=== PATIENT | female | born 1940 | race Caucasian/White ===

== ENCOUNTER → 2016-05-17 | Outpatient (CLI) | payer BC ==
[~2016-05-17] MED LIST: ASPI81TA28 PO; B-CO1CAP17 PO; CALCTAB76 PO; CHOL100010 PO; LEVO50TA PO; METO25TA56 PO; MULTTAB PO; RSTOPS OP
[2016-05-17 12:55] LABS: ALT/SGPT 18 U/L (12-78); BLOOD UREA NITROGEN 11 mg/dl (7-18); BUN/CREATININE RATIO 11.4 (10-20); CALCIUM 9.2 mg/dl (8.5-10.1); CARBON DIOXIDE 30 mmol/L (21-32); CHLORIDE 96 mmol/L (98-107); CHOLESTEROL 180 mg/dl (0-200); CREATININE 0.99 mg/dl (0.60-1.20); GLUCOSE 110 mg/dl (70-99); POTASSIUM 4.1 mmol/L (3.5-5.1); SODIUM 132 mmol/L (136-145); TRIGLYCERIDES 127 mg/dl (0-150); VERY LOW DENSITY LIPOPROT CALC 25 mg/dl
[2016-05-17 13:05] LABS: ALB/GLOB RATIO 1.1 (0.9-2); ALKALINE PHOSPHATASE 80 U/L (45-117); AST/SGOT 17 U/L (15-37); CHOLESTEROL/HDL RATIO 2.8; HDL CHOLESTEROL 65 mg/dl; LDL CHOLESTEROL CALCULATED 90 mg/dl
== END | disposition home or self-care (01) ==
LOC: C.LABPVFM 09:48
PROVIDERS: ATTEND Family Medicine
DX: R00.2 Palpitations (principal); E03.9 Hypothyroidism, unspecified; G43.109 Migraine with aura, not intractable, without status migrainosus; Z13.220 Encounter for screening for lipoid disorders

== ENCOUNTER → 2016-09-11 | Outpatient (CLI) | payer BC ==
[2016-09-11 17:17] LABS: BASO % 0.5 %; BASO ABS # 0.03 K/uL (0-0.2); COMPLETE YES; HEMATOCRIT 37.6 % (37-47); IG% 0.2 %; LYMPH ABS # 0.71 K/uL (1.2-3.4); MEAN CELL VOLUME 91.3 fL (80-100); MEAN CORPUSCULAR HEMOGLOBIN 30.3 pg (25-34); MEAN CORPUSCULAR HGB CONC 33.2 g/dl (32-36); MEAN PLATELET VOLUME 10.6 fL (7.4-10.4); MONO % 7.4 %; NEUT % 77.9 %; PLATELET COUNT 356 K/uL (130-400); RED BLOOD COUNT 4.12 M/uL (4.2-5.4); WHITE BLOOD COUNT 5.91 K/uL (4.8-10.8)
[2016-09-11 17:27] LABS: TOTAL IRON BINDING CAPACITY 352 mcg/dl (250-450)
== END | disposition home or self-care (01) ==
LOC: C.LABPVFM 10:13
PROVIDERS: ATTEND Nurse Practitioner Family
DX: C18.6 Malignant neoplasm of descending colon (principal)

== ENCOUNTER → 2016-09-18 | Outpatient (CLI) | payer BC ==
--- NOTE | 2016-09-18 13:56 | MAMMOGRAPHY REPORT ---
BILATERAL DIGITAL DIAGNOSTIC MAMMOGRAM TOMOSYNTHESIS WITH CAD: 09/18/2016 CLINICAL HISTORY: 1 year follow-up for a lymph node with associated coarse calcification in the far s uperior posterior right breast, projecting over the pectoralis muscle on the MLO view. History of pr ior benign surgery in the right breast. Also time of annual bilateral screening exam. TECHNIQUE: Bilateral CC and MLO 2-D and tomosynthesis images were obtained. Current study was also e valuated with a Computer Aided Detection (CAD) system. COMPARISON: Comparison is made to exams dated: 01/24/2016 mammogram, 01/24/2016 ultrasound, 09/20/2015 ultrasound, 09/20/2015 mammogram, 09/13/2015 mammogram, and 09/15/2013 mammogram - [facility] enter. BREAST COMPOSITION: There are scattered areas of fibroglandular density in both breasts. FINDINGS: The pattern of the glandular tissue in the anterior aspect of each breast is stable compare d to prior mammograms. There are stable benign-appearing punctate microcalcifications in the right b reast. No new suspicious mass, architectural distortion or cluster of microcalcifications is seen. There is an oval circumscribed mass with associated calcification in the superior posterior right brenton ast, projecting over the pectoralis muscle on the MLO view, that is stable in size dating back to at least 09/13/2015. Current measurements are 4.4 x 8.1 mm, and previously measured 5.2 x 8.8 mm. Give n slight differences in positioning this is considered stable. Although this lymph node was not seen on mammograms prior to 2015, given one-year stability is most likely benign. It may be related to p rior surgery which occurred in the posterior right breast. Another diagnostic mammogram in 12 months is recommended to ensure at least 2 years of stability to confirm benignity. IMPRESSION: ACR-BI-RADS CATEGORY 3: PROBABLY BENIGN 1. The morphologically normal 8 mm lymph node with associated calcification in the right superior pos terior breast is stable in size for 1 year and most likely benign. This is possibly related to previ ous surgery. Another 12 month follow-up diagnostic mammogram and possible ultrasound is recommended in 12 months, to ensure at least 2 years of stability to confirm benignity. 2. Otherwise stable mammographic appearance of both breasts, without mammographic evidence of malign waqar. These results and recommendations were discussed with the patient at the time of the exam. She tenta tively scheduled the follow-up appointment prior to leaving our department. Approximately 10% of breast cancers are not detected with mammography. A negative mammographic report should not delay biopsy if a clinically suggestive mass is present. Nicky Theodore M.D. ay/:09/18/2016 11:32:28 Board Hammer Operator: Deirdre FRANCO(R)(M), [facility] letter sent: Follow Up Recommended 3 BI-RADS Code: ACR-BI-RADS Category 3: Probably Benign
== END | disposition home or self-care (01) ==
LOC: C.MAMM 10:49
PROVIDERS: ATTEND Family Medicine
DX: R92.1 Mammographic calcification found on diagnostic imaging of breast (principal)

== ENCOUNTER → 2016-11-15 | Outpatient (CLI) | payer BC ==
[2016-11-15 13:48] LABS: BLOOD UREA NITROGEN 18 mg/dl (7-18); CREATININE 0.97 mg/dl (0.60-1.20); GLUCOSE 91 mg/dl (70-99)
[2016-11-15 13:49] LABS: ALT/SGPT 17 U/L (12-78); BUN/CREATININE RATIO 18.8 (10-20); CALCIUM 9.8 mg/dl (8.5-10.1); CARBON DIOXIDE 30 mmol/L (21-32); CHLORIDE 97 mmol/L (98-107); POTASSIUM 4.1 mmol/L (3.5-5.1); SODIUM 132 mmol/L (136-145)
[2016-11-15 13:51] LABS: ALB/GLOB RATIO 1.1 (0.9-2); ALKALINE PHOSPHATASE 75 U/L (45-117); AST/SGOT 20 U/L (15-37)
== END | disposition home or self-care (01) ==
LOC: C.LABPVFM 07:55
PROVIDERS: ATTEND Family Medicine
DX: E87.1 Hypo-osmolality and hyponatremia (principal)

== ENCOUNTER → 2017-05-16 | Outpatient (CLI) | payer BC ==
[2017-05-16 14:28] LABS: ALBUMIN 3.8 gm/dl (3.4-5.0); ALT/SGPT 20 U/L (12-78); AST/SGOT 20 U/L (15-37); BLOOD UREA NITROGEN 17 mg/dl (7-18); CALCIUM 9.3 mg/dl (8.5-10.1); CARBON DIOXIDE 28 mmol/L (21-32); CREATININE 0.97 mg/dl (0.60-1.20); GLUCOSE 86 mg/dl (70-99); POTASSIUM 3.8 mmol/L (3.5-5.1); SODIUM 131 mmol/L (136-145)
[2017-05-16 14:38] LABS: ALKALINE PHOSPHATASE 85 U/L (45-117); CHOLESTEROL 190 mg/dl (0-200); LDL CHOLESTEROL CALCULATED 106 mg/dl; TOTAL PROTEIN 7.6 gm/dl (6.4-8.2)
== END | disposition home or self-care (01) ==
LOC: C.LABPVFM 08:07
PROVIDERS: ATTEND Family Medicine
DX: R00.2 Palpitations (principal); E03.9 Hypothyroidism, unspecified; S22.000A Wedge compression fracture of unspecified thoracic vertebra, initial encounter for closed fracture; X58.XXXA Exposure to other specified factors, initial encounter; Z86.73 Personal history of transient ischemic attack (TIA), and cerebral infarction without residual deficits; E87.1 Hypo-osmolality and hyponatremia

== ENCOUNTER → 2017-09-20 | Outpatient (CLI) | payer BC ==
[~2017-09-20] MED LIST changes: -B-CO1CAP17 PO; +B-COCAP2 PO
[2017-09-20 12:58] LABS: BASO ABS # 0.06 K/uL (0-0.2); EOS % 2.6 %; EOS ABS # 0.16 K/uL (0-0.5); HEMOGLOBIN 13.1 g/dL (12.0-16.0); IG# 0.01 K/uL (0.00-0.02); LYMPH % 17.6 %; LYMPH ABS # 1.07 K/uL (1.2-3.4); MEAN CELL VOLUME 91.1 fL (80-100); MEAN CORPUSCULAR HEMOGLOBIN 30.6 pg (25-34); MEAN CORPUSCULAR HGB CONC 33.6 g/dl (32-36); MEAN PLATELET VOLUME 10.4 fL (7.4-10.4); MONO % 8.9 %; MONO ABS # 0.54 K/uL (0.11-0.59); NEUT % 69.7 %; NEUT ABS # 4.24 K/uL (1.4-6.5); PLATELET COUNT 384 K/uL (130-400); RED CELL DISTRIBUTION WIDTH CV 14.1 % (11.5-14.5); RED CELL DISTRIBUTION WIDTH SD 46.2 fL (36.4-46.3); RETIC COUNT % 0.9 % (0.5-2.0); WHITE BLOOD COUNT 6.08 K/uL (4.8-10.8)
[2017-09-20 13:22] LABS: ALBUMIN 3.6 gm/dl (3.4-5.0); ALKALINE PHOSPHATASE 79 U/L (45-117); ALT/SGPT 18 U/L (12-78); AST/SGOT 20 U/L (15-37); BLOOD UREA NITROGEN 18 mg/dl (7-18); CALCIUM 9.3 mg/dl (8.5-10.1); CARBON DIOXIDE 30 mmol/L (21-32); CREATININE 0.99 mg/dl (0.60-1.20); GLUCOSE 81 mg/dl (70-99); POTASSIUM 4.2 mmol/L (3.5-5.1); SODIUM 133 mmol/L (136-145); TOTAL PROTEIN 7.6 gm/dl (6.4-8.2)
== END | disposition home or self-care (01) ==
LOC: C.LABPVFM 07:49
PROVIDERS: ATTEND Nurse Practitioner Family
DX: C18.6 Malignant neoplasm of descending colon (principal); D50.9 Iron deficiency anemia, unspecified; R00.2 Palpitations; S22.000A Wedge compression fracture of unspecified thoracic vertebra, initial encounter for closed fracture; X58.XXXA Exposure to other specified factors, initial encounter; F32.9 Major depressive disorder, single episode, unspecified; E78.5 Hyperlipidemia, unspecified; Z86.73 Personal history of transient ischemic attack (TIA), and cerebral infarction without residual deficits

== ENCOUNTER → 2017-09-24 | Outpatient (CLI) | payer BC ==
--- NOTE | 2017-09-24 14:56 | MAMMOGRAPHY REPORT ---
BILATERAL DIGITAL DIAGNOSTIC MAMMOGRAM TOMOSYNTHESIS WITH CAD: 09/24/2017 CLINICAL HISTORY: 76-year-old woman presents at time of annual bilateral screening exam. Also close f ollow-up of a partially calcified normal sized and morphologically normal lymph node in the right axi lla. TECHNIQUE: Bilateral CC and MLO 2D and tomosynthesis images were obtained. Current study was also ev aluated with a Computer Aided Detection (CAD) system. COMPARISON: Comparison is made to exams dated: 09/18/2016 mammogram, 01/24/2016 mammogram, 09/20/2015 ma mmogram, and 09/13/2015 mammogram - [facility]. BREAST COMPOSITION: There are scattered areas of fibroglandular density in both breasts. FINDINGS: Again noted is an oval circumscribed mass with associated coarse calcification projecting o rhianna the right axillary region and pectoralis muscle on the MLO view, currently measuring 4 x 8 mm, pr eviously measured 9 x 5 mm on 09/13/2015. This is compatible with a partially calcified lymph node and given 2 years of stability is now considered benign. No new suspicious mass, asymmetry, architectur al distortion or cluster of microcalcifications is seen in the breasts. IMPRESSION: ACR BI-RADS CATEGORY 2: BENIGN Stable mammographic appearance of the breasts, including a partially calcified morphologically normal and normal-sized right axillary lymph node. This is unchanged for 2 years and is considered benign. Recommend return to annual screening mammography schedule, due in September 2018. These results and recommendations were discussed with the patient at the time of the exam. Some breast cancers are not detected with mammography. A negative mammographic report should not evgeny y biopsy if a clinically suggestive mass is present. Nicky Theodore M.D. ay/:09/24/2017 10:51:28 Paper Stacker: RT Jessica(June)(Jael), [facility] letter sent: Normal 1/2 BI-RADS Code: ACR BI-RADS Category 2: Benign
== END | disposition home or self-care (01) ==
LOC: C.MAMM 10:27
PROVIDERS: ATTEND Family Medicine
DX: R59.0 Localized enlarged lymph nodes (principal)

== ENCOUNTER 2022-09-17 14:55 | Inpatient (IN) ==
[2022-09-17] MEDS ORDERED: fentaNYL citrate PF 100 MCG/2 ML VIAL IV STA ×2 (15:31→17:38)
--- NOTE | 2022-09-17 15:35 | Emergency Department Note ---
Impression & Plan Acute pain of left knee, Ambulatory dysfunction, Chest pain, Closed rib fracture ED Provider Note HISTORY OF PRESENT ILLNESS: Patient is an 81-year-old female presenting with chest pain and left knee pain after a fall. Patient reports she was letting her dog out to go to the bathroom when she lost her footing and landed on a bent left knee. She had immediate pain to the left knee. She reports she also struck her chest on a metal lantern next to her patio. Denies striking her head or loss of consciousness. She is on Eliquis. She was able to get up on her own and physically dragged herself into the house and waited for her daughter to get home. The fall happened aroun d 10 AM this morning. She reports pain in the midsternal region and it hurts to take a deep breath. Denies any lightheadedness or dizziness or chest pain prior to the fall. She has a history of A-fib and is on Eliquis ROS: as above PHYSICAL EXAM: Constitutional: Patient appears in no acute distress. HENT: Head: Normocephalic and atraumatic. Eyes: EOMI, PERRL Mouth/Throat: Mucous membranes moist. Neck: Trachea midline. Neck supple. No midline cervical spine tenderness to palpation Cardiovascular: RRR, No murmurs, rubs or gallops. Intact distal pulses. Pulmonary/Chest: No respiratory distress. Breath sounds clear and equal bi laterally. No wheezes or rales. Tenderness to palpation over the sternum and the left chest. No evidence of ecchymosis or flail chest Abdominal: Abdomen soft, no tenderness, rebound or guarding. Musculoskeletal: - LLE: Swelling and ecchymosis to the anterior knee. Patient is able to flex and extend but does complain of pain with this motion. Sensation intact to light touch throughout the nerve distributions of the leg. Intact DP pulses. Able to dorsiflex and plantarflex at the ankle Skin: Warm and dry. No rash, erythema, pallor or cyanosis Psychiatric: Appropriate mood and affect for situation. Neurological: Alert and keenly responsive. CN II-XII grossly intact, moving all extremities equally and fully. MDM: - Vitals signs stable. - History obtained via patient. Patient presents with chest pain and left knee pain after a fall. Patient reports she lost her balance while out side and landed on her left knee on a piece of concrete. She reports he then fell forward and struck her chest on a piece of metal equipment. Denies striking her head or loss of consciousness. Denies any abdominal pain. Currently complaining of some pleuritic chest pain and left knee pain. She is on Eliquis for history of A-fib - Chronic conditions affecting care: Afib; HTN; HLD - Differential diagnoses include, but are not limited to: Pneumothorax; rib fracture; sternal fracture; patellar fracture; ACS - Order placed for continuous cardiac monitoring. At this time, monitor showed rate of 80 bpm with normal sinus rhythm, per my interpretation. - External medical records reviewed. - EKG reviewed by myself showed normal sinus rhythm. Rate 80 bpm. QTc 414. No acute ischemic changes. - Laboratory workup ordered, but significant delay in nursing staff obtaining it. - CXR negative for pneumothorax, per my interpretation - CT chest showed concern for new left-sided nondisplaced rib fracture - Xray left knee showed patellar swelling. - Patient was given 50 mcg of IV fentanyl in the ER. On reassessment, she reports she is having continued pain. Ordered an additional 50 mcg of IV fentanyl. Patient is unable to ambulate secondary to significant amounts of pain in her knee and her chest. She does not feel she can go home like this and her daughter who is her primary chronic care nurse does not think she can take care of her. - Discussion was had with social security assessor about patient's case and need for admission - Hospitalist consulted for admission - Patient admitted to [facility] for further evaluation and management. ASSESSMENT AND PLAN: Diagnosis: Fall from standing; left knee pain; chest pain; left-sided rib fracture; ambulatory dysfunction Plan: Discharge Past Med/Surg History Medical History Atrial fibrillation follows with Dr. Edgar, reason for eliquis daily Calcium blood increased Crohns disease Encounter for pre-operative examination History of kidney stones Hyperlipidemia Hypertension Ocular migraine On anticoagulant therapy eliquis daily Osteoarthritis Osteoporosis Palpitations Positive colorectal cancer screening using Cologuard test Surgical History History of appendectomy History of bilateral cataract extraction History of cardiac cath 04/2010 Dr. Linn @ [facility], no stents History of cholecystectomy History of colectomy subtotal with ileocolic anastomosis History of colon surgery 06/2008 History of colonoscopy with polypectomy History of esophagogastroduodenoscopy (EGD) History of incision and drainage right arm--infected after fx History of kyphoplasty History of Percutaneous Vertebral Augmentation Kyphoplasty History of mitral valve repair 04[place]2012 [place] [facility] [place] History of tonsillectomy History of tooth extraction all teeth History of total left knee replacement (TKR) History of total right knee replacement (TKR) History of umbilical hernia repair Previous back surgery 11/07/2012 Family History Sister Hearing loss Breast cancer Cancer Grandmother (Paternal) No problems noted. Father No problems noted. Sister Osteoporosis Brother Osteoporosis Mother Osteoporosis Other No family history of adverse response to anesthesia Denies family history of Ovarian cancer Prostate cancer Myocardial infarction Colorectal cancer Social History Smoking Status: Never smoker Second Hand Exposure: No; Do You Dip or Chew Tobacco: No; Hx Alcohol Use: No Hx Substance Use: No Preferred Language: Greenlandic Communication Ability: Effective Hearing Ability: Normal Club Former Required: No Beliefs That Will Affect Care: None marital status: / Current Living Situation: Family Current Living Situation Comment: Lives with daughter current occupational status: retired How many Children do You have: 1 Feels Safe at Home: Yes Childhood Exposure to Second-Hand Smoke: No Diet: regular caffeine: No Dental Care, Regularly: Yes Physical Activity Frequency: Daily Seatbelt Use: always Sunscreen Use: No Assistive Devices: Cane, Denture - Lower and Glasses Allergies Allergies Allergy/AdvReac Type Severity Reaction Status Date / Time codeine Allergy Mild LIGHTHEADED Verified 09/06/22 11:25 NESS verapamil Allergy Mild PALPITATION Verified 09/06/22 11:25 S Home Meds Home Medications Medication Instructions Recorded Confirmed vitamin B complex 1 tab PO QAM 10/02/18 09/17/22 aspirin 81 mg tablet,delayed 81 mg PO HS 03/20/19 09/17/22 release ascorbic acid (vitamin C) 500 mg 500 mg PO DAILY 02/18/20 09/17/22 tablet calcium carbonate 500 mg-vitamin 1 tab PO DAILY 05/31/20 09/17/22 D3 5 mcg (200 unit) tablet cholecalciferol (vitamin D3) 50 2,000 unit PO DAILY 05/31/20 09/17/22 mcg (2,000 unit) capsule B comp 3-folic acid 1 mg-C 60 1 tab PO DAILY 06/01/21 09/17/22 mg-biotin 300 mcg-zinc ox 12.5 mg tablet cranberry fruit 450 mg tablet 450 mg PO BID 10/25/21 09/17/22 (cranberry) multivitamin 1 tab PO DAILY 10/25/21 09/17/22 triamcinolone acetonide 0.1 % 1 applic topical BID PRN flare ups 09/17/22 09/17/22 topical cream Previous Rx's Medication Instructions Recorded alendronate 70 mg tablet 70 mg PO WK #12 tabs 02/15/22 rosuvastatin 20 mg tablet (Crestor) 20 mg PO DAILY 30 days #90 tabs 02/15/22 apixaban 5 mg tablet 5 mg PO BID #180 tabs 02/20/22 metoprolol tartrate 25 mg tablet 25 mg PO BID #180 tabs 02/20/22 amoxicillin 500 mg tablet 2,000 mg PO ONCE #4 tabs 08/16/22 Results & Data (ED) Vital Signs Vital Signs - 24 hr 09/17/22 14:46 09/17/22 15:15 09/17/22 15:31 Temperature 36.3 C L Temperature Source Oral Pulse Rate 81 79 Pulse Rhythm Regular Pulse Strength Normal Respiratory Rate 18 Respiratory Effort / Characteristics Non-Labored Spontaneous Respiratory Depth Normal Respiratory Pattern Regular Blood Pressure 129/79 Blood Pressure Mean 95 Blood Pressure Position Lying Pulse Oximetry 97 97 Oxygen Delivery Method Room Air Room Air Sepsis Recent Fever Within 48 Hours No Sepsis New/Unexplained Change in Mental Status No Sepsis Action Taken by Nursing No Action Required Laboratory Data 09/17/22 17:30 09/17/22 17:30 Administered Medications Discontinued Medications Fentanyl Citrate (Fentanyl Citrate Pf 100 Mcg/2 Ml Vial) 50 mcg IV NOW STA Stop: 09/17/22 15:32 Last Admin: 09/17/22 15:58 Dose: 50 mcg Documented By: LE Imaging Data Radiologist's Impression: Chest CT 09/17/22 15:31 CT chest diagnostic wo con CT DOSE: 206.81 mGy.cm HISTORY: sternal chest pain after fall from standing TECHNIQUE: Multiaxial CT images of the chest were performed without contrast. A dose lowering technique was utilized adhering to the principles of ALARA. COMPARISON: None. FINDINGS: Severe compression deformity at T8 and a moderate compression deformi ty at T9 remain unchanged. These are likely chronic. Prior kyphoplasty at T9 again noted. Focal deformity within the mid sternum favors an old, healed fracture. There is an acute nondisplaced left anterior fourth rib fracture on image 150. Focal deformity within the left anterior second and third ribs consistent with age indeterminate fractures. Multiple additional old, healed bilateral rib fractures are noted. The central airways are patent. No pneumothorax. No pleural effusions is a punctate calcified granuloma within the left lung apex. Mild biapical pleural-parenchymal scarring is noted. A few bibasilar linear densities favor scarring or subsegmental atelectasis. Otherwise, no focal lung consolidations to suggest a pneumonia. No evidence for pulmonary edema. Limited views of the upper abdomen demonstrate a normal liver, spleen, and adrenal glands. Right-sided nephrolithiasis. Normal esophagus. No mediastinal or hilar lymphadenopathy. Severe coronary artery calcifications are noted. The heart is mildly enlarged. No pericardial effusion. No mediastinal hematoma identified. Calcified plaque within the thoracic aorta. There is mild aneurysmal dilatation of the ascending thoracic aorta measuring up to 4.1 cm in diameter. IMPRESSION: 1. An acute nondisplaced left anterior fourth rib fracture. Focal deformity within the left anterior second and third ribs are age indeterminate but may also represent acute fractures. 2. No pneumothorax. 3. Focal deformity within the mid sternum favors an old, healed fracture. 4. Multiple additional old fractures as described above. 5. Additional findings as described above. ACT 112: Negative or not required by law. Electronically signed by: Abhinav Guerrero M.D. 09/17/2022 4:49 PM Chest X-Ray 09/17/22 15:31 SINGLE VIEW CHEST CLINICAL HISTORY: Fall. FINDINGS: 2 AP, portable, upright chest radiographs are compared to study dated 10/25/2021. The examination is degraded by portable technique and patient rotation. There is evidence of previous cardiac valve surgery. Epicardial leads are in place. The heart is enlarged noting atherosclerotic calcification and uncoiling of the thoracic aorta. The pulmonary vasculature is noncongested. Chronic interstitial thickening is similar to previous. There is bibasilar scarring/atelectasis. No airspace consolidation or large pleural effusion is identified. No pneumothorax is seen. The bony skeletal structures are osteopenic. There is evidence of a prior thoracic compression deformity with vertebroplasty. There are chronic/healed right-sided rib fractures. IMPRESSION: No acute cardiopulmonary abnormality is identified. ACT 112: Negative or not required by law. Electronically signed by: Teto Haddad M.D. 09/17/2022 4:20 PM Knee X-Ray 09/17/22 15:31 LEFT KNEE 3 VIEWS CLINICAL HISTORY: Fall with left knee injury. FINDINGS: AP, crosstable lateral, and sunrise views of the left knee are compared to study dated 05/24/2006. The skeletal structures are osteopenic. A left knee arthroplasty is in near anatomic alignment. No periprosthetic lucency is identified. There has been undersurface remodeling of the patella. No acute fractures identified. There is a joint effusion with questionable lipohemarthrosis. Marked prepatellar soft tissue swelling is observed. A chronic Padmini-Stieda lesion is seen along the medial femoral condyle. There is advanced atherosclerotic calcification of the popliteal artery. IMPRESSION: 1. Marked prepatellar soft tissue swelling with no acute fracture identified. 2. There is a joint effusion with questionable lipohemarthrosis. If there is strong suspicion for occult fracture a CT scan should be obtained. 3. A left knee arthroplasty is in near anatomic alignment. Electronically signed by: Teto Haddad M.D. 09/17/2022 5:13 PM Discharge Plan Visit Data Chief Complaint: Fall Stated Complaint: FALL ED Provider: Mayelin Boyd Discharge Problem: Acute pain of left knee, Ambulatory dysfunction, Chest pain, Closed rib fracture Forms Stand Alone Forms: [facility] [place] Prescriptions Prescriptions: No Action rosuvastatin [Crestor] 20 mg tablet 20 mg PO DAILY 30 Days Qty: 90 3RF alendronate 70 mg tablet 70 mg PO WK Qty: 12 3RF Rx Instructions: Saturday apixaban 5 mg tablet 5 mg PO BID Qty: 180 3RF metoprolol tartrate 25 mg tablet 25 mg PO BID Qty: 180 3RF amoxicillin 500 mg tablet 2,000 mg PO ONCE Qty: 4 3RF Rx Instructions: 4 tabs 1 hour prior to procedure. Dental appointments. ascorbic acid (vitamin C) 500 mg tablet 500 mg PO DAILY calcium carbonate-vitamin D3 500 mg(1,250mg) -200 unit tablet 1 tab PO DAILY cholecalciferol (vitamin D3) 50 mcg (2,000 unit) capsule 2,000 unit PO DAILY vitamin B complex tablet 1 tab PO QAM B comp [id number]-biotin-zinc [id number] az-te-qgi-mg tablet 1 tab PO DAILY aspirin 81 mg Tablet,Delayed Release (Dr/Ec) 81 mg PO HS triamcinolone acetonide 0.1 % cream 1 applic topical BID PRN (Reason: flare ups) multivitamin Tablet 1 tab PO DAILY cranberry 450 mg Tablet 450 mg PO BID Rx Instructions: administer with meals Referrals Referrals: Magali Javier MD [Primary Care Provider] -
--- NOTE | 2022-09-17 16:21 | XRay Report ---
SINGLE VIEW CHEST CLINICAL HISTORY: Fall. FINDINGS: 2 AP, portable, upright chest radiographs are compared to study dated 10/25/2021. The examin ation is degraded by portable technique and patient rotation. There is evidence of previous cardiac valve surgery. Epicardial leads are in place. The heart is enlarged noting atherosclerotic calcificat ion and uncoiling of the thoracic aorta. The pulmonary vasculature is noncongested. Chronic interstit ial thickening is similar to previous. There is bibasilar scarring/atelectasis. No airspace consolida tion or large pleural effusion is identified. No pneumothorax is seen. The bony skeletal structures a re osteopenic. There is evidence of a prior thoracic compression deformity with vertebroplasty. There are chronic/healed right-sided rib fractures. IMPRESSION: No acute cardiopulmonary abnormality is identified. ACT 112: Negative or not required by law. Electronically signed by: Teto Haddda M.D. 09/17/2022 4:20 PM
--- NOTE | 2022-09-17 16:50 | CT Scan Report ---
CT chest diagnostic wo con CT DOSE: 206.81 mGy.cm HISTORY: sternal chest pain after fall from standing TECHNIQUE: Multiaxial CT images of the chest were performed without contrast. A dose lowering techni que was utilized adhering to the principles of ALARA. COMPARISON: None. FINDINGS: Severe compression deformity at T8 and a moderate compression deformity at T9 remain unchan ged. These are likely chronic. Prior kyphoplasty at T9 again noted. Focal deformity within the mid st ernum favors an old, healed fracture. There is an acute nondisplaced left anterior fourth rib fractur e on image 150. Focal deformity within the left anterior second and third ribs consistent with age in determinate fractures. Multiple additional old, healed bilateral rib fractures are noted. The central airways are patent. No pneumothorax. No pleural effusions is a punctate calcified granuloma within t he left lung apex. Mild biapical pleural-parenchymal scarring is noted. A few bibasilar linear densit ies favor scarring or subsegmental atelectasis. Otherwise, no focal lung consolidations to suggest a pneumonia. No evidence for pulmonary edema. Limited views of the upper abdomen demonstrate a normal l iver, spleen, and adrenal glands. Right-sided nephrolithiasis. Normal esophagus. No mediastinal or hi lar lymphadenopathy. Severe coronary artery calcifications are noted. The heart is mildly enlarged. N o pericardial effusion. No mediastinal hematoma identified. Calcified plaque within the thoracic aort a. There is mild aneurysmal dilatation of the ascending thoracic aorta measuring up to 4.1 cm in diam eter. IMPRESSION: 1. An acute nondisplaced left anterior fourth rib fracture. Focal deformity within the left anterior second and third ribs are age indeterminate but may also represent acute fractures. 2. No pneumothorax. 3. Focal deformity within the mid sternum favors an old, healed fracture. 4. Multiple additional old fractures as described above. 5. Additional findings as described above. ACT 112: Negative or not required by law. Electronically signed by: Abhinav Guerrero M.D. 09/17/2022 4:49 PM
--- NOTE | 2022-09-17 17:14 | XRay Report ---
LEFT KNEE 3 VIEWS CLINICAL HISTORY: Fall with left knee injury. FINDINGS: AP, crosstable lateral, and sunrise views of the left knee are compared to study dated 05/24. The skeletal structures are osteopenic. A left knee arthroplasty is in near anatomic alignment . No periprosthetic lucency is identified. There has been undersurface remodeling of the patella. No acute fractures identified. There is a joint effusion with questionable lipohemarthrosis. Marked prep atellar soft tissue swelling is observed. A chronic Padmini-Stieda lesion is seen along the medial femoral condyle. There is advanced atherosclerotic calcification of the popliteal artery. IMPRESSION: 1. Marked prepatellar soft tissue swelling with no acute fracture identified. 2. There is a joint effusion with questionable lipohemarthrosis. If there is strong suspicion for occ ult fracture a CT scan should be obtained. 3. A left knee arthroplasty is in near anatomic alignment. Electronically signed by: Teto Haddad M.D. 09/17/2022 5:13 PM
[2022-09-17 17:48] LABS: Basophils # (auto) 0.02 K/uL (0-0.2); Basophils % (auto) 0.2 %; Eosinophils # (auto) 0.02 K/uL (0-0.50); Eosinophils % (auto) 0.2 %; Hematocrit (blood only) 28.9 % (37.0-47.0); Hemoglobin 9.9 g/dl (12.0-16.0); Immature Granulocytes # (auto) 0.05 K/uL (0.01-0.20); Immature Granulocytes % (auto) 0.4 %; Lymphocytes # (auto) 0.64 K/uL (1.2-3.4); Lymphocytes % (auto) 4.8 %; Mean Corpuscular Hemoglobin 31.6 pg (25.0-34.0); Mean Corpuscular Hgb Conc 34.3 g/dL (32.0-36.0); Mean Corpuscular Volume 92.3 fL (80.0-100.0); Mean Platelet Volume 10.3 fL (9.4-12.4); Monocytes # (auto) 0.84 K/uL (0.11-0.59); Monocytes % (auto) 6.4 %; Neutrophils # (auto) 11.65 K/uL (1.40-6.50); Platelet Count 298 K/uL (130-400); RDW Coefficient of Variation 13.3 % (11.5-14.5); RDW Standard Deviation 44.7 fL (36.4-46.3); Red Blood Count 3.13 M/uL (4.20-5.40); White Blood Count 13.22 K/ul (4.8-10.8)
--- NOTE | 2022-09-17 18:56 | History & Physical Report ---
Date of Service September 17, 2022 Assessment & Plan (1) Fall: (2) Traumatic hemarthrosis of left knee: (3) Closed rib fracture: (4) Atrial fibrillation: (5) Ambulatory dysfunction: (6) Hyperlipidemia: (7) Hypertension: (8) H/O mitral valve replacement: Plan #Fall - Fall due to loss of footing when she was letting her dog out, was not using her cane as she normally does, no syncope or presyncope at the time, no head trauma - Admit for observation - patient is overall stable and pain is being managed but she has limited ambulatory function and would not be appropriate for immediate discharge home due to safety concerns - Recommend PT/OT evaluation - Pain control with scheduled Tyenol and prn Tramadol, morphine for breakthrough pain #Traumatic Hemarthrosis of Left Knee - As above - Hold Eliquis at this time due to large hemarthrosis - recommend ice and compression #Closed Rib Fracture - Incentive spirometry, otherwise as above #Ambulatory Dysfunction - Fall precautions, otherwise as above #Atrial Fibrillation - Hold Eliquis due to hemarthrosis of left knee # HLD - Continue Crestor #HTN - Continue Metoprolol Admission and Anticipated Discharge Date Admission Date: 09/17/2022 History of Present Illness Chief Complaint: Fall Primary Care Provider: Magali Javier MD Pt is an 81 year old female with h/o Afib on Eliquis presenting after a fall in which she hit her chest and left knee earlier this morning. Pt was unable to get up on her own, had to drag herself across the house to call for help. Denies head trauma or loss of consciousness. Patient notes that she experiences significant pain when she tries to take a deep breath or move her left knee. Patient rates current pain as 10/10, has been receiving fentanyl in the ED for pain control, which has been helpful. Patient lives with daughter in a single story home but is fairly independent and completes her own ADLs. Daughter expresses concern about increased level of care that mother is likely to require following discharge. ED Course: Chest x-ray without significant cardiopulmonary abnormality. Chest CT significant for acute, nondisplaced fracture of left anterior fourth rib, focal deformities of second and third ribs are age indeterminate, mid- sternal focal deformity favors old, healed fracture. Left knee x-ray shows prepatellar swelling, no acute fracture identified, left knee arthroplasty in alignment EKG without ischemic changes, rate 80, QTc 442 Labs pending Allergies Allergy/AdvReac Type Severity Reaction Status Date / Time codeine Allergy Mild LIGHTHEADED Verified 09/06/22 11:25 NESS verapamil Allergy Mild PALPITATION Verified 09/06/22 11:25 S Home Medications Medication Instructions Recorded Confirmed Type vitamin B complex 1 tab PO QAM 10/02/18 09/17/22 History aspirin 81 mg tablet,delayed 81 mg PO HS 03/20/19 09/17/22 History release ascorbic acid (vitamin C) 500 mg 500 mg PO DAILY 02/18/20 09/17/22 History tablet calcium carbonate 500 mg-vitamin 1 tab PO DAILY 05/31/20 09/17/22 History D3 5 mcg (200 unit) tablet cholecalciferol (vitamin D3) 50 2,000 unit PO DAILY 05/31/20 09/17/22 History mcg (2,000 unit) capsule B comp 3-folic acid 1 mg-C 60 1 tab PO DAILY 06/01/21 09/17/22 History mg-biotin 300 mcg-zinc ox 12.5 mg tablet cranberry fruit 450 mg tablet 450 mg PO BID 10/25/21 09/17/22 History (cranberry) multivitamin 1 tab PO DAILY 10/25/21 09/17/22 History alendronate 70 mg tablet 70 mg PO WK #12 tabs 02/15/22 09/17/22 Rx rosuvastatin 20 mg tablet (Crestor) 20 mg PO DAILY 30 days #90 tabs 02/15/22 09/17/22 Rx apixaban 5 mg tablet 5 mg PO BID #180 tabs 02/20/22 09/17/22 Rx metoprolol tartrate 25 mg tablet 25 mg PO BID #180 tabs 02/20/22 09/17/22 Rx amoxicillin 500 mg tablet 2,000 mg PO ONCE #4 tabs 08/16/22 09/17/22 Rx triamcinolone acetonide 0.1 % 1 applic topical BID PRN flare ups 09/17/22 09/17/22 History topical cream Past Med/Surg History Medical History Atrial fibrillation follows with Dr. Edgar, reason for eliquis daily Calcium blood increased Crohns disease Encounter for pre-operative examination History of kidney stones Hyperlipidemia Hypertension Ocular migraine On anticoagulant therapy eliquis daily Osteoarthritis Osteoporosis Palpitations Positive colorectal cancer screening using Cologuard test Surgical History History of appendectomy History of bilateral cataract extraction History of cardiac cath 04/2010 Dr. Linn @ [facility], no stents History of cholecystectomy History of colectomy subtotal with ileocolic anastomosis History of colon surgery 06/2008 History of colonoscopy with polypectomy History of esophagogastroduodenoscopy (EGD) History of incision and drainage right arm--infected after fx History of kyphoplasty History of Percutaneous Vertebral Augmentation Kyphoplasty History of [place] valve [place] [facility] [place]illectomy History of tooth extraction all teeth History of total left knee replacement (TKR) History of total right knee replacement (TKR) History of umbilical hernia repair Previous back surgery 11/07/2012 Family History Sister Hearing loss Breast cancer Cancer Grandmother (Paternal) No problems noted. Father No problems noted. 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 Required: No Beliefs That Will Affect Care: None marital status: / Current Living Situation: Family Current Living Situation Comment: Lives with daughter current occupational status: retired How many Children do You have: 1 Other Information That Helps Us Care for You: No Feels Safe at Home: Yes Safety Concerns: Feels Safe At This Time Childhood Exposure to Second-Hand Smoke: No Diet: regular caffeine: No Dental Care, Regularly: Yes Physical Activity Frequency: Daily Seatbelt Use: always Sunscreen Use: No Assistive Devices: Cane and Walker Review of Systems Review of Systems: All systems reviewed & are unremarkable except as noted in HPI & below Physical Exam Constitutional: + thin and + frail appearing; no acute distress Respiratory: lungs clear to auscultation bilaterally, restriction in excursion due to pain Cardiovascular: RRR, no murmur, no edema Gastrointestinal (Abdomen): Inspection/Auscultation: normal bowel sounds Musculoskeletal: Anterior chest wall tender to palpation on the left Left knee ecchymotic, patient unable to actively or passively flex or extend knee but is able to plantarflex and dorsiflex ankle. Distal pulses intact. Sensation intact Skin: no rashes, warm and dry Neurologic: AOx4. Sensation intact throughout Psychiatric: A+Ox3, euthymic affect Results & Data Results & Data Vital Signs (Past 12 Hours) Vital Signs Temp Pulse Resp BP Pulse Ox O2 Del Method 09/17/22 18:00 84 28 H 145/74 H 97 Room Air 09/17/22 17:30 85 33 H 154/77 H 97 Room Air 09/17/22 17:00 74 28 H 158/83 H 97 09/17/22 16:00 82 29 H 170/71 H 97 Room Air 09/17/22 15:30 76 25 H 161/70 H 96 Room Air 09/17/22 15:31 97 Room Air 09/17/22 15:15 79 09/17/22 14:46 36.3 C L 81 18 129/79 97 Room Air Supervising Physician Co-Signing Physician Notes I personally saw and examined the patient. I verified all lantigua points and agree with resident physician Dr Chris Hawkins, with the following exceptions and/or additions: 81 year old female presents to the ER after a mechanical fall when she didn't use her cane while letting the dog out. Fell on left side with left knee pain and chest pain after falling. O/E A&Ox3, HS RRR, no murmurs, Chest CTAB, Abdo SNT, left knee with ecchymosis and effusion, no groin pain on int/ext rotation of hip A/P Fall - no concerning symptoms prior, RI/OT Traumatic hemarthrosis of left knee - ice, compression, hold Eliquis and aspirin temporarily, can restart aspirin tomorrow. Will defer to oncoming providers regarding Rib fracture - incentive spirometer, acetaminophen LIZANDRO, tramadol 1st line, morphine second line Resident Activity Tracking Resident Involvement: Resident Care Provided Care Provided: Adult Hospital Medicine
--- NOTE | 2022-09-17 19:42 | Electrocardiogram Report ---
Test Reason : Blood Pressure : / mmHG Vent. Rate : 080 BPM Atrial Rate : 080 BPM P-R Int : 190 ms QRS Dur : 082 ms QT Int : 384 ms P-R-T Axes : 089 -29 035 degrees QTc Int : 442 ms Sinus rhythm with Premature atrial complexes Minimal voltage criteria for LVH, may be normal variant Borderline ECG When compared with ECG of 25-OCT-2021 11:45, Premature atrial complexes are now Present T wave amplitude has decreased in Lateral leads Confirmed by Anatoly Gomes ([id number]) on 09/17/2022 7:41:28 PM Referred By: Confirmed By:Sean Gomes
[2022-09-17 19:58] LABS: INR 1.1 (0.9-1.1); Prothrombin Time 12.2 Seconds (9.0-12.0)
[2022-09-17 21:04] LABS: Albumin Level 4.1 gm/dl (3.4-5.0); Calcium 9.8 mg/dl (8.6-10.3); Potassium 4.3 mmol/L (3.5-5.1)
[2022-09-17 21:10] LABS: Albumin Globulin Ratio 1.2 (0.9-2); BUN Creatinine Ratio 21.3 (10-20); Creatinine Clr Calc Pharmacy 41.7 ml/min; Est GFR (African American) 69.5 ml/min; Est GFR (Non-African American) 59.9 ml/min; Globulin 3.3 gm/dl (2.5-4.0); Total Protein 7.4 gm/dl (6.0-8.3)
[2022-09-17] MEDS ORDERED: NON-FORMULARY MEDICATION (Amoxicillin 500 mg tablet) PO SCH (21:38)
[2022-09-17] MEDS ORDERED: NON-FORMULARY MEDICATION (Cranberry Fruit [Cranberry] 450 mg Tablet) PO SCH (21:38)
[2022-09-17] MEDS ORDERED: ONDANSETRON INJ 2 MG/ML 2 ML VIAL IV PRN (21:38)
[2022-09-17] MEDS ORDERED: TRIAMCINOLONE ACET 0.1% CR 15 GM TUBE TOP PRN (21:38)
[2022-09-17] MEDS ORDERED: ASPIRIN 81 MG ECTAB PO SCH (21:45)
[2022-09-17] MEDS: traMADol HCL 50 MG TABLET PO PRN (22:10)
[2022-09-17] MEDS: METOPROLOL TARTRATE 25 MG TAB PO SCH (22:24)
[2022-09-17] MEDS: ACETAMINOPHEN 500 MG TAB PO SCH (22:24)
[2022-09-17] MEDS: MELATONIN 3 MG TAB PO PRN (22:40)
[2022-09-18] MEDS: MoRPHine SULFATE 4 MG/ML 1 ML CARP\\VIAL IV PRN ×2 (00:09→05:05)
[2022-09-18 05:37] LABS: Appearance Urine Cloudy (Clear); Bacteria Urine Automated Negative (Negative); Blood Urine 2+ (Negative); Color Urine Dark Yellow; Epithelial Cell Urine Auto >30 /lpf (0-5); Glucose Urine UA Negative (Negative); Ketones Urine 1+ (Negative); Leukocyte Esterase Urine Trace (Negative); Nitrite Urine Negative (Negative); Protein Urine 1+ (Negative); RBC Urine Automated >30 /hpf (0-4); Specific Gravity Urine 1.021 (1.000-1.030); Urobilinogen Urine Negative (Negative); pH Urine 5.5 (4.5-7.5)
[2022-09-18 05:59] LABS: Bilirubin Urine 1+ (Negative)
--- NOTE | 2022-09-18 09:01 | Hospitalist Progress Note ---
Date of Service September 18, 2022 Assessment & Plan (1) Fall: Plan: Admits to not using cane when taking out dog PT and OT ordered, suspect need for rehab on discharge (2) Ambulatory dysfunction: Plan: Chronic, fall was while not using assistive device, see above (3) Traumatic hemarthrosis of left knee: Plan: Fortunately without evidence of fractures on XR imaging, can consider CT imaging if clinical suspicion of fracture arises Continue ice, compression, scheduled Tylenol, prn tramadol (adjusted due to drowsiness and nausea today) Resume aspirin, likely resume Eliquis tomorrow as long as H/H stays stable Bowel regimen as needed while on opiates for severe pain (4) Anemia: Plan: CBC reviewed, Hgb 11.0 prior to admission, now down to 9.8 and stable x24 hours in the setting of fall and traumatic LEFT knee injury (5) Atrial fibrillation: Plan: History of, typically on metoprolol tartrate 25mg BID, continue, HR in normal range on vitals checks, no need for telemetry at this time Holding Eliquis until AM H/H Admission and Anticipated Discharge Date Admission Date: September 17, 2022 Subjective Pain in sternum and left knee from fall, with some nausea after receiving morphine around breakfast/lunch. No other symptoms. Physical Exam Constitutional: WD/WN, vitals as above Respiratory: normal respiratory effort, lungs clear to auscultation Cardiovascular: RRR, no murmur, no edema Chest (Breasts): Additional Comments: TTP over left sternum Gastrointestinal (Abdomen): normal bowel sounds, soft, nontender, no hepatosplenomegaly Musculoskeletal: left knee swelling and ecchymosis noted Skin: no rashes, warm and dry Psychiatric: A+Ox3, euthymic affect Results & Data Results & Data Vital Signs (Past 12 Hours) Vital Signs Temp Pulse Pulse Resp BP BP Pulse Ox 09/18/22 07:53 36.9 C 91 H 16 112/64 92 09/17/22 21:49 09/17/22 21:38 37.1 C 90 18 159/88 H 96 09/17/22 21:00 91 H 20 150/85 H 97 O2 Del Method 09/18/22 07:53 Room Air 09/17/22 21:49 Room Air 09/17/22 21:38 Room Air 09/17/22 21:00 Room Air PG Care Time/CCT Total # of Minutes Spent Total Time Spent with Patient: Total time spent is greater than 50% in coordination of care (as documented) at patient's floor/unit and/or counseling patient: Coding Level of Care Code 86757 SUB INP/OBS CARE 3/50MIN Diagnoses Fall W19.XXXA Ambulatory dysfunction R26.2 Traumatic hemarthrosis of left knee S83.92XA Anemia D64.9 Atrial fibrillation I48.91
[2022-09-18] MEDS: MULTIVITAMIN TAB PO SCH (09:07)
[2022-09-18] MEDS: ASCORBIC ACID 500 MG TAB PO SCH (09:07)
[2022-09-18] MEDS: ROSUVASTATIN CALCIUM 20 MG TAB PO SCH (09:07)
[2022-09-18] MEDS: VITAMIN B COMPLEX TAB PO SCH (09:07)
[2022-09-18] MEDS: CALCIUM 600MG + VIT D 400 IU TAB PO SCH (09:07)
[2022-09-18] MEDS: METOPROLOL TARTRATE 25 MG TAB PO SCH ×2 (09:07→20:12)
[2022-09-18] MEDS: CHOLECALCIFEROL 1,000 UNITS 25 MCG TAB PO SCH (09:07)
[2022-09-18] MEDS: ACETAMINOPHEN 500 MG TAB PO SCH ×3 (09:08→20:13)
[2022-09-18 09:55] LABS: Hematocrit (blood only) 29.2 % (37.0-47.0); Hemoglobin 9.8 g/dl (12.0-16.0); Mean Corpuscular Hemoglobin 32.1 pg (25.0-34.0); Mean Corpuscular Hgb Conc 33.6 g/dL (32.0-36.0); Mean Corpuscular Volume 95.7 fL (80.0-100.0); Mean Platelet Volume 9.7 fL (9.4-12.4); Platelet Count 318 K/uL (130-400); RDW Coefficient of Variation 13.3 % (11.5-14.5); RDW Standard Deviation 47.5 fL (36.4-46.3); Red Blood Count 3.05 M/uL (4.20-5.40); White Blood Count 9.26 K/ul (4.8-10.8)
--- NOTE | 2022-09-18 10:52 | Billing Data ---
Date of Service September 17, 2022 Coding Level of Care Code 02954 INT INP/OBS CARE
[2022-09-18] MEDS ORDERED: SODIUM CHLORIDE 0.9% 1000ML 500 ML IV ONE (16:32)
[2022-09-18] MEDS ORDERED: POLYETHYLENE (MIRALAX) 17 GM PACK PO PRN (19:21)
[2022-09-18] MEDS: ASPIRIN 81 MG ECTAB PO SCH (20:12)
[2022-09-18] MEDS: MELATONIN 3 MG TAB PO PRN (20:16)
[2022-09-19] MEDS: ACETAMINOPHEN 500 MG TAB PO SCH ×3 (08:32→21:58)
[2022-09-19] MEDS: CALCIUM 600MG + VIT D 400 IU TAB PO SCH (08:33)
[2022-09-19] MEDS: ASCORBIC ACID 500 MG TAB PO SCH (08:33)
[2022-09-19] MEDS: CHOLECALCIFEROL 1,000 UNITS 25 MCG TAB PO SCH (08:33)
[2022-09-19] MEDS: VITAMIN B COMPLEX TAB PO SCH (08:34)
[2022-09-19] MEDS: METOPROLOL TARTRATE 25 MG TAB PO SCH ×2 (08:34→21:58)
[2022-09-19] MEDS: ROSUVASTATIN CALCIUM 20 MG TAB PO SCH (08:34)
[2022-09-19] MEDS: MULTIVITAMIN TAB PO SCH (08:34)
[2022-09-19 08:43] LABS: Basophils # (auto) 0.04 K/uL (0-0.2); Basophils % (auto) 0.4 %; Eosinophils # (auto) 0.13 K/uL (0-0.50); Eosinophils % (auto) 1.2 %; Hematocrit (blood only) 28.5 % (37.0-47.0); Hemoglobin 9.4 g/dl (12.0-16.0); Immature Granulocytes # (auto) 0.03 K/uL (0.01-0.20); Immature Granulocytes % (auto) 0.3 %; Lymphocytes % (auto) 5.7 %; Mean Corpuscular Hemoglobin 31.5 pg (25.0-34.0); Mean Corpuscular Volume 95.6 fL (80.0-100.0); Monocytes # (auto) 0.67 K/uL (0.11-0.59); Monocytes % (auto) 6.3 %; Neutrophils # (auto) 9.11 K/uL (1.40-6.50); Neutrophils % (auto) 86.1 %; Platelet Count 298 K/uL (130-400); RDW Coefficient of Variation 13.4 % (11.5-14.5); Red Blood Count 2.98 M/uL (4.20-5.40); White Blood Count 10.58 K/ul (4.8-10.8)
--- NOTE | 2022-09-19 08:59 | Hospitalist Progress Note ---
Date of Service September 19, 2022 Assessment & Plan (1) Fall: Plan: Admits to not using cane when taking out dog PT and OT ordered, recommending rehab on discharge, referrals placed by Case Management (2) Traumatic hemarthrosis of left knee: Plan: Fortunately without evidence of fractures on XR imaging, can consider CT imaging if clinical suspicion of fracture arises Continue ice, compression, scheduled Tylenol, prn tramadol (adjusted due to drowsiness and nausea 8/8 which has since resolved) Resumed aspirin and Eliquis in setting of stable H/H Bowel regimen as needed while on opiates for severe pain (3) Ambulatory dysfunction: Plan: Chronic, fall was while not using assistive device, see above (4) Anemia: Plan: CBC reviewed, Hgb 11.0 prior to admission, now 9.4 today and stable x48 hours in the setting of fall and traumatic LEFT knee injury (5) Atrial fibrillation: Plan: History of, typically on metoprolol tartrate 25mg BID, continue, HR in normal range on vitals checks, no need for telemetry at this time Eliquis held this admission to date due to hemarthrosis, will resume today (6) Chest wall pain: Plan: Secondary to recent fall, tender along sternum, XR on admission without mention of any fractures Lidocaine patch ordered to see if this helps with discomfort Also can use PRNs as above Plan Patient is clinically stable for discharge to facility when accepted by rehab/insurance Admission and Anticipated Discharge Date Admission Date: September 17, 2022 Subjective Patient without any acute events overnight. She does note pain in her sternum from where she fell, no worse than yesterday, as well as some left knee pain. Denies other complaints. Physical Exam Constitutional: WD/WN, vitals as above Respiratory: normal respiratory effort, lungs clear to auscultation Cardiovascular: RRR, no murmur, no edema Chest (Breasts): Additional Comments: TTP over left sternum Musculoskeletal: left knee swelling and ecchymosis noted Skin: no rashes, warm and dry Psychiatric: A+Ox3, euthymic affect Results & Data Results & Data Vital Signs (Past 12 Hours) Vital Signs Temp Pulse Resp BP Pulse Ox O2 Del Method 09/19/22 07:15 36.5 C 71 15 121/69 93 Room Air PG Care Time/CCT Total # of Minutes Spent Total Time Spent with Patient: Total time spent is greater than 50% in coordination of care (as documented) at patient's floor/unit and/or counseling patient: Coding Level of Care Code 44660 SUB INP/OBS CARE 2MIN Diagnoses Fall W19.XXXA Traumatic hemarthrosis of left knee S83.92XA Ambulatory dysfunction R26.2 Anemia D64.9 Atrial fibrillation I48.91 Chest wall pain R07.89
[2022-09-19] MEDS: APIXABAN 5 MG TABLET PO SCH ×2 (10:27→21:58)
[2022-09-19] MEDS: traMADol HCL 50 MG TABLET PO PRN ×2 (10:30→22:10)
[2022-09-19] MEDS ORDERED: LIDOCAINE 5% 1 PATCH TD STA (12:23)
[2022-09-19] MEDS: ASPIRIN 81 MG ECTAB PO SCH (21:58)
[2022-09-19] MEDS: MELATONIN 3 MG TAB PO PRN (22:10)
[2022-09-20] MEDS: traMADol HCL 50 MG TABLET PO PRN (06:42)
[2022-09-20] MEDS: VITAMIN B COMPLEX TAB PO SCH (08:37)
[2022-09-20] MEDS: MULTIVITAMIN TAB PO SCH (08:37)
[2022-09-20] MEDS: CALCIUM 600MG + VIT D 400 IU TAB PO SCH (08:37)
[2022-09-20] MEDS: CHOLECALCIFEROL 1,000 UNITS 25 MCG TAB PO SCH (08:37)
[2022-09-20] MEDS: ROSUVASTATIN CALCIUM 20 MG TAB PO SCH (08:37)
[2022-09-20] MEDS: ASCORBIC ACID 500 MG TAB PO SCH (08:37)
[2022-09-20] MEDS: METOPROLOL TARTRATE 25 MG TAB PO SCH ×2 (08:37→20:11)
[2022-09-20] MEDS: APIXABAN 5 MG TABLET PO SCH ×2 (08:37→20:11)
[2022-09-20] MEDS: ACETAMINOPHEN 500 MG TAB PO SCH ×3 (08:37→20:11)
[2022-09-20] MEDS: LIDOCAINE 5% 1 PATCH TD SCH (08:38)
--- NOTE | 2022-09-20 09:53 | Hospitalist Progress Note ---
Date of Service September 20, 2022 Assessment & Plan (1) Fall: Plan: Admits to not using cane when taking out dog PT and OT ordered, recommending rehab on discharge, referrals placed by Case Management, [facility] feels they can offer a bed tomorrow pending insurance author ization (2) Traumatic hemarthrosis of left knee: Plan: Fortunately without evidence of fractures on XR imaging, can consider CT imaging if clinical suspicion of fracture arises Continue ice, compression, scheduled Tylenol, prn tramadol (adjusted due to drowsiness and nausea 09/18 which has since resolved) Resumed aspirin and Eliquis in setting of stable H/H Bowel regimen as needed while on opiates for severe pain (3) Chest wall pain: Plan: Secondary to recent fall, tender and somewhat swollen along sternum, XR on admission without mention of any fractures Lidocaine patch daily helpful, continue scheduled Tylenol and prn tramadol (4) Ambulatory dysfunction: Plan: Chronic, fall was while not using assistive device, see above (5) Anemia: Plan: CBC reviewed, Hgb 11.0 prior to admission, decreased to 9.4 but has been stable around that level (6) Atrial fibrillation: Plan: History of, typically on metoprolol tartrate 25mg BID, continue, HR in normal range on vitals checks, no need for telemetry at this time Eliquis held this admission to date due to hemarthrosis, resumed 09/19 Plan Patient is clinically stable for discharge to facility when accepted by insurance Admission and Anticipated Discharge Date Admission Date: September 19, 2022 Subjective No acute events overnight. Continues to have pain at the site of where she struck her sternum with her fall, with some swelling over that area. Vitals have been stable. She has had a relatively good appetite and has not had any more nausea. No trouble breathing, but some pain at the tail end of a deep breath due to that sternal pain. The lidocaine patches, Tylenol, and tramadol are very helpful. Physical Exam Constitutional: WD/WN, vitals as above Respiratory: normal respiratory effort, lungs clear to auscultation Cardiovascular: RRR, no murmur, no edema Chest (Breasts): Additional Comments: TTP over mid sternum, also [id number] swelling without erythema or ecchymosis over that same area from her fall Musculoskeletal: left knee swelling and ecchymosis noted, improved today Skin: no rashes, warm and dry Psychiatric: A+Ox3, euthymic affect Results & Data Results & Data Vital Signs (Past 12 Hours) Vital Signs Temp Pulse Resp BP Pulse Ox O2 Del Method 09/20/22 07:53 36.8 C 71 15 111/72 93 Room Air 09/19/22 21:58 Room Air PG Care Time/CCT Total # of Minutes Spent Total Time Spent with Patient: Total time spent is greater than 50% in coordination of care (as documented) at patient's floor/unit and/or counseling patient: Coding Level of Care Code 83751 SUB INP/OBS CARE 03/07MIN Diagnoses Fall W19.XXXA Traumatic hemarthrosis of left knee S83.92XA Chest wall pain R07.89 Ambulatory dysfunction R26.2 Anemia D64.9 Atrial fibrillation I48.91
[2022-09-20] MEDS: ASPIRIN 81 MG ECTAB PO SCH (20:11)
[2022-09-21] MEDS ORDERED: ALENDRONATE SODIUM 70 MG TAB PO SCH (06:30)
[2022-09-21] MEDS: ROSUVASTATIN CALCIUM 20 MG TAB PO SCH (08:16)
[2022-09-21] MEDS: LIDOCAINE 5% 1 PATCH TD SCH (08:17)
[2022-09-21] MEDS: CALCIUM 600MG + VIT D 400 IU TAB PO SCH (08:17)
[2022-09-21] MEDS: ACETAMINOPHEN 500 MG TAB PO SCH ×3 (08:17→20:18)
[2022-09-21] MEDS: MULTIVITAMIN TAB PO SCH (08:17)
[2022-09-21] MEDS: APIXABAN 5 MG TABLET PO SCH ×2 (08:17→20:18)
[2022-09-21] MEDS: VITAMIN B COMPLEX TAB PO SCH (08:17)
[2022-09-21] MEDS: ASCORBIC ACID 500 MG TAB PO SCH (08:17)
[2022-09-21] MEDS: CHOLECALCIFEROL 1,000 UNITS 25 MCG TAB PO SCH (08:17)
[2022-09-21] MEDS: METOPROLOL TARTRATE 25 MG TAB PO SCH ×2 (08:17→20:19)
--- NOTE | 2022-09-21 11:30 | Hospitalist Progress Note ---
Date of Service September 21, 2022 Assessment & Plan (1) Fall: Plan: Admits to not using cane when taking out dog PT and OT ordered, recommending rehab on discharge, referrals placed by Case Management, [facility] feels [facility] can offer a bed soon pending insurance authorizat ion (2) Traumatic hemarthrosis of left knee: Plan: Fortunately without evidence of fractures on XR imaging, can consider CT imaging if clinical suspicion of fracture arises Continue ice, compression, scheduled Tylenol, prn tramadol (adjusted due to drowsiness and nausea 09/18 which has since resolved) Resumed aspirin and Eliquis in setting of stable H/H Bowel regimen as needed while on opiates for severe pain (3) Chest wall pain: Plan: Secondary to recent fall, tender and somewhat swollen along sternum, XR on admission without mention of any fractures Lidocaine patch daily helpful, continue scheduled Tylenol and prn tramadol (4) Ambulatory dysfunction: Plan: Chronic, fall was while not using assistive device, see above (5) Anemia: Plan: CBC reviewed, Hgb 11.0 prior to admission, decreased to 9.4 but has been stable around that level (6) Atrial fibrillation: Plan: History of, typically on metoprolol tartrate 25mg BID, continue, HR in normal range on vitals checks, no need for telemetry at this time Eliquis held this admission to date due to hemarthrosis, resumed 09/19 Plan Patient has been clinically stable for discharge since 09/19/22, awaiting placement and insurance authorization Admission and Anticipated Discharge Date Admission Date: September 19, 2022 Subjective No acute events overnight. Still with similar sternal pain and left knee pain, no worse today, no symptoms of chest pain, SOB, abdominal pain. Review of Systems Review of Systems: All systems reviewed & are unremarkable except as noted in Subjective Physical Exam Constitutional: WD/WN, vitals as above Chest (Breasts): Additional Comments: TTP over mid sternum, also [id number] swelling without erythema or ecchymosis over that same area from her fall Musculoskeletal: left knee swelling and ecchymosis noted, improving Skin: no rashes, warm and dry Psychiatric: A+Ox3, euthymic affect Results & Data Results & Data Vital Signs (Past 12 Hours) Vital Signs Temp Pulse Resp BP Pulse Ox O2 Del Method 09/21/22 07:24 36.9 C 70 14 127/75 95 Room Air PG Care Time/CCT Total # of Minutes Spent Total Time Spent with Patient: Total time spent is greater than 50% in coordination of care (as documented) at patient's floor/unit and/or counseling patient: Coding Level of Care Code 27466 SUB INP/OBS CARE 03/07MIN Diagnoses Fall W19.XXXA Traumatic hemarthrosis of left knee S83.92XA Chest wall pain R07.89 Ambulatory dysfunction R26.2 Anemia D64.9 Atrial fibrillation I48.91
[2022-09-21] MEDS: traMADol HCL 50 MG TABLET PO PRN (17:59)
[2022-09-21] MEDS: ASPIRIN 81 MG ECTAB PO SCH (20:18)
[2022-09-21 22:46] LABS: Hematocrit (blood only) 24.4 % (37.0-47.0); Hemoglobin 8.4 g/dl (12.0-16.0)
[2022-09-22] MEDS: traMADol HCL 50 MG TABLET PO PRN ×2 (00:03→05:35)
[2022-09-22] MEDS: ACETAMINOPHEN 500 MG TAB PO SCH ×2 (08:23→13:49)
[2022-09-22] MEDS: CHOLECALCIFEROL 1,000 UNITS 25 MCG TAB PO SCH (08:23)
[2022-09-22] MEDS: LIDOCAINE 5% 1 PATCH TD SCH (08:23)
[2022-09-22] MEDS: VITAMIN B COMPLEX TAB PO SCH (08:23)
[2022-09-22] MEDS: CALCIUM 600MG + VIT D 400 IU TAB PO SCH (08:23)
[2022-09-22] MEDS: MULTIVITAMIN TAB PO SCH (08:23)
[2022-09-22] MEDS: ROSUVASTATIN CALCIUM 20 MG TAB PO SCH (08:23)
[2022-09-22] MEDS: METOPROLOL TARTRATE 25 MG TAB PO SCH (08:23)
[2022-09-22] MEDS: ASCORBIC ACID 500 MG TAB PO SCH (08:23)
[2022-09-22] MEDS: APIXABAN 5 MG TABLET PO SCH (08:24)
--- NOTE | 2022-09-22 11:42 | Discharge Summary ---
Discharge Summary Date of Service September 22, 2022 Admission HPI Per Admitting Provider Pt is an 81 year old female with h/o Afib on Eliquis presenting after a fall in which she hit her chest and left knee earlier this morning. Pt was unable to get up on her own, had to drag herself across the house to call for help. Denies head trauma or loss of consciousness. Patient notes that she experiences significant pain when she tries to take a deep breath or move her left knee. Patient rates current pain as 10/10, has been receiving fentanyl in the ED for pain control, which has been helpful. Patient lives with daughter in a single story home but is fairly independent and completes her own ADLs. Daughter expresses concern about increased level of care that mother is likely to require following discharge. ED Course: Chest x-ray without significant cardiopulmonary abnormality. Chest CT significant for acute, nondisplaced fracture of left anterior fourth rib, focal deformities of second and third ribs are age indeterminate, mid- sternal focal deformity favors old, healed fracture. Left knee x-ray shows prepatellar swelling, no acute fracture identified, left knee arthroplasty in alignment EKG without ischemic changes, rate 80, QTc 442 Labs pending Admission Exam Per Admitting Provider Constitutional: + thin and + frail appearing; no acute distress Respiratory: lungs clear to auscultation bilaterally, restriction in excursion due to pain Cardiovascular: RRR, no murmur, no edema Gastrointestinal (Abdomen): Inspection/Auscultation: normal bowel sounds Musculoskeletal: Anterior chest wall tender to palpation on the left Left knee ecchymotic, patient unable to actively or passively flex or extend knee but is able to plantarflex and dorsiflex ankle. Distal pulses intact. Sensation intact Skin: no rashes, warm and dry Neurologic: AOx4. Sensation intact throughout Psychiatric: A+Ox3, euthymic affect Principal Dx & Hospital Course #1 = Principal Diagnosis (1) Traumatic hemarthrosis of left knee: Fortunately without evidence of fractures on XR imaging, could consider CT imaging if clinical suspicion of fracture arises, however symptoms improving throughout admission Continue ice, compression, scheduled Tylenol, lidocaine patches, prn tramadol (adjusted due to drowsiness and nausea 8/8 which has since resolved) Resumed aspirin and Eliquis in setting of relatively stable H/H, no worsening of swelling of chest or knee in last 48-72 hours Bowel regimen as needed while receiving opiates for severe/breakthrough pain (2) Chest wall pain: Secondary to recent fall, tender and somewhat swollen along sternum, XR on admission without mention of any fractures, noted osteopenia and prior thoracic compression deformity with vertebroplasty CT Chest with acute left anterior 4th rib fracture, age indeterminate left 2nd and 3rd rib fractures, and findings suggesting old healed mid-sternum fracture Lidocaine patch daily has been helpful, would continue, and can also continue scheduled Tylenol Tramadol prn breakthrough pain at rehab facility (3) Fall: PT and OT ordered, patient discharged to [facility] for rehab (4) Ambulatory dysfunction: Chronic, fall was while not using assistive device when walking dog, see above (5) Anemia: CBC reviewed, Hgb 11.0 prior to admission, decreased to 8.4 without evidence of active bleeding nor worsening of ecchymosis over left knee or sternum, not unexpected drop given hemarthrosis and degree of swelling, recommended repeat CBC next week (6) Atrial fibrillation: History of, typically on metoprolol tartrate 25mg BID, continue, HR in normal range on vitals checks, no RVR this admission Eliquis held earlier in admission due to hemarthrosis, resumed 09/19 Discharge Exam Constitutional Constitutional: WD/WN, vitals as above Chest (Breasts): TTP over mid sternum, also [id number] swelling without erythema or ecchymosis over that same area from her fall Musculoskeletal: left knee swelling and ecchymosis noted, improving Skin: no rashes, warm and dry Psychiatric: A+Ox3, euthymic affect Updated Medication List Medication Instructions Recorded Confirmed Type vitamin B complex 1 tab PO QAM 10/02/18 09/17/22 History aspirin 81 mg tablet,delayed 81 mg PO HS 03/20/19 09/17/22 History release ascorbic acid (vitamin C) 500 mg 500 mg PO DAILY 02/18/20 09/17/22 History tablet calcium carbonate 500 mg-vitamin 1 tab PO DAILY 05/31/20 09/17/22 History D3 5 mcg (200 unit) tablet cholecalciferol (vitamin D3) 50 2,000 unit PO DAILY 05/31/20 09/17/22 History mcg (2,000 unit) capsule B comp 3-folic acid 1 mg-C 60 1 tab PO DAILY 06/01/21 09/17/22 History mg-biotin 300 mcg-zinc ox 12.5 mg tablet cranberry fruit 450 mg tablet 450 mg PO BID 10/25/21 09/17/22 History (cranberry) multivitamin 1 tab PO DAILY 10/25/21 09/17/22 History alendronate 70 mg tablet 70 mg PO WK #12 tabs 02/15/22 09/17/22 Rx rosuvastatin 20 mg tablet (Crestor) 20 mg PO DAILY 30 days #90 tabs 02/15/22 09/17/22 Rx apixaban 5 mg tablet 5 mg PO BID #180 tabs 02/20/22 09/17/22 Rx metoprolol tartrate 25 mg tablet 25 mg PO BID #180 tabs 02/20/22 09/17/22 Rx amoxicillin 500 mg tablet 2,000 mg PO ONCE #4 tabs 08/16/22 09/17/22 Rx triamcinolone acetonide 0.1 % 1 applic topical BID PRN flare ups 09/17/22 09/17/22 History topical cream acetaminophen 500 mg tablet 1,000 mg PO TID #0 tabs 09/22/22 Rx (Tylenol Extra Strength) lidocaine 5 % topical patch 1 patch transdermal QAM #30 ea 09/22/22 Rx polyethylene glycol 3350 17 gram 17 g PO DAILY PRN #0 ea 09/22/22 Rx oral powder packet (Miralax) Hospital Stay Data Consultations 09/17/22 17:47 ED Decision to Admit Stat Diagnostic Imagining Performed 09/17/22 15:31 CT chest without contrast [CT chest diagnostic wo con] Urgent Pending Results Patient Have Any Pending Studies at Discharge: No Discharge Instructions Given to Patient (Per Discharging Provider) Fall: Admits to not using cane when taking out dog PT and OT ordered, recommending rehab on discharge, referrals placed by Case Management, discharge to [facility] today Traumatic hemarthrosis of left knee: Fortunately without evidence of fractures on XR imaging, can consider CT imaging if clinical suspicion of fracture arises Continue ice, compression, scheduled Tylenol, prn tramadol (adjusted due to drowsiness and nausea 09/18 which has since resolved) Resumed aspirin and Eliquis in setting of stable H/H Bowel regimen as needed while on opiates for severe pain Chest wall pain: Secondary to recent fall, tender and somewhat swollen along sternum, XR on admission without mention of any fractures, noted osteopenia and prior thoracic compression deformity with vertebroplasty CT Chest with acute left anterior 4th rib fracture, age indeterminate left 2nd and 3rd rib fractures, and findings suggesting old healed mid-sternum fracture Lidocaine patch daily has been helpful, would continue, and can also continue scheduled Tylenol Tramadol prn breakthrough pain at rehab facility Ambulatory dysfunction: Chronic, fall was while not using assistive device, see above Anemia: CBC reviewed, Hgb 11.0 prior to admission, decreased to 8.4 but has been stable around that level, follow up CBC on Saturday, swelling of chest wall and right knee not worsening Atrial fibrillation: History of, typically on metoprolol tartrate 25mg BID, continue, HR in normal range on vitals checks, no need for telemetry at this time Eliquis held on admission to date due to hemarthrosis, resumed 09/19 Total Time Total Time Spent Total Time Spent (In Minutes): 30 min Coding Level of Care Code 33514 IN/OBS DISCH 30 MIN/LESS Diagnoses Traumatic hemarthrosis of left knee S83.92XA Chest wall pain R07.89 Fall W19.XXXA Ambulatory dysfunction R26.2 Anemia D64.9 Atrial fibrillation I48.91
== END 2022-09-22 13:59 | DRG 563 ==
LOC: 3N 14:55 → ED 14:55 → SUATTDRO 18:55 → 3N 21:09

== ENCOUNTER 2024-01-15 13:27 | Inpatient (IN) ==
[2024-01-15] MEDS: ACETAMINOPHEN 1,000 MG/100 ML VIAL IV STA (13:57)
--- NOTE | 2024-01-15 14:32 | Emergency Department Note ---
Impression & Plan Closed fracture of right hip ED Provider Note NAME: NICHELLE DRAKE AGE: 83 SEX: F : 1940 ARRIVES VIA: Ambulance INFORMANT: Patient, ED PROVIDER(S): Hipolito Valerio MD CHIEF COMPLAINT: Fall, hip pain HPI: This an 83-year-old female presenting for fall and hip pain. Patient states that she may have blacked out and then fell. She hit her right hip against the ground. She attempted to have pain here. EMS reported that it was shortened. She reports pain in this hip. She reports no current head trauma. She is on Eliquis. She reports no pain about her body. She has noted new pain over the past 3 to 4 days on the left rib. She has previous compression fracture a few months ago, well-healing. ROS: See above HPI for pertinent positives & negatives. A total of 10 systems reviewed and were otherwise negative. PAST MEDICAL HISTORY: See Below PAST SURGICAL HISTORY: See Below FAMILY HISTORY: See Below SOCIAL HISTORY: See Below HOME MEDICATIONS: See Below ALLERGIES: See Below VITALS: See Below PHYSICAL EXAMINATION: General: resting comfortably in no acute distress Head: Normocephalic and atraumatic Eyes: Normal inspection, extraocular muscles intact Ear, nose, throat: Normal external exam Neck: Normal range of motion Respiratory: lungs clear to auscultation bilaterally Cardiovascular: Regular rate/rhythm, no murmur GI: soft, nontender, no guarding or rebound Extremities: Right lower extremity is shortened and internally rotated Neuro: The patient awake and alert, appropriately conversive, no focal deficits, symmetric faces Skin: Warm, dry, and intact MEDICAL DECISION MAKING: This is an 83-year-old female seen for hip pain/fall. She consider hip fracture, hip dislocation. Will do x-ray, head CT, chest CT. -X-ray as Independently interpreted by me reveals right comminuted, angulated intertrochanteric hip fracture -CT of the head is currently negative -ECG independently interpreted by me with normal sinus rhythm, rate of 69, normal axis, normal NV, normal QRS, normal QTc, no ST segment elevations consistent with STEMI criteria -Patient will require admission at this time. Will discuss with hospitalist service. Differential diagnosis: Fracture, intracranial hemorrhage Independent History obtained from: Daughter Diagnostics interpreted by me: ECG: see above Cardiac Monitoring: An order was placed for continuous cardiac monitoring. The monitor shows a rate of 100 with sinus rhythm. Past Med/Surg History Problem List (Updated 01/15/24 @ 20:42 by Hipolito Valerio MD) Closed fracture of right hip (Acute) Dementia Fall from standing Intertrochanteric fracture of right femur Compression fracture of T7 vertebra (Acute ~12/18/23) compression fracture of T7 Ptosis of eyelid, bilateral Atrial fibrillation follows with Dr. Edgar, reason for eliquis daily Prepatellar bursitis History of total left knee replacement Angelique-prosthetic fracture of proximal tibia History of compression fracture of vertebral column (~11/07/18) Thoracic H/O mitral valve replacement VBI (vertebrobasilar insufficiency) (Acute) Osteoporosis (Acute) on Fosamax since 05/2020 Hyperlipidemia (Acute) Hypertension (Acute 11/04/12) Dry eye syndrome (Acute) Depression (Acute) Chronic cerebral ischemia (Acute) Arthritis (Acute) Anemia (Acute 08/19/12) Abnormal mammogram (Acute) Thoracic back pain Thoracic kyphosis Age-related physical debility History of stroke 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 Chronic hyponatremia Ambulatory dysfunction (Acute) Closed rib fracture (Acute 09/17/22) from a fall Medical History Malignant neoplasm of colon, unspecified Encounter for pre-operative examination Osteoarthritis Osteoporosis History of kidney stones Crohns disease On anticoagulant therapy eliquis daily Ocular migraine Hypertension Hyperlipidemia Palpitations Surgical History History of colon surgery 06/2008 Previous back surgery 11/07/2012 History of incision and drainage right arm--infected after fx History of total left knee replacement (TKR) History of total right knee replacement (TKR) History of esophagogastroduodenoscopy (EGD) History of colonoscopy with polypectomy History of colectomy subtotal with ileocolic anastomosis History of cardiac cath 04/2010 Dr. Linn @ [facility], no stents History of tooth extraction all teeth History of tonsillectomy History of bilateral cataract extraction History of mitral valve repair 04/2012 @ [facility] [place] History of appendectomy History of kyphoplasty History of Percutaneous Vertebral Augmentation Kyphoplasty History of umbilical hernia repair History of cholecystectomy Family History Sister Hearing loss Breast cancer Cancer Grandmother (Paternal) No problems noted. Father No problems noted. Sister Osteoporosis Brother Osteoporosis Mother Osteoporosis Other No family history of adverse response to anesthesia Denies family history of Ovarian cancer Prostate cancer Myocardial infarction Colorectal cancer Social History Smoking Status: Never smoker Second Hand Exposure: No; Do You Dip or Chew Tobacco: No; Hx Alcohol Use: No Hx Substance Use: No Preferred Language: Syriac Communication Ability: Effective Hearing Ability: Normal Research Chief Engineer Required: No Beliefs That Will Affect Care: None marital status: / Current Living Situation: Family Current Living Situation Comment: Lives with daughter current occupational status: retired How many Children do You have: 1 Feels Safe at Home: Yes Childhood Exposure to Second-Hand Smoke: No Diet: regular caffeine: No Dental Care, Regularly: Yes Physical Activity Frequency: Does not Exercise Seatbelt Use: always Sunscreen Use: No Assistive Devices: Cane and Glasses Allergies Allergies Allergy/AdvReac Type Severity Reaction Status Date / Time codeine Allergy Mild LIGHTHEADED Verified 12/02/23 11:05 NESS verapamil Allergy Mild PALPITATION Verified 12/02/23 11:05 S Home Meds Home Medications Medication Instructions Recorded Confirmed calcium 500 mg (as 1 tab PO DAILY 05/31/20 01/15/24 carbonate)-vitamin D3 5 mcg (200 unit) tablet cholecalciferol (vitamin D3) 50 2,000 unit PO DAILY 05/31/20 01/15/24 mcg (2,000 unit) capsule multivitamin 1 tab PO DAILY 10/25/21 01/15/24 acetaminophen 500 mg tablet 1,500 mg PO BID 12/02/23 01/15/24 (Tylenol Extra Strength) amoxicillin 500 mg tablet 2,000 mg PO ONCE PRN dental 12/18/23 01/15/24 appointments Previous Rx's Medication Instructions Recorded apixaban 5 mg tablet 5 mg PO BID #180 tabs 03/14/23 metoprolol tartrate 25 mg tablet 25 mg PO BID #180 tabs 03/14/23 rosuvastatin 20 mg tablet (Crestor) 20 mg PO DAILY 90 days #90 tabs 03/14/23 alendronate 70 mg tablet 70 mg PO WK #12 tabs 04/26/23 donepezil 5 mg tablet 5 mg PO DAILY #30 tabs 12/02/23 lidocaine 5 % topical patch 1 patch topical DAILY #15 ea 12/18/23 (Lidoderm) tramadol 25 mg tablet 25 mg PO Q6H PRN pain #10 tabs 12/18/23 diclofenac epolamine 1.3 % 1 patch transdermal DAILY #10 ea 12/25/23 transdermal 24 hour patch tizanidine 4 mg tablet 4 mg PO BID PRN muscle spasticity 12/25/23 #30 tabs hydrocodone 5 mg-acetaminophen 325 1 tab PO TID PRN pain #42 tabs 01/06/24 mg tablet Results & Data (ED) Vital Signs Vital Signs - 24 hr 01/15/24 13:47 01/15/24 14:00 01/15/24 16:00 Temperature 36.4 C Temperature Source Oral Pulse Rate 70 Pulse Rate [Apical] 74 84 Pulse Rhythm [Apical] Regular Pulse Strength [Apical] Normal Respiratory Rate 16 24 16 Respiratory Effort / Characteristics Non-Labored Non-Labored Respiratory Depth Normal Normal Respiratory Pattern Regular Blood Pressure 183/84 H Blood Pressure [Left Arm] 183/84 H 126/66 Blood Pressure Mean 117 Blood Pressure Mean [Left Arm] 117 86 Pulse Oximetry 99 99 95 Oxygen Delivery Method Room Air Room Air Room Air Sepsis Recent Fever Within 48 Hours No Sepsis New/Unexplained Change in Mental Status N/A Sepsis Action Taken by Nursing No Action Required Laboratory Data 01/15/24 13:44 01/15/24 13:44 Lab Results 01/15/24 Range/Units 13:44 WBC 7.89 (4.8-10.8) K/ul RBC 3.29 L (4.20-5.40) M/uL Hgb 10.3 L (12.0-16.0) g/dl Hct 30.9 L (37.0-47.0) % MCV 93.9 (80.0-100.0) fL MCH 31.3 (25.0-34.0) pg MCHC 33.3 (32.0-36.0) g/dL RDW Std Deviation 48.7 H (36.4-46.3) fL RDW Coeff of Fiona 14.2 (11.5-14.5) % Plt Count 359 (130-400) K/uL MPV 9.7 (9.4-12.4) fL Immature Gran % (Auto) 0.5 % Neut % (Auto) 77.3 % Lymph % (Auto) 11.2 % Brooks % (Auto) 9.6 % Eos % (Auto) 0.8 % Baso % (Auto) 0.6 % Neut # (Auto) 6.10 (1.40-6.50) K/uL Lymph # (Auto) 0.88 L (1.20-3.40) K/uL Brooks # (Auto) 0.76 H (0.11-0.59) K/uL Eos # (Auto) 0.06 (0.00-0.50) K/uL Baso # (Auto) 0.05 (0.00-0.20) K/uL Immature Gran # (Auto) 0.04 (0.01-0.20) K/uL PT 12.4 H (9.0-12.0) Seconds INR 1.2 H (0.9-1.1) APTT 31 (21-31) Seconds PTT Ratio 1.2 Sodium 129 L (136-145) mmol/L Potassium 4.5 (3.5-5.1) mmol/L Chloride 96 L (98-107) mmol/L Carbon Dioxide 27 (21-32) mmol/L Anion Gap 6 (3-11) BUN 23 (6-23) mg/dl Creatinine 0.84 (0.6-1.2) mg/dl Est Cr Clr Drug Dosing 35.2 ml/min eGFR 68.06 BUN/Creatinine Ratio 27.4 H (10-20) Glucose 112 H (70-99(Fasting)) mg/dl Calcium 9.2 (8.6-10.3) mg/dl Total Bilirubin 0.6 (0.2-1.0) mg/dl AST 31 (13-39) U/L ALT 17 (7-52) U/L Alkaline Phosphatase 70 (34-104) U/L Total Protein 6.5 (6.0-8.3) gm/dl Albumin 3.7 (3.4-5.0) gm/dl Globulin 2.8 (2.5-4.0) gm/dl Albumin/Globulin Ratio 1.3 (0.9-2) Administered Medications Acetaminophen (Acetaminophen 325 Mg Tab) 650 mg PO Q4H PRN PRN Reason: pain/fever Stop: 02/14/24 19:54 Last Admin: 01/15/24 20:35 Dose: 650 mg Documented By: DEONTE Metoprolol Tartrate (Metoprolol Tartrate 25 Mg Tab) 25 mg PO BID [facility] Stop: 02/14/24 20:59 Last Admin: 01/15/24 20:36 Dose: 25 mg Documented By: DEONTE Morphine Sulfate (Morphine Sulfate 2 Mg/Ml Carp) 2 mg IV Q4H PRN PRN Reason: Pain Stop: 01/29/24 17:31 Last Admin: 01/15/24 19:07 Dose: 2 mg Documented By: SEGUNDO Discontinued Medications Hydromorphone HCl (Hydromorphone Inj 0.5 Mg/0.5 Ml Syr) 0.5 mg IV NOW STA Stop: 01/15/24 15:26 Last Admin: 01/15/24 15:52 Dose: 0.5 mg Documented By: SEGUNDO Acetaminophen (Ofirmev) 1,000 mg in 100 mls @ 400 mls/hr IV NOW STA Stop: 01/15/24 14:02 Last Infusion: 01/15/24 14:20 Dose: Infused Documented By: Admin: 01/15/24 13:57 Dose: 400 mls/hr Documented By: ML Sodium Chloride (Nss) 1,000 mls @ 999 mls/hr IV .Q1H1M ONE Stop: 01/15/24 19:05 Last Infusion: 01/15/24 19:29 Dose: Infused Documented By: Admin: 01/15/24 18:16 Dose: 999 mls/hr Documented By: SEGUNDO Ondansetron HCl (Ondansetron Inj 2 Mg/Ml 2 Ml Vial) 4 mg IV NOW STA Stop: 01/15/24 17:13 Last Admin: 01/15/24 17:16 Dose: 4 mg Documented By: SEGUNDO Ondansetron HCl (Ondansetron Inj 2 Mg/Ml 2 Ml Vial) Confirm Administered Dose 4 mg .ROUTE .STK-MED ONE Stop: 01/15/24 17:13 Last Admin: 01/15/24 17:16 Dose: Not Given Documented By: SEGUNDO Imaging Data Radiologist's Impression: Head CT 01/15/24 13:48 CT head/brain wo con CLINICAL HISTORY: 83 years-old Female with Fall, on eliquis. Acute head trauma status post fall TECHNIQUE: Multiple axial CT images of the head were obtained without contrast. A dose lowering technique was utilized adhering to the principles of ALARA. CT DOSE: 547.75 mGy.cm COMPARISON: 10/25/2021 FINDINGS: No acute intracranial hemorrhage, midline shift, intracranial mass, hydrocephalus, territorial ischemia or abnormal extra-axial collection. Involutional changes with extensive white matter hypodensities redemonstrated likely representing chronic microvascular ischemic disease. The calvarium is intact. The paranasal sinuses, mastoid air cells, and middle ear cavities are clear. IMPRESSION: No acute intracranial abnormality or calvarial fracture. ACT 112: Negative or not required by law. The above report was generated using voice recognition software. It may contain grammatical, syntax or spelling errors. Electronically signed by: David Chandra M.D. 01/15/2024 3:00 PM Hip/Pelvis X-Ray 01/15/24 13:48 XR hip RT 2V w pelvis HISTORY: 83 years-old Female hip fx, pain, shortened The right hip status post fall COMPARISON: 09/25/2005 TECHNIQUE: AP view of the pelvis with 2 views of the right hip FINDINGS: Demineralized appearance of the bones. Moderate osteoarthritis of the hips. There is an acute comminuted, angulated and displaced intertrochanteric fracture of the right femur with moderate adjacent soft tissue swelling. No dislocation. Arterial calcifications. IMPRESSION: Acute comminuted, angulated and displaced intertrochanteric right femoral fracture. ACT 112: Negative or not required by law. The above report was generated using voice recognition software. It may contain grammatical, syntax or spelling errors. Electronically signed by: David Chandra M.D. 01/15/2024 3:13 PM Discharge Plan Visit Data Chief Complaint: Fall Stated Complaint: FALL, HIP DISLOCATION ED Provider: Hipolito Valerio Discharge Problem: Closed fracture of right hip Patient Disposition: Admitted As Inpatient Discharge Instructions Interventions: ED Discharge Assessment Last Done: 01/15/24 19:30
--- NOTE | 2024-01-15 15:01 | CT Scan Report ---
CT head/brain wo con CLINICAL HISTORY: 83 years-old Female with Fall, on eliquis. Acute head trauma status post fall TECHNIQUE: Multiple axial CT images of the head were obtained without contrast. A dose lowering tech nique was utilized adhering to the principles of ALARA. CT DOSE: 547.75 mGy.cm COMPARISON: 10/25/2021 FINDINGS: No acute intracranial hemorrhage, midline shift, intracranial mass, hydrocephalus, territorial ischem ia or abnormal extra-axial collection. Involutional changes with extensive white matter hypodensities redemonstrated likely representing chronic microvascular ischemic disease. The calvarium is intact. The paranasal sinuses, mastoid air cells, and middle ear cavities are clear . IMPRESSION: No acute intracranial abnormality or calvarial fracture. ACT 112: Negative or not required by law. The above report was generated using voice recognition software. It may contain grammatical, syntax o r spelling errors. Electronically signed by: David Chandra M.D. 01/15/2024 3:00 PM
--- NOTE | 2024-01-15 15:14 | XRay Report ---
XR hip RT 2V w pelvis HISTORY: 83 years-old Female hip fx, pain, shortened The right hip status post fall COMPARISON: 09/25/2005 TECHNIQUE: AP view of the pelvis with 2 views of the right hip FINDINGS: Demineralized appearance of the bones. Moderate osteoarthritis of the hips. There is an acute comminu evelyne, angulated and displaced intertrochanteric fracture of the right femur with moderate adjacent sof t tissue swelling. No dislocation. Arterial calcifications. IMPRESSION: Acute comminuted, angulated and displaced intertrochanteric right femoral fracture. ACT 112: Negative or not required by law. The above report was generated using voice recognition software. It may contain grammatical, syntax o r spelling errors. Electronically signed by: David Chandra M.D. 01/15/2024 3:13 PM
[2024-01-15] MEDS: HYDROmorphone INJ 0.5 MG/0.5 ML SYR IV STA (15:52)
--- NOTE | 2024-01-15 16:50 | History & Physical Report ---
Date of Service January 15, 2024 Assessment & Plan (1) Intertrochanteric fracture of right femur: (2) Compression fracture of T7 vertebra: (3) Atrial fibrillation: (4) H/O mitral valve replacement: (5) Hyperlipidemia: (6) Hypertension: (7) Fall from standing: (8) Dementia: Plan 83 yo female PMHx a fib on Eliquis, osteoporosis, vertebral compression fractures, HTN, HLD, depression admitted s/p mechanical fall with demonstrated R intertrochanteric fracture. #Fall/R intertrochanteric femur fracture/rib pain fall from standing in bathroom, happened quickly but patient was awake the whole time EKG ordered CT head negative Hip/pelvis XR demonstrates R intertrochanteric fracture CXR ordered for rib pain - new on right, has chronic left sided rib pain consult orthopedics Pain control: Tylenol 1g q8h scheduled, morphine 2g q4h IV PRN NPO @ midnight CBC, CMP largely unremarkable coags ordered hold Eliquis PT/OT eval ordered #A fib EKG ordered does not appear in afib on monitor continue metoprolol hold Eliquis #HTN stable continue metoprolol #HLD continue rosuvastatin #Dementia continue donepezil FENGI: heart healthy, NPO at midnight Code status: DNR/DNI DVT prophylaxis: deferred, resume eliquis s/p surgery Isolation: none Disposition: med/surg History of Present Illness Primary Care Provider: Magali Javier MD 83 yo female PMHx a fib on Eliquis, osteoporosis, vertebral compression fractures, HTN, HLD, depression admitted s/p mechanical fall with demonstrated R intertrochanteric fracture. Today she was ambulating to the bathroom with a walker and fell from standing striking her left hip on the ground. She is also complaining of R sided rib pain. Has history of multiple vertebral compression fractures. Currently reports pain is well controlled. She is uncomfortable on her back due to kyphosis and compression fractures but not in any acute pain at this time. Patient denies CP, SOB, abdominal pain, nausea, vomiting, lightheadedness, dizziness, and diarrhea. ED course: Non contrast CT head without acute process XR hip/pelvis demonstrates R intertrochanteric femur fracture Received 1g Tylenol IV, 0.5mg Dilaudid IV Allergies Allergy/AdvReac Type Severity Reaction Status Date / Time codeine Allergy Mild LIGHTHEADED Verified 12/02/23 11:05 NESS verapamil Allergy Mild PALPITATION Verified 12/02/23 11:05 S Home Medications Medication Instructions Recorded Confirmed Type calcium 500 mg (as 1 tab PO DAILY 05/31/20 12/18/23 History carbonate)-vitamin D3 5 mcg (200 unit) tablet cholecalciferol (vitamin D3) 50 2,000 unit PO DAILY 05/31/20 12/18/23 History mcg (2,000 unit) capsule multivitamin 1 tab PO DAILY 10/25/21 12/18/23 History apixaban 5 mg tablet 5 mg PO BID #180 tabs 03/14/23 12/18/23 Rx metoprolol tartrate 25 mg tablet 25 mg PO BID #180 tabs 03/14/23 12/18/23 Rx rosuvastatin 20 mg tablet (Crestor) 20 mg PO DAILY 90 days #90 tabs 03/14/23 12/18/23 Rx alendronate 70 mg tablet 70 mg PO WK #12 tabs 04/26/23 12/18/23 Rx acetaminophen 500 mg tablet 1,500 mg PO BID 12/02/23 12/18/23 History (Tylenol Extra Strength) donepezil 5 mg tablet 5 mg PO DAILY #30 tabs 12/02/23 12/18/23 Rx amoxicillin 500 mg tablet 2,000 mg PO ONCE PRN dental 12/18/23 12/18/23 History appointments lidocaine 5 % topical patch 1 patch topical DAILY #15 ea 12/18/23 Rx (Lidoderm) tramadol 25 mg tablet 25 mg PO Q6H PRN pain #10 tabs 12/18/23 Rx diclofenac epolamine 1.3 % 1 patch transdermal DAILY #10 ea 12/25/23 12/25/23 Rx transdermal 24 hour patch tizanidine 4 mg tablet 4 mg PO BID PRN muscle spasticity 12/25/23 12/25/23 Rx #30 tabs hydrocodone 5 mg-acetaminophen 325 1 tab PO TID PRN pain #42 tabs 01/06/24 Rx mg tablet Past Med/Surg History Problem List (Updated 01/15/24 @ 17:37 by Josr Johnson DO) Dementia Fall from standing Intertrochanteric fracture of right femur Compression fracture of T7 vertebra (Acute ~12/18/23) compression fracture of T7 Ptosis of eyelid, bilateral Atrial fibrillation follows with Dr. Edgar, reason for eliquis daily Prepatellar bursitis History of total left knee replacement Angelique-prosthetic fracture of proximal tibia History of compression fracture of vertebral column (~11/07/18) Thoracic H/O mitral valve replacement VBI (vertebrobasilar insufficiency) (Acute) Osteoporosis (Acute) on Fosamax since 05/2020 Hyperlipidemia (Acute) Hypertension (Acute 11/04/12) Dry eye syndrome (Acute) Depression (Acute) Chronic cerebral ischemia (Acute) Arthritis (Acute) Anemia (Acute 08/19/12) Abnormal mammogram (Acute) Thoracic back pain Thoracic kyphosis Age-related physical debility History of stroke 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 Chronic hyponatremia Ambulatory dysfunction (Acute) Closed rib fracture (Acute 09/17/22) from a fall Medical History Malignant neoplasm of colon, unspecified Encounter for pre-operative examination Osteoarthritis Osteoporosis History of kidney stones Crohns disease On anticoagulant therapy eliquis daily Ocular migraine Hypertension Hyperlipidemia Palpitations Surgical History History of colon surgery 06/2008 Previous back surgery 11/07/2012 History of incision and drainage right arm--infected after fx History of total left knee replacement (TKR) History of total right knee replacement (TKR) History of esophagogastroduodenoscopy (EGD) History of colonoscopy with polypectomy History of colectomy subtotal with ileocolic anastomosis History of cardiac cath 04/2010 Dr. Linn @ [facility], no stents History of tooth extraction all teeth History of tonsillectomy History of bilateral cataract extraction History of mitral valve repair 04/[address] [facility] [place] History of appendectomy History of kyphoplasty History of Percutaneous Vertebral Augmentation Kyphoplasty History of umbilical hernia repair History of cholecystectomy Family History Sister Hearing loss Breast cancer Cancer Grandmother (Paternal) No problems noted. Father No problems noted. Sister Osteoporosis Brother Osteoporosis Mother Osteoporosis Other No family history of adverse response to anesthesia Denies family history of Ovarian cancer Prostate cancer Myocardial infarction Colorectal cancer Social History Smoking Status: Never smoker Second Hand Exposure: No; Do You Dip or Chew Tobacco: No; Hx Alcohol Use: No Hx Substance Use: No Preferred Language: Ecuadorean Communication Ability: Effective Hearing Ability: Normal [place] Required: No Beliefs That Will Affect Care: None marital status: / Current Living Situation: Family Current Living Situation Comment: Lives with daughter current occupational status: retired How many Children do You have: 1 Feels Safe at Home: Yes Childhood Exposure to Second-Hand Smoke: No Diet: regular caffeine: No Dental Care, Regularly: Yes Physical Activity Frequency: Does not Exercise Seatbelt Use: always Sunscreen Use: No Assistive Devices: Cane and Glasses Review of Systems Review of Systems: reviewed, per HPI Physical Exam Physical Exam: Constitutional: age appropriate appearance, no acute distress HEENT: NCAT, no conjunctival injection CV: regular rhythm, no murmur appreciated, extremities well-perfused, no LE edema Resp: CTABL, no wheezes/rales/rhonchi appreciated, no increased work of breathing MSK: R leg internally rotated and shortened compared to left. TTP on anterior aspect of R hip. No appreciable ecchymosis or swelling Skin: warm, dry, no rash appreciated Neuro: alert, oriented, no focal neurologic deficit appreciated Results & Data Results & Data Vital Signs (Past 12 Hours) Vital Signs Temp Pulse Pulse Resp BP BP Pulse Ox 01/15/24 16:00 84 16 126/66 95 01/15/24 14:00 74 24 183/84 H 99 01/15/24 13:47 36.4 C 70 16 183/84 H 99 O2 Del Method 01/15/24 16:00 Room Air 01/15/24 14:00 Room Air 01/15/24 13:47 Room Air Code Status & VTE Plan VTE Prophylaxis Plan VTE Prophylaxis will be ordered: No Supervising Physician Co-Signing Physician Notes Patient seen and examined, chart reviewed, case discussed with Josr Johnson, and I agree with the assessment and plan as above except as otherwise noted Labs and images reviewed 83yo F who slipped and fell, reportedly mechanical but pt does not remember the fall but was at the sink in the bathroom. History of Afib on Eliquis last dose this AM, multiple compression fxrs of the spine post kyphoplasty, hyperlipidemia and history of mitral valve replacement without known CAD presents after a fall and who sustained a right femoral intertrochanteric fracture. CThead is without acute finding History of CAD, no CHF on admission, no history of insulin use, Baseline creatinine 1.0 CBC, CMP, coags, EKG ordered. Patient does have right sided rib tenderness to palpation and pain. Chest x-ray ordered. Does have some chronic left-sided rib pain unchanged from prior. Seen with daughter at bedside. Right lower extremity is internally rotated and shortened. Does have some tenderness to pain at the right anterior hip. PT pulse intact bilaterally, cap refill is intact, sensation soft touch is intact in feet bilaterally. Ankle dorsiflexion/plantarflexion is 5/5 bilaterally. Patient reports she fell very quickly but was awake the entire time. Suspect mechanical fall without high suspicion for cardiogenic or neurogenic syncope. Eliquis is held. On agree with above Resident Activity Tracking Resident Involvement: Resident Care Provided Care Provided: Adult Hospital Medicine (1) Intertrochanteric fracture of right femur Encounter type: initial encounter Fracture type: closed Fracture alignment: displaced Qualified Code(s): S72.141A - Displaced intertrochanteric fracture of right femur, initial encounter for closed fracture (2) Compression fracture of T7 vertebra Encounter type: subsequent encounter Fracture healing: with routine healing Qualified Code(s): S22.060D - Wedge compression fracture of T7-T8 vertebra, subsequent encounter for fracture with routine healing (3) Atrial fibrillation Atrial fibrillation type: paroxysmal Qualified Code(s): I48.0 - Paroxysmal atrial fibrillation (5) Hyperlipidemia Hyperlipidemia type: unspecified Qualified Code(s): E78.5 - Hyperlipidemia, unspecified (6) Hypertension Hypertension type: primary hypertension Qualified Code(s): I10 - Essential (primary) hypertension (7) Fall from standing Encounter type: initial encounter Qualified Code(s): W19.XXXA - Unspecified fall, initial encounter
[2024-01-15 17:07] LABS: Basophils # (auto) 0.05 K/uL (0.00-0.20); Basophils % (auto) 0.6 %; Eosinophils # (auto) 0.06 K/uL (0.00-0.50); Eosinophils % (auto) 0.8 %; Hematocrit (blood only) 30.9 % (37.0-47.0); Hemoglobin 10.3 g/dl (12.0-16.0); Immature Granulocytes # (auto) 0.04 K/uL (0.01-0.20); Immature Granulocytes % (auto) 0.5 %; Lymphocytes # (auto) 0.88 K/uL (1.20-3.40); Lymphocytes % (auto) 11.2 %; Mean Corpuscular Hemoglobin 31.3 pg (25.0-34.0); Mean Corpuscular Hgb Conc 33.3 g/dL (32.0-36.0); Mean Corpuscular Volume 93.9 fL (80.0-100.0); Mean Platelet Volume 9.7 fL (9.4-12.4); Monocytes # (auto) 0.76 K/uL (0.11-0.59); Monocytes % (auto) 9.6 %; Neutrophils % (auto) 77.3 %; Platelet Count 359 K/uL (130-400); RDW Coefficient of Variation 14.2 % (11.5-14.5); RDW Standard Deviation 48.7 fL (36.4-46.3); Red Blood Count 3.29 M/uL (4.20-5.40); White Blood Count 7.89 K/ul (4.8-10.8)
[2024-01-15 17:11] LABS: Albumin Globulin Ratio 1.3 (0.9-2); Albumin Level 3.7 gm/dl (3.4-5.0); BUN Creatinine Ratio 27.4 (10-20); Bilirubin,Total 0.6 mg/dl (0.2-1.0); Calcium 9.2 mg/dl (8.6-10.3); Creatinine Clr Calc Pharmacy 35.2 ml/min; Globulin 2.8 gm/dl (2.5-4.0); Potassium 4.5 mmol/L (3.5-5.1); Total Protein 6.5 gm/dl (6.0-8.3)
[2024-01-15] MEDS: ONDANSETRON INJ 2 MG/ML 2 ML VIAL ONE (17:16)
[2024-01-15] MEDS: ONDANSETRON INJ 2 MG/ML 2 ML VIAL IV STA (17:16)
[2024-01-15 17:33] LABS: INR 1.2 (0.9-1.1); Partial Thromboplastin Ratio 1.2; Partial Thromboplastin Time 31 Seconds (21-31); Prothrombin Time 12.4 Seconds (9.0-12.0)
[2024-01-15] MEDS ORDERED: ACETAMINOPHEN 500 MG TAB PO SCH (17:45)
[2024-01-15] MEDS ORDERED: SODIUM CHLORIDE 0.9% 100 ML IV PRN (18:05)
[2024-01-15] MEDS ORDERED: SODIUM CHLORIDE 0.9% 50 ML IV PRN (18:05)
[2024-01-15] MEDS: SODIUM CHLORIDE 0.9% 1,000 ML IV ONE (18:16)
--- NOTE | 2024-01-15 18:33 | XRay Report ---
EXAM: Radiograph of the Chest 1 View INDICATION: Right rib pain following fall. TECHNIQUE: Frontal view of the chest. COMPARISON: No relevant prior studies available. FINDINGS: Lungs and pleural spaces: Stable right basilar lower lung parenchymal scarring. No consolidation or pulmonary edema. No pleural effusion or pneumothorax. Heart: Shape and configuration within normal limits allowing for technique. Mediastinum: Normal contour. Bones/joints: Degenerative changes noted in the spine with midthoracic kyphoplasty unchanged. No displaced fracture noted. Soft tissues: No abnormality noted. No radiopaque foreign body noted. Upper abdomen: No abnormality noted. IMPRESSION: 1. Degenerative changes noted in the spine with midthoracic kyphoplasty unchanged. No displaced fracture noted. 2. No acute cardiopulmonary disease. ACT 112: Negative or not required by law. Electronically signed by Jessica Phipps 01-15-2024 6:33 PM
[2024-01-15] MEDS: MoRPHine SULFATE 2 MG/ML CARP IV PRN (19:07)
[2024-01-15] MEDS ORDERED: MAGNESIUM HYDROXIDE SUSP 30 ML UDC PO PRN (19:55)
[2024-01-15] MEDS ORDERED: ALUMINUM/MAGNESIUM SUSP 30 ML UDC PO PRN (19:55)
[2024-01-15] MEDS ORDERED: POLYETHYLENE (MIRALAX) 17 GM PACK PO PRN (19:55)
[2024-01-15] MEDS: ACETAMINOPHEN 325 MG TAB PO PRN (20:35)
[2024-01-15] MEDS: METOPROLOL TARTRATE 25 MG TAB PO SCH (20:36)
[2024-01-15] MEDS: MoRPHine SULFATE 2 MG/ML CARP IV STA (21:24)
[2024-01-16] MEDS: ACETAMINOPHEN 500 MG TAB PO SCH (00:22)
--- NOTE | 2024-01-16 08:13 | Orthopedic Consultation ---
Date of Consultation January 16, 2024 Assessment & Plan (1) Closed fracture of right hip: Malou has a closed right intertrochanteric hip fracture. I personally reviewed her x-rays which show a mildly comminuted displaced intertrochanteric fracture of the right hip. Otherwise there is no evidence of other orthopedic injury. She ambulates regularly and uses a walker. I think she would benefit from surgical intervention. We talked about the pros and cons of operative and nonoperative management. Nonoperative management could increase the risk of the bone not healing and lead to other complications like bedsores blood clots and the inability to ambulate. I have recommended operative intervention and she agrees to proceed. We will discuss with her daughter and get further history and obtain informed consent from the daughter. NPO. Plan for surgery later today. She is on Eliquis. Her last dose was yesterday morning. Will give TXA. Speak with Dr. Lama houston and give Kcentra preoperatively. There would be a potentially slight increased risk in bleeding. She would have missed 2-3 doses of her blood thinner. History of Present Illness Attending Physician: Mahamed Aponte MD History of Present Illness Malou is 83 years old. She reports that she fell yesterday in the bathroom injuring her right hip. She has a history of falls. She recently had a T7 f racture which is being followed up with [facility] orthopedics. She complains of pain in the right hip and denies other injury.She does not report any chest pains palpitations lightheaded dizziness or loss of consciousness. She walked into the bathroom and the next thing she knew that she was on the floor. Allergies Allergy/AdvReac Type Severity Reaction Status Date / Time codeine Allergy Mild LIGHTHEADED Verified 12/02/23 11:05 NESS verapamil Allergy Mild PALPITATION Verified 12/02/23 11:05 S Home Medications Medication Instructions Recorded Confirmed Type calcium 500 mg (as 1 tab PO DAILY 05/31/20 01/15/24 History carbonate)-vitamin D3 5 mcg (200 unit) tablet cholecalciferol (vitamin D3) 50 2,000 unit PO DAILY 05/31/20 01/15/24 History mcg (2,000 unit) capsule multivitamin 1 tab PO DAILY 10/25/21 01/15/24 History apixaban 5 mg tablet 5 mg PO BID #180 tabs 03/14/23 01/15/24 Rx metoprolol tartrate 25 mg tablet 25 mg PO BID #180 tabs 03/14/23 01/15/24 Rx rosuvastatin 20 mg tablet (Crestor) 20 mg PO DAILY 90 days #90 tabs 03/14/23 01/15/24 Rx alendronate 70 mg tablet 70 mg PO WK #12 tabs 04/26/23 01/15/24 Rx acetaminophen 500 mg tablet 1,500 mg PO BID 12/02/23 01/15/24 History (Tylenol Extra Strength) donepezil 5 mg tablet 5 mg PO DAILY #30 tabs 12/02/23 01/15/24 Rx amoxicillin 500 mg tablet 2,000 mg PO ONCE PRN dental 12/18/23 01/15/24 History appointments lidocaine 5 % topical patch 1 patch topical DAILY #15 ea 12/18/23 01/15/24 Rx (Lidoderm) tramadol 25 mg tablet 25 mg PO Q6H PRN pain #10 tabs 12/18/23 01/15/24 Rx diclofenac epolamine 1.3 % 1 patch transdermal DAILY #10 ea 12/25/23 01/15/24 Rx transdermal 24 hour patch tizanidine 4 mg tablet 4 mg PO BID PRN muscle spasticity 12/25/23 01/15/24 Rx #30 tabs hydrocodone 5 mg-acetaminophen 325 1 tab PO TID PRN pain #42 tabs 01/06/24 01/15/24 Rx mg tablet Patient History Medical History Malignant neoplasm of colon, unspecified Encounter for pre-operative examination Osteoarthritis Osteoporosis History of kidney stones Crohns disease On anticoagulant therapy eliquis daily Ocular migraine Hypertension Hyperlipidemia Palpitations Surgical History History of colon surgery 06/2008 Previous back surgery 11/07/2012 History of incision and drainage right arm--infected after fx History of total left knee replacement (TKR) History of total right knee replacement (TKR) History of esophagogastroduodenoscopy (EGD) History of colonoscopy with polypectomy History of colectomy subtotal with ileocolic anastomosis History of cardiac cath 04/2010 Dr. Linn @ [facility], no stents History of tooth extraction all teeth History of tonsillectomy History of bilateral cataract extraction [place] [facility] [place] of appendectomy History of kyphoplasty History of Percutaneous Vertebral Augmentation Kyphoplasty History of umbilical hernia repair History of cholecystectomy Family History Sister Hearing loss Breast cancer Cancer Grandmother (Paternal) No problems noted. Father No problems noted. Sister Osteoporosis Brother Osteoporosis Mother Osteoporosis Other No family history of adverse response to anesthesia Denies family history of Ovarian cancer Prostate cancer Myocardial infarction Colorectal cancer Social History Smoking Status: Never smoker Second Hand Exposure: No; Do You Dip or Chew Tobacco: No; Hx Alcohol Use: No Hx Substance Use: No Preferred Language: Cambodian Communication Ability: Effective Hearing Ability: Normal Principal Archaeologist Required: No Beliefs That Will Affect Care: None marital status: / Current Living Situation: Family Current Living Situation Comment: daughter current occupational status: retired How many Children do You have: 1 Feels Safe at Home: Yes Childhood Exposure to Second-Hand Smoke: No Diet: regular caffeine: No Dental Care, Regularly: Yes Physical Activity Frequency: Does not Exercise Seatbelt Use: always Sunscreen Use: No Assistive Devices: Cane, Denture - Lower, Glasses and Walker Physical Exam Physical Exam: She is awake and alert to person and date but is not able to say exactly where she is presently. On the right lower extremity there is tenderness to palpation of the right hip without significant bruising. There is swelling and an external rotation deformity of the right leg. She cannot move her right leg. The pelvis is nontender. The right thigh knee leg foot and ankle are nontender. There is no significant swelling and no break in the skin. Pedal pulses are not palpable. Capillary refill is 2 to 3 seconds bilaterally both feet are warm. Posterior tibial pulse is not dopplerable on the right but she has a strongly dopplerable dorsalis pedis. She has 5 out of 5 ankle and toe plantarflexion dorsiflexion inversion and eversion strength. She can move her neck without difficulty in both upper extremities. She is able to do a leg lift on the left as well as bend her knee. I can place her left leg through a range of motion including rotation of her hip without discomfort or pain except in the right hip area. t Results & Data Laboratory Results Laboratory Results WBC 7.89 K/ul (4.8-10.8) 01/15/24 13:44 RBC 3.29 M/uL (4.20-5.40) L 01/15/24 13:44 Hgb 10.3 g/dl (12.0-16.0) L 01/15/24 13:44 Hct 30.9 % (37.0-47.0) L 01/15/24 13:44 MCV 93.9 fL (80.0-100.0) 01/15/24 13:44 MCH 31.3 pg (25.0-34.0) 01/15/24 13:44 MCHC 33.3 g/dL (32.0-36.0) 01/15/24 13:44 RDW Std Deviation 48.7 fL (36.4-46.3) H 01/15/24 13:44 RDW Coeff of Fiona 14.2 % (11.5-14.5) 01/15/24 13:44 Plt Count 359 K/uL (130-400) 01/15/24 13:44 MPV 9.7 fL (9.4-12.4) 01/15/24 13:44 Immature Gran % (Auto) 0.5 % 01/15/24 13:44 Neut % (Auto) 77.3 % 01/15/24 13:44 Lymph % (Auto) 11.2 % 01/15/24 13:44 [place] % (Auto) 9.6 % 01/15/24 13:44 Eos % (Auto) 0.8 % 01/15/24 13:44 Baso % (Auto) 0.6 % 01/15/24 13:44 Neut # (Auto) 6.10 K/uL (1.40-6.50) 01/15/24 13:44 Lymph # (Auto) 0.88 K/uL (1.20-3.40) L 01/15/24 13:44 [place] # (Auto) 0.76 K/uL (0.11-0.59) H 01/15/24 13:44 Eos # (Auto) 0.06 K/uL (0.00-0.50) 01/15/24 13:44 Baso # (Auto) 0.05 K/uL (0.00-0.20) 01/15/24 13:44 Immature Gran # (Auto) 0.04 K/uL (0.01-0.20) 01/15/24 13:44 PT 12.4 Seconds (9.0-12.0) H 01/15/24 13:44 INR 1.2 (0.9-1.1) H 01/15/24 13:44 APTT 31 Seconds (21-31) 01/15/24 13:44 PTT Ratio 1.2 01/15/24 13:44 Sodium 129 mmol/L (136-145) L 01/15/24 13:44 Potassium 4.5 mmol/L (3.5-5.1) 01/15/24 13:44 Chloride 96 mmol/L (98-107) L 01/15/24 13:44 Carbon Dioxide 27 mmol/L (21-32) 01/15/24 13:44 Anion Gap 6 (3-11) 01/15/24 13:44 BUN 23 mg/dl (6-23) 01/15/24 13:44 Creatinine 0.84 mg/dl (0.6-1.2) 01/15/24 13:44 Est Cr Clr Drug Dosing 35.2 ml/min 01/15/24 13:44 eGFR 68.06 01/15/24 13:44 BUN/Creatinine Ratio 27.4 (10-20) H 01/15/24 13:44 Glucose 112 mg/dl (70-99(Fasting)) H 01/15/24 13:44 Calcium 9.2 mg/dl (8.6-10.3) 01/15/24 13:44 Total Bilirubin 0.6 mg/dl (0.2-1.0) 01/15/24 13:44 AST 31 U/L (13-39) 01/15/24 13:44 ALT 17 U/L (7-52) 01/15/24 13:44 Alkaline Phosphatase 70 U/L (34-104) 01/15/24 13:44 Total Protein 6.5 gm/dl (6.0-8.3) 01/15/24 13:44 Albumin 3.7 gm/dl (3.4-5.0) 01/15/24 13:44 Globulin 2.8 gm/dl (2.5-4.0) 01/15/24 13:44 Albumin/Globulin Ratio 1.3 (0.9-2) 01/15/24 13:44 Blood Type O Positive 01/15/24 18:19 Blood Type Recheck O Positive 01/15/24 21:35 Antibody Screen NEGATIVE 01/15/24 18:19 Crossmatch See Detail 01/15/24 18:[address] 01/15/24 13:48 CT head/brain wo con CLINICAL HISTORY: 83 years-old Female with Fall, on eliquis. Acute head trauma status post fall TECHNIQUE: Multiple axial CT images of the head were obtained without contrast. A dose lowering technique was utilized adhering to the principles of ALARA. CT DOSE: 547.75 mGy.cm COMPARISON: 10/25/2021 FINDINGS: No acute intracranial hemorrhage, midline shift, intracranial mass, hydrocephalus, territorial ischemia or abnormal extra-axial collection. Involutional changes with extensive white matter hypodensities redemonstrated likely representing chronic microvascular ischemic disease. The calvarium is intact. The paranasal sinuses, mastoid air cells, and middle ear cavities are clear. IMPRESSION: No acute intracranial abnormality or calvarial fracture. ACT 112: Negative or not required by law. The above report was generated using voice recognition software. It may contain grammatical, syntax or spelling errors. Electronically signed by: David Chandra M.D. 01/15/2024 3:00 PM Hip/Pelvis X-Ray 01/15/24 13:48 XR hip RT 2V w pelvis HISTORY: 83 years-old Female hip fx, pain, shortened The right hip status post fall COMPARISON: 09/25/2005 TECHNIQUE: AP view of the pelvis with 2 views of the right hip FINDINGS: Demineralized appearance of the bones. Moderate osteoarthritis of the hips. There is an acute comminuted, angulated and displaced intertrochanteric fracture of the right femur with moderate adjacent soft tissue swelling. No dislocation. Arterial calcifications. IMPRESSION: Acute comminuted, angulated and displaced intertrochanteric right femoral fracture. ACT 112: Negative or not required by law. The above report was generated using voice recognition software. It may contain grammatical, syntax or spelling errors. Electronically signed by: David Chandra M.D. 01/15/2024 3:13 PM Chest X-Ray 01/15/24 16:48 EXAM: Radiograph of the Chest 1 View INDICATION: Right rib pain following fall. TECHNIQUE: Frontal view of the chest. COMPARISON: No relevant prior studies available. FINDINGS: Lungs and pleural spaces: Stable right basilar lower lung parenchymal scarring. No consolidation or pulmonary edema. No pleural effusion or pneumothorax. Heart: Shape and configuration within normal limits allowing for technique. Mediastinum: Normal contour. Bones/joints: Degenerative changes noted in the spine with midthoracic kyphoplasty unchanged. No displaced fracture noted. Soft tissues: No abnormality noted. No radiopaque foreign body noted. Upper abdomen: No abnormality noted. IMPRESSION: 1. Degenerative changes noted in the spine with midthoracic kyphoplasty unchanged. No displaced fracture noted. 2. No acute cardiopulmonary disease. ACT 112: Negative or not required by law. Electronically signed by Jessica Phipps 01-15-2024 6:33 PM
[2024-01-16] MEDS: ROSUVASTATIN CALCIUM 20 MG TAB PO SCH (08:48)
[2024-01-16] MEDS: DONEPEZIL HCL 5 MG TAB PO SCH (08:48)
[2024-01-16 09:46] LABS: Hematocrit (blood only) 27.4 % (37.0-47.0); Hemoglobin 8.9 g/dl (12.0-16.0); Mean Corpuscular Hemoglobin 30.8 pg (25.0-34.0); Mean Corpuscular Hgb Conc 32.5 g/dL (32.0-36.0); Mean Corpuscular Volume 94.8 fL (80.0-100.0); Mean Platelet Volume 9.5 fL (9.4-12.4); Platelet Count 304 K/uL (130-400); RDW Coefficient of Variation 14.5 % (11.5-14.5); RDW Standard Deviation 49.6 fL (36.4-46.3); Red Blood Count 2.89 M/uL (4.20-5.40); White Blood Count 8.06 K/ul (4.8-10.8)
[2024-01-16 10:08] LABS: BUN Creatinine Ratio 24.1 (10-20); Calcium 8.5 mg/dl (8.6-10.3); Creatinine Clr Calc Pharmacy 23.3 ml/min
--- NOTE | 2024-01-16 13:42 | Hospitalist Progress Note ---
Date of Service January 16, 2024 Assessment & Plan (1) Intertrochanteric fracture of right femur: Plan: Presented after mechanical fall in bathroom resulted in right hip pain - Hip/pelvis XR demonstrates R intertrochanteric fracture - Head CT negative, CXR without acute findings - HOLD Eliquis - Acute blood loss anemia with hgb at 8.9. No signs of active bleeding, no indication for blood transfusion at this time. Continue to monitor - Ortho consulted -- Plans for R long troch nail surgery on 01/[address] Milner - Pain control: Tylenol 1g q8h scheduled, morphine 2g q4h IV PRN - NPO @ midnight - Vit D level added to AM labs - PT/OT eval ordered (2) Atrial fibrillation: Plan: Currently in normal sinus - continue metoprolol - hold Eliquis (3) ROSALIND (acute kidney injury): Plan: Cr acutely elevated at 1.37, baseline Cr around 0.9 - Encourage PO fluids Plan Chronic stable issues: Hyperlipidemia: Continue rosuvastatin Hypertension: Continue metoprolol Dementia: Continue donepezil VTE PPx: deferred pending surgery CODE STATUS: DNR/DNI Admission and Anticipated Discharge Date Admission Date: January 15, 2024 Subjective Patient seen and evaluated at bedside. She reports that her pain is well- controlled with medication. She is very pleasant and cooperative with staff. She denies any irritation with her Mag[place] catheter. She denies headache, nausea, abdominal pain, chest pain, or shortness of breath. We discussed the plan of postponing surgery today due to her taking Eliquis yesterday, and surgery is now planned for tomorrow afternoon. No additional complaints or concerns at this time. Physical Exam Physical Exam: General: No acute distress, nondiaphoretic, well-developed, well-nourished. Skin: Warm, dry, no edema or rash noted. Cardiac: Regular rate and rhythm without murmurs gallops or rubs. Pulm: Clear to auscultation bilaterally without wheezes, rales or rhonchi. No respiratory distress. 92% on room air. Abdominal: Soft, nontender, mildly distended. Bowel sounds present. Neuro: A&O x3. No focal neurological deficits. Extremities: Right leg externally rotated. Tender to palpation of right hip. Unable to move right leg. Sensation intact to lower extremities bilaterally. Strength 5/5 with dorsiflexion and plantarflexion bilaterally. Cap refill <3 seconds bilaterally. Results & Data Results & Data Vital Signs (Past 12 Hours) Vital Signs Temp Pulse Resp BP Pulse Ox O2 Del Method 01/16/24 13:26 104/68 01/16/24 08:16 97.9 F 86 17 98/63 L 92 Room Air Laboratory Results Reviewed CBC Reviewed BMP PG Care Time/CCT Total # of Minutes Spent Total Time Spent with Patient: Total time spent is greater than 50% in coordination of care (as documented) at patient's floor/unit and/or counseling patient: Coding Level of Care Code 03783 SUB INP/OBS CARE 2/35MIN Diagnoses Closed displaced intertrochanteric fracture of right femur, initial encounter S72.141A Encounter type: initial encounter Fracture alignment: displaced Fracture type: closed Paroxysmal atrial fibrillation I48.0 Atrial fibrillation type: paroxysmal ROSALIND (acute kidney injury) N17.9 (1) Intertrochanteric fracture of right femur Encounter type: initial encounter Fracture alignment: displaced Fracture type: closed Qualified Code(s): S72.141A - Displaced intertrochanteric fracture of right femur, initial encounter for closed fracture (2) Atrial fibrillation Atrial fibrillation type: paroxysmal Qualified Code(s): I48.0 - Paroxysmal atrial fibrillation
--- NOTE | 2024-01-16 15:00 | Electrocardiogram Report ---
Test Reason : Blood Pressure : */* mmHG Vent. Rate : 69 BPM Atrial Rate : 69 BPM P-R Int : 192 ms QRS Dur : 80 ms QT Int : 398 ms P-R-T Axes : 53 -22 39 degrees QTcB Int : 426 ms Normal sinus rhythm Minimal voltage criteria for LVH, may be normal variant Borderline ECG When compared with ECG of 17-Sep-2022 15:04, Premature atrial complexes are no longer Present T wave amplitude has increased in Lateral leads Confirmed by Yury Arce ([id number]) on 01/16/2024 2:59:36 PM Referred By: REFERRED SELF Confirmed By: Yury Arce
[2024-01-17 07:05] LABS: Hematocrit (blood only) 23.9 % (37.0-47.0); Hemoglobin 7.7 g/dl (12.0-16.0); Mean Corpuscular Hemoglobin 30.1 pg (25.0-34.0); Mean Corpuscular Hgb Conc 32.2 g/dL (32.0-36.0); Mean Corpuscular Volume 93.4 fL (80.0-100.0); Platelet Count 268 K/uL (130-400); RDW Coefficient of Variation 14.6 % (11.5-14.5); RDW Standard Deviation 49.1 fL (36.4-46.3); Red Blood Count 2.56 M/uL (4.20-5.40); White Blood Count 9.01 K/ul (4.8-10.8)
[2024-01-17 07:06] LABS: Mean Platelet Volume 9.9 fL (9.4-12.4)
[2024-01-17] MEDS ORDERED: SODIUM CHLORIDE 0.9% 50 ML IV PRN ×2 (08:36→08:37)
[2024-01-17] MEDS ORDERED: SODIUM CHLORIDE 0.9% 100 ML IV PRN ×2 (08:36→08:37)
--- NOTE | 2024-01-17 09:02 | Hospitalist Progress Note ---
Date of Service January 17, 2024 Assessment & Plan (1) Intertrochanteric fracture of right femur: Plan: Presented after mechanical fall in bathroom resulted in right hip pain. 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 Milner > Review of operative report notes EBL 100 cc, no complications > K centra given preoperatively > Ancef x 2 given perioperatively - Acute Blood loss anemia with further drop in hgb to 7.7 pre-op > 1 unit pRBC to transfuse before surgery; 2 additional units on hold - Pain control: Tylenol 1g q8h scheduled, morphine 2g q4h IV PRN - HOLD Eliquis -- dose reduce to 2.5 mg when resumed given age and weight - Vit D level WNL at 39.2 - PT/OT eval ordered (2) Atrial fibrillation: Plan: Currently in normal sinus - continue metoprolol - hold Eliquis (3) ROSALIND (acute kidney injury): Plan: Acute kidney injury -- Cr acutely elevated at 1.88, baseline Cr around 0.9 - Suspect due to being volume contracted in setting of acute blood loss anemia - Encourage PO fluids Plan Transfused 1 unit pRBC Discussed anticoagulation with Dr. Ch Chronic stable issues: Hyperlipidemia: Continue rosuvastatin Hypertension: Continue metoprolol Dementia: Continue donepezil Hyponatremia: chronic, noted VTE PPx: deferred in perioperative period CODE STATUS: DNR/DNI Admission and Anticipated Discharge Date Admission Date: January 15, 2024 Subjective Patient seen and evaluated at bedside this morning. She is anxious regarding her upcoming surgery today. She does report that her pain is well-controlled with medication currently. She denies chest pain, shortness of breath, headache, nausea, abdominal pain, lightheadedness. She has not had a bowel movement yet. We discussed transfusing 1 unit of blood prior to her going to surgery, and that she will most likely require additional blood transfusions postoperatively. All questions were answered. No additional complaints or concerns at this time. Physical Exam Physical Exam: General: No acute distress, nondiaphoretic, well-developed, well-nourished. Skin: Warm, dry, no edema or rash noted. Cardiac: Regular rate and rhythm without murmurs gallops or rubs. Pulm: Clear to auscultation bilaterally without wheezes, rales or rhonchi. No respiratory distress. 94% on room air. Abdominal: Soft, nontender, mildly distended. Bowel sounds present. Neuro: A&O x3. No focal neurological deficits. Extremities: Right leg externally rotated. Tender to palpation of right hip. Unable to move right leg. Sensation intact to lower extremities bilaterally. Strength 5/5 with dorsiflexion and plantarflexion bilaterally. Cap refill <3 seconds bilaterally. Results & Data Results & Data Vital Signs (Past 12 Hours) Vital Signs Temp Pulse Resp BP Pulse Ox O2 Del Method 01/17/24 07:37 97.3 F L 85 16 95/56 L 94 Room Air 01/16/24 21:31 97.7 F 106 H 17 106/64 97 Room Air Laboratory Results Reviewed CBC Reviewed BMP PG Care Time/CCT Total # of Minutes Spent Total Time Spent with Patient: Total time spent is greater than 50% in coordination of care (as documented) at patient's floor/unit and/or counseling patient: Coding Level of Care Code 30945 SUB INP/OBS CARE 3/50MIN Diagnoses Closed displaced intertrochanteric fracture of right femur, initial encounter S72.141A Encounter type: initial encounter Fracture alignment: displaced Fracture type: closed Paroxysmal atrial fibrillation I48.0 Atrial fibrillation type: paroxysmal ROSALIND (acute kidney injury) N17.9 (1) Intertrochanteric fracture of right femur Encounter type: initial encounter Fracture alignment: displaced Fracture type: closed Qualified Code(s): S72.141A - Displaced intertrochanteric fracture of right femur, initial encounter for closed fracture (2) Atrial fibrillation Atrial fibrillation type: paroxysmal Qualified Code(s): I48.0 - Paroxysmal atrial fibrillation
--- NOTE | 2024-01-17 09:22 | Orthopedic Progress Note ---
Date of Service January 17, 2024 Assessment & Plan (1) Intertrochanteric fracture of right femur: Plan: Informed consent is in the chart and signed. Patient understands the procedure that she is scheduled to undergo later this afternoon. Currently she is pain-free at rest. With any type of movement she does experience significant pain. I advised for the following surgery she will be weightbearing as tolerated with walker assistance and that PT and OT will work with her. More than likely she will need to go to either [facility] facility or inpatient rehab following the surgery. Eliquis was held and Kcentra will be given before proceeding to the OR. Admission and Anticipated Discharge Date Admission Date: January 15, 2024 Subjective This 83-year-old female seen this morning for a right intertrochanteric hip fracture. She is scheduled to undergo open reduction internal fixation with trochanteric nailing later this afternoon. Patient states she has significant pain with any type of movement of the right lower extremity. She denies chest pain, shortness of breath, fever, chills, sweats, nausea, vomiting, diarrhea, loss of consciousness or numbness or tingling in her right lower extremity. Review of Systems Review of Systems: All systems reviewed & are unremarkable except as noted in Subjective Physical Exam Physical Exam: Right lower extremity: Patient experiences significant tenderness to palpation over the greater trochanter and in her groin. She has significant pain with logroll testing. Was only able to flex her hip to about 15 degrees before she experienced pain in her hip. She was able to actively dorsi and plantarflex her foot and had no pain with light resistance applied. Her peripheral pulses are 2+. She is neurovascularly intact right lower extremity. Results & Data Vital Signs (Past 12 Hours) Vital Signs Temp Pulse Pulse Resp BP BP Pulse Ox 01/17/24 09:17 36.9 C 89 16 114/65 94 01/17/24 07:37 36.3 C L 85 16 95/56 L 94 01/16/24 21:31 36.5 C 106 H 17 106/64 97 O2 Del Method 01/17/24 09:17 01/17/24 07:37 Room Air 01/16/24 21:31 Room Air Diagnostic Findings Laboratory Results WBC 9.01 K/ul (4.8-10.8) 01/17/24 06:25 RBC 2.56 M/uL (4.20-5.40) L 12/06/24 06:25 Hgb 7.7 g/dl (12.0-16.0) L 01/17/24 06:25 Hct 23.9 % (37.0-47.0) L 01/17/24 06:25 MCV 93.4 fL (80.0-100.0) 01/17/24 06:25 MCH 30.1 pg (25.0-34.0) 01/17/24 06:25 MCHC 32.2 g/dL (32.0-36.0) 01/17/24 06:25 RDW Std Deviation 49.1 fL (36.4-46.3) H 01/17/24 06:25 RDW Coeff of Fiona 14.6 % (11.5-14.5) H 01/17/24 06:25 Plt Count 268 K/uL (130-400) 01/17/24 06:25 MPV 9.9 fL (9.4-12.4) 01/17/24 06:25 Immature Gran % (Auto) 0.5 % 01/15/24 13:44 Neut % (Auto) 77.3 % 01/15/24 13:44 Lymph % (Auto) 11.2 % 01/15/24 13:44 [place] % (Auto) 9.6 % 01/15/24 13:44 Eos % (Auto) 0.8 % 01/15/24 13:44 Baso % (Auto) 0.6 % 01/15/24 13:44 Neut # (Auto) 6.10 K/uL (1.40-6.50) 01/15/24 13:44 Lymph # (Auto) 0.88 K/uL (1.20-3.40) L 01/15/24 13:44 [place] # (Auto) 0.76 K/uL (0.11-0.59) H 01/15/24 13:44 Eos # (Auto) 0.06 K/uL (0.00-0.50) 01/15/24 13:44 Baso # (Auto) 0.05 K/uL (0.00-0.20) 01/15/24 13:44 Immature Gran # (Auto) 0.04 K/uL (0.01-0.20) 01/15/24 13:44 PT 12.4 Seconds (9.0-12.0) H 01/15/24 13:44 INR 1.2 (0.9-1.1) H 01/15/24 13:44 APTT 31 Seconds (21-31) 01/15/24 13:44 PTT Ratio 1.2 01/15/24 13:44 Sodium 130 mmol/L (136-145) L 01/16/24 09:12 Potassium 5.0 mmol/L (3.5-5.1) 01/16/24 09:12 Chloride 98 mmol/L (98-107) 01/16/24 09:12 Carbon Dioxide 23 mmol/L (21-32) 01/16/24 09:12 Anion Gap 9 (3-11) 01/16/24 09:12 BUN 33 mg/dl (6-23) H 01/16/24 09:12 Creatinine 1.37 mg/dl (0.6-1.2) H D 01/16/24 09:12 Est Cr Clr Drug Dosing 23.3 ml/min 01/16/24 09:12 eGFR 37.84 01/16/24 09:12 BUN/Creatinine Ratio 24.1 (10-20) H 01/16/24 09:12 Glucose 115 mg/dl (70-99(Fasting)) H 01/16/24 09:12 Calcium 8.5 mg/dl (8.6-10.3) L 01/16/24 09:12 Total Bilirubin 0.6 mg/dl (0.2-1.0) 01/15/24 13:44 AST 31 U/L (13-39) 01/15/24 13:44 ALT 17 U/L (7-52) 01/15/24 13:44 Alkaline Phosphatase 70 U/L (34-104) 01/15/24 13:44 Total Protein 6.5 gm/dl (6.0-8.3) 01/15/24 13:44 Albumin 3.7 gm/dl (3.4-5.0) 01/15/24 13:44 Globulin 2.8 gm/dl (2.5-4.0) 01/15/24 13:44 Albumin/Globulin Ratio 1.3 (0.9-2) 01/15/24 13:44 25-OH Vitamin D Total 39.2 ng/ml (30-100) 01/17/24 06:25 Blood Type O Positive 01/15/24 18:19 Blood Type Recheck O Positive 01/15/24 21:35 Antibody Screen NEGATIVE 01/15/24 18:19 Crossmatch See Detail 01/15/24 18:[address] 01/15/24 13:48 CT head/brain wo con CLINICAL HISTORY: 83 years-old Female with Fall, on eliquis. Acute head trauma status post fall TECHNIQUE: Multiple axial CT images of the head were obtained without contrast. A dose lowering technique was utilized adhering to the principles of ALARA. CT DOSE: 547.75 mGy.cm COMPARISON: 10/25/2021 FINDINGS: No acute intracranial hemorrhage, midline shift, intracranial mass, hydrocephalus, territorial ischemia or abnormal extra-axial collection. Involutional changes with extensive white matter hypodensities redemonstrated likely representing chronic microvascular ischemic disease. The calvarium is intact. The paranasal sinuses, mastoid air cells, and middle ear cavities are clear. IMPRESSION: No acute intracranial abnormality or calvarial fracture. ACT 112: Negative or not required by law. The above report was generated using voice recognition software. It may contain grammatical, syntax or spelling errors. Electronically signed by: David Chandra M.D. 01/15/2024 3:00 PM Hip/Pelvis X-Ray 01/15/24 13:48 XR hip RT 2V w pelvis HISTORY: 83 years-old Female hip fx, pain, shortened The right hip status post fall COMPARISON: 09/25/2005 TECHNIQUE: AP view of the pelvis with 2 views of the right hip FINDINGS: Demineralized appearance of the bones. Moderate osteoarthritis of the hips. There is an acute comminuted, angulated and displaced intertrochanteric fracture of the right femur with moderate adjacent soft tissue swelling. No dislocation. Arterial calcifications. IMPRESSION: Acute comminuted, angulated and displaced intertrochanteric right femoral fracture. ACT 112: Negative or not required by law. The above report was generated using voice recognition software. It may contain grammatical, syntax or spelling errors. Electronically signed by: David Chadnra M.D. 01/15/2024 3:13 PM Chest X-Ray 01/15/24 16:48 EXAM: Radiograph of the Chest 1 View INDICATION: Right rib pain following fall. TECHNIQUE: Frontal view of the chest. COMPARISON: No relevant prior studies available. FINDINGS: Lungs and pleural spaces: Stable right basilar lower lung parenchymal scarring. No consolidation or pulmonary edema. No pleural effusion or pneumothorax. Heart: Shape and configuration within normal limits allowing for technique. Mediastinum: Normal contour. Bones/joints: Degenerative changes noted in the spine with midthoracic kyphoplasty unchanged. No displaced fracture noted. Soft tissues: No abnormality noted. No radiopaque foreign body noted. Upper abdomen: No abnormality noted. IMPRESSION: 1. Degenerative changes noted in the spine with midthoracic kyphoplasty unchanged. No displaced fracture noted. 2. No acute cardiopulmonary disease. ACT 112: Negative or not required by law. Electronically signed by Jessica Phipps 01-15-2024 6:33 PM (1) Intertrochanteric fracture of right femur Encounter type: initial encounter Fracture type: closed Fracture alignment: displaced Qualified Code(s): S72.141A - Displaced intertrochanteric fracture of right femur, initial encounter for closed fracture
[2024-01-17 09:38] LABS: BUN Creatinine Ratio 23.4 (10-20); Calcium 8.3 mg/dl (8.6-10.3); Potassium 5.1 mmol/L (3.5-5.1)
[2024-01-17] MEDS: KCENTRA (500unit vial) 2000 units IVP IV ONE (12:38)
[2024-01-17] MEDS ORDERED: ROCURONIUM BROMIDE 10 MG/ML 5 ML VIAL IV ONE (12:54)
[2024-01-17] MEDS ORDERED: LIDOCAINE 2% 2 ML VIAL/AMP(20MG/ML) INFIL ONE (12:54)
[2024-01-17] MEDS ORDERED: fentaNYL citrate PF 100 MCG/2 ML VIAL ONE ×2 (12:54→14:46)
[2024-01-17] MEDS ORDERED: PROPOFOL IV EMULSION 10 MG/ML 20 ML VIAL IV ONE (12:54)
[2024-01-17] MEDS ORDERED: PROMETHAZINE HCL 6.25 MG in SODIUM CHLORIDE 0.9% 50 ML IV PRN (13:00)
[2024-01-17] MEDS ORDERED: ePHEDrine sulfate 50 MG/ML AMP IV PRN (13:00)
[2024-01-17] MEDS ORDERED: ATROPINE SULFATE 0.1 MG/ML 10ML SYR IV PRN (13:00)
[2024-01-17] MEDS ORDERED: HYDROmorphone INJ 1 MG/ML SYRINGE IV PRN (13:00)
--- NOTE | 2024-01-17 13:00 | Anesthesiology Consultation ---
Date of Service January 17, 2024 Assessment & Plan ASA ASA3 Proposed Anesthesia Anesthesia Type: General Risk / Benefits Reviewed With: PT / POA / Parent / Guardian, Accepts Plan and Informed Consent Obtained History Surgery Operation Date: 01/17/24 12:30 Proposed Procedures p Right Long Troch Nail - Nile Milner MD Height/Weight Height: 5 ft Weight: 54.749 kg Allergies Allergy/AdvReac Type Severity Reaction Status Date / Time codeine Allergy Mild LIGHTHEADED Verified 12/02/23 11:05 NESS verapamil Allergy Mild PALPITATION Verified 12/02/23 11:05 S Medications Home Medications Medication Instructions Recorded Confirmed Last Taken calcium 500 mg (as 1 tab PO DAILY 05/31/20 01/15/24 09/06/22 carbonate)-vitamin D3 5 mcg (200 unit) tablet cholecalciferol (vitamin D3) 50 2,000 unit PO DAILY 05/31/20 01/15/24 09/06/22 mcg (2,000 unit) capsule multivitamin 1 tab PO DAILY 10/25/21 01/15/24 09/06/22 apixaban 5 mg tablet 5 mg PO BID #180 tabs 03/14/23 01/15/24 Unknown metoprolol tartrate 25 mg tablet 25 mg PO BID #180 tabs 03/14/23 01/15/24 Unknown rosuvastatin 20 mg tablet (Crestor) 20 mg PO DAILY 90 days #90 tabs 03/14/23 01/15/24 Unknown alendronate 70 mg tablet 70 mg PO WK #12 tabs 04/26/23 01/15/24 Unknown acetaminophen 500 mg tablet 1,500 mg PO BID 12/02/23 01/15/24 Unknown (Tylenol Extra Strength) donepezil 5 mg tablet 5 mg PO DAILY #30 tabs 12/02/23 01/15/24 Unknown amoxicillin 500 mg tablet 2,000 mg PO ONCE PRN dental 12/18/23 01/15/24 Unknown appointments lidocaine 5 % topical patch 1 patch topical DAILY #15 ea 12/18/23 01/15/24 Unknown (Lidoderm) tramadol 25 mg tablet 25 mg PO Q6H PRN pain #10 tabs 12/18/23 01/15/24 Unknown diclofenac epolamine 1.3 % 1 patch transdermal DAILY #10 ea 12/25/23 01/15/24 Unknown transdermal 24 hour patch tizanidine 4 mg tablet 4 mg PO BID PRN muscle spasticity 12/25/23 01/15/24 Unknown #30 tabs hydrocodone 5 mg-acetaminophen 325 1 tab PO TID PRN pain #42 tabs 01/06/24 01/15/24 Unknown mg tablet Active Medications Generic Name Dose Route Start Last Admin Trade Name Freq PRN Reason Stop Dose Admin Acetaminophen 1,000 mg 01/15/24 23:00 01/17/24 06:08 Acetaminophen 500 Mg Tab PO 02/14/24 22:59 1,000 mg Q8H LIZANDRO Administration Acetaminophen 650 mg 01/15/24 19:55 01/15/24 20:35 Acetaminophen 325 Mg Tab PO 02/14/24 19:54 650 mg Q4H PRN Administration pain/fever Donepezil HCl 5 mg 01/16/24 09:00 01/17/24 08:34 Donepezil Hcl 5 Mg Tab PO 02/15/24 08:59 Not Given DAILY LIZANDRO Metoprolol Tartrate 25 mg 01/15/24 21:00 01/17/24 08:33 Metoprolol Tartrate 25 Mg Tab PO 02/14/24 20:59 Not Given BID LIZANDRO Morphine Sulfate 2 mg 01/15/24 17:32 01/16/24 17:25 Morphine Sulfate 2 Mg/Ml Carp IV 01/29/24 17:31 2 mg Q4H PRN Administration Pain Rosuvastatin Calcium 20 mg 01/16/24 09:00 01/17/24 08:34 Rosuvastatin Calcium 20 Mg Tab PO 02/15/24 08:59 Not Given DAILY LIZANDRO NPO Date Last Intake of Fluids: 01/16/24 Time Last Intake of Fluids: 23:00 Date Last Intake of Solids: 01/16/24 Time Last Intake of Solids: 19:00 Past Medical History Medical History Malignant neoplasm of colon, unspecified Encounter for pre-operative examination Osteoarthritis Osteoporosis History of kidney stones Crohns disease On anticoagulant therapy eliquis daily Ocular migraine Hypertension Hyperlipidemia Palpitations Exercise / Class Metabolic Activity II 4-5 Yardwork/Stairs/Walk up hill Past Family History Family History Sister Hearing loss Breast cancer Cancer Grandmother (Paternal) No problems noted. Father No problems noted. Sister Osteoporosis Brother Osteoporosis Mother Osteoporosis Other No family history of adverse response to anesthesia Denies family history of Ovarian cancer Prostate cancer Myocardial infarction Colorectal cancer Past Surgical History Surgical History History of colon surgery 06/2008 Previous back surgery 11/07/2012 History of incision and drainage right arm--infected after fx History of total left knee replacement (TKR) History of total right knee replacement (TKR) History of esophagogastroduodenoscopy (EGD) History of colonoscopy with polypectomy History of colectomy subtotal with ileocolic anastomosis History of cardiac cath 04/2010 Dr. Linn @ [facility], no stents History of tooth extraction all teeth History of tonsillectomy History of bilateral cataract extraction History of mitral valve repair 04/2012 @ [facility] – [place] History of appendectomy History of kyphoplasty History of Percutaneous Vertebral Augmentation Kyphoplasty History of umbilical hernia repair History of cholecystectomy Past Anesthesia History No Hx of Anesthesia Complications and No Family Hx of Anesthesia Complications History of PONV No Hx of PONV and No Hx of Motion Sickness Social History Smoking Status: Never smoker Do You Dip or Chew Tobacco: No Hx Alcohol Use: No Hx Substance Use: No substance use type: does not use Physical Exam Vital Signs Last Vital Signs Temp 36.8 C 01/17/24 12:21 Pulse 91 H 01/17/24 12:21 Resp 20 01/17/24 12:21 BP 127/80 01/17/24 12:21 Pulse Ox 96 01/17/24 12:21 O2 Del Method Room Air 01/17/24 12:21 Constitutional no acute distress ENMT Mouth: + dentition abnormality and + dentures (partial dentures) Thyromental Distance: > or= 3.5 Finger Breadths Mallampati Class: II Neck normal visual inspection Respiratory normal respiratory effort; no respiratory distress Auscultation: lungs clear to auscultation bilaterally Cardiovascular Rate/Rhythm: regular rate and regular rhythm Heart Sounds: no murmur Musculoskeletal Spine: normal cervical ROM Psychiatric Orientation: alert and oriented x 3 Testing Laboratory Results 01/17/24 06:25 01/17/24 06:25 PT 12.4 Seconds (9.0-12.0) H 01/15/24 13:44 INR 1.2 (0.9-1.1) H 01/15/24 13:44 APTT 31 Seconds (21-31) 01/15/24 13:44 Blood Type O Positive 01/15/24 18:19 Antibody Screen NEGATIVE 01/15/24 18:19 Echocardiogram EF: 08/2021 EF 55% mitral ring repair Day of Procedure Evaluation. Date of Surgery January 17, 2024 Height/Weight Height: 5 ft Weight: 54.749 kg Vital Signs Last Vital Signs Temp 36.8 C 01/17/24 12:21 Pulse 91 H 01/17/24 12:21 Resp 20 01/17/24 12:21 BP 127/80 01/17/24 12:21 Pulse Ox 96 01/17/24 12:21 O2 Del Method Room Air 01/17/24 12:21 Allergies Allergy/AdvReac Type Severity Reaction Status Date / Time codeine Allergy Mild LIGHTHEADED Verified 12/02/23 11:05 NESS verapamil Allergy Mild PALPITATION Verified 12/02/23 11:05 S Medications Home Medications Medication Instructions Recorded Confirmed Last Taken calcium 500 mg (as 1 tab PO DAILY 05/31/20 01/15/24 09/06/22 carbonate)-vitamin D3 5 mcg (200 unit) tablet cholecalciferol (vitamin D3) 50 2,000 unit PO DAILY 05/31/20 01/15/24 09/06/22 mcg (2,000 unit) capsule multivitamin 1 tab PO DAILY 10/25/21 01/15/24 09/06/22 apixaban 5 mg tablet 5 mg PO BID #180 tabs 03/14/23 01/15/24 Unknown metoprolol tartrate 25 mg tablet 25 mg PO BID #180 tabs 03/14/23 01/15/24 Unknown rosuvastatin 20 mg tablet (Crestor) 20 mg PO DAILY 90 days #90 tabs 03/14/23 01/15/24 Unknown alendronate 70 mg tablet 70 mg PO WK #12 tabs 04/26/23 01/15/24 Unknown acetaminophen 500 mg tablet 1,500 mg PO BID 12/02/23 01/15/24 Unknown (Tylenol Extra Strength) donepezil 5 mg tablet 5 mg PO DAILY #30 tabs 12/02/23 01/15/24 Unknown amoxicillin 500 mg tablet 2,000 mg PO ONCE PRN dental 12/18/23 01/15/24 Unknown appointments lidocaine 5 % topical patch 1 patch topical DAILY #15 ea 12/18/23 01/15/24 Unknown (Lidoderm) tramadol 25 mg tablet 25 mg PO Q6H PRN pain #10 tabs 12/18/23 01/15/24 Unknown diclofenac epolamine 1.3 % 1 patch transdermal DAILY #10 ea 12/25/23 01/15/24 Unknown transdermal 24 hour patch tizanidine 4 mg tablet 4 mg PO BID PRN muscle spasticity 12/25/23 01/15/24 Unknown #30 tabs hydrocodone 5 mg-acetaminophen 325 1 tab PO TID PRN pain #42 tabs 01/06/24 01/15/24 Unknown mg tablet Active Medications Generic Name Dose Route Start Last Admin Trade Name Freq PRN Reason Stop Dose Admin Acetaminophen 1,000 mg 01/15/24 23:00 01/17/24 06:08 Acetaminophen 500 Mg Tab PO 02/14/24 22:59 1,000 mg Q8H LIZANDRO Administration Acetaminophen 650 mg 01/15/24 19:55 01/15/24 20:35 Acetaminophen 325 Mg Tab PO 02/14/24 19:54 650 mg Q4H PRN Administration pain/fever Donepezil HCl 5 mg 01/16/24 09:00 01/17/24 08:34 Donepezil Hcl 5 Mg Tab PO 02/15/24 08:59 Not Given DAILY LIZANDRO Metoprolol Tartrate 25 mg 01/15/24 21:00 01/17/24 08:33 Metoprolol Tartrate 25 Mg Tab PO 02/14/24 20:59 Not Given BID LIZANDRO Morphine Sulfate 2 mg 01/15/24 17:32 01/16/24 17:25 Morphine Sulfate 2 Mg/Ml Carp IV 01/29/24 17:31 2 mg Q4H PRN Administration Pain Rosuvastatin Calcium 20 mg 01/16/24 09:00 01/17/24 08:34 Rosuvastatin Calcium 20 Mg Tab PO 02/15/24 08:59 Not Given DAILY LIZANDRO Past Anesthesia History No Hx of Anesthesia Complications and No Family Hx of Anesthesia Complications History of PONV No Hx of PONV and No Hx of Motion Sickness NPO Date Last Intake of Fluids: 01/16/24 Time Last Intake of Fluids: 23:00 Date Last Intake of Solids: 01/16/24 Time Last Intake of Solids: 19:00 Home Medications Home Medications Medication Instructions Recorded Confirmed Last Taken calcium 500 mg (as 1 tab PO DAILY 05/31/20 01/15/24 09/06/22 carbonate)-vitamin D3 5 mcg (200 unit) tablet cholecalciferol (vitamin D3) 50 2,000 unit PO DAILY 05/31/20 01/15/24 09/06/22 mcg (2,000 unit) capsule multivitamin 1 tab PO DAILY 10/25/21 01/15/24 09/06/22 apixaban 5 mg tablet 5 mg PO BID #180 tabs 03/14/23 01/15/24 Unknown metoprolol tartrate 25 mg tablet 25 mg PO BID #180 tabs 03/14/23 01/15/24 Unknown rosuvastatin 20 mg tablet (Crestor) 20 mg PO DAILY 90 days #90 tabs 03/14/23 01/15/24 Unknown alendronate 70 mg tablet 70 mg PO WK #12 tabs 04/26/23 01/15/24 Unknown acetaminophen 500 mg tablet 1,500 mg PO BID 12/02/23 01/15/24 Unknown (Tylenol Extra Strength) donepezil 5 mg tablet 5 mg PO DAILY #30 tabs 12/02/23 01/15/24 Unknown amoxicillin 500 mg tablet 2,000 mg PO ONCE PRN dental 12/18/23 01/15/24 Unknown appointments lidocaine 5 % topical patch 1 patch topical DAILY #15 ea 12/18/23 01/15/24 Unknown (Lidoderm) tramadol 25 mg tablet 25 mg PO Q6H PRN pain #10 tabs 12/18/23 01/15/24 Unknown diclofenac epolamine 1.3 % 1 patch transdermal DAILY #10 ea 12/25/23 01/15/24 Unknown transdermal 24 hour patch tizanidine 4 mg tablet 4 mg PO BID PRN muscle spasticity 12/25/23 01/15/24 Unknown #30 tabs hydrocodone 5 mg-acetaminophen 325 1 tab PO TID PRN pain #42 tabs 01/06/24 01/15/24 Unknown mg tablet Active Medications Generic Name Dose Route Start Last Admin Trade Name Freq PRN Reason Stop Dose Admin Acetaminophen 1,000 mg 01/15/24 23:00 01/17/24 06:08 Acetaminophen 500 Mg Tab PO 02/14/24 22:59 1,000 mg Q8H LIZANDRO Administration Acetaminophen 650 mg 01/15/24 19:55 01/15/24 20:35 Acetaminophen 325 Mg Tab PO 02/14/24 19:54 650 mg Q4H PRN Administration pain/fever Donepezil HCl 5 mg 01/16/24 09:00 01/17/24 08:34 Donepezil Hcl 5 Mg Tab PO 02/15/24 08:59 Not Given DAILY LIZANDRO Metoprolol Tartrate 25 mg 01/15/24 21:00 01/17/24 08:33 Metoprolol Tartrate 25 Mg Tab PO 02/14/24 20:59 Not Given BID LIZANDRO Morphine Sulfate 2 mg 01/15/24 17:32 01/16/24 17:25 Morphine Sulfate 2 Mg/Ml Carp IV 01/29/24 17:31 2 mg Q4H PRN Administration Pain Rosuvastatin Calcium 20 mg 01/16/24 09:00 01/17/24 08:34 Rosuvastatin Calcium 20 Mg Tab PO 02/15/24 08:59 Not Given DAILY [facility] Exercise / Class Metabolic Activity Metabolic Activity: II 4-5 Yardwork/Stairs/Walk up hill Physical Exam Constitutional: no acute distress Mouth: + dentition abnormality and + dentures (partial dentures) Thyromental Distance: > or= 3.5 Finger Breadths Mallampati Class: II Neck: + visual inspection normal Respiratory: + respiratory effort normal and + clear to auscultation bilaterally; no respiratory distress Cardiovascular: + regular rate and + regular rhythm; no murmur Musculoskeletal: no limited cervical ROM Psychiatric: + alert and + oriented x 3 ASA ASA3 Proposed Anesthesia Proposed Anesthesia: General Risk / Benefits Reviewed With: PT / POA / Parent / Guardian, Accepts Plan and Informed Consent Obtained Data & Results Home Medications Medication Instructions Recorded Confirmed Type calcium 500 mg (as 1 tab PO DAILY 05/31/20 01/15/24 History carbonate)-vitamin D3 5 mcg (200 unit) tablet cholecalciferol (vitamin D3) 50 2,000 unit PO DAILY 05/31/20 01/15/24 History mcg (2,000 unit) capsule multivitamin 1 tab PO DAILY 10/25/21 01/15/24 History apixaban 5 mg tablet 5 mg PO BID #180 tabs 03/14/23 01/15/24 Rx metoprolol tartrate 25 mg tablet 25 mg PO BID #180 tabs 03/14/23 01/15/24 Rx rosuvastatin 20 mg tablet (Crestor) 20 mg PO DAILY 90 days #90 tabs 03/14/23 01/15/24 Rx alendronate 70 mg tablet 70 mg PO WK #12 tabs 04/26/23 01/15/24 Rx acetaminophen 500 mg tablet 1,500 mg PO BID 12/02/23 01/15/24 History (Tylenol Extra Strength) donepezil 5 mg tablet 5 mg PO DAILY #30 tabs 12/02/23 01/15/24 Rx amoxicillin 500 mg tablet 2,000 mg PO ONCE PRN dental 12/18/23 01/15/24 History appointments lidocaine 5 % topical patch 1 patch topical DAILY #15 ea 12/18/23 01/15/24 Rx (Lidoderm) tramadol 25 mg tablet 25 mg PO Q6H PRN pain #10 tabs 12/18/23 01/15/24 Rx diclofenac epolamine 1.3 % 1 patch transdermal DAILY #10 ea 12/25/23 01/15/24 Rx transdermal 24 hour patch tizanidine 4 mg tablet 4 mg PO BID PRN muscle spasticity 12/25/23 01/15/24 Rx #30 tabs hydrocodone 5 mg-acetaminophen 325 1 tab PO TID PRN pain #42 tabs 01/06/24 01/15/24 Rx mg tablet ECOG/Weight/Vitals Weight: 54.749 kg Vitals Signs: Vital Signs Temp Pulse Pulse Resp BP BP Pulse Ox 01/17/24 12:21 36.8 C 91 H 20 127/80 96 01/17/24 11:46 37 C 87 16 123/66 95 01/17/24 10:56 36.9 C 84 16 110/67 94 01/17/24 10:25 37.1 C 88 16 124/71 96 01/17/24 09:56 37.1 C 84 16 112/68 95 01/17/24 09:41 36.8 C 88 16 114/71 96 01/17/24 09:17 36.9 C 89 16 114/65 94 01/17/24 07:37 36.3 C L 85 16 95/56 L 94 O2 Del Method 01/17/24 12:21 Room Air 01/17/24 11:46 01/17/24 10:56 01/17/24 10:25 01/17/24 09:56 01/17/24 09:41 01/17/24 09:17 01/17/24 07:37 Room Air Laboratory Values 01/17/24 01/16/24 01/15/24 Range/Units 06:25 09:12 21:35 WBC 9.01 8.06 (4.8-10.8) K/ul RBC 2.56 L 2.89 L (4.20-5.40) M/uL Hgb 7.7 L 8.9 L (12.0-16.0) g/dl Hct 23.9 L 27.4 L (37.0-47.0) % MCV 93.4 94.8 (80.0-100.0) fL MCH 30.1 30.8 (25.0-34.0) pg MCHC 32.2 32.5 (32.0-36.0) g/dL RDW Std Deviation 49.1 H 49.6 H (36.4-46.3) fL RDW Coeff of Fiona 14.6 H 14.5 (11.5-14.5) % Plt Count 268 304 (130-400) K/uL MPV 9.9 9.5 (9.4-12.4) fL Immature Gran % (Auto) % Neut % (Auto) % Lymph % (Auto) % [place] % (Auto) % Eos % (Auto) % Baso % (Auto) % Neut # (Auto) (1.40-6.50) K/uL Lymph # (Auto) (1.20-3.40) K/uL [place] # (Auto) (0.11-0.59) K/uL Eos # (Auto) (0.00-0.50) K/uL Baso # (Auto) (0.00-0.20) K/uL Immature Gran # (Auto) (0.01-0.20) K/uL PT (9.0-12.0) Seconds INR (0.9-1.1) APTT (21-31) Seconds PTT Ratio Sodium 130 L 130 L (136-145) mmol/L Potassium 5.1 5.0 (3.5-5.1) mmol/L Chloride 99 98 (98-107) mmol/L Carbon Dioxide 25 23 (21-32) mmol/L Anion Gap 6 9 (3-11) BUN 44 H 33 H (6-23) mg/dl Creatinine 1.88 H D 1.37 H D (0.6-1.2) mg/dl Est Cr Clr Drug Dosing 17.0 23.3 ml/min eGFR 25.88 37.84 BUN/Creatinine Ratio 23.4 H 24.1 H (10-20) Glucose 111 H 115 H (70-99(Fasting)) mg/dl Calcium 8.3 L 8.5 L (8.6-10.3) mg/dl Total Bilirubin (0.2-1.0) mg/dl AST (13-39) U/L ALT (7-52) U/L Alkaline Phosphatase (34-104) U/L Total Protein (6.0-8.3) gm/dl Albumin (3.4-5.0) gm/dl Globulin (2.5-4.0) gm/dl Albumin/Globulin Ratio (0.9-2) 25-OH Vitamin D Total 39.2 (30-100) ng/ml Blood Type Blood Type Recheck O Positive Antibody Screen Crossmatch 01/15/24 01/15/24 Range/Units 18:19 13:44 WBC 7.89 (4.8-10.8) K/ul RBC 3.29 L (4.20-5.40) M/uL Hgb 10.3 L (12.0-16.0) g/dl Hct 30.9 L (37.0-47.0) % MCV 93.9 (80.0-100.0) fL MCH 31.3 (25.0-34.0) pg MCHC 33.3 (32.0-36.0) g/dL RDW Std Deviation 48.7 H (36.4-46.3) fL RDW Coeff of Fiona 14.2 (11.5-14.5) % Plt Count 359 (130-400) K/uL MPV 9.7 (9.4-12.4) fL Immature Gran % (Auto) 0.5 % Neut % (Auto) 77.3 % Lymph % (Auto) 11.2 % [place] % (Auto) 9.6 % Eos % (Auto) 0.8 % Baso % (Auto) 0.6 % Neut # (Auto) 6.10 (1.40-6.50) K/uL Lymph # (Auto) 0.88 L (1.20-3.40) K/uL [place] # (Auto) 0.76 H (0.11-0.59) K/uL Eos # (Auto) 0.06 (0.00-0.50) K/uL Baso # (Auto) 0.05 (0.00-0.20) K/uL Immature Gran # (Auto) 0.04 (0.01-0.20) K/uL PT 12.4 H (9.0-12.0) Seconds INR 1.2 H (0.9-1.1) APTT 31 (21-31) Seconds PTT Ratio 1.2 Sodium 129 L (136-145) mmol/L Potassium 4.5 (3.5-5.1) mmol/L Chloride 96 L (98-107) mmol/L Carbon Dioxide 27 (21-32) mmol/L Anion Gap 6 (3-11) BUN 23 (6-23) mg/dl Creatinine 0.84 (0.6-1.2) mg/dl Est Cr Clr Drug Dosing 35.2 ml/min eGFR 68.06 BUN/Creatinine Ratio 27.4 H (10-20) Glucose 112 H (70-99(Fasting)) mg/dl Calcium 9.2 (8.6-10.3) mg/dl Total Bilirubin 0.6 (0.2-1.0) mg/dl AST 31 (13-39) U/L ALT 17 (7-52) U/L Alkaline Phosphatase 70 (34-104) U/L Total Protein 6.5 (6.0-8.3) gm/dl Albumin 3.7 (3.4-5.0) gm/dl Globulin 2.8 (2.5-4.0) gm/dl Albumin/Globulin Ratio 1.3 (0.9-2) 25-OH Vitamin D Total (30-100) ng/ml Blood Type O Positive Blood Type Recheck Antibody Screen NEGATIVE Crossmatch See Detail
[2024-01-17] MEDS: SODIUM CHLORIDE 0.9% 1,000 ML IV ONE (13:02)
[2024-01-17] MEDS: TRANEXAMIC ACID / 0.7% NACL 1000MG/100ML BAG IV ONE (13:14)
[2024-01-17] MEDS: TRANEXAMIC ACID / 0.7% NACL 1,000 MG/100 ML BAG IV ONE ×2 (13:14→20:17)
[2024-01-17] MEDS: ceFAZolin 2000MG 2,000 MG/15 ML SYR IV ONE (13:21)
[2024-01-17] MEDS ORDERED: DEXAMETHASONE SOD INJ 4 MG/ML VIAL ONE (13:52)
[2024-01-17] MEDS ORDERED: PHENYLEPHRINE 100MCG/ML 5ML SYR ONE (14:05)
[2024-01-17] MEDS ORDERED: ePHEDrine sulfate 50 MG/5 ML SYR ONE (14:06)
[2024-01-17] MEDS: ceFAZolin 2,000 MG/15 ML IV PUSH IV ONE (14:24)
[2024-01-17] MEDS ORDERED: PHENYLEPHRINE HCL 10 MG/ML VIAL ONE (15:03)
[2024-01-17] MEDS ORDERED: SUGAMMADEX SODIUM 200 MG/2 ML VIAL IV ONE (15:41)
[2024-01-17] MEDS ORDERED: ONDANSETRON INJ 2 MG/ML 2 ML VIAL ONE (15:43)
[2024-01-17] MEDS: BUPIVACAINE 0.5 % 5 MG/1 ML MPF 30ML VIAL ONE (15:52)
[2024-01-17] MEDS: LIDOCAINE 1%/EPINEPHRINE 1:100,000 50 ML VIAL ONE (15:52)
--- NOTE | 2024-01-17 16:05 | Fluoroscopy Report ---
FL femur RT 2V CLINICAL HISTORY: RIGHT LONG TROCHNAIL COMPARISON STUDY: Right hip radiographs January 15, 2024. FLUOROSCOPY TIME: 209 seconds. Ka,r: 31.30 mGy FLUOROSCOPIC IMAGES: 4 FINDINGS: Fluoroscopy was provided during open reduction and internal fixation of the intertrochanter ic fracture of the right femur with trochanteric nail. Fracture alignment has significantly proven ap pears near anatomic. IMPRESSION: Fluoroscopy provided during open reduction and internal fixation of the intertrochanteri c fracture of the right femur. ACT 112: Negative or not required by law. Electronically signed by: Jovan Colon M.D. 01/17/2024 4:01 PM
--- NOTE | 2024-01-17 16:08 | Operative Report ---
Post Operative Report Pre & Post Diagnosis Operation Date: 01/17/24 12:30 Pre-Op Diagnosis: Closed fracture of right hip Post-Op Diagnosis: Closed fracture of right hip I identified the patient and participated in the time-out.: Yes Procedure Operation Date: 01/17/24 12:30 Actual Procedures p Right Long Troch Nail(Right) - Nile Milner MD Surgeon Nile Milner MD [employer] Estimated Blood Loss 100 Findings Consistent with Post-Op Diagnosis Specimens None Description of Procedure I was present for the entire case. I assisted with prepping, draping, wound retraction, suctioning, wound closure, and dressing application. Please refer to Dr. Milner's procedure note for full details. I attest to the content of the Intraoperative Record and any orders documented therein. Any exceptions are noted below.
--- NOTE | 2024-01-17 16:21 | Operative Report ---
Post Operative Report Pre & Post Diagnosis Operation Date: 01/17/24 12:30 Pre-Op Diagnosis: Intertrochanteric fracture of the right hip Post-Op Diagnosis: Same I identified the patient and participated in the time-out.: Yes Procedure Operation Date: 01/17/24 12:30 Actual Procedures p Right Long Troch Nail(Right) - Nile Milner MD Surgeon Nile Milner MD Gore Inserter Lester Flowers PA-C Estimated Blood Loss 100 Findings Consistent with Post-Op Diagnosis Specimens None Anesthesia Type General Regional Complications none Disposition Accompanied Patient To Recovery: No Disposition: Recovery Room Indications Malou is 83 years old. She fell 2 days ago sustaining a right hip intertrochanteric fracture. She has multiple medical problems. She is on Eliquis because of A-fib. Surgery was delayed until she has missed 4 doses of her Eliquis. She received a unit of packed red blood cells this morning for acute blood loss anemia associated with her injury. Description of Procedure Informed consent. Patient identified. She identified the procedure site as the right hip. I marked with my initials. A preop surgical timeout was performed. A preop dose of IV antibiotics was given. She was taken to the operating room positioned supine on the fracture table after administration of the anesthetic. TXA and Kcentra were also given. She was then positioned supine on the fracture table.The torso was secured to the table. The left arm was placed on an armboard. The right arm was folded across her chest with abundant padding. A padded perineal post was utilized. The legs were placed into balanced scissors traction with the right leg up and the left leg down. The right leg was placed into traction with internal rotation.Fluoroscopic guidance was utilized about the surgical procedure. DVT prophylaxis intraoperatively with an SCD on the nonoperative leg. Postop early mobility mechanical devices and resumption of her Eliquis. Routine prep and drape was performed Prior to prepping and draping the fracture was reduced. This was done with longitudinal traction and experimentation with varying degrees of internal and external rotation. This was a oblique fracture then actually went proximal anterior to posterior distal. I placed her in to some degree of internal rotation which appeared to give the best alignment of the fracture fragment. Traction was helpful. A little bit of posterior medial force on the distal fragment was also helpful. This maneuver was performed when reaming and inserting the alma and seem to improve overall alignment as the distal shaft fragment appeared to sit anterior and lateral to the proximal fragment. Fluoroscopic guidance was utilized to identify the site for the incision. The incision was then made proximal to the trochanter. Electrocautery was utilized down precipitating his tissues and subcutaneous fat to the level of the gluteal fascia which was divided in line with the incision. The tip of the trochanter was identified and a guidepin was introduced at the tip of the trochanter in line with the shaft and adjusted x 2 to be in the proper position. This was verified to be intramedullary in multiplanar fluoroscopy. This was then overreamed with the proximal reamer. The long guide alma was inserted and alma length was determined to be 380 mm. A 12.5 mm reamer was passed without significant chatter. An 11 mm diameter x 380 mm alma length was then inserted under hand power. Depth of alma insertion was verified at the knee and hip. Rotation was set based upon the lateral image. An accessory lateral incision was made through the insertion jig. The triple trocar was inserted down to the level of the bone and a guidepin was introduced into the center of the femoral head in both the AP and lateral planes after adjusting x 1. Screw length was determined to be 100 mm. The lateral reamer followed by the triple reamer was then performed. The spiral blade was then inserted until fully seated being within 10 mm of the subchondral bone in both the AP and lateral planes and centered on the femoral head as well. The proximal setscrew was advanced until tight and then backed off one half turn to allow compression and then the proximal construct was removed. Radiology Assistant fluoroscopic images were obtained. A distal interlocking screw was inserted percutaneously in the dynamic slot using the perfect bois forte technique. AP and lateral images were obtained. Incisions irrigated. The distal incision was closed with 2-0 Vicryl and yovani. The middle incision was closed with 0 Vicryl for the deep subcu 2-0 Vicryl for the dermal layer and yovani. The proximal incision was closed with #1 Vicryl for the gluteal fascia 0 Vicryl for the subcutaneous fat 2-0 Vicryl for the dermal layer and yovani on the skin. The leg was cleaned with wet and dry sponges local anesthetic Marcaine and lidocaine was injected into the skin and subcutaneous tissues. Xeroform 4 x 4's ABD foam tape applied. Patient awakened from anesthesia taken off the fracture table placed onto the hospital bed and taken to recovery in stable condition. There were no specimens or complications. Counts were correct blood loss is estimated to be 100 cc. At the conclusion the operation I spoke with patient's daughter informed her my findings and gave postop instructions. We will hold her Eliquis for now until we see what her H&H is in the morning. Will check an H&H in PACU and a CBC in the morning. I spoke with Dr. Fuller and we will decrease her Eliquis dose from 5 mg to 2.5 mg. She may weight-bear as tolerated with PT and OT. Routine course of postop IV Ancef x 2 doses. Components inserted were an 11 mm diameter by 130 degree 380 mm length right long Synthes trochanteric femoral nail. A 100 mm helical blade. A 44 mm long x 5 mm diameter distal interlocking screw I attest to the content of the Intraoperative Record and any orders documented therein. Any exceptions are noted below.
--- NOTE | 2024-01-17 16:40 | Anesthesiology Progress Note ---
Date of Service January 17, 2024 Anesthesia Post Procedure Vital Signs Vital Signs: Temp Pulse Pulse Pulse Resp BP BP 01/17/24 16:35 94 H 17 01/17/24 16:25 95 H 23 01/17/24 16:15 96 H 19 01/17/24 16:08 36.5 C 96 H 15 01/17/24 12:21 36.8 C 91 H 20 127/80 01/17/24 11:46 37 C 87 16 123/66 01/17/24 10:56 36.9 C 84 16 110/67 01/17/24 10:25 37.1 C 88 16 124/71 01/17/24 09:56 37.1 C 84 16 112/68 01/17/24 09:41 36.8 C 88 16 114/71 01/17/24 09:17 36.9 C 89 16 114/65 01/17/24 07:37 36.3 C L 85 16 95/56 L 01/16/24 21:31 36.5 C 106 H 17 106/64 BP Pulse Ox O2 Del Method O2 Flow Rate 01/17/24 16:35 108/60 94 Room Air 01/17/24 16:25 124/66 100 Oxymask 2 01/17/24 16:15 120/64 97 Oxymask 2 01/17/24 16:08 116/58 L 99 Oxymask 5 01/17/24 12:21 96 Room Air 01/17/24 11:46 95 01/17/24 10:56 94 01/17/24 10:25 96 01/17/24 09:56 95 01/17/24 09:41 96 01/17/24 09:17 94 01/17/24 07:37 94 Room Air 01/16/24 21:31 97 Room Air Pain Intensity Hip: Pain Intensity: 2 Transfer of Care Handoff Completed per policy Notes Mental Status: alert / awake / arousable and participated in evaluation Patient Amnestic to Procedure: Yes Nausea / Vomiting: adequately controlled Pain: adequately controlled Airway Patency, RR, SpO2: stable & adequate BP & HR: stable & adequate Hydration State: stable & adequate Anesthetic Complications: no major complications apparent and Pt Satisfied with anesthetic care
[2024-01-17 17:03] LABS: Hematocrit (blood only) 26.4 % (37.0-47.0); Hemoglobin 8.8 g/dl (12.0-16.0)
[2024-01-17] MEDS: ALENDRONATE SODIUM 70 MG TAB PO ONE (19:21)
[2024-01-17] MEDS: ceFAZolin 2000MG 2,000 MG/15 ML SYR IV SCH (20:17)
[2024-01-18 07:13] LABS: Hematocrit (blood only) 22.7 % (37.0-47.0); Hemoglobin 7.8 g/dl (12.0-16.0); Mean Corpuscular Hemoglobin 31.6 pg (25.0-34.0); Mean Corpuscular Hgb Conc 34.4 g/dL (32.0-36.0); Mean Corpuscular Volume 91.9 fL (80.0-100.0); Mean Platelet Volume 9.8 fL (9.4-12.4); Platelet Count 255 K/uL (130-400); RDW Coefficient of Variation 14.6 % (11.5-14.5); RDW Standard Deviation 49.4 fL (36.4-46.3); Red Blood Count 2.47 M/uL (4.20-5.40)
[2024-01-18 07:29] LABS: BUN Creatinine Ratio 33.8 (10-20); Calcium 8.1 mg/dl (8.6-10.3); Creatinine Clr Calc Pharmacy 21.2 ml/min
[2024-01-18 07:35] LABS: Basophils # (auto) 0.01 K/uL (0.00-0.20); Basophils % (auto) 0.1 %; Immature Granulocytes # (auto) 0.05 K/uL (0.01-0.20); Immature Granulocytes % (auto) 0.5 %; Lymphocytes # (auto) 0.31 K/uL (1.20-3.40); Monocytes % (auto) 3.8 %; Neutrophils # (auto) 9.73 K/uL (1.40-6.50); Neutrophils % (auto) 92.6 %; Ovalocytes 1+
[2024-01-18] MEDS ORDERED: ALENDRONATE SODIUM 70 MG TAB PO ONE (08:00)
--- NOTE | 2024-01-18 09:10 | Hospitalist Progress Note ---
Date of Service January 18, 2024 Assessment & Plan (1) Intertrochanteric fracture of right femur: Plan: Presented after mechanical fall in bathroom resulted in right hip pain. 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 Milner > Review of operative report notes EBL 100 cc, no complications > K centra given preoperatively > Ancef x 2 given perioperatively - Acute Blood loss anemia s/p 1 unit pRBC preoperatively with post-transfusion hgb=8.8 > Postop hgb=7.7 -- stable, not requiring transfusion at this time. Transfuse if hgb<7 or signs of end organ ischemia > 2 additional units pRBC on hold - Pain control: Tylenol 1g q8h scheduled, morphine 2g q4h IV PRN - HOLD Eliquis -- dose reduce to 2.5 mg when resumed given age and weight - Vit D level low normal at 39.2 -- Vit D supplementation started/continue on discharge - PT/OT eval ordered (2) Atrial fibrillation: Plan: Currently in normal sinus - continue metoprolol - hold Eliquis (3) ROSALIND (acute kidney injury): Plan: Acute kidney injury -- Cr peaked at 1.88, baseline Cr around 0.9 - Suspect due to being volume contracted in setting of acute blood loss anemia - Encourage PO fluids - Improving, Cr=1.51 Plan Updated daughter at bedside Chronic stable issues: Hyperlipidemia: Continue rosuvastatin Hypertension: Continue metoprolol Dementia: Continue donepezil Hyponatremia: chronic, noted VTE PPx: deferred in perioperative period CODE STATUS: DNR/DNI Admission and Anticipated Discharge Date Admission Date: January 15, 2024 Subjective Patient seen and evaluated at bedside with her daughter present. She reports that her pain is well-controlled when resting, but states she was unable to tolerate getting up with PT. She denies any headache, nausea, abdominal pain, chest pain, or shortness of breath. She had a bowel movement this morning. No additional complaints or concerns at this time. Physical Exam Physical Exam: General: No acute distress, nondiaphoretic, well-developed, well-nourished. Skin: Warm, dry, no edema or rash noted. Cardiac: Regular rate and rhythm without murmurs gallops or rubs. Pulm: Clear to auscultation bilaterally without wheezes, rales or rhonchi. No respiratory distress. 94% on room air. Abdominal: Soft, nontender, mildly distended. Bowel sounds present. Neuro: A&O x3. No focal neurological deficits. Extremities: Right lateral hip dressing clean, dry, intact. Sensation intact to lower extremities bilaterally. Strength 5/[address] and [address] antarflexion bilaterally. Cap refill <3 seconds bilaterally. Results & Data Results & Data Vital Signs (Past 12 Hours) Vital Signs Temp Pulse Resp BP Pulse Ox O2 Del Method 01/18/24 08:37 94 Room Air 01/18/24 08:01 97.7 F 86 18 102/67 92 Room Air 01/18/24 08:00 Room Air 01/18/24 04:28 97.7 F 83 17 97/61 L 96 Room Air 01/18/24 00:09 97.5 F L 94 H 16 96/56 L 98 Room Air Laboratory Results Reviewed CBC Reviewed BMP PG Care Time/CCT Total # of Minutes Spent Total Time Spent with Patient: Total time spent is greater than 50% in coordination of care (as documented) at patient's floor/unit and/or counseling patient: Coding Level of Care Code 52117 SUB INP/OBS CARE 2/35MIN Diagnoses Closed displaced intertrochanteric fracture of right femur, initial encounter S72.141A Encounter type: initial encounter Fracture alignment: displaced Fracture type: closed Paroxysmal atrial fibrillation I48.0 Atrial fibrillation type: paroxysmal ROSALIND (acute kidney injury) N17.9 (1) Intertrochanteric fracture of right femur Encounter type: initial encounter Fracture alignment: displaced Fracture type: closed Qualified Code(s): S72.141A - Displaced intertrochanteric fracture of right femur, initial encounter for closed fracture (2) Atrial fibrillation Atrial fibrillation type: paroxysmal Qualified Code(s): I48.0 - Paroxysmal atrial fibrillation
[2024-01-18] MEDS: traMADol HCL 50 MG TABLET PO PRN (13:26)
--- NOTE | 2024-01-18 15:30 | Orthopedic Progress Note ---
Date of Service January 18, 2024 Assessment & Plan (1) Intertrochanteric fracture of right femur: Plan: Doing well. Hemoglobin and hematocrit noted. Eliquis is held. From my perspective the Eliquis could be restarted at any time. Exercises are instructed. Continue PT and OT. SCDs for DVT prophylaxis at this point. Check vitamin D level and administer supplemental vitamin D. Fracture morphology not true intertrochanteric fracture. Mainly anterosuperior to posteroinferior in the coronal plane. Upon entering the deep gluteal fascia there was significant hematoma encountered. Admission and Anticipated Discharge Date Admission Date: January 15, 2024 Subjective Doing well. Had a bowel movement. Tried to get up with PT but had difficulty secondary to pain. She is not having any chest pains or shortness of breath. She complains of pain in her right hip area. Physical Exam Physical Exam: Sensation intact. Foot warm with capillary refill less than 2 seconds. PT pulse nonpalpable but DP is trace. She has 5 out of 5 ankle and toe plantarflexion dorsiflexion inversion and eversion strength. She cannot do a good quad set or lift her leg on the right. She cannot bend her right knee. She can bend her left knee. Rotation appears to be symmetric. Her right thigh is swollen. Dressings are clean and dry intact. There is no tenseness to the thigh. Results & Data Vital Signs (Past 12 Hours) Vital Signs Temp Pulse Pulse Resp BP Pulse Ox O2 Del Method 01/18/24 15:12 36.4 C L 82 16 104/62 92 Room Air 01/18/24 13:30 36.5 C 86 16 109/67 95 Room Air 01/18/24 08:37 94 Room Air 01/18/24 08:01 36.5 C 86 18 102/67 92 Room Air 01/18/24 08:00 Room Air 01/18/24 04:28 36.5 C 83 17 97/61 L 96 Room Air Laboratory Results Laboratory Results WBC 10.50 K/ul (4.8-10.8) 01/18/24 06:50 RBC 2.47 M/uL (4.20-5.40) L 01/18/24 06:50 Hgb 7.8 g/dl (12.0-16.0) L 01/18/24 06:50 Hct 22.7 % (37.0-47.0) L 01/18/24 06:50 MCV 91.9 fL (80.0-100.0) 01/18/24 06:50 MCH 31.6 pg (25.0-34.0) 01/18/24 06:50 MCHC 34.4 g/dL (32.0-36.0) 01/18/24 06:50 RDW Std Deviation 49.4 fL (36.4-46.3) H 01/18/24 06:50 RDW Coeff of Fiona 14.6 % (11.5-14.5) H 01/18/24 06:50 Plt Count 255 K/uL (130-400) 01/18/24 06:50 MPV 9.8 fL (9.4-12.4) 01/18/24 06:50 Immature Gran % (Auto) 0.5 % 01/18/24 06:50 Neut % (Auto) 92.6 % 01/18/24 06:50 Lymph % (Auto) 3.0 % 01/18/24 06:50 [place] % (Auto) 3.8 % 01/18/24 06:50 Eos % (Auto) 0.0 % 01/18/24 06:50 Baso % (Auto) 0.1 % 01/18/24 06:50 Neut # (Auto) 9.73 K/uL (1.40-6.50) H 01/18/24 06:50 Lymph # (Auto) 0.31 K/uL (1.20-3.40) L 01/18/24 06:50 [place] # (Auto) 0.40 K/uL (0.11-0.59) 01/18/24 06:50 Eos # (Auto) 0.00 K/uL (0.00-0.50) 01/18/24 06:50 Baso # (Auto) 0.01 K/uL (0.00-0.20) 01/18/24 06:50 Immature Gran # (Auto) 0.05 K/uL (0.01-0.20) 01/18/24 06:50 Ovalocytes 1+ 01/18/24 06:50 PT 12.4 Seconds (9.0-12.0) H 01/15/24 13:44 INR 1.2 (0.9-1.1) H 01/15/24 13:44 APTT 31 Seconds (21-31) 01/15/24 13:44 PTT Ratio 1.2 01/15/24 13:44 Sodium 128 mmol/L (136-145) L 01/18/24 06:50 Potassium 5.0 mmol/L (3.5-5.1) 01/18/24 06:50 Chloride 98 mmol/L (98-107) 01/18/24 06:50 Carbon Dioxide 22 mmol/L (21-32) 01/18/24 06:50 Anion Gap 8 (3-11) 01/18/24 06:50 BUN 51 mg/dl (6-23) H 01/18/24 06:50 Creatinine 1.51 mg/dl (0.6-1.2) H D 01/18/24 06:50 Est Cr Clr Drug Dosing 21.2 ml/min 01/18/24 06:50 eGFR 33.67 01/18/24 06:50 BUN/Creatinine Ratio 33.8 (10-20) H 01/18/24 06:50 Glucose 139 mg/dl (70-99(Fasting)) H 01/18/24 06:50 Calcium 8.1 mg/dl (8.6-10.3) L 01/18/24 06:50 Total Bilirubin 0.6 mg/dl (0.2-1.0) 01/15/24 13:44 AST 31 U/L (13-39) 01/15/24 13:44 ALT 17 U/L (7-52) 01/15/24 13:44 Alkaline Phosphatase 70 U/L (34-104) 01/15/24 13:44 Total Protein 6.5 gm/dl (6.0-8.3) 01/15/24 13:44 Albumin 3.7 gm/dl (3.4-5.0) 01/15/24 13:44 Globulin 2.8 gm/dl (2.5-4.0) 01/15/24 13:44 Albumin/Globulin Ratio 1.3 (0.9-2) 01/15/24 13:44 25-OH Vitamin D Total 39.2 ng/ml (30-100) 01/17/24 06:25 Blood Type O Positive 01/15/24 18:19 Blood Type Recheck O Positive 01/15/24 21:35 Antibody Screen NEGATIVE 01/15/24 18:19 Crossmatch See Detail 01/15/24 18:19 Impressions Femur X-Ray 01/17/24 12:30 FL femur RT 2V CLINICAL HISTORY: RIGHT LONG TROCHNAIL COMPARISON STUDY: Right hip radiographs January 15, 2024. FLUOROSCOPY TIME: 209 seconds. Ka,r: 31.30 mGy FLUOROSCOPIC IMAGES: 4 FINDINGS: Fluoroscopy was provided during open reduction and internal fixation of the intertrochanteric fracture of the right femur with trochanteric nail. Fracture alignment has significantly proven appears near anatomic. IMPRESSION: Fluoroscopy provided during open reduction and internal fixation of the intertrochanteric fracture of the right femur. ACT 112: Negative or not required by law. Electronically signed by: Jovan Colon M.D. 01/17/2024 4:01 PM (1) Intertrochanteric fracture of right femur Encounter type: initial encounter Fracture type: closed Fracture alignment: displaced Qualified Code(s): S72.141A - Displaced intertrochanteric fracture of right femur, initial encounter for closed fracture
[2024-01-19 06:36] LABS: Hematocrit (blood only) 21.2 % (37.0-47.0); Hemoglobin 7.2 g/dl (12.0-16.0); Mean Corpuscular Volume 91.4 fL (80.0-100.0); Mean Platelet Volume 9.7 fL (9.4-12.4); Platelet Count 269 K/uL (130-400); RDW Coefficient of Variation 14.5 % (11.5-14.5); RDW Standard Deviation 47.4 fL (36.4-46.3); Red Blood Count 2.32 M/uL (4.20-5.40); White Blood Count 11.99 K/ul (4.8-10.8)
[2024-01-19 06:56] LABS: BUN Creatinine Ratio 38.4 (10-20); Calcium 8.6 mg/dl (8.6-10.3); Creatinine Clr Calc Pharmacy 19.5 ml/min; Potassium 5.1 mmol/L (3.5-5.1)
[2024-01-19] MEDS: CHOLECALCIFEROL 125 MCG (5,000 UNITS) TAB PO SCH (08:12)
[2024-01-19] MEDS ORDERED: SODIUM CHLORIDE 0.9% 100 ML IV PRN ×2 (09:36→09:45)
[2024-01-19] MEDS ORDERED: SODIUM CHLORIDE 0.9% 50 ML IV PRN ×2 (09:36→09:45)
--- NOTE | 2024-01-19 09:40 | Hospitalist Progress Note ---
Date of Service January 19, 2024 Assessment & Plan (1) Intertrochanteric fracture of right femur: Plan: Presented after mechanical fall in bathroom resulted in right hip pain. 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 Milner > Review of operative report notes EBL 100 cc, no complications > K centra given preoperatively > Ancef x 2 given perioperatively - Acute Blood loss anemia s/p 1 unit pRBC preoperatively with post-transfusion hgb=8.8 > Postop hgb=7.2 -- will transfuse 1 unit pRBC. H&H 1 hour post-transfusion with hgb=9.3 > 1 additional unit pRBC on hold - Pain control: Tylenol 1g q8h scheduled, morphine 2g q4h IV PRN - HOLD Eliquis -- dose reduce to 2.5 mg when resumed given age and weight - Vit D level low normal at 39.2 -- Vit D supplementation started/continue on discharge - PT/OT recommending SNF (2) ROSALIND (acute kidney injury): Plan: Acute kidney injury -- Cr peaked at 1.88, baseline Cr around 0.9 - Suspect due to being volume contracted in setting of acute blood loss anemia - Encourage PO fluids - Cr unchanged at 1.64 (3) Chronic hyponatremia: Plan: Chronic Hyponatremia with baseline Na ~131. Asymptomatic - Serum osmolality 286 and random urine sodium 10 --> hypertonic hyponatremia - BSG WNL, no recent mannitol or sorbitol use, no recent radiocontrast media - Continue to monitor (4) Atrial fibrillation: Plan: Currently in normal sinus - continue metoprolol - hold Eliquis Plan Transfused 1 unit pRBC Ordered hyponatremia workup Chronic stable issues: Hyperlipidemia: Continue rosuvastatin Hypertension: Continue metoprolol Dementia: Continue donepezil VTE PPx: deferred in perioperative period CODE STATUS: DNR/DNI Admission and Anticipated Discharge Date Admission Date: January 15, 2024 Subjective Patient seen and evaluated at bedside. She reports feeling better now after receiving pain medication as she was having right hip pain. She has not done many exercises today per RN secondary to pain. Encouraged patient to continue exercises as directed. Denies nausea, abdominal pain, chest pain, shortness of breath. No additional complaints or concerns at this time. Physical Exam Physical Exam: General: No acute distress, nondiaphoretic, well-developed, well-nourished. Skin: Warm, dry, no edema or rash noted. Cardiac: Regular rate and rhythm without murmurs gallops or rubs. Pulm: Clear to auscultation bilaterally without wheezes, rales or rhonchi. No respiratory distress. 96% on room air. Abdominal: Soft, nontender, mildly distended. Bowel sounds present. Neuro: A&O x3. No focal neurological deficits. Extremities: Right lateral hip dressing clean, dry, intact. Sensation intact to lower extremities bilaterally. Strength 5/5 with dorsiflexion and plantarflexion bilaterally. Cap refill <3 seconds bilaterally. Results & Data Results & Data Vital Signs (Past 12 Hours) Vital Signs Temp Pulse Resp BP Pulse Ox O2 Del Method 01/19/24 07:37 97.7 F 77 18 120/72 96 Room Air 01/18/24 23:13 98.2 F 86 18 91/53 L 95 Room Air Laboratory Results Reviewed CBC Reviewed BMP PG Care Time/CCT Total # of Minutes Spent Total Time Spent with Patient: Total time spent is greater than 50% in coordination of care (as documented) at patient's floor/unit and/or counseling patient: Coding Level of Care Code 83920 SUB INP/OBS CARE 3/50MIN Diagnoses Closed displaced intertrochanteric fracture of right femur, initial encounter S72.141A Encounter type: initial encounter Fracture alignment: displaced Fracture type: closed ROSALIND (acute kidney injury) N17.9 Chronic hyponatremia E87.1 Paroxysmal atrial fibrillation I48.0 Atrial fibrillation type: paroxysmal (1) Intertrochanteric fracture of right femur Encounter type: initial encounter Fracture alignment: displaced Fracture type: closed Qualified Code(s): S72.141A - Displaced intertrochanteric fracture of right femur, initial encounter for closed fracture (4) Atrial fibrillation Atrial fibrillation type: paroxysmal Qualified Code(s): I48.0 - Paroxysmal atrial fibrillation
[2024-01-19 16:32] LABS: Hematocrit (blood only) 27.1 % (37.0-47.0); Hemoglobin 9.3 g/dl (12.0-16.0)
[2024-01-20 06:16] LABS: Hematocrit (blood only) 24.9 % (37.0-47.0); Hemoglobin 8.5 g/dl (12.0-16.0); Mean Corpuscular Hemoglobin 30.1 pg (25.0-34.0); Mean Corpuscular Hgb Conc 34.1 g/dL (32.0-36.0); Mean Corpuscular Volume 88.3 fL (80.0-100.0); Mean Platelet Volume 9.2 fL (9.4-12.4); Platelet Count 235 K/uL (130-400); RDW Coefficient of Variation 13.9 % (11.5-14.5); RDW Standard Deviation 45.1 fL (36.4-46.3); Red Blood Count 2.82 M/uL (4.20-5.40); White Blood Count 9.32 K/ul (4.8-10.8)
[2024-01-20 06:32] LABS: Calcium 8.3 mg/dl (8.6-10.3); Potassium 4.6 mmol/L (3.5-5.1)
--- NOTE | 2024-01-20 08:42 | Hospitalist Progress Note ---
Date of Service January 20, 2024 Assessment & Plan (1) Intertrochanteric fracture of right femur: Plan: Presented after mechanical fall in bathroom resulted in right hip pain. 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 Milner > Review of operative report notes EBL 100 cc, no complications > K centra given preoperatively > Ancef x 2 given perioperatively - Acute Blood loss anemia s/p 1 unit pRBC preoperatively > Transfused 1 unit postop. Hgb augmented appropriately. Continue to monitor > 1 additional unit pRBC on hold - Pain control: Tylenol 1g q8h scheduled, morphine 2g q4h IV PRN - HOLD Eliquis (resume 01/20 if hgb remains stable) -- dose reduce to 2.5 mg when resumed given age and weight - Vit D level low normal at 39.2 -- Vit D supplementation started/continue on discharge - PT/OT recommending SNF; referral pending to [facility] (2) ROSALIND (acute kidney injury): Plan: Acute kidney injury -- Cr peaked at 1.88, baseline Cr around 0.9 - Suspect due to being volume contracted in setting of acute blood loss anemia - Encourage PO fluids - Cr improving (3) Chronic hyponatremia: Plan: Chronic Hyponatremia with baseline Na ~131. Asymptomatic - Serum osmolality 286 and random urine sodium 10 --> hypertonic hyponatremia - BSG WNL, no recent mannitol or sorbitol use, no recent radiocontrast media - Will give 3% NSS x 100 mL - Repeat BMP ordered for 1300 - Continue to monitor (4) Atrial fibrillation: Plan: Currently in normal sinus - continue metoprolol - hold Eliquis Plan Ordered 3% NSS Chronic stable issues: Hyperlipidemia: Continue rosuvastatin Hypertension: Continue metoprolol Dementia: Continue donepezil Dispo: PT/OT recommending SNF VTE PPx: chemical proph deferred in perioperative period; continue SCDs/TEDs CODE STATUS: DNR/DNI Admission and Anticipated Discharge Date Admission Date: January 15, 2024 Subjective Patient seen and evaluated in bedside chair. She reports right hip discomfort, but states her pain medication makes it tolerable. She again shows hesitancy with activity. Encouraged to engage in activity as directed by PT/OT/RN. She reports good appetite and sleeping well at night. No additional complaints or concerns at this time. Physical Exam Physical Exam: General: No acute distress, nondiaphoretic, well-developed, well-nourished. Skin: Warm, dry, no edema or rash noted. Cardiac: Regular rate and rhythm without murmurs gallops or rubs. Pulm: Clear to auscultation bilaterally without wheezes, rales or rhonchi. No respiratory distress. 95% on room air. Abdominal: Soft, nontender, mildly distended. Bowel sounds present. Neuro: A&O x3. No focal neurological deficits. Extremities: Right lateral hip dressing clean, dry, intact. Sensation intact to lower extremities bilaterally. Strength 5/5 with dorsiflexion and plantarflexi on bilaterally. Cap refill <3 seconds bilaterally. Results & Data Results & Data Vital Signs (Past 12 Hours) Vital Signs Temp Pulse Resp BP Pulse Ox O2 Del Method 01/20/24 08:00 98.1 F 72 18 138/64 95 Room Air Laboratory Results Reviewed CBC Reviewed BMP PG Care Time/CCT Total # of Minutes Spent Total Time Spent with Patient: Total time spent is greater than 50% in coordination of care (as documented) at patient's floor/unit and/or counseling patient: Coding Level of Care Code 47077 SUB INP/OBS CARE 3/50MIN Diagnoses Closed displaced intertrochanteric fracture of right femur, initial encounter S72.141A Encounter type: initial encounter Fracture alignment: displaced Fracture type: closed ROSALIND (acute kidney injury) N17.9 Chronic hyponatremia E87.1 Paroxysmal atrial fibrillation I48.0 Atrial fibrillation type: paroxysmal (1) Intertrochanteric fracture of right femur Encounter type: initial encounter Fracture alignment: displaced Fracture type: closed Qualified Code(s): S72.141A - Displaced intertrochanteric fracture of right femur, initial encounter for closed fracture (4) Atrial fibrillation Atrial fibrillation type: paroxysmal Qualified Code(s): I48.0 - Paroxysmal atrial fibrillation
[2024-01-20] MEDS ORDERED: STAT IV/IM STA (09:26)
--- NOTE | 2024-01-20 09:39 | Orthopedic Progress Note ---
Date of Service January 20, 2024 Assessment & Plan (1) Intertrochanteric fracture of right femur: Plan: S/p Right hip ORIF with Dr Milner 01/16 -WBAT with walker and assistance -PT/OT, OOB to chair, ROMAT -Dressing changed this morning to xeroform, gauze and tegaderms, nursing may reinforce/change as needed -Pain control per primary -Ice PRN -DVT phx per primary, okay from ortho standpoint to resume Eliquis when medically able, SCDs while in house -Cont to monitor labs, Hgb this morning 8.5 -Vit D supplementation -Pt will likely need rehab, CM for discharge needs -Fup with Dr Milner at [facility] in 2 weeks for post op eval and suture removal Admission and Anticipated Discharge Date Admission Date: January 15, 2024 Subjective Pt seen and examined bedside. She says she is doing okay. She is having some pain in her hip but improving with medications. It's better when she is not moving so she is trying to not move. Physical Exam Physical Exam: General: Pt laying in hospital bed AA, in NAD, calm and cooperative during exam Lower Extremity: Dressing in tact and not saturated. Dressing taken down. Incisions clean, dry and with minimal drainage and no surrounding erythema, warmth or purulent drainage. Pt has full ROM of ankle and all 5 digits. Calf supple and non tender. NVI with sensation to light touch distally. She is able to slightly bend her knee. She can tolerate gentle passive ROM of her hip in ab duction, adduction to midline and some hip flexion. Thigh is soft and compressible. Some minor ecchymosis present, expected post op. Results & Data Vital Signs (Past 12 Hours) Vital Signs Temp Pulse Resp BP Pulse Ox O2 Del Method 01/20/24 08:00 36.7 C 72 18 138/64 95 Room Air Laboratory Results 01/20/24 01/19/24 01/19/24 Range/Units 05:40 16:20 10:20 WBC 9.32 (4.8-10.8) K/ul RBC 2.82 L (4.20-5.40) M/uL Hgb 8.5 L 9.3 L (12.0-16.0) g/dl Hct 24.9 L 27.1 L (37.0-47.0) % MCV 88.3 (80.0-100.0) fL MCH 30.1 (25.0-34.0) pg MCHC 34.1 (32.0-36.0) g/dL RDW Std Deviation 45.1 (36.4-46.3) fL RDW Coeff of Fiona 13.9 (11.5-14.5) % Plt Count 235 (130-400) K/uL MPV 9.2 L (9.4-12.4) fL Sodium 128 L (136-145) mmol/L Potassium 4.6 (3.5-5.1) mmol/L Chloride 99 (98-107) mmol/L Carbon Dioxide 23 (21-32) mmol/L Anion Gap 6 (3-11) BUN 59 H (6-23) mg/dl Creatinine 1.23 H D (0.6-1.2) mg/dl Est Cr Clr Drug Dosing 26.0 ml/min eGFR 43.06 BUN/Creatinine Ratio 48.0 H (10-20) Glucose 93 (70-99(Fasting)) mg/dl Osmolality (280-300) mOsm/kg Calcium 8.3 L (8.6-10.3) mg/dl Ur Random Sodium 10 mmol/L Blood Type Antibody Screen Crossmatch 01/19/24 01/19/24 Range/Units 09:56 06:15 WBC (4.8-10.8) K/ul RBC (4.20-5.40) M/uL Hgb (12.0-16.0) g/dl Hct (37.0-47.0) % MCV (80.0-100.0) fL MCH (25.0-34.0) pg MCHC (32.0-36.0) g/dL RDW Std Deviation (36.4-46.3) fL RDW Coeff of Fiona (11.5-14.5) % Plt Count (130-400) K/uL MPV (9.4-12.4) fL Sodium (136-145) mmol/L Potassium (3.5-5.1) mmol/L Chloride (98-107) mmol/L Carbon Dioxide (21-32) mmol/L Anion Gap (3-11) BUN (6-23) mg/dl Creatinine (0.6-1.2) mg/dl Est Cr Clr Drug Dosing ml/min eGFR BUN/Creatinine Ratio (10-20) Glucose (70-99(Fasting)) mg/dl Osmolality 286 (280-300) mOsm/kg Calcium (8.6-10.3) mg/dl Ur Random Sodium mmol/L Blood Type O Positive Antibody Screen NEGATIVE Crossmatch See Detail (1) Intertrochanteric fracture of right femur Encounter type: initial encounter Fracture type: closed Fracture alignment: displaced Qualified Code(s): S72.141A - Displaced intertrochanteric fracture of right femur, initial encounter for closed fracture
[2024-01-20] MEDS: SODIUM CHLORIDE 3 % 100 ML IV ONE (10:47)
[2024-01-20] MEDS: oxyCODONE HCL IR 5 MG TAB (IMMEDIATE RELEASE) PO PRN (12:10)
[2024-01-20 13:25] LABS: BUN Creatinine Ratio 47.5 (10-20); Calcium 8.5 mg/dl (8.6-10.3); Creatinine Clr Calc Pharmacy 26.2 ml/min; Potassium 4.5 mmol/L (3.5-5.1)
--- NOTE | 2024-01-21 09:04 | Hospitalist Progress Note ---
Date of Service January 21, 2024 Assessment & Plan (1) Intertrochanteric fracture of right femur: Plan: Presented after mechanical fall in bathroom resulted in right hip pain. Age- related osteoporosis with current pathologic fracture, right femur Hip/pelvis XR demonstrates R intertrochanteric fracture Head CT negative, CXR without acute findings Ortho consulted, Dr Milner --s/p R long troch nail surgery on 01/[address] Milner. -- EBL 100cc, no complications. Ancef given perioperatively x 2 Vit D low normal 39.2, PO supp started/would continue at dc Acute Blood loss anemia s/p 1 unit PRBC preoperatively, hgb augmented appropriately (1u on hold) Pain control: tylenol, oxycodone/tramadol available as needed Bowel regimen: colace BID added, dulcolax DC x 1 (NO BM x 2 days, monitor) DVT proph: Hgb stable/improved 9.6 -- ELIQUIS RESUMED, REDUCED to 2.5mg given age/weight (needs adjusted on dc med rec) PT/OT rec for SNF. Initially planned for [facility] but NO BED AVAILABILITY -->Additional ref made to [facility] given no beds at [facility] as well as [facility] for backup. Dispo: Ongoing inpatient stay, working on bowel movement. DC planned when bed available (2) ROSALIND (acute kidney injury): Plan: Acute kidney injury -- Cr peaked at 1.88, baseline Cr around 0.9 Suspected 2nf to volume contraction as well as dehydration PRBC transfused as above BUN/Cr stable 44/0.89 and PO fluid encouraged Monitor BMP (3) Chronic hyponatremia: Plan: Chronic Hyponatremia with baseline Na ~131. Asymptomatic - Serum osmolality 286 and random urine sodium 10 --> hypertonic hyponatremia - BSG WNL, no recent mannitol or sorbitol use, no recent radiocontrast media - Given 3% NSS, repeat Na 130 Checking TSH (issues with constipation), PO hydration encouraged. Monitor for additional PO NACL (will provide 1gm PO BID for today) BMP in AM (4) Atrial fibrillation: Plan: Currently in normal sinus Continues on metoprolol, eliquis resumed as above Keep mag/K replete, check mag w/ AM labs Plan CODE STATUS: DNR/DNI Chronic stable issues: Hyperlipidemia: Continue rosuvastatin Hypertension: Continue metoprolol Dementia: Continue donepezil DVT proph: SCDs/DIANELYS torres, Eliquis resumed Dispo: PT/OT recommending SNF, CM to follow and additional ref sent at above Admission and Anticipated Discharge Date Admission Date: January 15, 2024 Supervising Physician Co-Signing Physician Notes The patient was not seen by me. The chart was reviewed. Case discussed with NICKI Henderson. Agree with assessment and plan Subjective Evaluated this morning, working with therapy. Doing a little better, reports pain improving. Not moved her bowels in a couple days, decreased appetite due to feeling full. Is passing gas, agreeable to suppository after working with therapy. Will order, discussed with nursing to provide following therapy. BUN/Cr improving, will avoid additional IVF. Not on diuretics. Planning for rehab. No fever/chills, chest pain/shortness of breath. Hgb improved and will plan to resume her eliquis. Questions/concerns addressed at this time. Physical Exam 2 Physical Exam: General: frail elderly 83yo female sitting up at the side of the bed, NAD but fatigued appearing, about to work with therapy HEENT: head atraumatic, normocephalic, mm slightly DRY (PO hydration encouraged), trachea midline Resp; even/unlabored, no obvious wheezing/rales, 96% on RA CV: RRR, faint systolic murmur, no pitting edema/calf tenderness RLE dressing c/d/i, sensation intact, no obvious/significant hematoma, sensation intact, calves nontender GI: +BS, slightly slow, + distension but no over tenderness/guarding no machado MSK/Neuro: dressing to RLE, c/d/i, sensation intact significant kyphosis noted Psych: AOx3, cooperative with exam Results & Data Results & Data Vital Signs (Past 12 Hours) Vital Signs Temp Pulse Resp BP Pulse Ox O2 Del Method 01/21/24 07:18 36.7 C 68 18 120/70 96 Room Air Laboratory Results 01/21/24 09:01 01/21/24 09:01 PG Care Time/CCT Total # of Minutes Spent Total Time Spent with Patient: Total time spent is greater than 50% in coordination of care (as documented) at patient's floor/unit and/or counseling patient: Coding Level of Care Code 47676 SUB INP/OBS CARE 3/50MIN Diagnoses Closed displaced intertrochanteric fracture of right femur, initial encounter S72.141A Encounter type: initial encounter Fracture alignment: displaced Fracture type: closed ROSALIND (acute kidney injury) N17.9 Chronic hyponatremia E87.1 Paroxysmal atrial fibrillation I48.0 Atrial fibrillation type: paroxysmal (1) Intertrochanteric fracture of right femur Encounter type: initial encounter Fracture alignment: displaced Fracture type: closed Qualified Code(s): S72.141A - Displaced intertrochanteric fracture of right femur, initial encounter for closed fracture (4) Atrial fibrillation Atrial fibrillation type: paroxysmal Qualified Code(s): I48.0 - Paroxysmal atrial fibrillation
[2024-01-21 09:31] LABS: Hematocrit (blood only) 28.4 % (37.0-47.0); Hemoglobin 9.6 g/dl (12.0-16.0); Mean Corpuscular Hemoglobin 30.6 pg (25.0-34.0); Mean Corpuscular Hgb Conc 33.8 g/dL (32.0-36.0); Mean Corpuscular Volume 90.4 fL (80.0-100.0); Mean Platelet Volume 9.3 fL (9.4-12.4); Platelet Count 242 K/uL (130-400); RDW Coefficient of Variation 14.5 % (11.5-14.5); RDW Standard Deviation 47.4 fL (36.4-46.3); Red Blood Count 3.14 M/uL (4.20-5.40); White Blood Count 7.54 K/ul (4.8-10.8)
[2024-01-21 09:38] LABS: Appearance Urine Clear (Clear); Bilirubin Urine Negative (Negative); Blood Urine 1+ (Negative); Color Urine Yellow; Glucose Urine UA Negative (Negative); Ketones Urine Negative (Negative); Leukocyte Esterase Urine Negative (Negative); Nitrite Urine Negative (Negative); Protein Urine 1+ (Negative); Urobilinogen Urine Negative (Negative); pH Urine 5.5 (4.5-7.5)
[2024-01-21 09:50] LABS: BUN Creatinine Ratio 49.4 (10-20); Calcium 8.7 mg/dl (8.6-10.3); Creatinine Clr Calc Pharmacy 35.9 ml/min; Potassium 4.2 mmol/L (3.5-5.1)
[2024-01-21 09:52] LABS: Epithelial Cell Urine 0-2 /hpf (0-2); RBC Urine 0-2 /hpf (0-2); WBC Urine 0-5 /hpf (0-5)
[2024-01-21 09:53] LABS: Bacteria Urine 1+ (None Seen); Granular Casts Urine Present /lpf (None Prsent)
[2024-01-21 10:07] LABS: Thyroid Stimulating Hormone 8.155 uIu/ml (0.300-4.500)
--- NOTE | 2024-01-21 10:40 | Orthopedic Progress Note ---
Date of Service January 21, 2024 Assessment & Plan (1) Intertrochanteric fracture of right femur: Plan: S/p Right hip ORIF with Dr Milner 01/16 -WBAT with walker and assistance -PT/OT, OOB to chair, ROMAT -Dressing Was clean dry and intact left in place. Nursing may reinforce/change as needed -Pain control per primary -Ice PRN -DVT phx per primary, okay from ortho standpoint to resume Eliquis when medically able, SCDs while in house -Cont to monitor labs, Hgb this morning 8.5 -Vit D supplementation -Pt will likely need rehab, CM for discharge needs -Fup with Dr Milner at [facility] in 2 weeks for post op eval and suture removal Admission and Anticipated Discharge Date Admission Date: January 15, 2024 Subjective This 83-year-old female is status post right hip stroke nailing with Dr. Milner. Patient states her pain was well-controlled with p.o. pain medication. Patient states she has been working with physical therapy and Occupational Therapy. She states that her insurance has improved rehab however she is awaiting a bed per her understanding. Currently she denies chest pain, shortness of breath, fever, chills, sweats, nausea, vomiting, diarrhea or numbness or tingling in her right lower extremity. She states that she has been passing gas but has not had a bowel movement in the past few days. Review of Systems Review of Systems: All systems reviewed & are unremarkable except as noted in Subjective Physical Exam Physical Exam: Right lower extremity: Patient experiences some slight tenderness to palpation over the greater trochanter. Her dressing is clean dry and intact and left in place. She has no discomfort with logroll testing. She has no pain with passive hip flexion to 75 degrees or with light passive internal rotation. She feels a slight tugging sensation with light passive external rotation. Patient is able to actively dorsi and plantarflex her foot without issue. She is unable to perform active straight leg raise test however passively when I elevate her legs she had no discomfort. Peripheral pulses are 2+. Patient is neurovascularly intact. Results & Data Vital Signs (Past 12 Hours) Vital Signs Temp Pulse Resp BP Pulse Ox O2 Del Method 01/21/24 07:18 36.7 C 68 18 120/70 96 Room Air Diagnostic Findings Laboratory Results WBC 7.54 K/ul (4.8-10.8) 01/21/24 09:01 RBC 3.14 M/uL (4.20-5.40) L 01/21/24 09:01 Hgb 9.6 g/dl (12.0-16.0) L 01/21/24 09:01 Hct 28.4 % (37.0-47.0) L 01/21/24 09:01 MCV 90.4 fL (80.0-100.0) 01/21/24 09:01 MCH 30.6 pg (25.0-34.0) 01/21/24 09:01 MCHC 33.8 g/dL (32.0-36.0) 01/21/24 09:01 RDW Std Deviation 47.4 fL (36.4-46.3) H 01/21/24 09:01 RDW Coeff of Fiona 14.5 % (11.5-14.5) 01/21/24 09:01 Plt Count 242 K/uL (130-400) 01/21/24 09:01 MPV 9.3 fL (9.4-12.4) L 01/21/24 09:01 Immature Gran % (Auto) 0.5 % 01/18/24 06:50 Neut % (Auto) 92.6 % 01/18/24 06:50 Lymph % (Auto) 3.0 % 01/18/24 06:50 Barry % (Auto) 3.8 % 01/18/24 06:50 Eos % (Auto) 0.0 % 01/18/24 06:50 Baso % (Auto) 0.1 % 01/18/24 06:50 Neut # (Auto) 9.73 K/uL (1.40-6.50) H 01/18/24 06:50 Lymph # (Auto) 0.31 K/uL (1.20-3.40) L 01/18/24 06:50 Barry # (Auto) 0.40 K/uL (0.11-0.59) 01/18/24 06:50 Eos # (Auto) 0.00 K/uL (0.00-0.50) 01/18/24 06:50 Baso # (Auto) 0.01 K/uL (0.00-0.20) 01/18/24 06:50 Immature Gran # (Auto) 0.05 K/uL (0.01-0.20) 01/18/24 06:50 Ovalocytes 1+ 01/18/24 06:50 PT 12.4 Seconds (9.0-12.0) H 01/15/24 13:44 INR 1.2 (0.9-1.1) H 01/15/24 13:44 APTT 31 Seconds (21-31) 01/15/24 13:44 PTT Ratio 1.2 01/15/24 13:44 Sodium 130 mmol/L (136-145) L 01/21/24 09:01 Potassium 4.2 mmol/L (3.5-5.1) 01/21/24 09:01 Chloride 98 mmol/L (98-107) 01/21/24 09:01 Carbon Dioxide 27 mmol/L (21-32) 01/21/24 09:01 Anion Gap 5 (3-11) 01/21/24 09:01 BUN 44 mg/dl (6-23) H 01/21/24 09:01 Creatinine 0.89 mg/dl (0.6-1.2) D 01/21/24 09:01 Est Cr Clr Drug Dosing 35.9 ml/min 01/21/24 09:01 eGFR 63.49 01/21/24 09:01 BUN/Creatinine Ratio 49.4 (10-20) H 01/21/24 09:01 Glucose 127 mg/dl (70-99(Fasting)) H 01/21/24 09:01 Osmolality 286 mOsm/kg (280-300) 01/19/24 06:15 Calcium 8.7 mg/dl (8.6-10.3) 01/21/24 09:01 Total Bilirubin 0.6 mg/dl (0.2-1.0) 01/15/24 13:44 AST 31 U/L (13-39) 01/15/24 13:44 ALT 17 U/L (7-52) 01/15/24 13:44 Alkaline Phosphatase 70 U/L (34-104) 01/15/24 13:44 Total Protein 6.5 gm/dl (6.0-8.3) 01/15/24 13:44 Albumin 3.7 gm/dl (3.4-5.0) 01/15/24 13:44 Globulin 2.8 gm/dl (2.5-4.0) 01/15/24 13:44 Albumin/Globulin Ratio 1.3 (0.9-2) 01/15/24 13:44 25-OH Vitamin D Total 47.6 ng/ml (30-100) 01/19/24 06:15 TSH 8.155 uIu/ml (0.300-4.500) H 01/21/24 09:01 Urine Color Yellow 01/21/24 09:21 Urine Appearance Clear (Clear) 01/21/24 09:21 Urine pH 5.5 (4.5-7.5) 01/21/24 09:21 Ur Specific [place] 1.020 (1.000-1.030) 01/21/24 09:21 Urine Protein 1+ (Negative) H 01/21/24 09:21 Urine Glucose (UA) Negative (Negative) 01/21/24 09:21 Urine Ketones Negative (Negative) 01/21/24 09:21 Urine Blood 1+ (Negative) H 01/21/24 09:21 Urine Nitrite Negative (Negative) 01/21/24 09:21 Urine Bilirubin Negative (Negative) 01/21/24 09:21 Urine Urobilinogen Negative (Negative) 01/21/24 09:21 Ur Leukocyte Esterase Negative (Negative) 01/21/24 09:21 Urine RBC 0-2 /hpf (0-2) 01/21/24 09:21 Urine WBC 0-5 /hpf (0-5) 01/21/24 09:21 Ur Epithelial Cells 0-2 /hpf (0-2) 01/21/24 09:21 Urine Bacteria 1+ (None Seen) H 01/21/24 09:21 Granular Casts Present /lpf (None Prsent) A 01/21/24 09:21 Ur Random Sodium 10 mmol/L 01/19/24 10:20 Blood Type O Positive 01/19/24 09:56 Blood Type Recheck O Positive 01/15/24 21:35 Antibody Screen NEGATIVE 01/19/24 09:56 Crossmatch See Detail 01/19/24 09:[address] 01/15/24 13:48 CT head/brain wo con CLINICAL HISTORY: 83 years-old Female with Fall, on eliquis. Acute head trauma status post fall TECHNIQUE: Multiple axial CT images of the head were obtained without contrast. A dose lowering technique was utilized adhering to the principles of ALARA. CT DOSE: 547.75 mGy.cm COMPARISON: 10/25/2021 FINDINGS: No acute intracranial hemorrhage, midline shift, intracranial mass, hydrocephalus, territorial ischemia or abnormal extra-axial collection. Involutional changes with extensive white matter hypodensities redemonstrated likely representing chronic microvascular ischemic disease. The calvarium is intact. The paranasal sinuses, mastoid air cells, and middle ear cavities are clear. IMPRESSION: No acute intracranial abnormality or calvarial fracture. ACT 112: Negative or not required by law. The above report was generated using voice recognition software. It may contain grammatical, syntax or spelling errors. Electronically signed by: David Chandra M.D. 01/15/2024 3:00 PM Hip/Pelvis X-Ray 01/15/24 13:48 XR hip RT 2V w pelvis HISTORY: 83 years-old Female hip fx, pain, shortened The right hip status post fall COMPARISON: 09/25/2005 TECHNIQUE: AP view of the pelvis with 2 views of the right hip FINDINGS: Demineralized appearance of the bones. Moderate osteoarthritis of the hips. There is an acute comminuted, angulated and displaced intertrochanteric fracture of the right femur with moderate adjacent soft tissue swelling. No dislocation. Arterial calcifications. IMPRESSION: Acute comminuted, angulated and displaced intertrochanteric right femoral fracture. ACT 112: Negative or not required by law. The above report was generated using voice recognition software. It may contain grammatical, syntax or spelling errors. Electronically signed by: David Chandra M.D. 01/15/2024 3:13 PM Chest X-Ray 01/15/24 16:48 EXAM: Radiograph of the Chest 1 View INDICATION: Right rib pain following fall. TECHNIQUE: Frontal view of the chest. COMPARISON: No relevant prior studies available. FINDINGS: Lungs and pleural spaces: Stable right basilar lower lung parenchymal scarring. No consolidation or pulmonary edema. No pleural effusion or pneumothorax. Heart: Shape and configuration within normal limits allowing for technique. Mediastinum: Normal contour. Bones/joints: Degenerative changes noted in the spine with midthoracic kyphoplasty unchanged. No displaced fracture noted. Soft tissues: No abnormality noted. No radiopaque foreign body noted. Upper abdomen: No abnormality noted. IMPRESSION: 1. Degenerative changes noted in the spine with midthoracic kyphoplasty unchanged. No displaced fracture noted. 2. No acute cardiopulmonary disease. ACT 112: Negative or not required by law. Electronically signed by Jessica Phipps 01-15-2024 6:33 PM Femur X-Ray 01/17/24 12:30 FL femur RT 2V CLINICAL HISTORY: RIGHT LONG TROCHNAIL COMPARISON STUDY: Right hip radiographs January 15, 2024. FLUOROSCOPY TIME: 209 seconds. Ka,r: 31.30 mGy FLUOROSCOPIC IMAGES: 4 FINDINGS: Fluoroscopy was provided during open reduction and internal fixation of the intertrochanteric fracture of the right femur with trochanteric nail. Fracture alignment has significantly proven appears near anatomic. IMPRESSION: Fluoroscopy provided during open reduction and internal fixation of the intertrochanteric fracture of the right femur. ACT 112: Negative or not required by law. Electronically signed by: Jovan Colon M.D. 01/17/2024 4:01 PM (1) Intertrochanteric fracture of right femur Encounter type: initial encounter Fracture alignment: displaced Fracture type: closed Qualified Code(s): S72.141A - Displaced intertrochanteric fracture of right femur, initial encounter for closed fracture
[2024-01-21 10:44] LABS: T4 Free Thyroxine 1.08 ng/dl (0.61-1.60)
[2024-01-21] MEDS: APIXABAN 2.5 MG TAB PO SCH (11:24)
[2024-01-21] MEDS: SODIUM CHLORIDE 1 GM TABLET PO SCH (11:24)
[2024-01-21] MEDS: DOCUSATE SODIUM 100 MG CAP PO SCH (11:24)
[2024-01-21] MEDS: bisacodyL 10 MG SUPP PR STA (12:36)
[2024-01-22 06:48] LABS: Hematocrit (blood only) 28.1 % (37.0-47.0); Hemoglobin 9.4 g/dl (12.0-16.0); Mean Corpuscular Hemoglobin 30.3 pg (25.0-34.0); Mean Corpuscular Hgb Conc 33.5 g/dL (32.0-36.0); Mean Corpuscular Volume 90.6 fL (80.0-100.0); Mean Platelet Volume 9.3 fL (9.4-12.4); Platelet Count 242 K/uL (130-400); RDW Coefficient of Variation 14.3 % (11.5-14.5); RDW Standard Deviation 47.4 fL (36.4-46.3); White Blood Count 6.97 K/ul (4.8-10.8)
[2024-01-22 07:07] LABS: BUN Creatinine Ratio 59.5 (10-20); Calcium 8.8 mg/dl (8.6-10.3); Creatinine Clr Calc Pharmacy 43.2 ml/min; Potassium 4.4 mmol/L (3.5-5.1)
--- NOTE | 2024-01-22 08:21 | Hospitalist Progress Note ---
Date of Service January 22, 2024 Assessment & Plan (1) Intertrochanteric fracture of right femur: Plan: Presented after mechanical fall in bathroom resulted in right hip pain. Age- related osteoporosis with current pathologic fracture, right femur Hip/pelvis XR demonstrates R intertrochanteric fracture Head CT negative, CXR without acute findings Ortho consulted, Dr Milner s/p R long troch nail surgery on 01/[address] Milner. EBL 100cc Vit D low normal 39.2 - PO supp started/would continue at dc Acute Blood loss anemia s/p 1 unit PRBC preoperatively, hgb augmented appropriately and improved to 9.6 and eliquis resumed 01/20 for DVT proph Hgb stable 9.4 on repeat and will monitor Pain control/bowel regimen -- Will make oxycodone 2.5mg BID w/ additional prn as needed to avoid polypharmacy/confusion. DC Tramadol as hyponatremia could be worse w/ such -- Suppository x 1 on 01/21 and BM x 2 LOOMIS TO BE DC Na improved 133. Was given 1gm PO NaCL yesterday x 2. DC salt restriction in diet/monitor. PT/OT rec for SNF. Auth pending [facility]. Possible [facility] w/ bed Saturday if denied for [facility]. CM following (2) ROSALIND (acute kidney injury): Plan: Acute kidney injury -- Cr peaked at 1.88, baseline Cr around 0.9 Suspected 2nf to volume contraction as well as dehydration and abla from fracture/surgery s/p PRBC as above Loomis to be dc, monitor urine cx (denied sx) Cr back to baseline 0.74 but BUN elevated PO intake encouraged. Diet adjusted as above Monitor (3) Chronic hyponatremia: Plan: Chronic Hyponatremia with baseline Na ~131. Asymptomatic - Serum osmolality 286 and random urine sodium 10 --> hypertonic hyponatremia - BSG WNL, no recent mannitol or sorbitol use, no recent radiocontrast media - Given 3% NSS, repeat Na 130 on 01/20 TSH elevated but normal T4/T3 and NOT on supplementation 1gm PO BID x 2 doses on 01/20 provided Na improved 133 and stable DC AHA diet/made regular to improve oral intake given likes salt Monitor (4) Atrial fibrillation: Plan: Currently in normal sinus Continues on metoprolol, eliquis resumed as above Keep mag/K replete Plan CODE STATUS: DNR/DNI Chronic stable issues: Hyperlipidemia: Continue rosuvastatin Hypertension: Continue metoprolol Dementia: Continue donepezil DVT proph: SCDs/DIANELYS Syeda torres resumed 01/20 Dispo: pain adjustment as outlined, loomis to be removed. bowel regimen continued. F/u urine cx (however aberile/no suprapubic pain/no leukocytosis and will defer abx at this time) PT/OT recommending SNF. Auth for [facility], [facility] backup possible Saturday. Admission and Anticipated Discharge Date Admission Date: January 15, 2024 Supervising Physician Co-Signing Physician Notes The patient was not seen by me. The chart was reviewed. Case discussed with NICKI Henderson. Agree with assessment and plan Subjective Eval this morning, sitting up in recliner. Reports feeling poorly today, "sad she isn't able to help us more and not doing much". Sick of being in the hospital and not her usual routine at home. Did move bowels x 2, no abdominal pain. Loomis in place and discussed removal now that bowels moving to prevent infection. Denies suprapubic discomfort. She is hesitant to remove as "depends on this".Discussed UTI risk and use of purewick as needed. Discussed pain medications and avoidance of altering agents to prevnt confusion. Tramadol not that effective and has been tolerating 5mg oxycodone but will decrease to 2.5mg and make BID given taking 1-2 x /day of the 5mg and make additional 2.5mg as needed. Also discussed tramadol can make Na level worse. Given 1gm BID Nacl tablets x 2 yesterday. Na improved. Discussed appetite, she reports ok/fair but not great. When asked about food selection /choices or alternatives/wants,she reports she "likes her salt at home" Will change to [facility] healthy diet and increase oral intake. Fluid restriction lifted to 1800cc/day as does appear slightly dehydrated. Dressing c/d/i, no significant hematoma/ecchymosis. Waiting for rehab. No fever/chills, CP/SOB. Physical Exam 2 Physical Exam: General: frail elderly 83yo female sitting in the chair, NAD, depressed appearing/tired of being in the hospital HEENT: head atraumatic, normocephalic, mm slightly DRY (PO hydration encouraged), trachea midline Resp; even/unlabored, no obvious wheezing/rales, 96% on RA CV: RRR, faint systolic murmur, no pitting edema/calf tenderness RLE dressing c/d/i, sensation intact, no obvious/significant hematoma, sensation intact, calves nontender GI: +BS, less distension, no suprapubic fullness/tenderness, no guarding/rigidity : LOOMIS w/ slightly concentrated/cloudy yellow urine MSK/Neuro: dressing to RLE, c/d/i, sensation intact significant kyphosis noted Psych: AOx3, cooperative with exam Results & Data Results & Data Vital Signs (Past 12 Hours) Vital Signs Temp Pulse Pulse Resp BP Pulse Ox O2 Del Method 01/22/24 07:57 36.6 C 78 18 130/70 97 Room Air 01/21/24 21:44 Room Air 01/21/24 20:30 36.3 C L 71 16 137/72 98 Room Air Laboratory Results 01/22/24 06:08 01/22/24 06:08 Mag 1.8 PG Care Time/CCT Total # of Minutes Spent Total Time Spent with Patient: Total time spent is greater than 50% in coordination of care (as documented) at patient's floor/unit and/or counseling patient: Coding Level of Care Code 00608 SUB INP/OBS CARE 3/50MIN Diagnoses Closed displaced intertrochanteric fracture of right femur, initial encounter S72.141A Encounter type: initial encounter Fracture alignment: displaced Fracture type: closed ROSALIND (acute kidney injury) N17.9 Chronic hyponatremia E87.1 Paroxysmal atrial fibrillation I48.0 Atrial fibrillation type: paroxysmal (1) Intertrochanteric fracture of right femur Encounter type: initial encounter Fracture alignment: displaced Fracture type: closed Qualified Code(s): S72.141A - Displaced intertrochanteric fracture of right femur, initial encounter for closed fracture (4) Atrial fibrillation Atrial fibrillation type: paroxysmal Qualified Code(s): I48.0 - Paroxysmal atrial fibrillation
[2024-01-22 09:02] LABS: Magnesium 1.8 mg/dl (1.7-2.4)
[2024-01-22] MEDS ORDERED: oxyCODONE HCL IR 5 MG TAB (IMMEDIATE RELEASE) PO PRN (11:29)
[2024-01-22] MEDS: MAGNESIUM SULFATE / D5W 1 GM/100 ML BAG IV ONE (11:30)
[2024-01-22] MEDS: oxyCODONE HCL IR 5 MG TAB (IMMEDIATE RELEASE) PO SCH (21:08)
[2024-01-23 05:14] LABS: Basophils # (auto) 0.01 K/uL (0.00-0.20); Basophils % (auto) 0.1 %; Eosinophils # (auto) 0.13 K/uL (0.00-0.50); Eosinophils % (auto) 1.8 %; Hematocrit (blood only) 26.6 % (37.0-47.0); Hemoglobin 8.9 g/dl (12.0-16.0); Immature Granulocytes # (auto) 0.05 K/uL (0.01-0.20); Immature Granulocytes % (auto) 0.7 %; Lymphocytes # (auto) 0.62 K/uL (1.20-3.40); Lymphocytes % (auto) 8.5 %; Mean Corpuscular Hemoglobin 30.2 pg (25.0-34.0); Mean Corpuscular Hgb Conc 33.5 g/dL (32.0-36.0); Mean Corpuscular Volume 90.2 fL (80.0-100.0); Mean Platelet Volume 9.4 fL (9.4-12.4); Monocytes # (auto) 0.67 K/uL (0.11-0.59); Monocytes % (auto) 9.1 %; Neutrophils # (auto) 5.85 K/uL (1.40-6.50); Neutrophils % (auto) 79.8 %; Platelet Count 245 K/uL (130-400); RDW Coefficient of Variation 14.1 % (11.5-14.5); RDW Standard Deviation 46.9 fL (36.4-46.3); Red Blood Count 2.95 M/uL (4.20-5.40); White Blood Count 7.33 K/ul (4.8-10.8)
[2024-01-23 05:30] LABS: BUN Creatinine Ratio 56.6 (10-20); Calcium 8.6 mg/dl (8.6-10.3); Creatinine Clr Calc Pharmacy 38.5 ml/min; Magnesium 1.8 mg/dl (1.7-2.4); Potassium 4.5 mmol/L (3.5-5.1)
--- NOTE | 2024-01-23 08:14 | Hospitalist Progress Note ---
Date of Service January 23, 2024 Assessment & Plan (1) Intertrochanteric fracture of right femur: Plan: Presented after mechanical fall in bathroom resulted in right hip pain. Age- related osteoporosis with current pathologic fracture, right femur Hip/pelvis XR demonstrates R intertrochanteric fracture Head CT negative, CXR without acute findings Ortho consulted, Dr Milner s/p R long troch nail surgery on 01/[address] Milner. EBL 100cc Vit D low normal 39.2- PO supp started/would continue at [place] Acute Blood loss anemia s/p 1 unit PRBC preoperatively, hgb augmented appropriately and improved to 9.6 and eliquis resumed 01/20 for DVT proph Hgb 8.9, iron studies checked and no active bleed on exam --> Venofer IV scheduled, can repeat in AM Pain control/bowel regimen -- IMPROVEMENT w/ SCHEDULED LOW DOSE OXY 2.5mg BID and has NOT required ANY ADDITIONAL PRN dosing. Continue tylenol scheduled Bowel regimen continued, +BMs following Loomis removed 01/21, purewick available. Urine cx neg on preliminary UA 01/20 did note granular casts c/w dehydration and had been on 1500cc fluid restriction this past week for hyponatremia however urine Na only 10 and suspect needing more solute Diet adjusted to regular/fluid restriction removed. Na stable 132. BUN slightly elevated and PO hydration encouraged PT/OT rec SNF, will plan for P2P this afternoon (2) ROSALIND (acute kidney injury): Plan: Acute kidney injury Cr peaked 1.88, baseline ~0.9. Suspect 2nd to dehydration/acute blood loss from surgery s/p PRBC as above. Urine cx neg/loomis removed Suspect ongoing elevation 2nd to fluid restriction which has been removed. Cr stable and PO hydration encouraged Venofer IV ordered for FRANSISCO Monitor BMP (3) Chronic hyponatremia: Plan: Chronic Hyponatremia with baseline Na ~131. Asymptomatic Serum osm 286 and was given NSS 3 % on 01/20 for Na 130 without change TSH elevated but normal t4/t3 not on supplementation. was given 1gm PO BID nacl and improved to 133 however review prior labs w/ urine Na ONLY 10 --> REMOVED fluid restrictoin/changed diet to regular Na stable at 132, PO intake encourgaed/salt intake Monitor BMP (4) Atrial fibrillation: Plan: Currently in normal sinus Continues on metoprolol, eliquis resumed as above Keep mag/K replete Plan CODE STATUS: DNR/DNI Chronic stable issues: Hyperlipidemia: Continue rosuvastatin Hypertension: Continue metoprolol Dementia: Continue donepezil DVT proph: SCDs/Syeda Ellis resumed 01/20 Dispo: continue low dose oxy BID, bowel regimen as needed. PO hydratoin encouraged and will plan for P2P this afternoon for [facility] possibly. If denied, plan for [facility] when bed available Admission and Anticipated Discharge Date Admission Date: January 15, 2024 Supervising Physician Co-Signing Physician Notes The patient was not seen by me. The chart was reviewed. Case discussed with NICKI Henderson. Agree with assessment and plan Subjective Eval this morning, got cleaned up from moving her bowels. Pain control improved and discussed continue low dose bridget oxycodone w/ prn if needed. No fever/chills/cp/sob/dizziness. No bleeding reported. Loomis removed yesterday, reports likes the purewick/working well. No dysuria/burning reported. Discussed diet: did have cream of wheat this morning, stable sodium level and does appear dehydrated and discussed able to push oral fluids and will avoid IVF for now. Iron studies checked/low and Venofer IV ordered. Per CM, P2P required by noon for [facility], will attempt pending therapy evals. Otherwise patient ok w/ [facility] as gone to before. Questions/concerns addressed at this time. Physical Exam 2 Physical Exam: General: frail elderly 83yo female sitting up in bed, much more comfortable, just had bowel movement HEENT: head atraumatic, normocephalic, mm slightly DRY (slightly improved), trachea midline Resp; even/unlabored, no obvious wheezing/rales, 96% on RA CV: RRR, faint systolic murmur, no pitting edema/calf tenderness RLE dressing c/d/i, sensation intact, no obvious/significant hematoma, sensation intact, calves nontender GI: +BS, LESS distension, no suprapubic fullness/tenderness, no guarding/rigidity : LOOMIS removed day prior, concentrated urine in cannister MSK/Neuro: dressing to RLE, c/d/i, sensation intact significant kyphosis noted Psych: AOx3, cooperative with exam Results & Data Results & Data Vital Signs (Past 12 Hours) Vital Signs Temp Pulse Resp BP Pulse Ox O2 Del Method 01/22/24 23:15 Room Air 01/22/24 20:56 36.4 C L 75 18 114/69 96 Room Air Laboratory Results 01/23/24 04:29 01/23/24 04:29 B12 810 Iron 11, TIBC 287, Transferrin 205, Trans % sat 4%, ferritin 126.5 PG Care Time/CCT Total # of Minutes Spent Total Time Spent with Patient: Total time spent is greater than 50% in coordination of care (as documented) at patient's floor/unit and/or counseling patient: Coding Level of Care Code 48847 SUB INP/OBS CARE 3/50MIN Diagnoses Closed displaced intertrochanteric fracture of right femur, initial encounter S72.141A Encounter type: initial encounter Fracture alignment: displaced Fracture type: closed ROSALIND (acute kidney injury) N17.9 Chronic hyponatremia E87.1 Paroxysmal atrial fibrillation I48.0 Atrial fibrillation type: paroxysmal (1) Intertrochanteric fracture of right femur Encounter type: initial encounter Fracture alignment: displaced Fracture type: closed Qualified Code(s): S72.141A - Displaced intertrochanteric fracture of right femur, initial encounter for closed fracture (4) Atrial fibrillation Atrial fibrillation type: paroxysmal Qualified Code(s): I48.0 - Paroxysmal atrial fibrillation
[2024-01-23 09:07] LABS: Ferritin 126.5 ng/ml (8-388)
[2024-01-23] MEDS: IRON SUCROSE 300 MG in SODIUM CHLORIDE 0.9% 250 ML IV ONE (10:07)
[2024-01-23 19:54] VITALS: O2SAT 94
[2024-01-24] MEDS: oxyCODONE HCL IR 5 MG TAB (IMMEDIATE RELEASE) PO PRN (03:14)
[2024-01-24 07:30] VITALS: BP 117/67; PULSE 80; RESP 18; TEMP 97.9
[2024-01-24 07:48] LABS: Mean Corpuscular Hemoglobin 30.3 pg (25.0-34.0); Mean Corpuscular Hgb Conc 33.3 g/dL (32.0-36.0); Mean Corpuscular Volume 90.9 fL (80.0-100.0); Platelet Count 296 K/uL (130-400); RDW Coefficient of Variation 14.1 % (11.5-14.5); RDW Standard Deviation 46.5 fL (36.4-46.3); Red Blood Count 2.97 M/uL (4.20-5.40); White Blood Count 7.63 K/ul (4.8-10.8)
[2024-01-24 08:26] LABS: BUN Creatinine Ratio 58.1 (10-20); Calcium 8.4 mg/dl (8.6-10.3); Creatinine Clr Calc Pharmacy 43.2 ml/min; Magnesium 1.6 mg/dl (1.7-2.4); Potassium 4.2 mmol/L (3.5-5.1)
--- NOTE | 2024-01-24 08:29 | Discharge Summary ---
Discharge Summary Date of Service January 24, 2024 Principal Dx & Hospital Course #1 = Principal Diagnosis (1) Intertrochanteric fracture of right femur: Presented after mechanical fall in bathroom resulted in right hip pain. Age-related osteoporosis with current pathologic fracture, right femur Hip/pelvis XR demonstrates R intertrochanteric fracture Head CT negative, CXR without acute findings Ortho consulted, Dr Milner s/p R long troch nail surgery on 01/[address] Milner. EBL 100cc Vit D 39.2, continue PO supp at dc s/p 1u PRBC for acute blood loss anemia with hgb to 7.2 in patient with chronic anemia and hgb augmented appropriately to 9.3 Eliquis resumed for DVT prophylaxis, HOWEVER AT REDUCED 2.5mg BID for age 83/weight <80kg as just turned 83 last month Bowel regimen added with successful BM Pain control w/ tylenol/tramadol/oxycodone initially but with some intermittent confusion days prior but was alternating between two meds when prior was able to be given --> changed to oxycodone 2.5mg bid w/ additional prn dosing as needed and to continue Tylenol 1gm q8h at discharge and can titrate to prn in next couple of days as pain w/ continued improvement. Notable did check iron studies which were low and given Venofer IV x1 and can repeat in follow up/consider oral supplementation Also had hyponatremia, acute on chronic and was placed on fluid restriction. Was provided 3% hypertonic saline x 1 and did not improve. I gave her 1gm PO BID x 2 doses w/ improvement and further review and discussion w patient w/ poorer intake reported and reported not able to eat salt with meals. Reviewed fluid restriction and prior did have Urine Na in system which was NOT elevated and actually LOW at 10 and suspect she had hypotonic hypernatremia and removed fluid restriction and made regular diet and Na stable at 133 and recommend to continue regular diet without restriction. Also discontinued tramadol which can make hyponatremia worse given adequate pain control on low dose oxycodone. Urine remained concentrated but urine cx negative on check/loomis removed 01/21 and BUN improving and again had been on restriction and suspect continued improvement OFF restriction with increased dietary salt intake. Mag also checked/replacement ordered to keep closer to 2 but was 1.6 on repeat and additional 1gm prior to dc and PO mag sent at discharge to help keep stores replete. Do wonder if fall brought on by recent hydrocodone/Apap + tizanidine as rx 12/24 by orthopedics for compression fracture. Would plan to HOLD this at tx and have f/u discussion w/ PCP prior to use but would AVOID use in elderly with falls on anticoagulation Eliquis reduced to 2.5mg for age/weight at tx, monitor for bleeding as does have some slight increased ecchymosis on exam today but no significant hematoma. --> Should monitor at [facility]. Discussed can start PO iron if needed/repeat CBC if needed. No CP/SOB reported. Moving bowels. No palpitations. (2) ROSALIND (acute kidney injury): Acute kidney injury Cr peaked 1.88, baseline ~0.9. Suspect 2nd to dehydration/acute blood loss from surgery s/p PRBC as above. Urine cx neg/loomis removed Cr back to baseline, however BUN was elevated and see above had been on 1200cc fluid restriction with AHA diet and improving slowly since removal of fluid restriction and regular diet with stable/improved sodium (3) Chronic hyponatremia: Chronic Hyponatremia with baseline Na ~131. Asymptomatic Serum osm 286 and was given NSS 3 % on 01/20 for Na 130 without change TSH elevated but normal t4/t3 not on supplementation. Was given 1gm PO BID nacl and improved to 133 however review prior labs w/ urine Na ONLY 10 and noted then that patient had been on a fluid restriction/salt restricted diet and that was REMOVED and Na 133 and stable with improving BUN and no restrictions rec'd at discharge (4) Atrial fibrillation: Remained in NSR, continued on metoprolol, eliquis resumed but at REDUCED DOSE FOR AGE/WEIGHT ABOVE 2.5mg BID. New rx at tx Mag IV for 1.6 and continue PO BID at discharge Outpt f/u Plan Chronic stable issues: Hyperlipidemia: Continued rosuvastatin Dementia: Continue donepezil DVT proph: SCDs/DIANELYS torres, Eliquis resumed 01/20. Hgb stable but slight ecc hymosis on exam and will need to continue to monitor Dispo: discharge to [facility] for ongoing rehab, low dose oxycodone BID w/ tylenol bridget and additional prn oxycodone as needed. monitor bowels/regimen as needed and encouraged to increase PO intake/solute intake. Reduced eliquis for age/weight, also DVT proph Outpt f/u with orthopedics in 2 weeks for suture removal Notes For Next Care Provider Ensure f/u orthopedics for follow up and suture removal Consider oral iron if moving bowels more regularly/continue bowel regimen on such Did reduce eliquis for age/weight and needs to be continued at lower dose Would avoid tizanidine/tramadol in patient as suspect contributed to fall in elderly patient with hx dementia from ortho outpatient this past month. Dc on med list but should encourage NOT to take any further Medication Changes From Visit Oxycodone 2.5mg BID bridget, APAP 1gm Q8h Oxycodone 2.5mg q4h prn Eliquis reduced to 2.5mg PO BID Mag oxide PO BID DC Tizanidine DC Tramadol Admission HPI Per Admitting Provider 83 yo female PMHx a fib on Eliquis, osteoporosis, vertebral compression fractures, HTN, HLD, depression admitted s/p mechanical fall with demonstrated R intertrochanteric fracture. Today she was ambulating to the bathroom with a walker and fell from standing striking her left hip on the ground. She is also complaining of R sided rib pain. Has history of multiple vertebral compression fractures. Currently reports pain is well controlled. She is uncomfortable on her back due to kyphosis and compression fractures but not in any acute pain at this time. Patient denies CP, SOB, abdominal pain, nausea, vomiting, lightheadedness, dizziness, and diarrhea. ED course: Non contrast CT head without acute process XR hip/pelvis demonstrates R intertrochanteric femur fracture Received 1g Tylenol IV, 0.5mg Dilaudid IV Admission Exam Per Admitting Provider Constitutional: age appropriate appearance, no acute distress HEENT: NCAT, no conjunctival injection CV: regular rhythm, no murmur appreciated, extremities well-perfused, no LE edema Resp: CTABL, no wheezes/rales/rhonchi appreciated, no increased work of br eathing MSK: R leg internally rotated and shortened compared to left. TTP on anterior aspect of R hip. No appreciable ecchymosis or swelling Skin: warm, dry, no rash appreciated Neuro: alert, oriented, no focal neurologic deficit appreciated Discharge Exam General: frail elderly 83yo female sitting up in bed, much more comfortable, just had bowel movement HEENT: head atraumatic, normocephalic, mm slightly DRY (slightly improved), trachea midline Resp; even/unlabored, no obvious wheezing/rales, 96% on RA CV: RRR, faint systolic murmur, no pitting edema/calf tenderness -- RLE dressing c/d/i, sensation intact, no obvious/significant hematoma, sensation intact, calves nontender GI: +BS, LESS distension, no suprapubic fullness/tenderness, no guarding/rigidity : LOOMIS removed day prior, concentrated urine in canister (less concentrated) MSK/Neuro: dressing to RLE, c/d/i, sensation intact, significant kyphosis noted slight increased ecchymosis on exam but no significant hematoma compared to day prior Psych: AOx3, cooperative with exam Discharge Plan Discharge Items Patient Disposition: Transfer Assisted Fac Reason For Visit: R INTERTROCHANTERIC FRACTURE Discharge Diagnosis: Fall, Right hip fracture Goals: You have been hospitalized for an urgent problem which required surgery. During your stay at [facility], we have made an effort to correct the problem that brought you to the hospital while keeping you as comfortable as possible. Surgery and medications were used to bring your condition under control and your discharge instructions will include directions for any medications you should take after leaving the hospital. Please make sure to follow the advice of your surgeon regarding follow up with the surgeon and with your primary care provider. Activity: Per Instructions section Weightbearing: Right weightbearing Weightbearing Comment: Right lower extremity - with walker and assistance as needed Non-emergency contact: Surgeon Call non-emergency contact if: you have any medication questions, your symptoms worsen, your pain is not controlled, your temperature is above 101, your wound has increased redness and your wound has increased drainage Follow-up/Referrals: Nile Milner MD [Surgeon] - 01/31/24 9:30 am Magali Javier MD [Primary Care Provider] - Diet: Heart Healthy Addtl Attending Provider Instructions: You have been hospitalized for a fall and found to have hip fracture. Orthopedics was consulted and you underwent surgery to address this issue. For pain control, we are continuing oxycodone 2.5mg by mouth twice a day (which can be reduced with time and improvement in pain) with additional dose as needed but otherwise should continue 1gm tylenol every 8 hours for baseline control. You are able to eat some increased salt in your diet and encouraged to stay hydrated to prevent dehydration which can lead to falls. Your Eliquis was resumed and we did have some drop in blood counts likely from surgery/bleeding and did give unit of blood to help with improvement but also checked iron studies which were low and ordered IV iron while in the hospital. Your Eliquis has also been REDUCED TO 2.5mg TWICE DAILY from 5mg dose given age (adjustment is recommended at age 83 if under 80kg and you are 54kg). This is to prevent increased risk of bleeding. If moving bowels with bowel regimen on pain control at rehab they can consider starting oral iron but note this can worsen constipation and would continue to recommend bowel regimen to help keep soft while you are working on increasing your activity following the fracture. Monitor for any chest pain/shortness of breath or need for repeat blood count testing. Therapy evaluations were undertaken and rehab at [facility] at discharge has been arranged. You should continued walker with ambulation and have orthopedics follow up in 2 weeks for suture removal. Follow up primary care in 7-10 days. Return to ER with fever/chills, chest pain, shortness of breath, abdominal pain, nausea, inability to keep up with oral intake or for any other symptoms concerning for you. It has been a pleasure being a part of the medical team providing for you while you have been in the hospital. Take care! Addtl Trial [employer] Provider Instructions: ORTHOPEDIC DISCHARGE INSTRUCTIONS -Weight bearing as tolerated with walker and assistance as needed -PT/OT, patient can do range of motion of hip as tolerated -Frequently ice, at least 20 minutes 5 times a day. -Dressing change daily or as needed with xeroform, gauze and tegaderm. Keep incision covered until follow up appointment. -DVT prophylaxis: Resume Eliquis as instructed by the hospitalist -Pain control: Per hospitalist, Recommend Tylenol 500-1000mg every 8 hours, oxycodone as above -Okay to shower; may get incision wet, do not submerge. Pat incision dry and redress after bathing. If waterproof dressing in place may leave in place for bathing. -Follow up in 2 weeks with [facility] for post op evaluation and suture removal. Please call our office sooner @ [phone] if you have any questions or concerns Pending Studies at Discharge: No Stand-Alone Forms: My [facility] Skilled Items Patient informed of condition?: Yes DNR: Yes Discharge Level of Care: Skilled Communicable Disease: No Discharge Prognosis: Stable Lines: None Urinary Catheter: No Medications and DC Order Prescriptions: New magnesium oxide 400 mg magnesium capsule 400 mg PO BID Qty: 60 0RF acetaminophen [Tylenol Extra Strength] 500 mg Tablet 1,000 mg PO Q8H Qty: 0 0RF Eliquis 2.5 mg Tablet 2.5 mg PO BID Qty: 60 0RF oxycodone 5 mg Tablet 2.5 mg PO BID Qty: 20 0RF Rx Instructions: 2.5mg BID scheduled with additional 2.5mg as needed docusate sodium 100 mg Capsule 100 mg PO BID Qty: 14 0RF Continued rosuvastatin [Crestor] 20 mg tablet 20 mg PO DAILY 90 Days Qty: 90 3RF metoprolol tartrate 25 mg tablet 25 mg PO BID Qty: 180 3RF alendronate 70 mg tablet 70 mg PO WK Qty: 12 3RF Rx Instructions: Saturday calcium carbonate-vitamin D3 500 mg(1,250mg) -200 unit tablet 1 tab PO DAILY Rx Instructions: OTC unable to verify cholecalciferol (vitamin D3) 50 mcg (2,000 unit) capsule 2,000 unit PO DAILY Rx Instructions: OTC unable to verify acetaminophen [Tylenol Extra Strength] 500 mg tablet 1,500 mg PO BID Rx Instructions: OTC unable to verify donepezil 5 mg tablet 5 mg PO DAILY Qty: 30 2RF diclofenac epolamine 1.3 % patch 24 hour 1 patch transdermal DAILY Qty: 10 1RF Rx Instructions: Utilize for 12 hours then remove, one per day multivitamin Tablet 1 tab PO DAILY Rx Instructions: OTC unable to verify amoxicillin 500 mg tablet 2,000 mg PO ONCE PRN (Reason: dental appointments) Rx Instructions: 4 tabs 1 hour prior to procedure. Dental appointments. lidocaine [Lidoderm] 5 % adhesive patch,medicated 1 patch topical DAILY Qty: 15 0RF Rx Instructions: leave on most painful area for up to 12 hrs Held hydrocodone-acetaminophen 5-325 mg tablet 1 tab PO TID PRN (Reason: pain) Qty: 42 0RF Hold Instructions: Resume on 02/15/24. Rx Instructions: filled 01/09 14 day supply tramadol 25 mg tablet 25 mg PO Q6H PRN (Reason: pain) Qty: 10 0RF Hold Instructions: Resume on 02/15/24. Rx Instructions: filled 12/18 2 day supply Discontinued apixaban 5 mg tablet 5 mg PO BID Qty: 180 3RF tizanidine 4 mg tablet 4 mg PO BID PRN (Reason: muscle spasticity) Qty: 30 1RF Rx Instructions: filled 12/24 15 day supply Discharge Orders: Discharge Order (Routine); Ordered 01/24/24 Ordered By: Pamela Carpenter Admission Data Admit Date/Time: 01/15/24 16:47 Attending Provider: Otis Ayers Admit Provider: Josr Johnson Primary Care Provider: Magali Javier Other Providers: Nile Gallegos; Nile Milner; Larisa Gupta [facility]; [facility]; [facility] Other Interventions: Discharge Summary Assessment (RN) Last Done: 01/24/24 12:54 Hospital Stay Data Consultations 01/15/24 17:13 ED Decision to Admit Stat 01/15/24 20:42 Consult Orthopedic Surgery Routine Procedures Performed Operation Date: 01/17/24 12:30 Actual Procedures p Right Long Troch Nail(Right) - Nile Milner MD Diagnostic Imagining Performed Head CT 01/15/24 13:48 CT head/brain wo con CLINICAL HISTORY: 83 years-old Female with Fall, on eliquis. Acute head trauma status post fall TECHNIQUE: Multiple axial CT images of the head were obtained without contrast. A dose lowering technique was utilized adhering to the principles of ALARA. CT DOSE: 547.75 mGy.cm COMPARISON: 10/25/2021 FINDINGS: No acute intracranial hemorrhage, midline shift, intracranial mass, hydrocephalus, territorial ischemia or abnormal extra-axial collection. Involutional changes with extensive white matter hypodensities redemonstrated likely representing chronic microvascular ischemic disease. The calvarium is intact. The paranasal sinuses, mastoid air cells, and middle ear cavities are clear. IMPRESSION: No acute intracranial abnormality or calvarial fracture. ACT 112: Negative or not required by law. The above report was generated using voice recognition software. It may contain grammatical, syntax or spelling errors. Electronically signed by: David Chandra M.D. 01/15/2024 3:00 PM Hip/Pelvis X-Ray 01/15/24 13:48 XR hip RT 2V w pelvis HISTORY: 83 years-old Female hip fx, pain, shortened The right hip status post fall COMPARISON: 09/25/2005 TECHNIQUE: AP view of the pelvis with 2 views of the right hip FINDINGS: Demineralized appearance of the bones. Moderate osteoarthritis of the hips. There is an acute comminuted, angulated and displaced intertrochanteric fracture of the right femur with moderate adjacent soft tissue swelling. No dislocation. Arterial calcifications. IMPRESSION: Acute comminuted, angulated and displaced intertrochanteric right femoral fracture. ACT 112: Negative or not required by law. The above report was generated using voice recognition software. It may contain grammatical, syntax or spelling errors. Electronically signed by: David Chandra M.D. 01/15/2024 3:13 PM Chest X-Ray 01/15/24 16:48 EXAM: Radiograph of the Chest 1 View INDICATION: Right rib pain following fall. TECHNIQUE: Frontal view of the chest. COMPARISON: No relevant prior studies available. FINDINGS: Lungs and pleural spaces: Stable right basilar lower lung parenchymal scarring. No consolidation or pulmonary edema. No pleural effusion or pneumothorax. Heart: Shape and configuration within normal limits allowing for technique. Mediastinum: Normal contour. Bones/joints: Degenerative changes noted in the spine with midthoracic kyphoplasty unchanged. No displaced fracture noted. Soft tissues: No abnormality noted. No radiopaque foreign body noted. Upper abdomen: No abnormality noted. IMPRESSION: 1. Degenerative changes noted in the spine with midthoracic kyphoplasty unchanged. No displaced fracture noted. 2. No acute cardiopulmonary disease. ACT 112: Negative or not required by law. Electronically signed by Jessica Phipps 01-15-2024 6:33 PM Femur X-Ray 01/17/24 12:30 FL femur RT 2V CLINICAL HISTORY: RIGHT LONG TROCHNAIL COMPARISON STUDY: Right hip radiographs January 15, 2024. FLUOROSCOPY TIME: 209 seconds. Ka,r: 31.30 mGy FLUOROSCOPIC IMAGES: 4 FINDINGS: Fluoroscopy was provided during open reduction and internal fixation of the intertrochanteric fracture of the right femur with trochanteric nail. Fracture alignment has significantly proven appears near anatomic. IMPRESSION: Fluoroscopy provided during open reduction and internal fixation of the intertrochanteric fracture of the right femur. ACT 112: Negative or not required by law. Electronically signed by: Jovan Colon M.D. 01/17/2024 4:01 PM Discharge Instructions Given to Patient (Per Discharging Provider) You have been hospitalized for a fall and found to have hip fracture. Orthopedics was consulted and you underwent surgery to address this issue. For pain control, we are continuing oxycodone 2.5mg by mouth twice a day (which can be reduced with time and improvement in pain) with additional dose as needed but otherwise should continue 1gm tylenol every 8 hours for baseline control. You are able to eat some increased salt in your diet and encouraged to stay hydrated to prevent dehydration which can lead to falls. Your Eliquis was resumed and we did have some drop in blood counts likely from surgery/bleeding and did give unit of blood to help with improvement but also checked iron studies which were low and ordered IV iron while in the hospital. Your Eliquis has also been REDUCED TO 2.5mg TWICE DAILY from 5mg dose given age (adjustment is recommended at age 83 if under 80kg and you are 54kg). This is to prevent increased risk of bleeding. If moving bowels with bowel regimen on pain control at rehab they can consider starting oral iron but note this can worsen constipation and would continue to recommend bowel regimen to help keep soft while you are working on increasing your activity following the fracture. Monitor for any chest pain/shortness of breath or need for repeat blood count testing. Therapy evaluations were undertaken and rehab at [facility] at discharge has been arranged. You should continued walker with ambulation and have orthopedics follow up in 2 weeks for suture removal. Follow up primary care in 7-10 days. Return to ER with fever/chills, chest pain, shortness of breath, abdominal pain, nausea, inability to keep up with oral intake or for any other symptoms concerning for you. It has been a pleasure being a part of the medical team providing for you while you have been in the hospital. Take care! Supervising Physician Co-Signing Physician Notes The patient was not seen by me. The chart was reviewed. Case discussed with NICKI Henderson. Agree with assessment and plan Total Time Total Time Spent Total Time Spent (In Minutes): 45 Coding Level of Care Code 71151 INP/OBS DISCH >30 MIN Diagnoses Closed displaced intertrochanteric fracture of right femur, initial encounter S72.141A Encounter type: initial encounter Fracture alignment: displaced Fracture type: closed ROSALIND (acute kidney injury) N17.9 Chronic hyponatremia E87.1 Paroxysmal atrial fibrillation I48.0 Atrial fibrillation type: paroxysmal
[2024-01-24] MEDS: IRON SUCROSE 300 MG in SODIUM CHLORIDE 0.9% 250 ML IV ONE (10:18)
[2024-01-24] MEDS: MAGNESIUM SULFATE / D5W 1 GM/100 ML BAG IV ONE (10:21)
[2024-01-24] MEDS: ONDANSETRON INJ 2 MG/ML 2 ML VIAL IV PRN (11:58)
[2024-01-24] MEDS: MAGNESIUM OXIDE 400 MG TAB PO SCH (13:00)
== END 2024-01-24 15:16 | DRG 481 ==
LOC: ED 13:27 → EDINP 16:47 → SUATTDRO 16:47 → 3N 19:30

== ENCOUNTER 2024-09-10 11:41 | Inpatient (IN) ==
--- NOTE | 2024-09-10 12:49 | XRay Report ---
XR chest 1V not portable CLINICAL HISTORY: Chest pain, nonspecific COMPARISON STUDY: 01/15/2024 FINDINGS: There is stable cardiomegaly with mild pulmonary vascular congestion. There are increased s mall bilateral pleural effusions and lung base consolidation. There is an old right mid rib fracture. No pneumothorax. IMPRESSION: CHF with small pleural effusions and lung base consolidation. ACT 112: Negative or not required by law. Electronically signed by: Yuriy Strickland M.D. 09/10/2024 12:48 PM
[2024-09-10 12:59] LABS: Hematocrit (blood only) 33.3 % (37.0-47.0); Hemoglobin 11.0 g/dl (12.0-16.0); Immature Granulocytes # (auto) 0.02 K/uL (0.01-0.20); Immature Granulocytes % (auto) 0.4 %; Mean Corpuscular Hemoglobin 29.1 pg (25.0-34.0); Mean Corpuscular Volume 88.1 fL (80.0-100.0); Platelet Count 238 K/uL (130-400); RDW Standard Deviation 47.6 fL (36.4-46.3); Red Blood Count 3.78 M/uL (4.20-5.40); White Blood Count 5.34 K/ul (4.8-10.8)
[2024-09-10 13:17] LABS: Alanine Aminotransferase 11.0 U/L (7-52); Albumin Globulin Ratio 1.1 (0.9-2); Alkaline Phosphatase 74.0 U/L (34-104); Anion Gap 7.0 (3-11); Bilirubin,Total 0.8 mg/dl (0.2-1.0); Blood Urea Nitrogen 19.0 mg/dl (6-23); Calcium 8.9 mg/dl (8.6-10.3); Carbon Dioxide 27.0 mmol/L (21-32); Chloride 91.0 mmol/L (98-107); Creatinine Clr Calc Pharmacy 32.0 ml/min; Globulin 2.9 gm/dl (2.5-4.0); Glucose 86.0 mg/dl (70-99(Fasting)); Potassium 4.5 mmol/L (3.5-5.1); Sodium 125.0 mmol/L (136-145); Total Protein 6.2 gm/dl (6.0-8.3)
--- NOTE | 2024-09-10 13:34 | CT Scan Report ---
CT SCAN OF THE BRAIN WITHOUT IV CONTRAST CLINICAL HISTORY: Change in mental status. COMPARISON STUDY: CT of the brain dated 01/15/2024 TECHNIQUE: Unenhanced axial CT scan of the brain is performed from the vertex to the skull base. Imag es are reviewed in the axial, sagittal, coronal planes. A dose lowering technique was utilized adheri ng to the principles of ALARA. The skull base was scanned twice due to motion artifact. CT DOSE: 859.95 mGy.cm FINDINGS: Brain parenchyma: There is age-related involutional change noting advanced confluent subcortical and periventricular microangiopathic disease. There is no hemorrhage, mass effect, or evidence of acute t erritorial ischemia by CT criteria. Mcmanus-white matter differentiation is preserved. No extra-axial fl uid collection is seen. Ventricles, sulci, cisterns: Prominent secondary to involutional change. Intracranial vasculature: There is atherosclerotic calcification of the cavernous carotid arteries. Calvarium: Unremarkable. Sinuses and mastoids: The visualized paranasal sinuses are clear. The mastoid air cells are well pneu matized. Orbits: The bony orbits are grossly intact. There are bilateral ocular lens implants. IMPRESSION: There is no hemorrhage, mass effect, or evidence of acute territorial ischemia by CT [place]. ACT 112: Negative or not required by law. Electronically signed by: Teto Haddad M.D. 09/10/2024 1:33 PM
--- NOTE | 2024-09-10 13:50 | History & Physical Report ---
Date of Service September 10, 2024 Assessment & Plan (1) Acute heart failure with preserved ejection fraction (HFpEF): (2) Chronic hyponatremia: (3) Atrial fibrillation: Plan This patient is an 83-year-old female who presented on 09/10 for intermittent SOB and increased bilateral leg swelling x 2 weeks [employer]. #Acute HFpEF | h/o mitral valve repair Last echocardiogram on 08/11/2021 revealed LVEF at 55 to 60% with grade 2 diastolic dysfunction Repeat echocardiogram ordered, pending Not currently on Lasix daily BNP elevated at 355 on arrival (no prior for comparison) Daily weights Strict I&O monitoring Initiate Lasix 40 mg IV QAM Potassium chloride 10 mEq p.o. QAM Potential culprits for acute CHF exacerbation include current food regimen (patient does not watch salt intake at home) vs. uncontrolled atrial fibrillation #Chronic hyponatremia Chronic hyponatremia with baseline around Na ~131 However, lower than baseline at serum sodium is 125 on arrival Urine Osm, urine Na, and serum Osm, pending to assess for SIADH TSH ordered, pending Suspect hypervolemia is contributing to patient's hyponatremia (in the setting of acute CHF) Diuresis (as above) Fluid restriction at 1500 mL Trend BMP #Atrial fibrillation In atrial fibrillation with heart rate up to 120 bpm on arrival; however, rate controlled at 85 bpm time of admission Replete K and mag as needed Continuous telemetry monitoring #HTN Previously on metoprolol, but not currently in patient's med list Per cardiology note on 07/02/2024, it is unclear when she was taken off metoprolol (or why) Clinically, patient reports she has been having intermittent chest palpitations In the setting of new heart failure + chest palpitations, will plan to restart on metoprolol Metoprolol titrate 25 mg p.o. BID #Hypothyroidism Last TSH mildly elevated at 5.119 on 07/16/2024 Repeat TSH ordered (however this may be affected by acute illness) Continue levothyroxine #Anemia of chronic disease Hgb 11.0 and MCV 88 on arrival No active bleeding Trend CBC #Crohn's disease Chronic; noted Not currently on medications #Dementia A&Ox4 on arrival Continue donepezil #HLD Continue rosuvastatin Disposition: Admit to [facility] telemetry VTE PPx: Continue dose reduced Syeda Called patient's daughter (Bryanna) on 09/10 and provided update regarding admission status. History of Present Illness Chief Complaint: Swelling/edema to extremity Primary Care Provider: Magali Javier MD Mrs. Farrar is an 83-year-old female with PMH of dementia, stroke, atrial fibrillation (on apixaban), mitral valve replacement, HLD, osteoporosis, depression, migraine with aura, and chronic hyponatremia. She presented via EMS on 09/10 from [facility] for progressive bilateral lower extremity swelling and intermittent MONTGOMERY x 2 weeks [employer]. Staff at also reported that she was disoriented the morning of admission; however, EMS reported she was A&O x 4 upon arrival. Patient is able to provide history upon arrival. She denies any redness or pain in her lower extremities, but does report that the swelling has worsened so much that her legs began to "ache" at night. No prior history of leg swelling like this. She denies prior history of CHF to her knowledge. Patient took her regular morning medicine today. She reports that she takes Fosamax on Saturday mornings. She is not currently on any diuretics. She does not believe there have been any recent changes in her medications, although manages her medicine at home. She is unsure if there have been any recent changes in weight. Patient does watch what she eats due to her history of Crohn's disease, but does not watch salt intake. For instance, this morning she had 2 pieces of rosenthal and toast with butter/cinnamon; she had a lunch meat sandwich for dinner last night. Patient does not use supplemental oxygen at baseline. No CPAP at night. While she does not feel sick, she does report that something is been going around at [facility], and she may have been around sick contacts. Patient ambulates with her wheelchair at baseline (uses her wheelchair as a walker to get to the bathroom at night). She denies smoking, tobacco use, recent alcohol use. Patient is mildly hypertensive at 147/108 at time of admission; vitals otherwise stable. ED course: Furosemide 40 mg IV x 1 ROS: Patient endorses LE edema x 2 weeks [employer]LE[employer], chest discomfort, intermittent chest palpitations, MONTGOMERY, dry cough, abdominal cramping (after eating; which patient attributes to Crohn's disease), loose bowels at baseline, and black stool (which she attributes to iron supplements). Patient denies fever, chills, night-sweats, chest pain, SOB at rest, pleuritic CP, abdominal pain, N/V, bright red blood in the urine/stool, or redness/pain in the legs. Allergies Allergy/AdvReac Type Severity Reaction Status Date / Time codeine Allergy Mild LIGHTHEADED Verified 07/02/24 09:40 NESS verapamil Allergy Mild PALPITATION Verified 07/02/24 09:40 S Home Medications Medication Instructions Recorded Confirmed Type cholecalciferol (vitamin D3) 50 2,000 unit PO DAILY 05/31/20 09/10/24 History mcg (2,000 unit) capsule multivitamin 1 tab PO DAILY 10/25/21 09/10/24 History rosuvastatin 20 mg tablet (Crestor) 20 mg PO DAILY 90 days #90 tabs 03/14/23 09/10/24 Rx alendronate 70 mg tablet 70 mg PO WK #12 tabs 04/26/23 09/10/24 Rx donepezil 5 mg tablet 5 mg PO DAILY #30 tabs 12/02/23 09/10/24 Rx amoxicillin 500 mg tablet 2,000 mg PO ONCE PRN dental 12/18/23 09/10/24 History appointments apixaban 2.5 mg tablet (Eliquis) 2.5 mg PO BID #60 tabs 01/24/24 09/10/24 Rx docusate sodium 100 mg capsule 100 mg PO BID #14 caps 01/24/24 09/10/24 Rx magnesium oxide 400 mg PO BID #60 caps 01/24/24 09/10/24 Rx eric.stocking,thigh,reg,med #2 ea 02/13/24 02/13/24 Rx diaper,brief,adult,disposable #80 ea 02/13/24 02/13/24 Rx (Prevail Brief Medium) ferrous sulfate 325 mg (65 mg 325 mg PO .MON,TUES,TH,SAT 07/02/24 09/10/24 History iron) tablet (FeroSul) levothyroxine 75 mcg tablet 88 mcg PO DAILY 07/02/24 09/10/24 History ondansetron HCl 4 mg tablet 4 mg PO Q8H PRN nausea and vomiting 07/02/24 09/10/24 History Anti Acid Chew 1,000 mg PO DAILY 09/10/24 09/10/24 History acetaminophen 500 mg tablet 1,000 mg PO BID 09/10/24 09/10/24 History (Tylenol Extra Strength) Past Med/Surg History Problem List (Updated 09/10/24 @ 19:14 by Chris Wharton MD) CHF (congestive heart failure) (Acute) Acute hyponatremia (Acute) Crohns disease Acute heart failure with preserved ejection fraction (HFpEF) Closed fracture of right hip (Acute 01/15/24) Acute comminuted, angulated and displaced intertrochanteric right femoral fracture from a fall Dementia Fall from standing Intertrochanteric fracture of right femur (01/15/24) Acute comminuted, angulated and displaced intertrochanteric right femoral fracture from a fall Compression fracture of T7 vertebra (Acute ~12/18/23) compression fracture of T7 Ptosis of eyelid, bilateral Atrial fibrillation follows with Dr. Edgar, reason for eliquis daily Prepatellar bursitis History of total left knee replacement Angelique-prosthetic fracture of proximal tibia History of compression fracture of vertebral column (~11/07/18) Thoracic H/O mitral valve replacement VBI (vertebrobasilar insufficiency) (Acute) Osteoporosis (Acute) on Fosamax since 05/2020 Hyperlipidemia (Acute) Hypertension (Acute 11/04/12) Dry eye syndrome (Acute) Depression (Acute) Chronic cerebral ischemia (Acute) Arthritis (Acute) Anemia (Acute 08/19/12) Abnormal mammogram (Acute) Thoracic back pain Thoracic kyphosis Age-related physical debility History of stroke 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 Chronic hyponatremia Ambulatory dysfunction (Acute) Closed rib fracture (Acute 09/17/22) from a fall Medical History ROSALIND (acute kidney injury) Malignant neoplasm of colon, unspecified Encounter for pre-operative examination Osteoarthritis Osteoporosis History of kidney stones On anticoagulant therapy eliquis daily Ocular migraine Hypertension Hyperlipidemia Palpitations Surgical History History of colon surgery 06/2008 Previous back surgery 11/07/2012 History of incision and drainage right arm--infected after fx History of total left knee replacement (TKR) History of total right knee replacement (TKR) History of esophagogastroduodenoscopy (EGD) History of colonoscopy with polypectomy History of colectomy subtotal with ileocolic anastomosis History of cardiac cath 04/2010 Dr. Linn @ [facility], no stents History of tooth extraction all teeth History of tonsillectomy History of bilateral cataract extraction History of mitral valve repair 04/2012 @ [facility] History of appendectomy History of kyphoplasty History of Percutaneous Vertebral Augmentation Kyphoplasty History of umbilical hernia repair History of cholecystectomy Family History Sister Hearing loss Breast cancer Cancer Grandmother (Paternal) No problems noted. Father No problems noted. Sister Osteoporosis Brother Osteoporosis Mother Osteoporosis Other No family history of adverse response to anesthesia Denies family history of Ovarian cancer Prostate cancer Myocardial infarction Colorectal cancer Social History Smoking Status: Never smoker Second Hand Exposure: No; Do You Dip or Chew Tobacco: No; Hx Alcohol Use: No Hx Substance Use: No Preferred Language: Armenian Communication Ability: Effective Hearing Ability: Normal Scrap Breaker Required: No Beliefs That Will Affect Care: None marital status: / Current Living Situation: Family Current Living Situation Comment: daughter current occupational status: retired How many Children do You have: 1 Feels Safe at Home: Yes Childhood Exposure to Second-Hand Smoke: No Diet: regular caffeine: No Dental Care, Regularly: Yes Physical Activity Frequency: Does not Exercise Seatbelt Use: always Sunscreen Use: No Assistive Devices: Cane and Walker Review of Systems Review of Systems: See HPI above Physical Exam Physical Exam: General: no acute distress; non-toxic appearing; frail appearing; cooperative; SpO2 98% on RA HEENT: normocephalic, atraumatic; no scleral icterus; PERRLA; vision and hearing intact Neck: supple; + JVP; trachea midline Skin: warm, dry without signs of tenting; no cyanosis; no rashes, bruising, lesions, or erythema noted CV: chest wall NTP; irregularly irregular rhythm at 85 bpm; pulses intact and symmetric at radial, DP, and PT Lungs: no acute respiratory distress; symmetrical chest wall expansion; clear breath sounds across all lung fabian w/o adventitious sounds; no wheezing ABD: Soft, NTP; BS present; no rebound/guarding; no distention MSK: no tics or fasciculations; +2 pitting edema on the dorsal aspect of the feet bilaterally; +1 pitting edema extending from the ankles up to the knees bilaterally, nonerythematous Neuro: A&Ox3; normal mood and affect; fluent speech; no focal deficits appreciated; patient reports that sensation is intact and symmetric in lower extremity bilaterally assessed via light touch Results & Data Results & Data Vital Signs (Past 12 Hours) Vital Signs Temp Pulse Resp BP Pulse Ox O2 Del Method 09/10/24 12:03 108 H 09/10/24 11:35 36.6 C 106 H 18 147/108 H 97 Room Air Laboratory Results Abnormal lab results 09/10/24 Range/Units 12:00 RBC 3.78 L (4.20-5.40) M/uL Hgb 11.0 L (12.0-16.0) g/dl Hct 33.3 L (37.0-47.0) % RDW Std Deviation 47.6 H (36.4-46.3) fL RDW Coeff of Fiona 14.8 H (11.5-14.5) % Lymph # (Auto) 0.53 L (1.20-3.40) K/uL Sodium 125 L (136-145) mmol/L Chloride 91 L (98-107) mmol/L B-Natriuretic Peptide 355 H (0-100) pg/ml Albumin 3.3 L (3.4-5.0) gm/dl Diagnostic Findings Chest X-Ray 09/10/24 12:24 XR chest 1V not portable CLINICAL HISTORY: Chest pain, nonspecific COMPARISON STUDY: 01/15/2024 FINDINGS: There is stable cardiomegaly with mild pulmonary vascular congestion. There are increased small bilateral pleural effusions and lung base consolidation. There is an old right mid rib fracture. No pneumothorax. IMPRESSION: CHF with small pleural effusions and lung base consolidation. ACT 112: Negative or not required by law. Electronically signed by: Yuriy Strickland M.D. 09/10/2024 12:[address] 09/10/24 12:43 CT SCAN OF THE BRAIN WITHOUT IV CONTRAST CLINICAL HISTORY: Change in mental status. COMPARISON STUDY: CT of the brain dated 01/15/2024 TECHNIQUE: Unenhanced axial CT scan of the brain is performed from the vertex to the skull base. Images are reviewed in the axial, sagittal, coronal planes. A dose lowering technique was utilized adhering to the principles of ALARA. The skull base was scanned twice due to motion artifact. CT DOSE: 859.95 mGy.cm FINDINGS: Brain parenchyma: There is age-related involutional change noting advanced confluent subcortical and periventricular microangiopathic disease. There is no hemorrhage, mass effect, or evidence of acute territorial ischemia by CT criteria. Mcmanus-white matter differentiation is preserved. No extra-axial fluid collection is seen. Ventricles, sulci, cisterns: Prominent secondary to involutional change. Intracranial vasculature: There is atherosclerotic calcification of the cavern ous carotid arteries. Calvarium: Unremarkable. Sinuses and mastoids: The visualized paranasal sinuses are clear. The mastoid air cells are well pneumatized. Orbits: The bony orbits are grossly intact. There are bilateral ocular lens implants. IMPRESSION: There is no hemorrhage, mass effect, or evidence of acute territorial ischemia by CT criteria. ACT 112: Negative or not required by law. Electronically signed by: Teto Haddad M.D. 09/10/2024 1:33 PM ECG Additional Comments: ECG revealed atrial fibrillation at 100 bpm; QTc 451 Code Status & VTE Plan Code Status DNR/DNI VTE Prophylaxis Plan VTE Prophylaxis will be ordered: Yes Supervising Physician Co-Signing Physician Notes I personally examined the patient and verified all [place] points of history and exam, discussed case, and agree with decision making with Johnnie Haro PAC feeling better already swelling down a lot. vitals noted nad heent nc at mmm lungs w diffuse rales mostly base to ~1/3 up lung field, b/l LE edema acute diastolic CHF/acute HFpEF -?sodium ingestion -diurese -repeat echo otherwise as above PG Care Time/CCT Total # of Minutes Spent Total Time Spent with Patient: Total time spent is greater than 50% in coordination of care (as documented) at patient's floor/unit and/or counseling patient: Coding [place] [address] INT INP/OBS CARE 3/75MIN Patient Type Established Medical Decision Making High Complexity Diagnoses Acute heart failure with preserved ejection fraction (HFpEF) I50.31 Chronic hyponatremia E87.1 Paroxysmal atrial fibrillation I48.0 Atrial fibrillation type: paroxysmal (3) Atrial fibrillation Atrial fibrillation type: paroxysmal Qualified Code(s): I48.0 - Paroxysmal atrial fibrillation
[2024-09-10] MEDS: FUROSEMIDE 40 MG/4 ML VIAL IV ONE (14:24)
[2024-09-10 15:01] LABS: Magnesium 1.7 mg/dl (1.7-2.4)
[2024-09-10 15:16] LABS: INR 1.3 (0.9-1.1); Partial Thromboplastin Time 39 Seconds (21-31); Prothrombin Time 14.2 Seconds (9.0-12.0)
[2024-09-10] MEDS: MAGNESIUM SULFATE / D5W 1 GM/100 ML BAG IV ONE (15:24)
[2024-09-10] MEDS: METOPROLOL TARTRATE 25 MG TAB PO STA (15:24)
[2024-09-10 15:25] LABS: Thyroid Stimulating Hormone 16.14 uIu/ml (0.300-4.500)
--- NOTE | 2024-09-10 19:14 | Emergency Department Note ---
History of Present Illness General Chief Complaint: Swelling/Edema to Extremity Stated Complaint: SWELLING IN THE LEGS Time Seen by Provider: 09/10/24 12:37 History of Present Illness Provider Complaint: shortness of breath Onset (ago): week(s) (2) Consistency/Duration: + progressively worsening Relieved By: + upright position Exacerbated By: + lying flat Associated symptoms: + orthopnea; no chest pain, no fever, no cough, no sputum production, no paresthesias, no hemoptysis, no syncope, no abdominal pain, no rash or no chest congestion HPI Narrative: Per EMS family and staff at her [facility] said she was more confused than normal. Home Medications Medication Instructions Recorded Confirmed Type cholecalciferol (vitamin D3) 50 2,000 unit PO DAILY 05/31/20 09/10/24 History mcg (2,000 unit) capsule multivitamin 1 tab PO DAILY 10/25/21 09/10/24 History rosuvastatin 20 mg tablet (Crestor) 20 mg PO DAILY 90 days #90 tabs 03/14/23 09/10/24 Rx alendronate 70 mg tablet 70 mg PO WK #12 tabs 04/26/23 09/10/24 Rx donepezil 5 mg tablet 5 mg PO DAILY #30 tabs 12/02/23 09/10/24 Rx amoxicillin 500 mg tablet 2,000 mg PO ONCE PRN dental 12/18/23 09/10/24 History appointments apixaban 2.5 mg tablet (Eliquis) 2.5 mg PO BID #60 tabs 01/24/24 09/10/24 Rx docusate sodium 100 mg capsule 100 mg PO BID #14 caps 01/24/24 09/10/24 Rx magnesium oxide 400 mg PO BID #60 caps 01/24/24 09/10/24 Rx eric.stocking,thigh,reg,med #2 ea 02/13/24 02/13/24 Rx diaper,brief,adult,disposable #80 ea 02/13/24 02/13/24 Rx (Prevail Brief Medium) ferrous sulfate 325 mg (65 mg 325 mg PO .MON,TUES,TH,SAT 07/02/24 09/10/24 History iron) tablet (FeroSul) levothyroxine 75 mcg tablet 88 mcg PO DAILY 07/02/24 09/10/24 History ondansetron HCl 4 mg tablet 4 mg PO Q8H PRN nausea and vomiting 07/02/24 09/10/24 History Anti Acid Chew 1,000 mg PO DAILY 09/10/24 09/10/24 History acetaminophen 500 mg tablet 1,000 mg PO BID 09/10/24 09/10/24 History (Tylenol Extra Strength) Allergies Allergy/AdvReac Type Severity Reaction Status Date / Time codeine Allergy Mild LIGHTHEADED Verified 07/02/24 09:40 NESS verapamil Allergy Mild PALPITATION Verified 07/02/24 09:40 S Past Med/Surg History Problem List (Updated 09/10/24 @ 19:14 by Chris Wharton MD) CHF (congestive heart failure) (Acute) Acute hyponatremia (Acute) Crohns disease Acute heart failure with preserved ejection fraction (HFpEF) Closed fracture of right hip (Acute 01/15/24) Acute comminuted, angulated and displaced intertrochanteric right femoral fracture from a fall Dementia Fall from standing Intertrochanteric fracture of right femur (01/15/24) Acute comminuted, angulated and displaced intertrochanteric right femoral fracture from a fall Compression fracture of T7 vertebra (Acute ~12/18/23) compression fracture of T7 Ptosis of eyelid, bilateral Atrial fibrillation follows with Dr. Edgar, reason for eliquis daily Prepatellar bursitis History of total left knee replacement Angelique-prosthetic fracture of proximal tibia History of compression fracture of vertebral column (~11/07/18) Thoracic H/O mitral valve replacement VBI (vertebrobasilar insufficiency) (Acute) Osteoporosis (Acute) on Fosamax since 05/2020 Hyperlipidemia (Acute) Hypertension (Acute 11/04/12) Dry eye syndrome (Acute) Depression (Acute) Chronic cerebral ischemia (Acute) Arthritis (Acute) Anemia (Acute 08/19/12) Abnormal mammogram (Acute) Thoracic back pain Thoracic kyphosis Age-related physical debility History of stroke 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 Chronic hyponatremia Ambulatory dysfunction (Acute) Closed rib fracture (Acute 09/17/22) from a fall Medical History ROSALIND (acute kidney injury) Malignant neoplasm of colon, unspecified Encounter for pre-operative examination Osteoarthritis Osteoporosis History of kidney stones On anticoagulant therapy eliquis daily Ocular migraine Hypertension Hyperlipidemia Palpitations Surgical History History of colon surgery 06/2008 Previous back surgery 11/07/2012 History of incision and drainage right arm--infected after fx History of total left knee replacement (TKR) History of total right knee replacement (TKR) History of esophagogastroduodenoscopy (EGD) History of colonoscopy with polypectomy History of colectomy subtotal with ileocolic anastomosis History of cardiac cath 04/2010 Dr. Linn @ [facility], no stents History of tooth extraction all teeth History of tonsillectomy History of bilateral cataract extraction History of mitral valve repair 04/2012 @ [facility] [place] History of appendectomy History of kyphoplasty History of Percutaneous Vertebral Augmentation Kyphoplasty History of umbilical hernia repair History of cholecystectomy Family History Sister Hearing loss Breast cancer Cancer Grandmother (Paternal) No problems noted. Father No problems noted. 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: No Beliefs That Will Affect Care: None marital status: / Current Living Situation: Family Current Living Situation Comment: daughter current occupational status: retired How many Children do You have: 1 Feels Safe at Home: Yes Childhood Exposure to Second-Hand Smoke: No Diet: regular caffeine: No Dental Care, Regularly: Yes Physical Activity Frequency: Does not Exercise Seatbelt Use: always Sunscreen Use: No Assistive Devices: Cane and Walker Physical Exam 2 Vital Signs: Vital Signs - 24 hr 09/10/24 11:35 09/10/24 12:03 09/10/24 14:00 Temperature 36.6 C Temperature Source Oral Pulse Rate 106 H 108 H Pulse Rate [Apical ] 85 Respiratory Rate 18 18 Respiratory Effort / Characteristics Non-Labored Sponta neous Non-Labored Sponta neous Respiratory Depth Normal Normal Respiratory Patter n Regular Regular Blood Pressure 147/108 H Blood Pressure [Ri ght Arm] 155/97 H Blood Pressure Clarice n 121 Blood Pressure Clarice n [Right Arm] 116 Pulse Oximetry 97 99 Oxygen Delivery Me thod Room Air Room Air Sepsis Recent Feve r Within 48 Hours No Sepsis New/Unexpla ined Change in Men jeremías Status N/A Sepsis Action Take n by Nursing No Action Required 09/10/24 14:00 09/10/24 15:25 09/10/24 15:30 Temperature Temperature Source Pulse Rate 102 H Pulse Rate [Apical ] 102 H Respiratory Rate 28 H Respiratory Effort / Characteristics Respiratory Depth Respiratory Patter n Blood Pressure Blood Pressure [Ri ght Arm] 148/110 H Blood Pressure Clarice n Blood Pressure Clarice n [Right Arm] 122 Pulse Oximetry 98 Oxygen Delivery Me thod Room Air Sepsis Recent Feve r Within 48 Hours Sepsis New/Unexpla ined Change in Men jeremías Status Sepsis Action Take n by Nursing 09/10/24 16:18 09/10/24 16:46 09/10/24 17:06 Temperature Temperature Source Pulse Rate 80 82 72 Pulse Rate [Apical ] Respiratory Rate 26 H 24 Respiratory Effort / Characteristics Respiratory Depth Respiratory Patter n Blood Pressure 135/96 132/75 Blood Pressure [Ri ght Arm] Blood Pressure Clarice n 104 85 Blood Pressure Clarice n [Right Arm] Pulse Oximetry Oxygen Delivery Me thod Sepsis Recent Feve r Within 48 Hours Sepsis New/Unexpla ined Change in Men jeremías Status Sepsis Action Take n by Nursing 09/10/24 17:31 09/10/24 17:33 Temperature Temperature Source Pulse Rate 91 H 91 H Pulse Rate [Apical ] Respiratory Rate 20 20 Respiratory Effort / Characteristics Respiratory Depth Respiratory Patter n Blood Pressure 135/90 Blood Pressure [Ri ght Arm] Blood Pressure Clarice n 100 Blood Pressure Clarice n [Right Arm] Pulse Oximetry 95 Oxygen Delivery Me thod Room Air Sepsis Recent Feve r Within 48 Hours Sepsis New/Unexpla ined Change in Men jeremías Status Sepsis Action Take n by Nursing Physical Exam: Physical Exam GENERAL: oriented to person, place, and time. appears well-developed and well- nourished. HENT: Exam performed. - Head: Normocephalic and atraumatic. EYES: Conjunctivae and EOM are normal. Right eye exhibits no discharge. Left eye exhibits no discharge. No scleral icterus. NECK: Normal range of motion. Neck supple. No JVD present. CV: Normal rate, irregular rhythm, normal heart sounds and intact distal pulses. 2+ pitting edema of the bilateral lower extremities. Palpable radial pulses bue. PULM/CHEST: Inspiratory rales bilaterally. ABD: The abdomen is soft. There is no tenderness. NEURO: Motor and sensation grossly intact. SKIN: Skin is warm and dry. He is not diaphoretic. PSYCH: normal mood and affect. Behavior is normal. Judgment and thought content normal. Course Course 1237: The patient was evaluated in room B5. A complete history and physical exam was performed Cardiac monitoring: An order was placed for continuous cardiac monitoring. The monitor shows a rate of 80 with atrial fibrilation rhythm interpreted by sd 1353: Vital signs stable. Labs are significant for sodium of 125 BNP 355 imaging shows that the patient is fluid overloaded. Patient has no seizure-like activity no need for hypertonic saline at this time. Discussed case with [facility] hospitalist team. Discussed case with Abhinav Haro PA-C who stated to admit to be Dr. Healy. He recommends Lasix 40 mg IV push for the patient. Administered Medications Discontinued Medications Furosemide (Furosemide 40 Mg/4 Ml Vial) 40 mg IV ONE ONE Stop: 09/10/24 13:53 Last Admin: 09/10/24 14:24 Dose: 40 mg Documented By: MAHI Magnesium Sulfate/Dextrose (Magnesium Sulfate / D5w) 1 gm in 100 mls @ 50 mls/hr IV ONE ONE Stop: 09/10/24 17:12 Last Infusion: 09/10/24 17:27 Dose: Infused Documented By: Admin: 09/10/24 15:24 Dose: 50 mls/hr Documented By: STEVE Metoprolol Tartrate (Metoprolol Tartrate 25 Mg Tab) 25 mg PO NOW STA Stop: 09/10/24 15:17 Last Admin: 09/10/24 15:24 Dose: 25 mg Documented By: STEVE Medical Decision Making Laboratory Data Attestation: I reviewed the patient's lab results. 09/10/24 12:00 09/10/24 12:00 Lab Results 09/10/24 09/10/24 09/10/24 Range/Units 12:00 14:33 14:55 WBC 5.34 (4.8-10.8) K/ul RBC 3.78 L (4.20-5.40) M/uL Hgb 11.0 L (12.0-16.0) g/dl Hct 33.3 L (37.0-47.0) % MCV 88.1 (80.0-100.0) fL MCH 29.1 (25.0-34.0) pg MCHC 33.0 (32.0-36.0) g/dL RDW Std Deviation 47.6 H (36.4-46.3) fL RDW Coeff of Fiona 14.8 H (11.5-14.5) % Plt Count 238 (130-400) K/uL MPV 9.5 (9.4-12.4) fL Immature Gran % (Auto) 0.4 % Neut % (Auto) 79.6 % Lymph % (Auto) 9.9 % Dickinson % (Auto) 7.5 % Eos % (Auto) 1.9 % Baso % (Auto) 0.7 % Neut # (Auto) 4.25 (1.40-6.50) K/uL Lymph # (Auto) 0.53 L (1.20-3.40) K/uL Dickinson # (Auto) 0.40 (0.11-0.59) K/uL Eos # (Auto) 0.10 (0.00-0.50) K/uL Baso # (Auto) 0.04 (0.00-0.20) K/uL Immature Gran # (Auto) 0.02 (0.01-0.20) K/uL PT Cancelled 14.2 H INR Cancelled 1.3 H APTT Cancelled 39 H PTT Ratio Cancelled 1.4 Sodium 125 L (136-145) mmol/L Potassium 4.5 (3.5-5.1) mmol/L Chloride 91 L (98-107) mmol/L Carbon Dioxide 27 (21-32) mmol/L Anion Gap 7 (3-11) BUN 19 (6-23) mg/dl Creatinine 0.97 (0.6-1.2) mg/dl Est Cr Clr Drug Dosing 32.0 ml/min eGFR 57.26 BUN/Creatinine Ratio 19.6 (10-20) Glucose 86 (70-99(Fasting)) mg/dl Osmolality 261 L (280-300) mOsm/kg Calcium 8.9 (8.6-10.3) mg/dl Magnesium 1.7 (1.7-2.4) mg/dl Total Bilirubin 0.8 (0.2-1.0) mg/dl AST 22 (13-39) U/L ALT 11 (7-52) U/L Alkaline Phosphatase 74 (34-104) U/L Troponin I High Sens 13.2 (0-14) pg/ml B-Natriuretic Peptide 355 H (0-100) pg/ml Total Protein 6.2 (6.0-8.3) gm/dl Albumin 3.3 L (3.4-5.0) gm/dl Globulin 2.9 (2.5-4.0) gm/dl Albumin/Globulin Ratio 1.1 (0.9-2) TSH 16.140 H (0.300-4.500) uIu/ml Free T4 1.06 (0.61-1.60) ng/dl SARS-CoV-2, RNA, NAAT NEGATIVE (NEGATIVE) Imaging Data Attestation: I personally reviewed and interpreted this imaging study as follows: My Impression: Chest x-ray: Cardiomegaly with right-sided pleural effusion. Radiologist's Impression: Chest X-Ray 09/10/24 12:24 XR chest 1V not portable CLINICAL HISTORY: Chest pain, nonspecific COMPARISON STUDY: 01/15/2024 FINDINGS: There is stable cardiomegaly with mild pulmonary vascular congestion. There are increased small bilateral pleural effusions and lung base consolidation. There is an old right mid rib fracture. No pneumothorax. IMPRESSION: CHF with small pleural effusions and lung base consolidation. ACT 112: Negative or not required by law. Electronically signed by: Yuriy Strickland M.D. 09/10/2024 12:[address] 09/10/24 12:43 CT SCAN OF THE BRAIN WITHOUT IV CONTRAST CLINICAL HISTORY: Change in mental status. COMPARISON STUDY: CT of the brain dated 01/15/2024 TECHNIQUE: Unenhanced axial CT scan of the brain is performed from the vertex to the skull base. Images are reviewed in the axial, sagittal, coronal planes. A dose lowering technique was utilized adhering to the principles of ALARA. The skull base was scanned twice due to motion artifact. CT DOSE: 859.95 mGy.cm FINDINGS: Brain parenchyma: There is age-related involutional change noting advanced confluent subcortical and periventricular microangiopathic disease. There is no hemorrhage, mass effect, or evidence of acute territorial ischemia by CT criteria. Mcmanus-white matter differentiation is preserved. No extra-axial fluid collection is seen. Ventricles, sulci, cisterns: Prominent secondary to involutional change. Intracranial vasculature: There is atherosclerotic calcification of the cavernous carotid arteries. Calvarium: Unremarkable. Sinuses and mastoids: The visualized paranasal sinuses are clear. The mastoid air cells are well pneumatized. Orbits: The bony orbits are grossly intact. There are bilateral ocular lens implants. IMPRESSION: There is no hemorrhage, mass effect, or evidence of acute territorial ischemia by CT criteria. ACT 112: Negative or not required by law. Electronically signed by: Teto Haddad M.D. 09/10/2024 1:33 PM ECG Data Attestation: I personally reviewed and interpreted this ECG as follows: Interpretation: Atrial fibrillation with a rate of 100. QRS and QTc intervals are unremarkable. No ST elevation or ST depression. [facility] Narrative 1237: The patient was evaluated in room B5. A complete history and physical exam was performed Cardiac monitoring: An order was placed for continuous cardiac monitoring. The monitor shows a rate of 80 with atrial fibrilation rhythm interpreted by sd 1353: Vital signs stable. Labs are significant for sodium of 125 BNP 355 imaging shows that the patient is fluid overloaded. Patient has no seizure-like activity no need for hypertonic saline at this time. Discussed case with [facility] hospitalist team. Discussed case with Abhinav Haro PA-C who stated to admit to be Dr. Healy. He recommends Lasix 40 mg IV push for the patient. Impression & Plan Acute hyponatremia, CHF (congestive heart failure) Discharge Plan Visit Data Chief Complaint: Swelling/Edema to Extremity Stated Complaint: SWELLING IN THE LEGS ED Provider: Chris Wharton Discharge Problem: Acute hyponatremia, CHF (congestive heart failure) Patient Disposition: Admitted As Inpatient Condition: Fair
--- NOTE | 2024-09-10 20:50 | XCELERA ---
[id number]\[id number]___[id number]
[2024-09-10] MEDS: MELATONIN 3 MG TAB PO PRN (21:38)
[2024-09-10] MEDS: ACETAMINOPHEN 500 MG TAB PO SCH (21:38)
[2024-09-10] MEDS: DOCUSATE SODIUM 100 MG CAP PO SCH (21:38)
[2024-09-10] MEDS: MAGNESIUM OXIDE 400 MG TAB PO SCH (21:39)
[2024-09-10] MEDS: APIXABAN 2.5 MG TAB PO SCH (21:39)
[2024-09-11] MEDS: ALENDRONATE SODIUM 70 MG TAB PO SCH (07:59)
--- NOTE | 2024-09-11 08:10 | Hospitalist Progress Note ---
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 #Acute HFmrEF | h/o mitral valve repair Echocardiogram on 09/11/2024 revealed mildly reduced EF at 45 to 50% with mild global hypokinesis; severe biatrial dilation EF is now mildly reduced when compared to echo from 2021 which was 55 to 60% Not currently on Lasix at home BNP elevated at 355 on arrival (no prior for comparison) Daily weights Strict I&O monitoring Continue Lasix 40 mg IV QAM Given new echocardiogram findings, will initiate the following medications: Entresto twice daily Empagliflozin 10 mg daily Assuming no changes in kidney function with Entresto, will also plan to add on spironolactone 12.5 mg p.o. daily Potential culprits for acute CHF exacerbation include current food regimen (patient does not watch salt intake at home) vs. uncontrolled atrial fibrillation (taken off metoprolol this past year) #Chronic hyponatremia Chronic hyponatremia with baseline around Na ~131 However, lower than baseline Sodium trend 125 -> 124 despite diuresis Repeat BMP ordered for the evening of 09/11 Additional Lasix 20mg IV x 1 SIADH labs are as follows: Serum osmolality low at 261 Urine osmolality low at 294 Random urine sodium elevated at 107 ? Component of SIADH with hypervolemic hyponatremia Will hold of on salt tablets in the setting of acute CHF Continue fluid restriction at 1500 mL #Atrial fibrillation In atrial fibrillation with heart rate up to 120 bpm on arrival; however, rate controlled at 85 bpm time of admission Replete K and mag as needed Continuous telemetry monitoring #HTN Previously on metoprolol, but not currently in patient's med list Per cardiology note on 07/02/2024, it is unclear when she was taken off m etoprolol (or why) Clinically, patient reports she has been having intermittent chest palpitations In the setting of new heart failure + chest palpitations, will plan to restart on metoprolol Metoprolol titrate 25 mg p.o. BID #Hypothyroidism TSH elevated at 16.140 (however this could be elevated in the setting of acute illness), normal free T4 Continue levothyroxine #Anemia of chronic disease Hgb 11.0 and MCV 88 on arrival No active bleeding Trend CBC #Crohn's disease Chronic; noted Not currently on medications #Dementia A&Ox4 on arrival Continue donepezil #HLD Continue rosuvastatin Disposition: Continued stay on MedSurg telemetry VTE PPx: Continue dose reduced Eliquis Called patient's daughter (Bryanna) on 09/10 and provided update regarding admission status. Admission and Anticipated Discharge Date Admission Date: September 10, 2024 Supervising Physician Co-Signing Physician Notes Attending Attestation - Chart reviewed, care plan d/w PA Abhinav Haro. I agree w/ the lantigua components of his documentation. Echo this admission in comparison to 2021 echo - decrease in EF, severe TR, RV function decreased, etc. Consider cardiology consult while here. Has h/o PAF - rapid a.fib may have contributed to her decompensation. Cont diuresis. Camacho Hannah MD Subjective Mrs. Farrar reports no setbacks overnight. She slept okay, and is eating and drinking well this morning. Her only complaint is increased urinary frequency, but reports this is secondary to taking Lasix. She has not been up to walk around yet today, and is unsure if she is still having dyspnea on exertion. ROS: Patient endorses increased urinary frequency, and lower extreme edema bilaterally. Patient denies fever, chills, night sweats, chest pain, chest palpitations, SOB, cough, abdominal pain, N/V/D, or pain in the legs. Review of Systems Review of Systems: See HPI above Physical Exam Physical Exam: General: no acute distress; non-toxic appearing; frail appearing; cooperative; SpO2 95% on RA HEENT: normocephalic, atraumatic; no scleral icterus; PERRLA; vision and hearing intact Neck: supple; + JVP; trachea midline Skin: warm, dry without signs of tenting; no cyanosis; no rashes, bruising, lesions, or erythema noted CV: chest wall NTP; irregularly irregular rhythm at 94 bpm; pulses intact and symmetric at radial, DP, and PT Lungs: no acute respiratory distress; symmetrical chest wall expansion; clear breath sounds across all lung fabian w/o adventitious sounds; no wheezing ABD: Soft, NTP; BS present; no rebound/guarding; no distention MSK: no tics or fasciculations; +2 pitting edema on the dorsal aspect of the feet bilaterally; +1 pitting edema extending from the ankles up to the knees bilaterally, nonerythematous Neuro: A&Ox3; normal mood and affect; fluent speech; no focal deficits appreciated; patient reports that sensation is intact and symmetric in lower ext remity bilaterally assessed via light touch Results & Data Results & Data Vital Signs (Past 12 Hours) Vital Signs Temp Pulse Pulse Pulse Resp BP BP 09/11/24 07:42 36.5 C 94 H 18 146/85 H 09/11/24 07:19 88 09/11/24 03:29 36.5 C 86 18 121/87 09/10/24 23:17 36.5 C 77 18 130/85 09/10/24 21:53 81 09/10/24 20:22 96 H 09/10/24 20:17 36.4 C L 108 H 16 139/92 Pulse Ox O2 Del Method 09/11/24 07:42 95 Room Air 09/11/24 07:19 09/11/24 03:29 96 Room Air 09/10/24 23:17 98 Room Air 09/10/24 21:53 09/10/24 20:22 09/10/24 20:17 98 Room Air PG Care Time/CCT Total # of Minutes Spent Total Time Spent with Patient: Total time spent is greater than 50% in coordination of care (as documented) at patient's floor/unit and/or counseling patient: Coding [place] [address] SUB INP/OBS CARE 3/50MIN Patient Type Established Medical Decision Making High Complexity Diagnoses Chronic hyponatremia E87.1 Paroxysmal atrial fibrillation I48.0 Atrial fibrillation type: paroxysmal Acute heart failure with mildly reduced ejection fraction (HFmrEF, 41-49%) I50.21 (2) Atrial fibrillation Atrial fibrillation type: paroxysmal Qualified Code(s): I48.0 - Paroxysmal atrial fibrillation"
[2024-09-11] MEDS: LEVOTHYROXINE SODIUM 88 MCG TABLET PO SCH (09:20)
[2024-09-11] MEDS: ROSUVASTATIN CALCIUM 20 MG TAB PO SCH (09:20)
[2024-09-11] MEDS: DONEPEZIL HCL 5 MG TAB PO SCH (09:20)
[2024-09-11] MEDS: METOPROLOL TARTRATE 25 MG TAB PO SCH (09:21)
[2024-09-11] MEDS: FUROSEMIDE 40 MG/4 ML VIAL IV SCH (09:28)
[2024-09-11] MEDS: POTASSIUM CHLORIDE 10 MEQ TABCR PO SCH (09:28)
[2024-09-11 11:19] LABS: Hematocrit (blood only) 31.1 % (37.0-47.0); Hemoglobin 10.8 g/dl (12.0-16.0); Mean Corpuscular Hemoglobin 30.3 pg (25.0-34.0); Mean Corpuscular Volume 87.1 fL (80.0-100.0); Platelet Count 211 K/uL (130-400); RDW Standard Deviation 47.0 fL (36.4-46.3); Red Blood Count 3.57 M/uL (4.20-5.40); White Blood Count 4.77 K/ul (4.8-10.8)
[2024-09-11 11:29] LABS: Anion Gap 8.0 (3-11); Calcium 8.5 mg/dl (8.6-10.3); Carbon Dioxide 25.0 mmol/L (21-32); Chloride 91.0 mmol/L (98-107); Potassium 4.1 mmol/L (3.5-5.1); Sodium 124.0 mmol/L (136-145)
[2024-09-11 11:35] LABS: Blood Urea Nitrogen 18.0 mg/dl (6-23); Creatinine Clr Calc Pharmacy 39.3 ml/min; Glucose 112.0 mg/dl (70-99(Fasting))
[2024-09-11 19:12] LABS: Anion Gap 8.0 (3-11); Blood Urea Nitrogen 18.0 mg/dl (6-23); Calcium 8.6 mg/dl (8.6-10.3); Carbon Dioxide 27.0 mmol/L (21-32); Chloride 90.0 mmol/L (98-107); Creatinine Clr Calc Pharmacy 38.0 ml/min; Glucose 103.0 mg/dl (70-99(Fasting)); Potassium 3.9 mmol/L (3.5-5.1); Sodium 125.0 mmol/L (136-145)
[2024-09-11] MEDS: FUROSEMIDE INJ 20 MG/2 ML VIAL IV ONE (19:38)
--- NOTE | 2024-09-11 20:44 | Electrocardiogram Report ---
Test Reason : Blood Pressure : */* mmHG Vent. Rate : 100 BPM Atrial Rate : * BPM P-R Int : * ms QRS Dur : 84 ms QT Int : 350 ms P-R-T Axes : * 240 48 degrees QTcB Int : 451 ms Atrial fibrillation Right superior axis deviation Abnormal ECG When compared with ECG of 15-Jan-2024 13:42, Atrial fibrillation has replaced Sinus rhythm QRS axis Shifted left QRS voltage has decreased T wave amplitude has decreased in Lateral leads Confirmed by Isaiah Pompa ([id number]) on 09/11/2024 8:43:40 PM Referred By: REFERRED SELF Confirmed By: Isaiah Pompa
[2024-09-11] MEDS: VALSARTAN/SACUBITRIL 26/24MG TAB PO SCH (20:57)
[2024-09-12 06:40] LABS: Hematocrit (blood only) 33.5 % (37.0-47.0); Hemoglobin 11.4 g/dl (12.0-16.0); Mean Corpuscular Hemoglobin 29.7 pg (25.0-34.0); Mean Corpuscular Volume 87.2 fL (80.0-100.0); Platelet Count 231 K/uL (130-400); RDW Standard Deviation 46.0 fL (36.4-46.3); Red Blood Count 3.84 M/uL (4.20-5.40); White Blood Count 4.21 K/ul (4.8-10.8)
[2024-09-12 07:55] LABS: Anion Gap 11.0 (3-11); Blood Urea Nitrogen 18.0 mg/dl (6-23); Calcium 8.7 mg/dl (8.6-10.3); Carbon Dioxide 25.0 mmol/L (21-32); Chloride 90.0 mmol/L (98-107); Creatinine Clr Calc Pharmacy 37.4 ml/min; Glucose 78.0 mg/dl (70-99(Fasting)); Magnesium 1.6 mg/dl (1.7-2.4); Potassium 4.0 mmol/L (3.5-5.1); Sodium 126.0 mmol/L (136-145)
[2024-09-12] MEDS: MAGNESIUM SULFATE / D5W 1 GM/100 ML BAG IV ONE (08:49)
[2024-09-12] MEDS: EMPAGLIFLOZIN 10 MG TAB PO SCH (08:52)
[2024-09-12] MEDS: FERROUS SULFATE 325 MG TAB PO SCH (08:53)
[2024-09-12] MEDS ORDERED: SPIRONOLACTONE 12.5 MG TAB PO SCH (09:00)
--- NOTE | 2024-09-12 14:34 | Hospitalist Progress Note ---
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 #Acute HFmrEF | h/o mitral valve repair Echocardiogram on 09/11/2024 revealed mildly reduced EF at 45 to 50% with mild global hypokinesis; severe biatrial dilation EF is now mildly reduced when compared to echo from 2021 which was 55 to 60% Not currently on Lasix at home BNP elevated at 355 on arrival (no prior for comparison) Daily weights Weight trend: 61 -> 59 kg Strict I&O monitoring Increase Lasix 40 mg IV QAM -> BID17 Given new echocardiogram findings, will initiate the following medications: Entresto 24/ twice daily Empagliflozin 10 mg daily Assuming no changes in kidney function with Entresto, will also plan to add on spironolactone 12.5 mg p.o. daily Potential culprits for acute CHF exacerbation include current food regimen (patient does not watch salt intake at home) vs. uncontrolled atrial fibrillation (taken off metoprolol this past year) #Acute on chronic hyponatremia Chronic hyponatremia with baseline around Na ~131 However, lower than baseline Sodium trend 125 -> 124 -> 126 Continue diuresis SIADH labs are as follows: Serum osmolality low at 261 Urine osmolality low at 294 Random urine sodium elevated at 107 ? Component of SIADH with hypervolemic hyponatremia Will hold of on salt tablets in the setting of acute CHF Continue fluid restriction at 1500 mL #Atrial fibrillation In atrial fibrillation with heart rate up to 120 bpm on arrival; however, rate controlled at 85 bpm time of admission Replete K and mag as needed Continuous telemetry monitoring #HTN Previously on metoprolol, but not currently in patient's med list Per cardiology note on 07/02/2024, it is unclear when she was taken off metoprolol (or why) Clinically, patient reports she has been having intermittent chest palpitations In the setting of new heart failure + chest palpitations, will plan to restart on metoprolol Metoprolol titrate 25 mg p.o. BID #Hypothyroidism TSH elevated at 16.140 (however this could be elevated in the setting of acute illness), normal free T4 Continue levothyroxine #Anemia of chronic disease Chronic; stable; Hgb 11.0 and MCV 88 on arrival No active bleeding Trend CBC #Crohn's disease Chronic; noted Not currently on medications #Dementia A&Ox4 on arrival Continue donepezil #HLD Continue rosuvastatin #Hypomagnesemia Mild; mag 1.6 Magnesium sulfate 1 g IV x 1 Recheck a.m. mag Disposition: Continued stay on MedSurg telemetry VTE PPx: Continue dose reduced Shiraqujulieta Called patient's daughter (Bryanna) on 09/10 and provided update regarding admission status. Admission and Anticipated Discharge Date Admission Date: September 10, 2024 Supervising Physician Co-Signing Physician Notes Attending Attestation - Chart reviewed, care plan d/w NICKI Haro. I agree w/ the lantigua components of his documentation. Echo this admission in comparison to 2021 echo - decrease in EF, severe TR, RV function decreased, etc. Consider cardiology consult while here vs very close f/u with cardiology shortly after d/c. Camacho Hannah MD Subjective Mrs. Farrar reports she is doing better this morning. She does not feel off balance when she is ambulating with her walker to the bathroom. However, she reports she is a "tad winded" when she gets up to use the restroom or exerts herself. She denies SOB at rest. She is happy to report that her legs feel less swollen than yesterday. Patient is amenable to starting new medication such as Entresto and Jardiance; she denies history of recurrent UTIs in the past. ROS: Patient endorses ongoing MONTGOMERY, increased urinary frequency, and loose bowels. Patient denies fever, chills, night sweats, chest pain, SOB at rest, abdominal pain, N/V/D, or burning with urination. Review of Systems Review of Systems: See HPI above Physical Exam Physical Exam: General: no acute distress; pleasant affect; non-toxic appearing; frail appearing; cooperative; SpO2 93% on RA HEENT: normocephalic, atraumatic; no scleral icterus; PERRLA; vision and hearing intact Neck: supple; + JVP; trachea midline Skin: warm, dry without signs of tenting; no cyanosis; no rashes, bruising, lesions, or erythema noted CV: chest wall NTP; irregularly irregular rhythm at 70 bpm; pulses intact and symmetric at radial, DP, and PT Lungs: no acute respiratory distress; symmetrical chest wall expansion; clear breath sounds across all lung fabian w/o adventitious sounds; no wheezing ABD: Soft, NTP; BS present; no rebound/guarding; no distention MSK: no tics or fasciculations; +1 pitting edema in the lower extremities bilaterally extending to the knees, not erythematous (slightly improved from prior) Neuro: A&Ox3; normal mood and affect; fluent speech; no focal deficits appreciated; patient reports that sensation is intact and symmetric in LEs b/l assessed via light touch Results & Data Results & Data Vital Signs (Past 12 Hours) Vital Signs Temp Pulse Resp BP BP Pulse Ox O2 Del Method 09/12/24 11:44 36.4 C L 70 18 93/56 L 93 Room Air 09/12/24 08:00 Room Air 09/12/24 07:51 36.3 C L 77 18 106/73 97 Room Air 09/12/24 05:04 36.2 C L 09/12/24 04:46 93 H 20 122/63 99 Room Air PG Care Time/CCT Total # of Minutes Spent Total Time Spent with Patient: Total time spent is greater than 50% in coordination of care (as documented) at patient's floor/unit and/or counseling patient: Coding [place] [address] SUB INP/OBS CARE 2/35MIN Patient Type Established Medical Decision Making Moderate Complexity Diagnoses Acute heart failure with mildly reduced ejection fraction (HFmrEF, 41-49%) I50.21 Acute hyponatremia E87.1 Chronic hyponatremia E87.1 Paroxysmal atrial fibrillation I48.0 Atrial fibrillation type: paroxysmal Primary hypertension I10 Hypertension type: primary hypertension (4) Atrial fibrillation Atrial fibrillation type: paroxysmal Qualified Code(s): I48.0 - Paroxysmal atrial fibrillation (5) Hypertension Hypertension type: primary hypertension Qualified Code(s): I10 - Essential (primary) hypertension
[2024-09-12] MEDS: FUROSEMIDE 40 MG/4 ML VIAL IV SCH (17:08)
[2024-09-13 07:58] LABS: Hematocrit (blood only) 31.0 % (37.0-47.0); Hemoglobin 10.4 g/dl (12.0-16.0); Mean Corpuscular Hemoglobin 29.1 pg (25.0-34.0); Mean Corpuscular Volume 86.6 fL (80.0-100.0); Platelet Count 230 K/uL (130-400); RDW Standard Deviation 45.7 fL (36.4-46.3); Red Blood Count 3.58 M/uL (4.20-5.40); White Blood Count 4.30 K/ul (4.8-10.8)
[2024-09-13 08:54] LABS: Anion Gap 8.0 (3-11); Blood Urea Nitrogen 17.0 mg/dl (6-23); Calcium 8.3 mg/dl (8.6-10.3); Carbon Dioxide 30.0 mmol/L (21-32); Chloride 88.0 mmol/L (98-107); Glucose 75.0 mg/dl (70-99(Fasting)); Magnesium 1.6 mg/dl (1.7-2.4); Potassium 3.8 mmol/L (3.5-5.1); Sodium 126.0 mmol/L (136-145)
[2024-09-13 09:18] LABS: Creatinine Clr Calc Pharmacy 31.3 ml/min
[2024-09-13] MEDS: MAGNESIUM SULFATE / D5W 1 GM/100 ML BAG IV ONE (10:01)
[2024-09-13] MEDS: SODIUM CHLORIDE 0.9% 250 ML IV ONE (12:23)
[2024-09-13] MEDS ORDERED: SODIUM CHLORIDE 0.9% 250 ML IV ONE (12:23)
--- NOTE | 2024-09-13 12:28 | Hospitalist Progress Note ---
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 #Acute HFmrEF | h/o mitral valve repair Echocardiogram on 09/11/2024 revealed mildly reduced EF at 45 to 50% with mild global hypokinesis; severe biatrial dilation EF is now mildly reduced when compared to echo from 2021 which was 55 to 60% Not currently on Lasix at home BNP elevated at 355 on arrival (no prior for comparison) Daily weights Weight trend: 61 -> 59 kg Strict I&O monitoring Increase Lasix 40 mg IV QAM -> BID17 Given new echocardiogram findings, will initiate the following medications: Entresto 24/ twice daily Empagliflozin 10 mg daily Assuming no changes in kidney function with Entresto, will also plan to add on spironolactone 12.5 mg p.o. daily Potential culprits for acute CHF exacerbation include current food regimen (patient does not watch salt intake at home) vs. uncontrolled atrial fibrillation (taken off metoprolol this past year) #Hypotension Patient's BP dropped to 65/42 after getting up to use the bathroom on 09/13 Suspect patient is intravascularly dry in the setting of diuresis Patient was also restarted on metoprolol this week, as well as starting Entresto Assessed at bedside; clinically asymptomatic, no lightheadedness NSS 500mL IV bolus x 2, and will re-assess Hold metoprolol and evening dose of Entresto Continue close monitoring of BP overnight #Acute on chronic hyponatremia Chronic hyponatremia with baseline around Na ~131 However, lower than baseline Sodium trend 125 -> 124 -> 126 Continue diuresis SIADH labs are as follows: Serum osmolality low at 261 Urine osmolality low at 294 Random urine sodium elevated at 107 ? Component of SIADH with hypervolemic hyponatremia Will hold of on salt tablets in the setting of acute CHF Fluid restriction discontinued on 09/13 in the setting of hypotension from vascular depletion #Atrial fibrillation In atrial fibrillation with heart rate up to 120 bpm on arrival; however, rate controlled at 85 bpm time of admission Replete K and mag as needed Continuous telemetry monitoring #HTN Previously on metoprolol, but not currently in patient's med list Per cardiology note on 07/02/2024, it is unclear when she was taken off metoprolol (or why) Clinically, patient reports she has been having intermittent chest palpitations In the setting of new heart failure + chest palpitations, will plan to restart on metoprolol Metoprolol titrate 25 mg p.o. BID #Hypothyroidism TSH elevated at 16.140 (however this could be elevated in the setting of acute illness), normal free T4 Continue levothyroxine #Anemia of chronic disease Chronic; stable; Hgb 11.0 and MCV 88 on arrival No active bleeding Trend CBC #Crohn's disease Chronic; noted Not currently on medications #Dementia A&Ox4 on arrival Continue donepezil #HLD Continue rosuvastatin #Hypomagnesemia Mild; mag 1.6 Magnesium sulfate 1 g IV x 1 Recheck a.m. mag Disposition: Continued stay on MedSurg telemetry VTE PPx: Continue dose reduced Syeda Called patient's daughter (Bryanna) on 09/13 and provided update regarding hospitalization. Admission and Anticipated Discharge Date Admission Date: September 10, 2024 Supervising Physician Co-Signing Physician Notes Attending Attestation - Chart reviewed, care plan d/w NICKI Haro. I agree w/ the lantigua components of his documentation. Pt with +orthostatics. Likely intravascularly volume contracted in the setting of recently resumed beta elissa and addition of Entresto. Need to hold all of these meds; agree with gentle IV fluids for hypotension. Camacho Hannah MD Subjective Mrs. Farrar reports she is feeling much better than when she came in. She reports no difficulty breathing this morning, but reports she has not been out of bed yet. She reports she is still feeling "winded" whenever she comes back from the bathroom, and is "panting" for 5 to 10 seconds when she gets back into bed. [facility] she mainly uses her wheelchair for ambulation. Patient reports she was not very hungry this morning, and hardly ate. She has been drinking fine. She is glad to report that her lower extremity edema has been improving. ROS: Patient endorses increased urinary frequency, and MONTGOMERY. Patient denies fevers, chills, chest pain, SOB, pleuritic CP, cough, abdominal pain, N/V/D, burning with urination, or blood in the urine or stool. Review of Systems Review of Systems: See HPI above Physical Exam Physical Exam: General: no acute distress; pleasant affect; non-toxic appearing; frail appearing; cooperative; SpO2 95% on RA HEENT: normocephalic, atraumatic; no scleral icterus; PERRLA; vision and hearing intact Neck: supple; + JVP; trachea midline Skin: warm, dry without signs of tenting; no cyanosis; no rashes, bruising, lesions, or erythema noted CV: chest wall NTP; irregularly irregular rhythm at 85 bpm; pulses intact and symmetric at radial, DP, and PT Lungs: no acute respiratory distress; symmetrical chest wall expansion; clear breath sounds across all lung fabian w/o adventitious sounds; no wheezing ABD: Soft, NTP; BS present; no rebound/guarding; no distention MSK: no tics or fasciculations; +1 pitting edema in the lower extremities bilaterally extending to the knees, not erythematous (slightly improved from prior) Neuro: A&Ox3; normal mood and affect; fluent speech; no focal deficits appreciated; patient reports that sensation is intact and symmetric in LEs b/l assessed via light touch Results & Data Results & Data Vital Signs (Past 12 Hours) Vital Signs Temp Pulse Pulse Resp BP BP Pulse Ox 09/13/24 12:10 93/57 L 09/13/24 11:49 36.4 C L 85 16 65/42 L 71/50 L 09/13/24 07:50 09/13/24 07:45 36.3 C L 83 16 100/63 95 09/13/24 07:20 73 09/13/24 04:00 36.5 C 72 20 95/64 L 92 O2 Del Method 09/13/24 12:10 09/13/24 11:49 Room Air 09/13/24 07:50 Room Air 09/13/24 07:45 Room Air 09/13/24 07:20 09/13/24 04:00 Room Air PG Care Time/CCT Total # of Minutes Spent Total Time Spent with Patient: Total time spent is greater than 50% in coordination of care (as documented) at patient's floor/unit and/or counseling patient: Coding [place] [address] SUB INP/OBS CARE 50MIN Patient Type Established Medical Decision Making High Complexity Diagnoses Acute heart failure with mildly reduced ejection fraction (HFmrEF, 41-49%) I50.21 Hypotension I95.9 Acute hyponatremia E87.1 Chronic hyponatremia E87.1 Paroxysmal atrial fibrillation I48.0 Atrial fibrillation type: paroxysmal (5) Atrial fibrillation Atrial fibrillation type: paroxysmal Qualified Code(s): I48.0 - Paroxysmal atrial fibrillation
[2024-09-13] MEDS: SODIUM CHLORIDE 0.9% 500 ML IV ONE (14:35)
[2024-09-14 07:16] LABS: Hematocrit (blood only) 31.3 % (37.0-47.0); Hemoglobin 11.0 g/dl (12.0-16.0); Immature Granulocytes # (auto) 0.01 K/uL (0.01-0.20); Immature Granulocytes % (auto) 0.2 %; Mean Corpuscular Hemoglobin 30.1 pg (25.0-34.0); Mean Corpuscular Volume 85.5 fL (80.0-100.0); Platelet Count 237 K/uL (130-400); RDW Standard Deviation 45.2 fL (36.4-46.3); Red Blood Count 3.66 M/uL (4.20-5.40); White Blood Count 4.34 K/ul (4.8-10.8)
[2024-09-14 07:59] LABS: Anion Gap 7.0 (3-11); Blood Urea Nitrogen 18.0 mg/dl (6-23); Calcium 8.3 mg/dl (8.6-10.3); Carbon Dioxide 30.0 mmol/L (21-32); Chloride 90.0 mmol/L (98-107); Creatinine Clr Calc Pharmacy 32.7 ml/min; Glucose 76.0 mg/dl (70-99(Fasting)); Magnesium 1.8 mg/dl (1.7-2.4); Potassium 3.4 mmol/L (3.5-5.1); Sodium 127.0 mmol/L (136-145)
[2024-09-14] MEDS: SODIUM CHLORIDE 0.9% 250 ML IV ONE (08:09)
[2024-09-14] MEDS: MIDODRINE HCL 2.5 MG TAB PO SCH (08:35)
[2024-09-14] MEDS: POTASSIUM CHLORIDE 10 MEQ TABCR PO STA (09:36)
[2024-09-14 10:38] LABS: Cdiff Toxin B Gene (2yr or >) Negative Cdiff Gene (Neg)
--- NOTE | 2024-09-14 14:28 | Hospitalist Progress Note ---
Date of Service September 14, 2024 Assessment & Plan (1) Hypotension: (2) Acute heart failure with mildly reduced ejection fraction (HFmrEF, 41-49%): (3) Right heart failure with reduced right ventricular function: (4) Tricuspid regurgitation: (5) Pulmonary hypertension: (6) Crohns disease: (7) Dementia: (8) Atrial fibrillation: (9) S/P partial colectomy: (10) History of mitral valve repair: (11) Thoracic kyphosis: (12) Chronic hyponatremia: Plan 83yo female who presented with intermittent SOB and increased bilateral leg swelling x 2 weeks prior to admission. #Hypotension - -low or low-normal BPs supine, and markedly orthostatic on 09/13 -likely 2nd to intravascular volume depletion from diuresis as well as recently instituted Entresto -got 1+ liter of fluid yesterday, and Entresto/metoprolol/lasix all held -gave a small fluid bolus this am and started midodrine 2.5mg TID -BPs by this afternoon were better with systolics in the low 100s -fortunately her creatinine remains stable #Acute HFmrEF - -Echo 09/11/2024 -- mildly reduced EF at 45 to 50% with mild global hypokinesis; severe biatrial dilation -EF now mildly reduced when compared to echo from 2021 when EF was 55-60% -was not on diuretics at home -received IV diuresis since admission until yesterday when her hypotension started; diuretics stopped -attempts to start low-dose Entresto not successful due to the low BP and thus will hold moving forward -cont Jardiance 10mg qd -metoprolol started earlier in the stay - now on hold due to hypotension -etiology of LV dysfunction? -RV dysfunction 2nd to LV dysfunction? other? -consulted cardiology - Dr Gomes; appreciate his recommendations -he advised to leave Ms Farrar off metoprolol, lasix, Entresto; ok to cont Jardiance -starting amiodarone for a.fib #Acute on chronic hyponatremia - -Chronic hyponatremia with baseline Na ~131 -Na level today - 127 -diuretics have been stopped -small bolus of fluid given this am for ongoing hypotension -BMP in am #Atrial fibrillation - -no AV amalia agents at this time -Dr Gomes recommending amiodarone load -- 400mg BID -cont Eliquis 2.5mg BID #HTN - -addition of metoprolol & Entresto led to severe hypotension -all meds stopped #Hypothyroidism - -TSH elevated at 16.140 (however this could be elevated in the setting of acute illness), -normal free T4 -would simply continue levothyroxine without a dose change and plan to repeat the TSH in 4 weeks as outpatient #Anemia of chronic disease - -H/H stable at this time -Hb 10-11 #Crohn's disease and prior h/o colon cancer - -2008 s/p subtotal colectomy with ileocolic anastomosis -patient with chronic, frequent stooling -c diff negative -start colestipol 1gm daily; titrate as needed to keep stooling to reasonable amount #Dementia - -Continue donepezil #Hyperlipidemia - -Continue rosuvastatin #Hypomagnesemia - -replace/resolved updated pt's daughter by phone this evening discussed echo results from this admission, cardiology consult, plan of care appreciate PT/OT sonials Admission and Anticipated Discharge Date Admission Date: September 10, 2024 Subjective tele overnight - a.fib, most rates <100, some >100 patient lying flat in bed comfortably no dyspnea she states she is "disappointed she isn't going home today" we talked at length about her echo this admission and how it has changed since her previous echo staff report she has MONTGOMERY with walking to bathroom Review of Systems Review of Systems: CV - no cp, no orthopnea pulm - no cough GI - no abd pain; numerous stools overnight (8?) --> c diff negative Physical Exam Physical Exam: gen - NAD, lying flat in bed neck - after raising bed to 30 degrees +JVD was seen mouth - MMM heart - irregularly irregular, s1 s2, 2/6 holosystolic murmur LLSB lungs - CTA b/l, no rales abd - soft NT ND BS+ ext - 1-2+ edema b/l shins/feet, pulses b/l feet 2+ musculo - severe kyphosis of spine Results & Data Results & Data Vital Signs (Past 12 Hours) Vital Signs Temp Pulse Pulse Resp BP BP Pulse Ox 09/14/24 11:53 36.3 C L 115 H 18 102/65 94 09/14/24 08:33 108/66 09/14/24 07:35 36.3 C L 91 H 14 91/61 L 96 09/14/24 07:32 85 09/14/24 07:30 09/14/24 03:58 36.5 C 92 H 18 94/60 L 99 O2 Del Method 09/14/24 11:53 Room Air 09/14/24 08:33 09/14/24 07:35 Room Air 09/14/24 07:32 09/14/24 07:30 Room Air 09/14/24 03:58 Room Air Laboratory Results Laboratory Results - last 48 hr 09/14/24 09/14/24 06:40 09:30 WBC 4.34 L RBC 3.66 L Hgb 11.0 L Hct 31.3 L MCV 85.5 MCH 30.1 MCHC 35.1 RDW Std Deviation 45.2 RDW Coeff of Fiona 14.6 H Plt Count 237 MPV 9.8 Immature Gran % (Auto) 0.2 Neut % (Auto) 72.8 Lymph % (Auto) 14.1 [place]idan % (Auto) 8.1 Eos % (Auto) 4.1 Baso % (Auto) 0.7 Neut # (Auto) 3.16 Lymph # (Auto) 0.61 L [place]idan # (Auto) 0.35 Eos # (Auto) 0.18 Baso # (Auto) 0.03 Immature Gran # (Auto) 0.01 Sodium 127 L Potassium 3.4 L Chloride 90 L Carbon Dioxide 30 Anion Gap 7 BUN 18 Creatinine 0.95 Est Cr Clr Drug Dosing 32.7 eGFR 58.71 BUN/Creatinine Ratio 18.9 Glucose 76 Calcium 8.3 L Magnesium 1.8 Stl C. diff Tox B Gene Negative Cdiff Gene Stl C. diff [id number] NEGATIVE PG Care Time/CCT Total # of Minutes Spent Total Time Spent with Patient: Total time spent is greater than 50% in coordination of care (as documented) at patient's floor/unit and/or counseling patient: Coding Level of Care Code 20329 SUB INP/OBS CARE 3/50MIN Diagnoses Hypotension I95.9 Acute heart failure with mildly reduced ejection fraction (HFmrEF, 41-49%) I50.21 Right heart failure with reduced right ventricular function I50.810 Tricuspid regurgitation I07.1 Pulmonary hypertension I27.20 Crohns disease K50.90 Dementia F03.90 Paroxysmal atrial fibrillation I48.0 Atrial fibrillation type: paroxysmal S/P partial colectomy Z90.49 History of mitral valve repair Z98.890 Thoracic kyphosis M40.204 Chronic hyponatremia E87.1 (8) Atrial fibrillation Atrial fibrillation type: paroxysmal Qualified Code(s): I48.0 - Paroxysmal atrial fibrillation
--- NOTE | 2024-09-14 16:21 | Cardiology Consultation ---
Date of Consultation September 14, 2024 Assessment & Plan (1) CHF (congestive heart failure): (2) Atrial fibrillation: (3) Valvular heart disease: Plan 1. Congestive heart failure: She presented with symptoms consistent with decompensated heart failure. Likely element of both left and right heart failure. She was noted on her echocardiogram to have mildly reduced LV systolic function which is new from 2021. Unclear chronicity. Most of her symptoms appear to be related to lower extremity edema and RV failure. She is known to have an element of pulmonary hypertension likely related to both chronic and severe tricuspid regurgitation as well as mild left ventricular failure. He did undergo diuresis with some improvement in lower extremity edema. No evidence of pulmonary vascular congestion currently. However, she is noted to have pleural effusions likely related to her cardiac dysfunction. Diuresis currently on hold due to mild hypotension. Also noted to have an element of hyponatremia that did not improve with diuresis. I do not think there is an urgent need for continued diuresis. She would likely benefit from a daily low-dose diuretic once her hemodynamics stabilize. 2. Cardiomyopathy: As noted above an element of LV and RV dysfunction. Most likely nonischemic based on the global nature of her mild hypokinesis. No evidence of a recent ischemic event. No symptoms suggestive of ischemia although she is a poor historian. Given her limited mobility and other comorbidities I do not think we need to pursue an ischemic evaluation in the absence of worsening symptoms. I would agree with Jardiance. While beta- blockade is also indicated for her dysfunction, this may have some detrimental effects on RV function. I think we will initiate amiodarone for rate control of atrial fibrillation and reserve beta-blockade for recurrent symptoms of heart failure or worsening LV dysfunction. Hopefully will have an opportunity to initiate Entresto/ARB/CORIN at some point as well. Will monitor her blood pressure to see if the opportunity presents itself. 3. Valvular heart disease: She has an element of mitral valve dysfunction which is not severe. However, she is reported to have severe tricuspid regurgitation which likely also contributes to her symptoms of RV failure. This will be treated as noted above. I do not think she is a good candidate for any valvular intervention. 4. Atrial fibrillation: Paroxysmal previously. Persistent currently. On systemic anticoagulation. Will try amiodarone both for rate control (less hemodynamic effect) and hopefully a return to sinus rhythm. Perhaps this will improve her hemodynamics. She does have significant biatrial enlargement which likely reduces the chance of staying in sinus long-term. While she does have evidence of heart failure, she has significant dementia and appears poorly mobile. I suspect she performs little activity and as a result has some mild dyspnea when ambulating to the bathroom. I do not think she will require aggressive treatment to maintain her current level of functioning. I would agree with continued conservative measures for treatment of lower extremity edema. Will attempt some more aggressive medical therapy as noted above as her blood pressure improves. History of Present Illness Reason for Consultation: Lower extremity edema, congestive heart failure, atrial fibrillation Requesting Physician: Brielle Attending Physician: Camacho Hannah MD History of Present Illness The patient is an 83-year-old woman with a history of mitral valve disease status post mitral valve repair in 2010. Also known to have paroxysmal atrial fibrillation. Currently living at an assisted living facility due to mobility issues. She was sent to the hospital for worsening lower extremity edema. Her hospitalization has involved diuresis. Over the past 24 hours she has developed some hypotension necessitating de-escalation of medical therapy. Unfortunately, the patient is a poor historian. She cannot recall the details of her ho spitalization. In fact, she feels as if she still lives with her daughter in [place]. She has been aware of some lower extremity edema but cannot characterize this or state whether it has been better or worse. She is reported to be poorly ambulatory and generally in a wheelchair at her facility. When asked what her daily activities entail she states that she does not like to do much. She is not very active and spends most of her time in bed. Not currently complaining of breathing difficulty. No history of orthopnea. No chest pain or other pains currently. No sense of palpitation. According to the nursing staff she has been ambulatory to the bathroom and does get short of breath. This does not limit her activity and she did not have other complaints. Allergies Allergy/AdvReac Type Severity Reaction Status Date / Time codeine Allergy Mild LIGHTHEADED Verified 07/02/24 09:40 NESS verapamil Allergy Mild PALPITATION Verified 07/02/24 09:40 S Home Medications Medication Instructions Recorded Confirmed Type cholecalciferol (vitamin D3) 50 2,000 unit PO DAILY 05/31/20 09/10/24 History mcg (2,000 unit) capsule multivitamin 1 tab PO DAILY 10/25/21 09/10/24 History rosuvastatin 20 mg tablet (Crestor) 20 mg PO DAILY 90 days #90 tabs 03/14/23 09/10/24 Rx alendronate 70 mg tablet 70 mg PO WK #12 tabs 04/26/23 09/10/24 Rx donepezil 5 mg tablet 5 mg PO DAILY #30 tabs 12/02/23 09/10/24 Rx amoxicillin 500 mg tablet 2,000 mg PO ONCE PRN dental 12/18/23 09/10/24 History appointments apixaban 2.5 mg tablet (Eliquis) 2.5 mg PO BID #60 tabs 01/24/24 09/10/24 Rx docusate sodium 100 mg capsule 100 mg PO BID #14 caps 01/24/24 09/10/24 Rx magnesium oxide 400 mg PO BID #60 caps 01/24/24 09/10/24 Rx eric.stocking,thigh,reg,med #2 ea 02/13/24 02/13/24 Rx diaper,brief,adult,disposable #80 ea 02/13/24 02/13/24 Rx (Prevail Brief Medium) ferrous sulfate 325 mg (65 mg 325 mg PO .MON,TUES,TH,SAT 07/02/24 09/10/24 History iron) tablet (FeroSul) levothyroxine 75 mcg tablet 88 mcg PO DAILY 07/02/24 09/10/24 History ondansetron HCl 4 mg tablet 4 mg PO Q8H PRN nausea and vomiting 07/02/24 09/10/24 History Anti Acid Chew 1,000 mg PO DAILY 09/10/24 09/10/24 History acetaminophen 500 mg tablet 1,000 mg PO BID 09/10/24 09/10/24 History (Tylenol Extra Strength) Patient History Medical History ROSALIND (acute kidney injury) Malignant neoplasm of colon, unspecified Encounter for pre-operative examination Osteoarthritis Osteoporosis History of kidney stones On anticoagulant therapy eliquis daily Ocular migraine Hypertension Hyperlipidemia Palpitations Surgical History History of colon surgery 06/2008 Previous back surgery 11/07/2012 History of incision and drainage right arm--infected after fx History of total left knee replacement (TKR) History of total right knee replacement (TKR) History of esophagogastroduodenoscopy (EGD) History of colonoscopy with polypectomy History of colectomy subtotal with ileocolic anastomosis History of cardiac cath 04/2010 Dr. Linn @ [facility], no stents History of tooth extraction all teeth History of tonsillectomy History of bilateral cataract extraction History of mitral valve repair [place] [facility] [place] of appendectomy History of kyphoplasty History of Percutaneous Vertebral Augmentation Kyphoplasty History of umbilical hernia repair History of cholecystectomy Family History Sister Hearing loss Breast cancer Cancer Grandmother (Paternal) No problems noted. Father No problems noted. 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 Beliefs That Will Affect Care: None marital status: / Current Living Situation: Alone Current Living Situation Comment: daughter current occupational status: retired How many Children do You have: 1 Other Information That Helps Us Care for You: No Feels Safe at Home: Yes Safety Concerns: Feels Safe At This Time Childhood Exposure to Second-Hand Smoke: No Diet: regular caffeine: No Dental Care, Regularly: Yes Physical Activity Frequency: Does not Exercise Seatbelt Use: always Sunscreen Use: No Assistive Devices: Walker and Wheelchair Review of Systems Review of Systems: Per HPI Physical Exam Physical Exam: She is alert and oriented x3. Mood affect appear normal. She answered all questions, but seem to have little insight into her current condition. Oriented to person and place only. HEENT: Sclerae are anicteric. Pupils are equal and reactive to light and accommodation. Extraocular movements were intact. Neuro: Cranial nerves intact Lungs: Normal respiratory effort with reduced breath sounds at the bases bilaterally. No rales. Normal respiratory effort. Cardiac: Irregular rhythm. Holosystolic murmur. Abdomen: The abdomen was soft and nontender. Extremities: Patient has bilateral radial pulses that are equal in intensity. There is no evidence cyanosis or clubbing. Mild lower extremity edema. Surgical stockings in place. Skin: There are no rashes noted on examination today. Results & Data Vital Signs (Past 12 Hours) Vital Signs Temp Pulse Pulse Resp BP BP Pulse Ox 09/14/24 15:53 100 H 09/14/24 15:02 36.4 C L 80 18 123/83 91 09/14/24 11:53 36.3 C L 115 H 18 102/65 94 09/14/24 08:33 108/66 09/14/24 07:35 36.3 C L 91 H 14 91/61 L 96 09/14/24 07:32 85 09/14/24 07:30 O2 Del Method 09/14/24 15:53 09/14/24 15:02 Room Air 09/14/24 11:53 Room Air 09/14/24 08:33 09/14/24 07:35 Room Air 09/14/24 07:32 09/14/24 07:30 Room Air Laboratory Results Abnormal Lab Results 09/14/24 09/14/24 06:40 09:30 WBC 4.34 L RBC 3.66 L Hgb 11.0 L Hct 31.3 L MCV 85.5 MCH 30.1 MCHC 35.1 RDW Std Deviation 45.2 RDW Coeff of Fiona 14.6 H Plt Count 237 MPV 9.8 Immature Gran % (Auto) 0.2 Neut % (Auto) 72.8 Lymph % (Auto) 14.1 Nash % (Auto) 8.1 Eos % (Auto) 4.1 Baso % (Auto) 0.7 Neut # (Auto) 3.16 Lymph # (Auto) 0.61 L Nash # (Auto) 0.35 Eos # (Auto) 0.18 Baso # (Auto) 0.03 Immature Gran # (Auto) 0.01 Sodium 127 L Potassium 3.4 L Chloride 90 L Carbon Dioxide 30 Anion Gap 7 BUN 18 Creatinine 0.95 Est Cr Clr Drug Dosing 32.7 eGFR 58.71 BUN/Creatinine Ratio 18.9 Glucose 76 Calcium 8.3 L Magnesium 1.8 Stl C. diff Tox B Gene Negative Cdiff Gene Stl C. diff [id number] NEGATIVE Diagnostic Findings Echocardiogram 09/10/2024: Small left ventricle with reduced LV systolic function. Ejection fraction 45 to 50%. Mild global hypokinesis. Moderately dilated right ventricle with mildly reduced RV systolic function. Severe biatrial dilation. Mild mitral stenosis. Severe tricuspid regurgitation. Mild pulmonary hypertension. PG Care Time/CCT Total # of Minutes Spent Total Time Spent with Patient: Total time spent is greater than 50% in coordination of care (as documented) at patient's floor/unit and/or counseling patient: Coding Level of Care Code 26008 INT INP/OBS CARE MIN Diagnoses CHF (congestive heart failure) I50.9 Paroxysmal atrial fibrillation I48.0 Atrial fibrillation type: paroxysmal Valvular heart disease I38 (2) Atrial fibrillation Atrial fibrillation type: paroxysmal Qualified Code(s): I48.0 - Paroxysmal atrial fibrillation
[2024-09-14] MEDS: COLESTIPOL HCL 1 GM TAB PO SCH (22:02)
[2024-09-15] MEDS: AMIODARONE 200 MG TAB PO SCH (07:48)
[2024-09-15 11:29] LABS: Anion Gap 6.0 (3-11); Blood Urea Nitrogen 18.0 mg/dl (6-23); Calcium 8.3 mg/dl (8.6-10.3); Carbon Dioxide 27.0 mmol/L (21-32); Chloride 93.0 mmol/L (98-107); Creatinine Clr Calc Pharmacy 35.4 ml/min; Glucose 74.0 mg/dl (70-99(Fasting)); Potassium 3.9 mmol/L (3.5-5.1); Sodium 126.0 mmol/L (136-145)
--- NOTE | 2024-09-15 15:01 | Cardiology Progress Note ---
Date of Service September 15, 2024 Assessment & Plan (1) CHF (congestive heart failure): (2) Atrial fibrillation: (3) Valvular heart disease: Plan 1. Congestive heart failure: She presented with symptoms consistent with decompensated heart failure. She underwent aggressive diuresis. I think she is always going to have some element of volume overload. Very difficult to affect more aggressive diuresis given her hypotension and electrolyte abnormalities. However, no breathing difficulty. No orthopnea. I do think there is an urgent need for more aggressive diuresis. 2. Cardiomyopathy: As noted above an element of LV and RV dysfunction. We are continuing Jardiance. No options for more intensive therapy given her hemodynamic compromise at this time. 3. Valvular heart disease: She has an element of mitral valve dysfunction which is not severe. However, she is reported to have severe tricuspid regurgitation which likely also contributes to her symptoms of RV failure. This will be treated as noted above. I do not think she is a good candidate for any valvular intervention. 4. Atrial fibrillation: Persistent. Started on amiodarone. Beta-blockers discontinued. Rate control improved. Will continue amiodarone. Continue systemic anticoagulation Still hypotensive despite holding all antihypertensive medications. No diuresis in the past 2 days. Urine output difficult to quantify. She may benefit from some mild volume administration. Other causes of hypotension such as distributive secondary to infection could be considered. Admission and Anticipated Discharge Date Admission Date: September 10, 2024 Subjective This afternoon the patient had no specific complaints. She was confused and had difficulty answering some questions appropriately. Review of Systems Review of Systems: Difficult due to cognitive status Physical Exam Physical Exam: She is alert and oriented to person. Mood affect appear normal. She answered all questions, but seem to have little insight into her current condition. Oriented to person only. HEENT: Sclerae are anicteric. Pupils are equal and reactive to light and accommodation. Extraocular movements were intact. Neuro: Cranial nerves intact Lungs: Normal respiratory effort with reduced breath sounds at the bases bilaterally. No rales. Normal respiratory effort. Cardiac: Irregular rhythm. Holosystolic murmur. Extremities: Patient has bilateral radial pulses that are equal in intensity. There is no evidence cyanosis or clubbing. Mild lower extremity edema. Surgical stockings in place. Skin: There are no rashes noted on examination today. Results & Data Vital Signs (Past 12 Hours) Vital Signs Temp Pulse Pulse Resp BP BP Pulse Ox 08/05/25 13:06 87 09/15/24 11:19 36.3 C L 93 H 20 82/50 L 95 09/15/24 08:13 36.8 C 108 H 20 92/66 L 95 09/15/24 05:47 100 H O2 Del Method 09/15/24 13:06 09/15/24 11:19 Room Air 09/15/24 08:13 Room Air 09/15/24 05:47 Laboratory Results Abnormal Lab Results 09/15/24 10:48 Sodium 126 L Potassium 3.9 Chloride 93 L Carbon Dioxide 27 Anion Gap 6 BUN 18 Creatinine 0.96 Est Cr Clr Drug Dosing 35.4 eGFR 57.98 BUN/Creatinine Ratio 18.8 Glucose 74 Calcium 8.3 L Folate 10.06 PG Care Time/CCT Total # of Minutes Spent Total Time Spent with Patient: Total time spent is greater than 50% in coordination of care (as documented) at patient's floor/unit and/or counseling patient: Coding Level of Care Code 39217 SUB INP/OBS CARE 2/35MIN Diagnoses CHF (congestive heart failure) I50.9 Paroxysmal atrial fibrillation I48.0 Atrial fibrillation type: paroxysmal Valvular heart disease I38 (2) Atrial fibrillation Atrial fibrillation type: paroxysmal Qualified Code(s): I48.0 - Paroxysmal atrial fibrillation
[2024-09-15] MEDS: SODIUM CHLORIDE 0.9% 250 ML IV ONE (15:46)
[2024-09-15] MEDS: MIDODRINE HCL 2.5 MG TAB PO SCH (16:38)
--- NOTE | 2024-09-15 19:29 | Hospitalist Progress Note ---
Date of Service September 15, 2024 Assessment & Plan (1) Hypotension: (2) Acute heart failure with mildly reduced ejection fraction (HFmrEF, 41-49%): (3) Right heart failure with reduced right ventricular function: (4) Tricuspid regurgitation: (5) Pulmonary hypertension: (6) Crohns disease: (7) Dementia: (8) Atrial fibrillation: (9) S/P partial colectomy: (10) History of mitral valve repair: (11) Thoracic kyphosis: (12) Chronic hyponatremia: Plan 83yo female who presented with intermittent SOB and increased bilateral leg swelling x 2 weeks prior to admission. #Hypotension - ongoing - -started 09/13 -likely 2nd to intravascular volume depletion from diuresis as well as recently instituted Entresto -got 1+ liter of fluid 09/13, and Entresto/metoprolol/lasix all placed on hold -gave a small fluid bolus and started midodrine 2.5mg TID on 09/14 -BPs still low this am - gave another 250ml bolus, and increased midodrine to 5mg TID -agree with Dr Gomes to look for possible other causes of hypotension to be complete -checked u/a -- suggestive of UTI -start rocephin 1gm daily; await urine culture -H/H stable - no signs of GI bleeding #Acute HFmrEF with right ventricular systolic dysfunction - -Echo 09/11/2024 -- mildly reduced EF at 45 to 50% with mild global hypokinesis; severe biatrial dilation -EF now mildly reduced when compared to echo from 2021 when EF was 55-60% -was not on diuretics at home -received IV diuresis since admission until 09/13 when her hypotension started; diuretics stopped -attempts to start low-dose Entresto not successful due to the low BP and thus will hold moving forward -cont Jardiance 10mg qd -metoprolol started earlier in the stay - now on hold due to hypotension -etiology of LV dysfunction? -RV dysfunction 2nd to LV dysfunction? other? -consulted cardiology - Dr Gomes; appreciate his recommendations -he advised to leave Ms Farrar off metoprolol, lasix, Entresto; ok to cont Jardiance -started amiodarone for a.fib #Acute on chronic hyponatremia - -Chronic hyponatremia with baseline Na ~131 -Na level today - 126 -diuretics have been stopped -small bolus of fluid given this am for ongoing hypotension -BMP in am -of note - decompensated hypothyroidism could be contributing to hyponatremia as well #Atrial fibrillation - -no AV amalia agents at this time -Dr Gomes recommending amiodarone load -- 400mg BID -cont Eliquis 2.5mg BID #HTN - -addition of metoprolol & Entresto led to severe hypotension -all meds stopped #Hypothyroidism - -TSH elevated at 16.140 (however this could be elevated in the setting of acute illness), -normal free T4 -would simply continue levothyroxine without a dose change and plan to repeat the TSH in 4 weeks as outpatient #Anemia of chronic disease - -H/H stable at this time -Hb 10-11 #Crohn's disease and prior h/o colon cancer - -2008 s/p subtotal colectomy with ileocolic anastomosis -patient with chronic, frequent stooling -c diff negative -started colestipol 1gm daily; is helping, but still quite loose -increase to 1gm BID #Dementia - -Continue donepezil #Hyperlipidemia - -Continue rosuvastatin #Hypomagnesemia - -replace/resolved #hernia vs splenomegaly vs other on exam - -in light of colon cancer history consider CT a/p -uncertain what I am palpating in the high epigastric region/LUQ updated pt's daughter by phone 09/14, and at bedside today appreciate PT/OT evals appreciate Dr Gomes's assistance Admission and Anticipated Discharge Date Admission Date: September 10, 2024 Subjective patient resting in bed flat without any dyspnea/orthopnea appetite continues to remain poor she offered no specific complaints by reports stools are still loose, but not as frequent during my assessment the pt's daughter arrived to bedside tele continues with afib BP low again today - gave 250cc saline bolus and increased her midodrine Review of Systems Review of Systems: denies pain in any location cv - no chest pain pulm - no dyspnea at rest GI - no vomiting Physical Exam Physical Exam: gen - NAD, lying flat in bed without dyspnea, looks similar to yesterday neck - I raised the bed to 30 degrees -- again JVD seen like previous mouth - MMM heart - irregularly irregular, s1 s2, 2/6 holosystolic murmur LLSB lungs - CTA b/l, no rales abd - soft NT ND BS; high epigastric region/LUQ -- hernia? splenomegaly? ext - 1-2+ edema b/l shins/feet, pulses b/l feet 2+; compression stockings in place musculo - severe kyphosis of spine psych - mild confusion Results & Data Results & Data Vital Signs (Past 12 Hours) Vital Signs Temp Pulse Pulse Resp BP BP Pulse Ox 09/15/24 15:36 36.4 C L 72 18 103/70 96 09/15/24 13:06 87 09/15/24 11:19 36.3 C L 93 H 20 82/50 L 95 09/15/24 08:13 36.8 C 108 H 20 92/66 L 95 O2 Del Method 09/15/24 15:36 Room Air 09/15/24 13:06 09/15/24 11:19 Room Air 09/15/24 08:13 Room Air Laboratory Results Laboratory Results - last 24 hr 09/15/24 10:48 Sodium 126 L Potassium 3.9 Chloride 93 L Carbon Dioxide 27 Anion Gap 6 BUN 18 Creatinine 0.96 Est Cr Clr Drug Dosing 35.4 eGFR 57.98 BUN/Creatinine Ratio 18.8 Glucose 74 Calcium 8.3 L Folate 10.06 PG Care Time/CCT Total # of Minutes Spent Total Time Spent with Patient: Total time spent is greater than 50% in coordination of care (as documented) at patient's floor/unit and/or counseling patient: Coding Level of Care Code 30771 SUB INP/OBS CARE 3/50MIN Diagnoses Hypotension I95.9 Acute heart failure with mildly reduced ejection fraction (HFmrEF, 41-49%) I50.21 Right heart failure with reduced right ventricular function I50.810 Tricuspid regurgitation I07.1 Pulmonary hypertension I27.20 Crohns disease K50.90 Dementia F03.90 Paroxysmal atrial fibrillation I48.0 Atrial fibrillation type: paroxysmal S/P partial colectomy Z90.49 History of mitral valve repair Z98.890 Thoracic kyphosis M40.204 Chronic hyponatremia E87.1 (8) Atrial fibrillation Atrial fibrillation type: paroxysmal Qualified Code(s): I48.0 - Paroxysmal atrial fibrillation
[2024-09-15 20:36] LABS: Appearance Urine Cloudy (Clear); Bacteria Urine Automated 4+ (None Seen); Cast Urine Automated 0-2 /lpf (0-2); Epithelial Cell Urine Auto 0-2 /hpf (0-2); Glucose Urine UA 3+ (Negative); RBC Urine Automated >20 /hpf (0-2); WBC Urine Automated >50 /hpf (0-5)
[2024-09-16 05:41] LABS: Anion Gap 7.0 (3-11); Blood Urea Nitrogen 19.0 mg/dl (6-23); Calcium 8.5 mg/dl (8.6-10.3); Carbon Dioxide 27.0 mmol/L (21-32); Chloride 93.0 mmol/L (98-107); Creatinine Clr Calc Pharmacy 37.3 ml/min; Glucose 72.0 mg/dl (70-99(Fasting)); Potassium 4.2 mmol/L (3.5-5.1); Sodium 127.0 mmol/L (136-145)
[2024-09-16] MEDS: cefTRIAXone SODIUM 1,000 MG/50 ML BAG IV SCH (06:34)
--- NOTE | 2024-09-16 07:57 | Hospitalist Progress Note ---
Date of Service September 16, 2024 Assessment & Plan (1) Hypotension: (2) Acute heart failure with mildly reduced ejection fraction (HFmrEF, 41-49%): (3) Right heart failure with reduced right ventricular function: (4) Tricuspid regurgitation: (5) Pulmonary hypertension: (6) Crohns disease: (7) Dementia: (8) Atrial fibrillation: (9) S/P partial colectomy: (10) History of mitral valve repair: (11) Thoracic kyphosis: (12) Chronic hyponatremia: Plan 83yo female who presented with intermittent SOB and increased bilateral leg swelling x 2 weeks prior to admission. #Hypotension - ongoing - -started 09/13 -likely 2nd to intravascular volume depletion from diuresis as well as recently instituted Entresto -1+ liter of fluid 09/13, and Entresto/metoprolol/lasix all placed on hold -gave a small fluid bolus and started midodrine 2.5mg TID on 09/14 -BPs still low 09/15 - gave another 250ml bolus, and increased midodrine to 5mg TID -no symptoms of urine infection but given UA without epithelial cells, possible disorientation, I think it is reasonable to treat for three days or until urine culture is back but I am not convinced this caused her hypotension -now Entresto and metoprolol mostly out of her system her BP looks better and I think we can stop her midodrine, I am hopefully she doesn't need this as an outpatient, may need orthostatics prior to discharge -Jardiance causes diuresis and possibly this is all she needs for ongoing diuresis with her CHF, she currently has B lines on POCUS #Acute HFmrEF with right ventricular systolic dysfunction - -Echo 09/11/2024 -- mildly reduced EF at 45 to 50% with mild global hypokinesis; severe biatrial dilation -EF now mildly reduced when compared to echo from 2021 when EF was 55-60% -not on diuretics at home -received IV diuresis since admission until 09/13 when her hypotension started; diuretics stopped -attempts to start low-dose Entresto not successful due to the low BP and thus will hold moving forward -cont Jardiance 10mg qd -metoprolol started earlier in the stay - now on hold due to hypotension #Acute on chronic hyponatremia - -Chronic hyponatremia with baseline Na ~131, relatively stable, not a reason for ongoing admission #Atrial fibrillation - -no AV amalia agents at this time -Dr Gomes recommending amiodarone load -- 400mg BID -cont Eliquis 2.5mg BID #Hypothyroidism - -TSH elevated at 16.140 (however this could be elevated in the setting of acute illness), -normal free T4 -would simply continue levothyroxine without a dose change and plan to repeat the TSH in 4 weeks as outpatient, possible malabsorption issue due to crohn's #Anemia of chronic disease - -H/H stable at this time -Hb 10-11 #Crohn's disease and prior h/o colon cancer - -2008 s/p subtotal colectomy with ileocolic anastomosis -patient with chronic, frequent stooling -c diff negative -started colestipol 1gm daily; is helping, but still quite loose -increase to 1gm BID #Dementia - -Continue donepezil #Hyperlipidemia - -Continue rosuvastatin #Hypomagnesemia - -replace/resolved #hernia vs splenomegaly vs other on exam - -in light of colon cancer history consider CT a/p -uncertain what I am palpating in the high epigastric region/LUQ updated pt's daughter by phone 09/16 appreciate PT/OT evals appreciate Dr Gomes's assistance VTE Prophylaxis - apixaban Disposition - continue on med/tele while adjusting her CHF medications to avoid hypotension Admission and Anticipated Discharge Date Admission Date: September 10, 2024 Subjective Patient reports feeling fine. No urinary symptoms. She is unsure what brought her to the ER in the first place but on explaining about her leg swelling and shortness of breath she feels these things are doing much better. Discussed with daughter over the phone and she thinks patient possibly more disorientated than usual but was doing better yesterday. Physical Exam Constitutional: well developed; + not well nourished and no acute distress ENMT: Mouth: oral mucous membranes not dry Respiratory: normal respiratory effort; no respiratory distress Auscultation: + crackles (bibasal); no wheezes B lines on POCUS anteriorly and lower posteriorly, clear upper posterior, b/l equal Cardiovascular: Rate/Rhythm: regular rate and regular rhythm Extremities: + pedal edema (1+ below knees b/l equal, reportedly improved since admission) Gastrointestinal (Abdomen): normal bowel sounds, soft, nontender, no hepatosplenomegaly Psychiatric: Orientation: alert and oriented x 3 Genitourinary: no CVA tenderness Results & Data Results & Data Vital Signs (Past 12 Hours) Vital Signs Temp Pulse Pulse Resp BP Pulse Ox O2 Del Method 09/16/24 07:49 81 09/16/24 07:45 36.3 C L 102 H 20 106/69 94 Room Air 09/16/24 04:00 36.2 C L 85 20 119/78 96 Room Air 09/16/24 00:12 36.5 C 91 H 20 117/77 96 Room Air 09/15/24 21:55 88 09/15/24 20:30 Room Air 09/15/24 20:04 36.6 C 83 20 121/78 98 Room Air PG Care Time/CCT Total # of Minutes Spent Total Time Spent with Patient: Total time spent is greater than 50% in coordination of care (as documented) at patient's floor/unit and/or counseling patient: Coding Level of Care Code 53864 SUB INP/OBS CARE 3/50MIN Diagnoses Hypotension I95.9 Acute heart failure with mildly reduced ejection fraction (HFmrEF, 41-49%) I50.21 Right heart failure with reduced right ventricular function I50.810 Tricuspid regurgitation I07.1 Pulmonary hypertension I27.20 Crohns disease K50.90 Dementia F03.90 Paroxysmal atrial fibrillation I48.0 Atrial fibrillation type: paroxysmal S/P partial colectomy Z90.49 History of mitral valve repair Z98.890 Thoracic kyphosis M40.204 Chronic hyponatremia E87.1 (8) Atrial fibrillation Atrial fibrillation type: paroxysmal Qualified Code(s): I48.0 - Paroxysmal atrial fibrillation
--- NOTE | 2024-09-16 12:20 | Cardiology Progress Note ---
Date of Service September 16, 2024 Assessment & Plan (1) CHF (congestive heart failure): (2) Atrial fibrillation: (3) Valvular heart disease: Plan 1. Congestive heart failure: She presented with symptoms consistent with decompensated heart failure. She does appear to be hypervolemic, but no evidence of pulmonary vascular congestion. As such, no urgent need for continued dialysis. Blood pressures are still on the lower side. We can certainly monitor her for worsening symptoms and administer diuretics on a as needed basis. Will have to accept an element of peripheral edema. 2. Cardiomyopathy: As noted above an element of LV and RV dysfunction. We are continuing Jardiance. No options for more intensive therapy given her hemodynamic compromise at this time. 3. Valvular heart disease: She has an element of mitral valve dysfunction which is not severe. However, she is reported to have severe tricuspid regurgitation which likely also contributes to her symptoms of RV failure. I do not think she is a good candidate for any valvular intervention. 4. Atrial fibrillation: Persistent. Started on amiodarone. Beta-blockers discontinued. Overall rate control appears adequate. Continue systemic anticoagulation. Blood pressure still on the lower side. However, no evidence of pulmonary vascular congestion. Hyponatremia stable. This may be her new baseline. We can probably dose diuretics on an as-needed basis. Continue conservative measures for addressing peripheral edema. Admission and Anticipated Discharge Date Admission Date: September 10, 2024 Subjective This morning patient clinically feeling well. No difficulty breathing. No pain. She was ambulatory to the bathroom by her recollection. She also sat up in the chair for a while. No dizziness or lightheadedness. Typical dyspnea with activity. Review of Systems Review of Systems: Per HPI Physical Exam Physical Exam: She is alert and oriented to person. Mood affect appear normal. She answered all questions, but seem to have little insight into her current condition. Oriented to person only. HEENT: Sclerae are anicteric. Pupils are equal and reactive to light and accommodation. Extraocular movements were intact. Neuro: Cranial nerves intact Lungs: Normal respiratory effort with reduced breath sounds at the bases bilaterally. No rales. Normal respiratory effort. Cardiac: Irregular rhythm. Holosystolic murmur. Extremities: Patient has bilateral radial pulses that are equal in intensity. There is no evidence cyanosis or clubbing. Mild lower extremity edema. Surgical stockings in place. Skin: There are no rashes noted on examination today. Results & Data Vital Signs (Past 12 Hours) Vital Signs Temp Pulse Pulse Resp BP Pulse Ox O2 Del Method 09/16/24 11:55 36.4 C L 83 18 96/65 L 97 Room Air 09/16/24 08:48 Room Air 09/16/24 07:49 81 09/16/24 07:45 36.3 C L 102 H 20 106/69 94 Room Air 09/16/24 04:00 36.2 C L 85 20 119/78 96 Room Air Laboratory Results Abnormal Lab Results 09/15/24 09/16/24 17:58 03:58 Sodium 127 L Potassium 4.2 Chloride 93 L Carbon Dioxide 27 Anion Gap 7 BUN 19 Creatinine 0.91 Est Cr Clr Drug Dosing 37.3 eGFR 61.82 BUN/Creatinine Ratio 20.9 H Glucose 72 Calcium 8.5 L Urine Color Yellow Urine Appearance Cloudy A Urine pH 5.5 Ur Specific Kaiser 1.031 H Urine Protein 2+ H Urine Glucose (UA) 3+ H Urine Ketones Trace H Urine Blood 2+ H Urine Nitrite Positive A Urine Bilirubin Negative Urine Urobilinogen Negative Ur Leukocyte Esterase 1+ H Urine WBC (Auto) >50 H Urine RBC (Auto) >20 H U Hyaline Cast (Auto) 0-2 U Epithel Cells (Auto) 0-2 Urine Bacteria (Auto) 4+ H PG Care Time/CCT Total # of Minutes Spent Total Time Spent with Patient: Total time spent is greater than 50% in coordination of care (as documented) at patient's floor/unit and/or counseling patient: Coding Level of Care Code 16372 SUB INP/OBS CARE 2/35MIN Diagnoses CHF (congestive heart failure) I50.9 Paroxysmal atrial fibrillation I48.0 Atrial fibrillation type: paroxysmal Valvular heart disease I38 (2) Atrial fibrillation Atrial fibrillation type: paroxysmal Qualified Code(s): I48.0 - Paroxysmal atrial fibrillation
[2024-09-16] MEDS: COLESTIPOL HCL 1 GM TAB PO SCH (12:55)
[2024-09-17 09:08] LABS: Hematocrit (blood only) 32.8 % (37.0-47.0); Hemoglobin 10.9 g/dl (12.0-16.0); Immature Granulocytes # (auto) 0.01 K/uL (0.01-0.20); Immature Granulocytes % (auto) 0.3 %; Mean Corpuscular Hemoglobin 29.1 pg (25.0-34.0); Mean Corpuscular Volume 87.5 fL (80.0-100.0); Platelet Count 218 K/uL (130-400); RDW Standard Deviation 46.6 fL (36.4-46.3); Red Blood Count 3.75 M/uL (4.20-5.40); White Blood Count 3.52 K/ul (4.8-10.8)
[2024-09-17 09:25] LABS: Anion Gap 6.0 (3-11); Blood Urea Nitrogen 21.0 mg/dl (6-23); Calcium 8.7 mg/dl (8.6-10.3); Carbon Dioxide 27.0 mmol/L (21-32); Chloride 92.0 mmol/L (98-107); Creatinine Clr Calc Pharmacy 29.3 ml/min; Glucose 77.0 mg/dl (70-99(Fasting)); Magnesium 1.8 mg/dl (1.7-2.4); Potassium 4.3 mmol/L (3.5-5.1); Sodium 125.0 mmol/L (136-145)
--- NOTE | 2024-09-17 13:02 | XRay Report ---
XR chest 1V portable CLINICAL HISTORY: CHF COMPARISON STUDY: 09/10/2024 FINDINGS: Stable mitral valve repair. Stable cardiomegaly with mild pulmonary vascular congestion. St able small bilateral pleural effusions and associated lung base consolidation. No pneumothorax. IMPRESSION: Stable exam. ACT 112: Negative or not required by law. Electronically signed by: Yuriy Strickland M.D. 09/17/2024 1:01 PM
[2024-09-17] MEDS: FUROSEMIDE INJ 20 MG/2 ML VIAL IV STA (14:17)
--- NOTE | 2024-09-17 15:39 | Hospitalist Progress Note ---
Date of Service September 17, 2024 Assessment & Plan (1) Hypotension: (2) Acute heart failure with mildly reduced ejection fraction (HFmrEF, 41-49%): (3) Right heart failure with reduced right ventricular function: (4) Tricuspid regurgitation: (5) Pulmonary hypertension: (6) Crohns disease: (7) Dementia: (8) Atrial fibrillation: (9) S/P partial colectomy: (10) History of mitral valve repair: (11) Thoracic kyphosis: (12) Chronic hyponatremia: Plan 83yo female who presented with intermittent SOB and increased bilateral leg swelling x 2 weeks prior to admission. #Acute HFmrEF with right ventricular systolic dysfunction - -Echo 09/11/2024 -- mildly reduced EF at 45 to 50% with mild global hypokinesis; severe biatrial dilation -EF now mildly reduced when compared to echo from 2021 when EF was 55-60% -not on diuretics at home -received IV diuresis since admission until 09/13 when her hypotension started; diuretics stopped -attempts to start GDMT - Entresto and metoprolol failed due to hypotension -will hold Jardiance 10mg qd while treating UTI and treat hypervolemia with lasix 20mg IV today #Hypotension - resolved -started 09/13 -likely 2nd to intravascular volume depletion from diuresis as well as recently GDMT with Entresto/metoprolol ?secondary to UTI although no specific symptoms of this - successful wean of midodrine yesterday #Acute on chronic hyponatremia - -Chronic hyponatremia with baseline Na ~131, appears to be trending down again ?due to hypervolemia, will attempt diuresis today with lasix to see if this can be improved ?SIADH if continues to get worse #Atrial fibrillation - -Dr Gomes recommending amiodarone load -- 400mg BID -cont Eliquis 2.5mg BID #Hypothyroidism - -TSH elevated at 16.140 (however this could be elevated in the setting of acute illness), -normal free T4 -would simply continue levothyroxine without a dose change and plan to repeat the TSH in 4 weeks as outpatient, possible malabsorption issue due to crohn's #Anemia of chronic disease - -H/H stable at this time -Hb 10-11 #Crohn's disease and prior h/o colon cancer - -2008 s/p subtotal colectomy with ileocolic anastomosis -patient with chronic, frequent stooling -c diff negative -started colestipol 1gm daily; is helping, but still quite loose -increase to 1gm BID #Dementia - -Continue donepezil #Hyperlipidemia - -Continue rosuvastatin #Hypomagnesemia - -replace/resolved #hernia vs splenomegaly vs other on exam - -in light of colon cancer history consider CT a/p as outpatient -uncertain what I am palpating in the high epigastric region/LUQ updated pt's daughter at bedside 09/17 appreciate PT/OT qiana, will ask for re-evaluation today in light of increasing fatigue appreciate Dr Gomes's assistance VTE Prophylaxis - apixaban Disposition - continue on med/tele while adjusting her CHF medications to avoid hypotension Admission and Anticipated Discharge Date Admission Date: September 10, 2024 Subjective Feeling more fatigued today. She denies chest pain or shortness of breath. Her daughter reports she is moving around here much more than at her personal senior care. No urinary symptoms No fever or chills No dizziness Review of Systems Review of Systems: All systems reviewed & are unremarkable except as noted in HPI & below Physical Exam Constitutional: WD/WN, vitals as above Respiratory: normal respiratory effort; no respiratory distress Auscultation: + crackles (bibasal); no wheezes Cardiovascular: Rate/Rhythm: regular rate and + irregularly irregular Heart Sounds: no murmur Extremities: normal capillary refill and + pedal edema (1+ b/l equal); no calf tenderness Gastrointestinal (Abdomen): normal bowel sounds, soft, nontender, no hepatosplenomegaly Psychiatric: A+Ox3, euthymic affect Results & Data Results & Data Vital Signs (Past 12 Hours) Vital Signs Temp Pulse Pulse Resp BP Pulse Ox O2 Del Method 09/17/24 15:37 36.3 C L 90 16 122/78 97 Room Air 09/17/24 13:02 92 H 09/17/24 11:32 36.3 C L 80 16 111/73 91 Room Air 09/17/24 07:41 36.0 C L 87 20 105/66 96 Room Air 09/17/24 06:45 91 H PG Care Time/CCT Total # of Minutes Spent Total Time Spent with Patient: Total time spent is greater than 50% in coordination of care (as documented) at patient's floor/unit and/or counseling patient: Coding Level of Care Code 62141 SUB INP/OBS CARE 3/50MIN Diagnoses Hypotension I95.9 Acute heart failure with mildly reduced ejection fraction (HFmrEF, 41-49%) I50.21 Right heart failure with reduced right ventricular function I50.810 Tricuspid regurgitation I07.1 Pulmonary hypertension I27.20 Crohns disease K50.90 Dementia F03.90 Paroxysmal atrial fibrillation I48.0 Atrial fibrillation type: paroxysmal S/P partial colectomy Z90.49 History of mitral valve repair Z98.890 Thoracic kyphosis M40.204 Chronic hyponatremia E87.1 (8) Atrial fibrillation Atrial fibrillation type: paroxysmal Qualified Code(s): I48.0 - Paroxysmal atrial fibrillation
--- NOTE | 2024-09-17 16:43 | Cardiology Progress Note ---
Date of Service September 17, 2024 Assessment & Plan (1) CHF (congestive heart failure): (2) Atrial fibrillation: (3) Valvular heart disease: Plan 1. Congestive heart failure: She presented with symptoms consistent with decompensated heart failure. She does appear to be hypervolemic, but no evidence of pulmonary vascular congestion. Blood pressure much improved today. Will continue Jardiance. She can use diuretics on a as needed basis for increasing weight or evidence of pulmonary vascular congestion. She will continue to have some element of peripheral edema and it is worth continuing conservative measures such as leg elevation and compression stockings. 2. Cardiomyopathy: As noted above an element of LV and RV dysfunction. We are continuing Jardiance. Blood pressure improved. If she demonstrates a sustained improvement in blood pressure we may have an opportunity to reintroduce some medications such as Entresto and beta-elissa. 3. Valvular heart disease: She has an element of mitral valve dysfunction which is not severe. However, she is reported to have severe tricuspid regurgitation which likely also contributes to her symptoms of RV failure. I do not think she is a good candidate for any valvular intervention. 4. Atrial fibrillation: Persistent. Started on amiodarone. Beta-blockers discontinued primarily due to worsening hypotension.. Overall rate control appears adequate. Continue systemic anticoagulation. Blood pressure improved today. Midodrine discontinued. Limited ambulation still benign. I think 400 mg twice daily of amiodarone for another 5 days then reduce the dose to 200 mg daily. She will continue apixaban. She can be seen in the outpatient setting for more intensive management of mildly reduced LV systolic function. Admission and Anticipated Discharge Date Admission Date: September 10, 2024 Subjective This afternoon patient clinically feeling well. She reported ambulating to the bathroom with assistance. Still some dyspnea. No orthopnea. No chest pain. No sense of palpitation. She denied any dizziness. Review of Systems Review of Systems: Per HPI Physical Exam Physical Exam: She is alert and oriented to person. She had some insight into her current position and was aware of potential discharge tomorrow. HEENT: Sclerae are anicteric. Pupils are equal and reactive to light and accommodation. Extraocular movements were intact. Neuro: Cranial nerves intact Lungs: Normal respiratory effort with reduced breath sounds at the bases bilaterally. No rales. Normal respiratory effort. Cardiac: Irregular rhythm. Holosystolic murmur. Extremities: Patient has bilateral radial pulses that are equal in intensity. There is no evidence cyanosis or clubbing. Mild lower extremity edema. Surgical stockings in place. Skin: There are no rashes noted on examination today. Results & Data Vital Signs (Past 12 Hours) Vital Signs Temp Pulse Pulse Resp BP Pulse Ox O2 Del Method 09/17/24 15:37 36.3 C L 90 16 122/78 97 Room Air 09/17/24 13:02 92 H 09/17/24 11:32 36.3 C L 80 16 111/73 91 Room Air 09/17/24 07:41 36.0 C L 87 20 105/66 96 Room Air 09/17/24 06:45 91 H Laboratory Results Abnormal Lab Results 09/17/24 08:29 WBC 3.52 L RBC 3.75 L Hgb 10.9 L Hct 32.8 L MCV 87.5 MCH 29.1 MCHC 33.2 RDW Std Deviation 46.6 H RDW Coeff of Fiona 14.7 H Plt Count 218 MPV 9.8 Immature Gran % (Auto) 0.3 Neut % (Auto) 69.3 Lymph % (Auto) 17.3 Mccormick % (Auto) 8.0 Eos % (Auto) 4.0 Baso % (Auto) 1.1 Neut # (Auto) 2.44 Lymph # (Auto) 0.61 L Mccormick # (Auto) 0.28 Eos # (Auto) 0.14 Baso # (Auto) 0.04 Immature Gran # (Auto) 0.01 Sodium 125 L Potassium 4.3 Chloride 92 L Carbon Dioxide 27 Anion Gap 6 BUN 21 Creatinine 1.06 Est Cr Clr Drug Dosing 29.3 eGFR 51.48 BUN/Creatinine Ratio 19.8 Glucose 77 Calcium 8.7 Magnesium 1.8 B-Natriuretic Peptide 306 H PG Care Time/CCT Total # of Minutes Spent Total Time Spent with Patient: Total time spent is greater than 50% in coordination of care (as documented) at patient's floor/unit and/or counseling patient: Coding Level of Care Code 62910 SUB INP/OBS CARE 2/35MIN Diagnoses CHF (congestive heart failure) I50.9 Paroxysmal atrial fibrillation I48.0 Atrial fibrillation type: paroxysmal Valvular heart disease I38 (2) Atrial fibrillation Atrial fibrillation type: paroxysmal Qualified Code(s): I48.0 - Paroxysmal atrial fibrillation
[2024-09-17] MEDS ORDERED: NITROFURANTOIN MONOHYDRATE 100 MG CAP PO SCH (21:00)
[2024-09-17] MEDS: SULFAMETHOXAZOLE/TRIMETHOPRIM DS 800/160MG TAB PO SCH (21:34)
[2024-09-18 04:56] LABS: Anion Gap 7.0 (3-11); Blood Urea Nitrogen 21.0 mg/dl (6-23); Calcium 8.5 mg/dl (8.6-10.3); Carbon Dioxide 24.0 mmol/L (21-32); Chloride 93.0 mmol/L (98-107); Creatinine Clr Calc Pharmacy 29.3 ml/min; Glucose 75.0 mg/dl (70-99(Fasting)); Potassium 4.1 mmol/L (3.5-5.1); Sodium 124.0 mmol/L (136-145)
--- NOTE | 2024-09-18 08:07 | Nephrology Consultation ---
Date of Consultation September 18, 2024 Assessment & Plan (1) Chronic hyponatremia: Chronic, moderate. Hypervolemic - increased TBW but decreased EAV. Complicated by underlying heart disease. No concerning symptoms. Avoid correction >0.5 mmol/L/hr or >8 mEq/24 hours. Start a free water restriction of 1.5 L daily. 3% NaCl 100 ml x 1 dose now. Under treatment of hypothyroidism potentially contributing. I would encourage increasing dose of levothyroxine. Monitor serum sodium q 4-6 hours. Repeat ordered for this afternoon. Continue furosemide to encourage slightly negative fluid balance. (2) Acute heart failure with mildly reduced ejection fraction (HFmrEF, 41-49%): Diuretics per hospitalist and primary team. (3) Hypothyroidism: TSH 16. Levothyroxine has not been adjusted due to possible sick-syndrome. I would encourage increasing the dose in the setting of dysnatremia. (4) Hypotension: (5) Atrial fibrillation: History of Present Illness Reason for Consultation: Hyponatremia Requesting Physician: Camacho Lara MD Attending Physician: Camacho Lara MD History of Present Illness Zuly Farrar is an 83 year-old female with dementia, history of colon cancer, Crohn's disease, history of CVA, HFmrEF, valvular heart disease (mitral and TR), atrial fibrillation, and chronic hyponatremia. Zuly presented to [facility] on September 10 with BL LE edema and shortness of breath. Rapid atrial fibrillation noted on admission. Now being maintained on amiodarone. Diuretics started on admission then held due to hypotension and concern for intravascular volume depletion. She received an additional 20 mg IV furosemide yesterday. Zuly is being treated for a UTI with ceftriaxone. Nephrology consultation requested today for hyponatremia. Serum sodium 125 mmol/L on admission and 124 mmol/L currently. Electrolytes otherwise normal. Serum creatinine 1.0 mg/dL. ROS is notable for poor appetite. Edema improving. No nausea, vomiting or diarrhea. Denies significant dyspnea. No chest pains or palpitations. Allergies Allergy/AdvReac Type Severity Reaction Status Date / Time codeine Allergy Mild LIGHTHEADED Verified 07/02/24 09:40 NESS verapamil Allergy Mild PALPITATION Verified 07/02/24 09:40 S Home Medications Medication Instructions Recorded Confirmed Type cholecalciferol (vitamin D3) 50 2,000 unit PO DAILY 05/31/20 09/10/24 History mcg (2,000 unit) capsule multivitamin 1 tab PO DAILY 10/25/21 09/10/24 History rosuvastatin 20 mg tablet (Crestor) 20 mg PO DAILY 90 days #90 tabs 03/14/23 09/10/24 Rx alendronate 70 mg tablet 70 mg PO WK #12 tabs 04/26/23 09/10/24 Rx donepezil 5 mg tablet 5 mg PO DAILY #30 tabs 12/02/23 09/10/24 Rx amoxicillin 500 mg tablet 2,000 mg PO ONCE PRN dental 12/18/23 09/10/24 History appointments apixaban 2.5 mg tablet (Eliquis) 2.5 mg PO BID #60 tabs 01/24/24 09/10/24 Rx docusate sodium 100 mg capsule 100 mg PO BID #14 caps 01/24/24 09/10/24 Rx magnesium oxide 400 mg PO BID #60 caps 01/24/24 09/10/24 Rx eric.stocking,thigh,reg,med #2 ea 02/13/24 02/13/24 Rx diaper,brief,adult,disposable #80 ea 02/13/24 02/13/24 Rx (Prevail Brief Medium) ferrous sulfate 325 mg (65 mg 325 mg PO .MON,TUES,TH,SAT 07/02/24 09/10/24 History iron) tablet (FeroSul) levothyroxine 75 mcg tablet 88 mcg PO DAILY 07/02/24 09/10/24 History ondansetron HCl 4 mg tablet 4 mg PO Q8H PRN nausea and vomiting 07/02/24 09/10/24 History Anti Acid Chew 1,000 mg PO DAILY 09/10/24 09/10/24 History acetaminophen 500 mg tablet 1,000 mg PO BID 09/10/24 09/10/24 History (Tylenol Extra Strength) empagliflozin 10 mg tablet 10 mg PO QAM #30 tabs 09/17/24 Rx (Jardiance) Patient History Medical History ROSALIND (acute kidney injury) Malignant neoplasm of colon, unspecified Encounter for pre-operative examination Osteoarthritis Osteoporosis History of kidney stones On anticoagulant therapy eliquis daily Ocular migraine Hypertension Hyperlipidemia Palpitations Surgical History History of colon surgery 06/2008 Previous back surgery 11/07/2012 History of incision and drainage right arm--infected after fx History of total left knee replacement (TKR) History of total right knee replacement (TKR) History of esophagogastroduodenoscopy (EGD) History of colonoscopy with polypectomy History of colectomy subtotal with ileocolic anastomosis History of cardiac cath 04/2010 Dr. Linn @ [facility], no stents History of tooth extraction all teeth History of tonsillectomy History of bilateral cataract extraction History of mitral valve repair 04/2012 [place] [facility] [place] History of appendectomy History of kyphoplasty History of Percutaneous Vertebral Augmentation Kyphoplasty History of umbilical hernia repair History of cholecystectomy Family History Sister Hearing loss Breast cancer Cancer Grandmother (Paternal) No problems noted. Father No problems noted. Sister Osteoporosis Brother Osteoporosis Mother Osteoporosis Other No family history of adverse response to anesthesia Denies family history of Ovarian cancer Prostate cancer Myocardial infarction Colorectal cancer Social History Smoking Status: Never smoker Second Hand Exposure: No; Do You Dip or Chew Tobacco: No; Tobacco Cessation Education Requested by Patient: No Hx Alcohol Use: No Hx Substance Use: No Preferred Language: Nauruan Communication Ability: Effective Hearing Ability: Normal Circular Tank Cooper Required: No Beliefs That Will Affect Care: None marital status: / Current Living Situation: Alone Current Living Situation Comment: daughter current occupational status: retired How many Children do You have: 1 Other Information That Helps Us Care for You: No Feels Safe at Home: Yes Safety Concerns: Feels Safe At This Time Childhood Exposure to Second-Hand Smoke: No Diet: regular caffeine: No Dental Care, Regularly: Yes Physical Activity Frequency: Does not Exercise Seatbelt Use: always Sunscreen Use: No Assistive Devices: Walker and Wheelchair Review of Systems Review of Systems: All systems reviewed & are unremarkable except as noted in HPI & below Physical Exam Constitutional: + thin and + frail appearing Eyes: + anicteric sclerae ENMT: Mouth: oral mucous membranes not dry Neck: normal visual inspection Respiratory: normal respiratory effort; no respiratory distress Cardiovascular: Rate/Rhythm: + irregularly irregular Heart Sounds: normal S1, normal S2 and + murmur Extremities: + edema Musculoskeletal: Extremities: no cyanosis and no clubbing Skin: + turgor decreased; no jaundice Neurologic: Motor/Sensory: no tremor and no asterixis Psychiatric: Orientation: alert and oriented to person Results & Data Vital Signs (Past 12 Hours) Vital Signs Temp Pulse Pulse Resp BP Pulse Ox O2 Del Method 09/18/24 06:45 91 H 09/18/24 03:44 36.5 C 70 18 104/65 97 Room Air 09/17/24 23:37 36.3 C L 91 H 18 136/78 97 Room Air 09/17/24 22:29 66 Diagnostic Findings Laboratory Results - last 24 hr 09/17/24 09/17/24 09/18/24 08:29 16:25 04:06 WBC 3.52 L RBC 3.75 L Hgb 10.9 L Hct 32.8 L MCV 87.5 MCH 29.1 MCHC 33.2 RDW Std Deviation 46.6 H RDW Coeff of Fiona 14.7 H Plt Count 218 MPV 9.8 Immature Gran % (Auto) 0.3 Neut % (Auto) 69.3 Lymph % (Auto) 17.3 [place] % (Auto) 8.0 Eos % (Auto) 4.0 Baso % (Auto) 1.1 Neut # (Auto) 2.44 Lymph # (Auto) 0.61 L [place] # (Auto) 0.28 Eos # (Auto) 0.14 Baso # (Auto) 0.04 Immature Gran # (Auto) 0.01 Sodium 125 L 124 L Potassium 4.3 4.1 Chloride 92 L 93 L Carbon Dioxide 27 24 Anion Gap 6 7 BUN 21 21 Creatinine 1.06 1.06 Est Cr Clr Drug Dosing 29.3 29.3 eGFR 51.48 51.48 BUN/Creatinine Ratio 19.8 19.8 Glucose 77 75 Osmolality Calcium 8.7 8.5 L Magnesium 1.8 B-Natriuretic Peptide 306 H Ur Random Sodium 89 09/18/24 07:15 WBC RBC Hgb Hct MCV MCH MCHC RDW Std Deviation RDW Coeff of Fiona Plt Count MPV Immature Gran % (Auto) Neut % (Auto) Lymph % (Auto) [place] % (Auto) Eos % (Auto) Baso % (Auto) Neut # (Auto) Lymph # (Auto) [place] # (Auto) Eos # (Auto) Baso # (Auto) Immature Gran # (Auto) Sodium Potassium Chloride Carbon Dioxide Anion Gap BUN Creatinine Est Cr Clr Drug Dosing eGFR BUN/Creatinine Ratio Glucose Osmolality 269 L Calcium Magnesium B-Natriuretic Peptide Ur Random Sodium PG Care Time/CCT Total # of Minutes Spent Total Time Spent with Patient: Total time spent is greater than 50% in coordination of care (as documented) at patient's floor/unit and/or counseling patient: Coding Level of Care Code 44559 IN/OBS CONSULT LVL 5,80M Diagnoses Chronic hyponatremia E87.1 Acute heart failure with mildly reduced ejection fraction (HFmrEF, 41-49%) I50.21 Hypothyroidism E03.9 Hypotension I95.9 Paroxysmal atrial fibrillation I48.0 Atrial fibrillation type: paroxysmal (5) Atrial fibrillation Atrial fibrillation type: paroxysmal Qualified Code(s): I48.0 - Paroxysmal atrial fibrillation
[2024-09-18] MEDS ORDERED: STAT IV/IM STA ×2 (08:50→17:08)
[2024-09-18] MEDS: SODIUM CHLORIDE 3 % 100 ML IV ONE (09:34)
--- NOTE | 2024-09-18 11:05 | Cardiology Progress Note ---
Date of Service September 18, 2024 Assessment & Plan (1) CHF (congestive heart failure): (2) Atrial fibrillation: (3) Valvular heart disease: Plan 1. Congestive heart failure: She has an element of right-sided and left-sided heart failure. Managed primarily with diuretics and Jardiance. Other medications discontinued due to an element of hypotension. Are not sure we need to reintroduce metoprolol or Entresto at this time. I think she is best served by either a small daily dose of diuretic or as needed use of diuretics based on her weight and edema. 2. Cardiomyopathy: As noted above an element of LV and RV dysfunction. We are continuing Jardiance. Blood pressure improved. I do not think there is an urgent indication for more medical therapy at this point. She could be evaluated in the outpatient setting for reintroduction of Entresto or beta- blockade. 3. Valvular heart disease: She has an element of mitral valve dysfunction which is not severe. 4. Atrial fibrillation: Persistent. Started on amiodarone. Overall rate control appears adequate. Continue systemic anticoagulation. Overall she continues to improve. Stable edema. She did receive a dose of diuretic yesterday. Again, she could easily be switched to a small dose of daily diuretic or as needed oral diuretics at her facility. I will continue amiodarone for 100 mg twice daily for another 4 days and then reduce to 200 mg daily. We can readdress her need for beta-blockade and Entresto in the outpatient setting. I will be off service for the next 2 days. Please contact the on-call [facility] lamination inspector for additional questions or acute matters. Thank you Admission and Anticipated Discharge Date Admission Date: September 10, 2024 Subjective This morning patient seen more alert. She had better insight into her current condition and was disappointed that she is not being transferred out of the hospital today. She was tired of sitting up in a chair. She does not report any worsening dyspnea recently. Some shortness of breath with ambulation. No orthopnea. No dizziness. Review of Systems Review of Systems: Per HPI Physical Exam Physical Exam: She is alert and oriented to person. She had some insight into her current position and was aware of potential and need for treatment of her sodium. HEENT: Sclerae are anicteric. Pupils are equal and reactive to light and accommodation. Extraocular movements were intact. Neuro: Cranial nerves intact Lungs: Normal respiratory effort with reduced breath sounds at the bases bilaterally. No rales. Normal respiratory effort. Cardiac: Irregular rhythm. Holosystolic murmur. Extremities: Patient has bilateral radial pulses that are equal in intensity. There is no evidence cyanosis or clubbing. Mild lower extremity edema. Skin: There are no rashes noted on examination today. Results & Data Vital Signs (Past 12 Hours) Vital Signs Temp Pulse Pulse Resp BP BP Pulse Ox 09/18/24 08:13 36.4 C L 84 17 116/77 95 09/18/24 06:45 91 H 09/18/24 03:44 36.5 C 70 18 104/65 97 09/17/24 23:37 36.3 C L 91 H 18 136/78 97 O2 Del Method 09/18/24 08:13 Room Air 09/18/24 06:45 09/18/24 03:44 Room Air 09/17/24 23:37 Room Air Laboratory Results Abnormal Lab Results 09/17/24 09/18/24 09/18/24 16:25 04:06 07:15 Sodium 124 L Potassium 4.1 Chloride 93 L Carbon Dioxide 24 Anion Gap 7 BUN 21 Creatinine 1.06 Est Cr Clr Drug Dosing 29.3 eGFR 51.48 BUN/Creatinine Ratio 19.8 Glucose 75 Osmolality 269 L Calcium 8.5 L Ur Random Sodium 89 PG Care Time/CCT Total # of Minutes Spent Total Time Spent with Patient: Total time spent is greater than 50% in coordination of care (as documented) at patient's floor/unit and/or counseling patient: Coding Level of Care Code 11582 SUB INP/OBS CARE 2/35MIN Diagnoses CHF (congestive heart failure) I50.9 Paroxysmal atrial fibrillation I48.0 Atrial fibrillation type: paroxysmal Valvular heart disease I38 (2) Atrial fibrillation Atrial fibrillation type: paroxysmal Qualified Code(s): I48.0 - Paroxysmal atrial fibrillation
[2024-09-18] MEDS: FUROSEMIDE INJ 20 MG/2 ML VIAL IV SCH (12:10)
--- NOTE | 2024-09-18 17:16 | Hospitalist Progress Note ---
Date of Service September 18, 2024 Assessment & Plan (1) Hypotension: (2) Acute heart failure with mildly reduced ejection fraction (HFmrEF, 41-49%): (3) Right heart failure with reduced right ventricular function: (4) Tricuspid regurgitation: (5) Pulmonary hypertension: (6) Crohns disease: (7) Dementia: (8) Atrial fibrillation: (9) S/P partial colectomy: (10) History of mitral valve repair: (11) Thoracic kyphosis: (12) Chronic hyponatremia: Plan 83yo female who presented with intermittent SOB and increased bilateral leg swelling x 2 weeks prior to admission. #Acute HFmrEF with right ventricular systolic dysfunction - -Echo 09/11/2024 -- mildly reduced EF at 45 to 50% with mild global hypokinesis; severe biatrial dilation -EF now mildly reduced when compared to echo from 2021 when EF was 55-60% -not on diuretics at home -received IV diuresis since admission until 09/13 when her hypotension started; diuretics stopped, started again 09/17 as needing to stop SGLT-2 due to UTI, continue Lasix 20mg IV daily -attempts to start GDMT - Entresto and metoprolol failed due to hypotension -will hold Jardiance 10mg qd while treating UTI #Acute on chronic hyponatremia - - I am not clear why this is progressively getting worse with as if still hypervolemic should improve with Lasix although may not be on enough since she doesn't report significant output despite Urine sodium > 70 after Lasix given yesterday (?due to SIADH). I&Os not accurate. Possible SIADH. Will consult nephrology for recommendations. - Chronic hyponatremia with baseline Na ~131 #Hypotension - resolved -started 09/13 -likely 2nd to intravascular volume depletion from diuresis as well as recently GDMT with Entresto/metoprolol ?secondary to UTI although no specific symptoms of this - successful wean of midodrine #Atrial fibrillation - -Dr Gomes recommending amiodarone load -- 400mg BID -cont Eliquis 2.5mg BID #Hypothyroidism - -TSH elevated at 16.140 (however this could be elevated in the setting of acute illness), -normal free T4 -increase to 100 mcg PO daily per nephrology recommendations however the role of hypothyroidism causing hyponatremia is controversial #Anemia of chronic disease - -H/H stable at this time -Hb 10-11 #Crohn's disease and prior h/o colon cancer - -2008 s/p subtotal colectomy with ileocolic anastomosis -patient with chronic, frequent stooling -c diff negative -started colestipol 1gm daily; is helping, but still quite loose -increase to 1gm BID #Dementia - -Continue donepezil #Hyperlipidemia - -Continue rosuvastatin #Hypomagnesemia - -replace/resolved #hernia vs splenomegaly vs other on exam - -in light of colon cancer history consider CT a/p as outpatient -uncertain what I am palpating in the high epigastric region/LUQ updated pt's daughter over the phone 09/18 appreciate PT/OT qiana, will ask for re-evaluation today in light of increasing fatigue appreciate Dr Gomes's assistance VTE Prophylaxis - apixaban Disposition - continue on med/tele while adjusting her CHF medications to avoid hypotension Admission and Anticipated Discharge Date Admission Date: September 10, 2024 Subjective Feels much the same after Lasix given yesterday. No change in fatigue and shortness of breath Physical Exam Constitutional: WD/WN, vitals as above Respiratory: normal respiratory effort; no respiratory distress Auscultat ion: + crackles (bibasal); no wheezes Cardiovascular: Rate/Rhythm: regular rate and + irregularly irregular Heart Sounds: no murmur Extremities: normal capillary refill and + pedal edema (1+ b/l equal); no calf tenderness Gastrointestinal (Abdomen): normal bowel sounds, soft, nontender, no hepatosplenomegaly Psychiatric: A+Ox3, euthymic affect Results & Data Results & Data Vital Signs (Past 12 Hours) Vital Signs Temp Pulse Pulse Resp BP Pulse Ox O2 Del Method 09/18/24 16:14 36.4 C L 84 17 109/71 100 Room Air 09/18/24 13:08 98 H 09/18/24 11:37 36.4 C L 85 17 104/68 97 Room Air 09/18/24 08:13 36.4 C L 84 17 116/77 95 Room Air 09/18/24 06:45 91 H PG Care Time/CCT Total # of Minutes Spent Total Time Spent with Patient: Total time spent is greater than 50% in coordination of care (as documented) at patient's floor/unit and/or counseling patient: Coding Level of Care Code 04452 SUB INP/OBS CARE 350MIN Diagnoses Hypotension I95.9 Acute heart failure with mildly reduced ejection fraction (HFmrEF, 41-49%) I50.21 Right heart failure with reduced right ventricular function I50.810 Tricuspid regurgitation I07.1 Pulmonary hypertension I27.20 Crohns disease K50.90 Dementia F03.90 Paroxysmal atrial fibrillation I48.0 Atrial fibrillation type: paroxysmal S/P partial colectomy Z90.49 History of mitral valve repair Z98.890 Thoracic kyphosis M40.204 Chronic hyponatremia E87.1 (8) Atrial fibrillation Atrial fibrillation type: paroxysmal Qualified Code(s): I48.0 - Paroxysmal atrial fibrillation
[2024-09-18] MEDS: SODIUM CHLORIDE 3 % 150 ML IV ONE (17:30)
[2024-09-18] MEDS: SULFA/TRIMETH 400/80MG TAB PO SCH (20:43)
[2024-09-19] MEDS: LEVOTHYROXINE SODIUM 100 MCG TABLET PO SCH (05:25)
[2024-09-19 07:52] LABS: Anion Gap 7.0 (3-11); Blood Urea Nitrogen 27.0 mg/dl (6-23); Calcium 8.6 mg/dl (8.6-10.3); Carbon Dioxide 25.0 mmol/L (21-32); Chloride 96.0 mmol/L (98-107); Creatinine Clr Calc Pharmacy 30.7 ml/min; Glucose 76.0 mg/dl (70-99(Fasting)); Potassium 4.3 mmol/L (3.5-5.1); Sodium 128.0 mmol/L (136-145)
[2024-09-19] MEDS ORDERED: STAT IV/IM STA ×2 (07:53→16:14)
[2024-09-19] MEDS: FUROSEMIDE INJ 20 MG/2 ML VIAL IV SCH (08:37)
[2024-09-19] MEDS ORDERED: FUROSEMIDE INJ 20 MG/2 ML VIAL IV SCH (09:00)
[2024-09-19] MEDS: SODIUM CHLORIDE 3 % 150 ML IV ONE ×2 (10:07→16:28)
[2024-09-19] MEDS: ADVANCED PROBIOTIC 625 MG CAPSULE PO SCH (10:11)
--- NOTE | 2024-09-19 11:08 | Nephrology Progress Note ---
Date of Service September 19, 2024 Assessment & Plan (1) Chronic hyponatremia: Plan: Chronic, moderate. Hypervolemic - increased TBW but decreased EAV. Complicated by underlying heart disease. Appetite remains very poor. Sodium is correcting at acceptable rate with hypertonic boluses. Maintain free water restriction. Additional 3% saline bolus ordered this AM. Repeat labs this afternoon. Plan of care discussed with Dr. Lara this AM. Levothyroxine increased to 100 mcg daily yesterday. Continue furosemide to encourage slightly negative fluid balance. (2) Acute heart failure with mildly reduced ejection fraction (HFmrEF, 41-49%): Plan: Diuretics per hospitalist and cardiology. (3) Hypothyroidism: Plan: Levothyroxine dose increased yesterday. (4) Atrial fibrillation: Admission and Anticipated Discharge Date Admission Date: September 10, 2024 Subjective No acute events overnight. Zuly was resting comfortably in bed this AM. She is experiencing some diarrhea and persistent nausea. Appetite remains poor. She denies dyspnea. Weakness persists. Review of Systems Review of Systems: All systems reviewed & are unremarkable except as noted in HPI & below Physical Exam Constitutional: + thin and + frail appearing Eyes: + anicteric sclerae ENMT: Mouth: oral mucous membranes not dry Neck: normal visual inspection Respiratory: normal respiratory effort; no respiratory distress Cardiovascular: Rate/Rhythm: + irregularly irregular Heart Sounds: normal S1, normal S2 and + murmur Extremities: + edema Musculoskeletal: Extremities: no cyanosis and no clubbing Skin: + turgor decreased; no jaundice Neurologic: Motor/Sensory: no tremor and no asterixis Psychiatric: Orientation: alert and oriented to person Results & Data Vital Signs (Past 12 Hours) Vital Signs Temp Pulse Pulse Resp BP Pulse Ox O2 Del Method 09/19/24 07:28 36.5 C 78 16 116/71 94 Room Air 09/19/24 05:30 76 09/19/24 03:32 36.3 C L 81 18 104/62 97 Room Air 09/18/24 23:07 36.5 C 84 18 104/62 98 Room Air Laboratory Results Laboratory Results - last 24 hr 09/18/24 09/18/24 09/18/24 14:09 19:47 Unknown Sodium 125 L 127 L Potassium Chloride Carbon Dioxide Anion Gap BUN Creatinine Est Cr Clr Drug Dosing eGFR BUN/Creatinine Ratio Glucose Calcium B-Natriuretic Peptide Urine Osmolality 338 L Ur Random Sodium 81 08/09/25 07:13 Sodium 128 L Potassium 4.3 Chloride 96 L Carbon Dioxide 25 Anion Gap 7 BUN 27 H Creatinine 1.11 Est Cr Clr Drug Dosing 30.7 eGFR 48.71 BUN/Creatinine Ratio 24.3 H Glucose 76 Calcium 8.6 B-Natriuretic Peptide 331 H Urine Osmolality Ur Random Sodium PG Care Time/CCT Total # of Minutes Spent Total Time Spent with Patient: Total time spent is greater than 50% in coordination of care (as documented) at patient's floor/unit and/or counseling patient: Coding Level of Care Code 14777 SUB INP/OBS CARE 3/50MIN Diagnoses Chronic hyponatremia E87.1 Acute heart failure with mildly reduced ejection fraction (HFmrEF, 41-49%) I50.21 Hypothyroidism E03.9 Paroxysmal atrial fibrillation I48.0 Atrial fibrillation type: paroxysmal (4) Atrial fibrillation Atrial fibrillation type: paroxysmal Qualified Code(s): I48.0 - Paroxysmal atrial fibrillation
[2024-09-19 12:45] LABS: Cdiff Toxin B Gene (2yr or >) Negative Cdiff Gene (Neg)
--- NOTE | 2024-09-19 17:45 | Hospitalist Progress Note ---
Date of Service September 19, 2024 Assessment & Plan (1) Hypotension: (2) Acute heart failure with mildly reduced ejection fraction (HFmrEF, 41-49%): (3) Right heart failure with reduced right ventricular function: (4) Tricuspid regurgitation: (5) Pulmonary hypertension: (6) Crohns disease: (7) Dementia: (8) Atrial fibrillation: (9) S/P partial colectomy: (10) History of mitral valve repair: (11) Thoracic kyphosis: (12) Chronic hyponatremia: Plan 83yo female who presented with intermittent SOB and increased bilateral leg swelling x 2 weeks prior to admission. #Acute HFmrEF with right ventricular systolic dysfunction - -Echo 09/11/2024 -- mildly reduced EF at 45 to 50% with mild global hypokinesis; severe biatrial dilation -EF now mildly reduced when compared to echo from 2021 when EF was 55-60% -not on diuretics at home -received IV diuresis since admission until 09/13 when her hypotension started; diuretics stopped, started again 09/17 as needing to stop SGLT-2 due to UTI, continue Lasix 20mg IV daily - may need higher dose with BNP increasing and having hypertonic saline -attempts to start GDMT - Entresto and metoprolol failed due to hypotension -will hold Jardiance 10mg qd while treating UTI -weight increased today although this was a bedside and not standing weight, BNP increased, will repeat again tomorrow -daily standing weight #Acute on chronic hyponatremia - - Chronic hyponatremia with baseline Na ~131, ?SIADH as not improving with diuresis ?due to not enough diuresis, improving with hypertonic saline, hopefully will continue to stay up with fluid restriction #Diarrhea watery - will retest for c. diff as now on antibiotics ?antibiotic associated diarrhea - start lactobacillus ?worsening crohns - will get CRP with AM labs Stop docusate and magnesium supplementation #Hypotension - resolved -started 09/13 -likely 2nd to intravascular volume depletion from diuresis as well as recently GDMT with Entresto/metoprolol ?secondary to UTI although no specific symptoms of this - successful weaned of midodrine #Atrial fibrillation - -Dr Gomes recommended amiodarone load -- 400mg BID -cont Eliquis 2.5mg BID #Hypothyroidism - -TSH elevated at 16.140 (however this could be elevated in the setting of acute illness), -normal free T4 -increase to 100 mcg PO daily per nephrology recommendations however the role of hypothyroidism causing hyponatremia is controversial #Anemia of chronic disease - -H/H stable at this time -Hb 10-11 #Crohn's disease and prior h/o colon cancer - -2008 s/p subtotal colectomy with ileocolic anastomosis -patient with chronic, frequent stooling -c diff negative -started colestipol 1gm daily; is helping, but still quite loose -increase to 1gm BID #Dementia - -Continue donepezil #Hyperlipidemia - -Continue rosuvastatin #Hypomagnesemia - -replace/resolved #hernia vs splenomegaly vs other on exam - -in light of colon cancer history consider CT a/p as outpatient -uncertain what I am palpating in the high epigastric region/LUQ VTE Prophylaxis - apixaban Disposition - continue on med/tele, improving low Na, patient getting weaker and more fatigued, may need inpatient rehabilitation Admission and Anticipated Discharge Date Admission Date: September 10, 2024 Subjective She continues to feel worse every day getting weaker. Diarrhea is getting more watery. No chest pain or shortness of breath. No one sided weakness, no facial droop. Discussed with daughter over the phone and agrees she appears to be getting worse despite increasing sodium levels. Physical Exam Constitutional: well developed; + not well nourished and no acute distress ENMT: Mouth: oral mucous membranes not dry Respiratory: normal respiratory effort; no respiratory distress Auscultation: + crackles (bibasal); no wheezes Cardiovascular: Rate/Rhythm: regular rate, regular rhythm and + irregularly irregular Heart Sounds: no murmur Extremities: normal capillary refill and + pedal edema (1+ b/l equal); no calf tenderness Gastrointestinal (Abdomen): normal bowel sounds, soft, nontender, no hepatosplenomegaly Psychiatric: Orientation: alert and oriented x 3 Genitourinary: + CVA tenderness Results & Data Results & Data Vital Signs (Past 12 Hours) Vital Signs Temp Pulse Pulse Resp BP Pulse Ox O2 Del Method 09/19/24 16:46 Room Air 09/19/24 15:54 36.4 C L 80 18 117/77 99 Room Air 09/19/24 13:02 86 09/19/24 11:18 36.4 C L 82 17 108/70 97 Room Air 09/19/24 07:28 36.5 C 78 16 116/71 94 Room Air PG Care Time/CCT Total # of Minutes Spent Total Time Spent with Patient: Total time spent is greater than 50% in coordination of care (as documented) at patient's floor/unit and/or counseling patient: Coding Level of Care Code 65463 SUB INP/OBS CARE 2/35MIN Diagnoses Hypotension I95.9 Acute heart failure with mildly reduced ejection fraction (HFmrEF, 41-49%) I50.21 Right heart failure with reduced right ventricular function I50.810 Tricuspid regurgitation I07.1 Pulmonary hypertension I27.20 Crohns disease K50.90 Dementia F03.90 Paroxysmal atrial fibrillation I48.0 Atrial fibrillation type: paroxysmal S/P partial colectomy Z90.49 History of mitral valve repair Z98.890 Thoracic kyphosis M40.204 Chronic hyponatremia E87.1 (8) Atrial fibrillation Atrial fibrillation type: paroxysmal Qualified Code(s): I48.0 - Paroxysmal atrial fibrillation
[2024-09-20 07:41] LABS: Anion Gap 7.0 (3-11); Blood Urea Nitrogen 35.0 mg/dl (6-23); Calcium 8.7 mg/dl (8.6-10.3); Carbon Dioxide 24.0 mmol/L (21-32); Chloride 99.0 mmol/L (98-107); Creatinine Clr Calc Pharmacy 27.2 ml/min; Glucose 76.0 mg/dl (70-99(Fasting)); Magnesium 1.7 mg/dl (1.7-2.4); Potassium 4.7 mmol/L (3.5-5.1); Sodium 130.0 mmol/L (136-145)
[2024-09-20] MEDS: LOPERAMIDE HCL 2 MG CAP PO PRN (10:46)
[2024-09-20] MEDS: SODIUM CHLORIDE 1 GM TABLET PO SCH (10:48)
--- NOTE | 2024-09-20 10:54 | XRay Report ---
XR chest 1V portable HISTORY: 83 years-old Female shortness of breath COMPARISON: 09/17/2024 TECHNIQUE: AP view of the chest FINDINGS: Cardiac silhouette is enlarged. Cardiac valvular prosthesis. Thoracic aortic tortuosity. Limited exam secondary to positioning. No pneumothorax. Pulmonary vascular congestion with interstitial coarsenin g, mildly progressed. Layering pleural effusions with persistent bibasilar consolidation. Bones appea r grossly intact. IMPRESSION: 1. Cardiomegaly with interstitial pulmonary edema mildly progressed from 09/17/2024. 2. Layering pleural effusions with bibasilar consolidation redemonstrated. ACT 112: Negative or not required by law. The above report was generated using voice recognition software. It may contain grammatical, syntax o r spelling errors. Electronically signed by: David Chandra M.D. 09/20/2024 10:52 AM
--- NOTE | 2024-09-20 11:54 | Hospitalist Progress Note ---
Date of Service September 20, 2024 Assessment & Plan (1) Hypotension: (2) Acute heart failure with mildly reduced ejection fraction (HFmrEF, 41-49%): (3) Right heart failure with reduced right ventricular function: (4) Tricuspid regurgitation: (5) Pulmonary hypertension: (6) Crohns disease: (7) Dementia: (8) Atrial fibrillation: (9) S/P partial colectomy: (10) History of mitral valve repair: (11) Thoracic kyphosis: (12) Chronic hyponatremia: Plan 83yo female who presented with intermittent SOB and increased bilateral leg swelling x 2 weeks prior to admission. #Acute HFmrEF with right ventricular systolic dysfunction - -Echo 09/11/2024 -- mildly reduced EF at 45 to 50% with mild global hypokinesis; severe biatrial dilation -EF now mildly reduced when compared to echo from 2021 when EF was 55-60% -not on diuretics at home -received IV diuresis since admission until 09/13 when her hypotension started; diuretics stopped, started again 09/17 as needing to stop SGLT-2 due to UTI, continue Lasix 20mg IV daily - despite increasing BNP her Lung POCUS appears mostly clear, leg swelling is stable, will get repeat CXR to compare -attempts to start GDMT - Entresto and metoprolol failed due to hypotension -will hold Jardiance 10mg qd while treating UTI -daily standing weight - appears stable #Acute on chronic hyponatremia - - Chronic hyponatremia with baseline Na ~131, ?SIADH as not improving with diuresis ?due to not enough diuresis, improving with hypertonic saline, hopefully will continue to stay up with fluid restriction, appreciate nephrology management #Diarrhea watery - rested for c. diff negative ?antibiotic associated diarrhea - start lactobacillus ?worsening crohns - CRP 2.65, consult gastroenterology Stop docusate and magnesium supplementation #Hypotension - resolved -started 09/13 -likely 2nd to intravascular volume depletion from diuresis as well as recently GDMT with Entresto/metoprolol ?secondary to UTI although no specific symptoms of this - successful weaned of midodrine #Atrial fibrillation - -Dr Gomes recommended amiodarone load -- 400mg BID -cont Eliquis 2.5mg BID #Hypothyroidism - -TSH elevated at 16.140 (however this could be elevated in the setting of acute illness), -normal free T4 -increase to 100 mcg PO daily per nephrology recommendations however the role of hypothyroidism causing hyponatremia is controversial #Anemia of chronic disease - -H/H stable at this time -Hb 10-11 #Crohn's disease and prior h/o colon cancer - -2008 s/p subtotal colectomy with ileocolic anastomosis -patient with chronic, frequent stooling -c diff negative -started colestipol 1gm bid #Dementia - -Continue donepezil #Hyperlipidemia - -Continue rosuvastatin #Hypomagnesemia - -replace/resolved #hernia vs splenomegaly vs other on exam - -in light of colon cancer history consider CT a/p as outpatient -uncertain what I am palpating in the high epigastric region/LUQ VTE Prophylaxis - apixaban Disposition - continue on med/tele, improving low Na, patient getting weaker and more fatigued, may need inpatient rehabilitation Admission and Anticipated Discharge Date Admission Date: September 10, 2024 Subjective No acute events overnight. Zuly states that she feels slightly better this morning. She is breathing comfortably. Watery diarrhea seems to have increased. She denies abdominal pain. 2 x watery bowel movements this AM. Appetite remains poor. Edema improved. Weakness persists. Physical Exam Constitutional: well developed; + not well nourished and no acute distress ENMT: Mouth: oral mucous membranes not dry Respiratory: normal respiratory effort; no respiratory distress Auscultati on: no crackles and no wheezes POCUS - B lines on present bibasal posteriorly, normal A line at anterior axilary line and midclavicular lines b/l Cardiovascular: Rate/Rhythm: regular rate, regular rhythm and + irregularly irregular Heart Sounds: no murmur Extremities: normal capillary refill and + pedal edema (1+ b/l equal); no calf tenderness Gastrointestinal (Abdomen): normal bowel sounds, soft, nontender, no hepa tosplenomegaly Psychiatric: A+Ox3, euthymic affect Results & Data Results & Data Vital Signs (Past 12 Hours) Vital Signs Temp Pulse Pulse Resp BP Pulse Ox O2 Del Method 09/20/24 11:23 36.4 C L 87 18 111/74 95 Room Air 09/20/24 07:28 37.2 C 96 H 16 108/69 93 Room Air 09/20/24 05:19 80 09/20/24 03:43 36.5 C 72 18 112/67 97 Room Air PG Care Time/CCT Total # of Minutes Spent Total Time Spent with Patient: Total time spent is greater than 50% in coordination of care (as documented) at patient's floor/unit and/or counseling patient: Coding Level of Care Code 23715 SUB INP/OBS CARE 2/35MIN Diagnoses Hypotension I95.9 Acute heart failure with mildly reduced ejection fraction (HFmrEF, 41-49%) I50.21 Right heart failure with reduced right ventricular function I50.810 Tricuspid regurgitation I07.1 Pulmonary hypertension I27.20 Crohns disease K50.90 Dementia F03.90 Paroxysmal atrial fibrillation I48.0 Atrial fibrillation type: paroxysmal S/P partial colectomy Z90.49 History of mitral valve repair Z98.890 Thoracic kyphosis M40.204 Chronic hyponatremia E87.1 (8) Atrial fibrillation Atrial fibrillation type: paroxysmal Qualified Code(s): I48.0 - Paroxysmal atrial fibrillation
--- NOTE | 2024-09-20 12:23 | Nephrology Progress Note ---
Date of Service September 20, 2024 Assessment & Plan (1) Chronic hyponatremia: Plan: Chronic, moderate. Hypervolemic - increased TBW but decreased EAV. Appetite remains very poor. Diarrhea contributing. Sodium is correcting. Maintain free water restriction. Oral NaCl 1 gram twice daily started this AM. Repeat labs this afternoon. Levothyroxine dose has been increased. Continue furosemide to encourage slightly negative fluid balance. (2) Acute heart failure with mildly reduced ejection fraction (HFmrEF, 41-49%): Plan: Diuretics per hospitalist and cardiology. (3) Hypothyroidism: Plan: Levothyroxine dose has been adjusted. Admission and Anticipated Discharge Date Admission Date: September 10, 2024 Subjective No acute events overnight. Zuly states that she feels slightly better this morning. She is breathing comfortably. Watery diarrhea seems to have increased. She denies abdominal pain. 2 x watery bowel movements this AM. Appetite remains poor. Edema improved. Weakness persists. Review of Systems Review of Systems: All systems reviewed & are unremarkable except as noted in HPI & below Physical Exam Constitutional: + thin and + frail appearing Eyes: + anicteric sclerae ENMT: Mouth: oral mucous membranes not dry Neck: normal visual inspection Respiratory: normal respiratory effort; no respiratory distress Cardiovascular: Rate/Rhythm: + irregularly irregular Heart Sounds: normal S1, normal S2 and + murmur Extremities: + edema Musculoskeletal: Extremities: no cyanosis and no clubbing Skin: + turgor decreased; no jaundice Neurologic: Motor/Sensory: no tremor and no asterixis Psychiatric: Orientation: alert and oriented to person Results & Data Vital Signs (Past 12 Hours) Vital Signs Temp Pulse Pulse Resp BP Pulse Ox O2 Del Method 09/20/24 11:23 36.4 C L 87 18 111/74 95 Room Air 09/20/24 07:28 37.2 C 96 H 16 108/69 93 Room Air 09/20/24 05:19 80 09/20/24 03:43 36.5 C 72 18 112/67 97 Room Air Laboratory Results Laboratory Results - last 24 hr 09/19/24 09/19/24 09/19/24 10:50 13:52 21:45 Sodium 129 L 129 L Potassium Chloride Carbon Dioxide Anion Gap BUN Creatinine Est Cr Clr Drug Dosing eGFR BUN/Creatinine Ratio Glucose Calcium Phosphorus Magnesium C-Reactive Protein B-Natriuretic Peptide Albumin Stl C. diff Tox B Gene Negative Cdiff Gene Stl C. diff [id number]-NAP1-BI NEGATIVE 09/20/24 06:30 Sodium 130 L Potassium 4.7 Chloride 99 Carbon Dioxide 24 Anion Gap 7 BUN 35 H Creatinine 1.14 Est Cr Clr Drug Dosing 27.2 eGFR 47.18 BUN/Creatinine Ratio 30.7 H Glucose 76 Calcium 8.7 Phosphorus 4.1 Magnesium 1.7 C-Reactive Protein 2.65 H B-Natriuretic Peptide 480 H Albumin 3.0 L Stl C. diff Tox B Gene Stl C. diff [id number]-NAP1-[id number] Diagnostic Findings Laboratory Results - last 24 hr 09/19/24 09/19/24 09/19/24 10:50 13:52 21:45 Sodium 129 L 129 L Potassium Chloride Carbon Dioxide Anion Gap BUN Creatinine Est Cr Clr Drug Dosing eGFR BUN/Creatinine Ratio Glucose Calcium Phosphorus Magnesium C-Reactive Protein B-Natriuretic Peptide Albumin Stl C. diff Tox B Gene Negative Cdiff Gene Stl C. diff [id number]-NAP1-BI NEGATIVE 09/20/24 06:30 Sodium 130 L Potassium 4.7 Chloride 99 Carbon Dioxide 24 Anion Gap 7 BUN 35 H Creatinine 1.14 Est Cr Clr Drug Dosing 27.2 eGFR 47.18 BUN/Creatinine Ratio 30.7 H Glucose 76 Calcium 8.7 Phosphorus 4.1 Magnesium 1.7 C-Reactive Protein 2.65 H B-Natriuretic Peptide 480 H Albumin 3.0 L Stl C. diff Tox B Gene Stl C. diff [id number]-NAP1-BI PG Care Time/CCT Total # of Minutes Spent Total Time Spent with Patient: Total time spent is greater than 50% in coordination of care (as documented) at patient's floor/unit and/or counseling patient: Coding Level of Care Code 87581 SUB INP/OBS CARE 3/50MIN Diagnoses Chronic hyponatremia E87.1 Acute heart failure with mildly reduced ejection fraction (HFmrEF, 41-49%) I50.21 Hypothyroidism E03.9
[2024-09-20] MEDS: FUROSEMIDE INJ 20 MG/2 ML VIAL IV STA (17:01)
[2024-09-21 07:22] LABS: Anion Gap 7.0 (3-11); Blood Urea Nitrogen 40.0 mg/dl (6-23); Calcium 9.0 mg/dl (8.6-10.3); Carbon Dioxide 27.0 mmol/L (21-32); Chloride 97.0 mmol/L (98-107); Creatinine Clr Calc Pharmacy 24.1 ml/min; Glucose 80.0 mg/dl (70-99(Fasting)); Potassium 4.0 mmol/L (3.5-5.1); Sodium 131.0 mmol/L (136-145)
--- NOTE | 2024-09-21 08:59 | Gastrointestinal Consultation ---
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 (1) Diarrhea DDX - Antibiotic associated diarrhea, Chronic diarrhea ? h/o resection, Colitis, ? Crohn's /flare amongst other diagnosis considered. Agree with symptomatic treatment with Lactobacillus and Colestipol. Could consider further evaluation with stool calprotectin that would support Crohns disease activity. Plan to review with covering Barmaid on rounds. Further recommendations to come with Supervising GI provider on medical rounds. Please see co-signature comments. Supervising Physician Co-Signing Physician Notes Pattern atypical for Crohn's disease. Diagnosis made back in 2008 at the time of colon cancer. There were apparently scarred areas of the colon separate from the colon cancer. I do not have this results. This may have included a right hemicolectomy for ileocolonic Crohn's. Though she has had no further evidence of Crohn's on follow-up colonoscopies x 3. Colonoscopy in 2019 showed essentially near subtotal colectomy with an ileal colonic anastomosis in the sigmoid colon. Patient has chronic loose stools up to 3/day which would be expected based on this anatomy. She has also had a gallbladder resection so cholecystectomy or bile salt diarrhea highly probable. She was started on colestipol yesterday thinks her stools may be more solid. I think that this is a good choice. If she does not get continued improvement would also be a candidate for Imodium. At this point the patient does not require evaluation or further therapy for Crohn's. This is more likely an anatomical diarrhea related to extensive colectomy loss of the IC valve and previous cholecystectomy. History of Present Illness Reason for Consultation: watery diarrhea, Crohns Requesting Physician: Dr. 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 During admission she was noted to have frequent stooling. C. diff negative. She was seen on floor with reports of ongoing diarrhea that is chronic 3-5x/day. She notes upon hospitalization it had become more watery with less formed stool. Her C.diff was negative. She was started on Lactobacillus and colestipol with reports that she's having more chunks and formed stool today but it's still watery. She reports that she's been tired and weakness and with this not as much of an appetite. She denies any fevers, chills, abdominal pain, N/V/D, melena or hematochezia. We reviewed her past history of Crohn's. She reports that she was initially diagnosed at [place] 20-30 years ago. She's never been on treatment. Records reviewed. Operative report 06/2008 Dr. Otis Rodgers Subtotal Colectomy with ileocolic anastamosis. Path - Moderate to poorly differentiated adenocarcinoma. Multifocal ulceration and inflammation consistent with Crohns. [address] LN negative. [id number]. Colonoscopy 11/2009 - Colonoscoyp 02/2012 - no tumor seen. Ulcer with Fibinopurulent exudate seen. Non ulcerated focal hyperplastic changes of mucosal surface. Colonoscopy 12/2014 - Benign inflammatory polyp Colonoscopy 2020 Dr. Case Findings: The perianal and digital rectal examinations were normal. There was evidence of a prior end-to-side ileo-colonic anastomosis in the sigmoid colon. This was patent and was characterized by ulceration. The anastomosis was traversed. Non-bleeding internal hemorrhoids were found during retroflexion. The hemorrhoids were small. Impression: - Patent end-to-side ileo-colonic anastomosis, characterized by ulceration. - Non-bleeding internal hemorrhoids. - No specimens collected. Recommendation: - Resume previous diet. - Continue present medications. - No repeat colonoscopy due to age and the absence of advanced adenomas. - Return to primary care physician as previously scheduled. Allergies Allergy/AdvReac Type Severity Reaction Status Date / Time codeine Allergy Mild LIGHTHEADED Verified 07/02/24 09:40 NESS verapamil Allergy Mild PALPITATION Verified 07/02/24 09:40 S Home Medications Medication Instructions Recorded Confirmed Type cholecalciferol (vitamin D3) 50 2,000 unit PO DAILY 05/31/20 09/10/24 History mcg (2,000 unit) capsule multivitamin 1 tab PO DAILY 10/25/21 09/10/24 History rosuvastatin 20 mg tablet (Crestor) 20 mg PO DAILY 90 days #90 tabs 03/14/23 09/10/24 Rx alendronate 70 mg tablet 70 mg PO WK #12 tabs 04/26/23 09/10/24 Rx donepezil 5 mg tablet 5 mg PO DAILY #30 tabs 12/02/23 09/10/24 Rx amoxicillin 500 mg tablet 2,000 mg PO ONCE PRN dental 12/18/23 09/10/24 History appointments apixaban 2.5 mg tablet (Eliquis) 2.5 mg PO BID #60 tabs 01/24/24 09/10/24 Rx docusate sodium 100 mg capsule 100 mg PO BID #14 caps 01/24/24 09/10/24 Rx magnesium oxide 400 mg PO BID #60 caps 01/24/24 09/10/24 Rx eric.stocking,thigh,reg,med #2 ea 02/13/24 02/13/24 Rx diaper,brief,adult,disposable #80 ea 02/13/24 02/13/24 Rx (Prevail Brief Medium) ferrous sulfate 325 mg (65 mg 325 mg PO .MON,TUES,TH,SAT 07/02/24 09/10/24 History iron) tablet (FeroSul) levothyroxine 75 mcg tablet 88 mcg PO DAILY 07/02/24 09/10/24 History ondansetron HCl 4 mg tablet 4 mg PO Q8H PRN nausea and vomiting 07/02/24 09/10/24 History Anti Acid Chew 1,000 mg PO DAILY 09/10/24 09/10/24 History acetaminophen 500 mg tablet 1,000 mg PO BID 09/10/24 09/10/24 History (Tylenol Extra Strength) empagliflozin 10 mg tablet 10 mg PO QAM #30 tabs 09/17/24 Rx (Jardiance) Patient History Medical History (Updated 09/21/24 @ 12:11 by Alex Lubin PA-C) Chronic diarrhea ROSALIND (acute kidney injury) Malignant neoplasm of colon, unspecified Encounter for pre-operative examination Osteoarthritis Osteoporosis History of kidney stones On anticoagulant therapy eliquis daily Ocular migraine Hypertension Hyperlipidemia Palpitations Surgical History History of colon surgery 06/2008 Previous back surgery 11/07/2012 History of incision and drainage right arm--infected after fx History of total left knee replacement (TKR) History of total right knee replacement (TKR) History of esophagogastroduodenoscopy (EGD) History of colonoscopy with polypectomy History of colectomy subtotal with ileocolic anastomosis History of cardiac cath 04/2010 Dr. Linn @ [facility], no stents History of tooth extraction all teeth History of tonsillectomy History of bilateral cataract extraction History of mitral valve repair 04/2012 @ [facility] [place] of appendectomy History of kyphoplasty History of Percutaneous Vertebral Augmentation Kyphoplasty History of umbilical hernia repair History of cholecystectomy Family History Sister Hearing loss Breast cancer Cancer Grandmother (Paternal) No problems noted. Father No problems noted. Sister Osteoporosis Brother Osteoporosis Mother Osteoporosis Other No family history of adverse response to anesthesia Denies family history of Ovarian cancer Prostate cancer Myocardial infarction Colorectal cancer Social History Smoking Status: Never smoker Second Hand Exposure: No; Do You Dip or Chew Tobacco: No; Tobacco Cessation Education Requested by Patient: No Hx Alcohol Use: No Hx Substance Use: No Preferred Language: Hong Konger Communication Ability: Effective Hearing Ability: Normal Hospital Sales Representative Required: No Beliefs That Will Affect Care: None marital status: / Current Living Situation: Alone Current Living Situation Comment: daughter current occupational status: retired How many Children do You have: 1 Other Information That Helps Us Care for You: No Feels Safe at Home: Yes Safety Concerns: Feels Safe At This Time Childhood Exposure to Second-Hand Smoke: No Diet: regular caffeine: No Dental Care, Regularly: Yes Physical Activity Frequency: Does not Exercise Seatbelt Use: always Sunscreen Use: No Assistive Devices: Walker and Wheelchair Review of Systems Review of Systems: See HPI Physical Exam Physical Exam: Constitutional: NAD. Alert. Answering questions appropriately. Respiratory: Breathing is even, non-labored. Lungs fabian are clear to auscultation anteriorly. Cardiovascular: Regular Rate and Rhythm, no murmurs, rubs or gallops appreciated. Gastrointestinal (Abdomen): Normoactive bowel sounds x4, soft, non-distended, non-tender. Musculoskeletal: Lying in bed comfortably. No peripheral edema. Results & Data Vital Signs (Past 12 Hours) Vital Signs Temp Pulse Pulse Resp BP BP Pulse Ox 09/21/24 08:25 97.9 F 87 16 106/67 95 09/21/24 08:08 92 H 102/68 09/21/24 05:31 84 09/21/24 03:34 97.9 F 95 H 20 117/70 94 09/21/24 00:12 97.9 F 79 20 97/60 L 94 09/20/24 21:50 82 09/20/24 21:27 O2 Del Method 09/21/24 08:25 Room Air 09/21/24 08:08 09/21/24 05:31 09/21/24 03:34 Room Air 09/21/24 00:12 Room Air 09/20/24 21:50 09/20/24 21:27 Room Air PG Care Time/CCT Total # of Minutes Spent Total Time Spent with Patient: Total time spent is greater than 50% in coordination of care (as documented) at patient's floor/unit and/or counseling patient: Coding Level of Care Code 44365 IN/OBS CONSULT LVL 3,45M Diagnoses Chronic diarrhea K52.9
--- NOTE | 2024-09-21 10:46 | Nephrology Progress Note ---
Date of Service September 21, 2024 Assessment & Plan (1) Chronic hyponatremia: Plan: Chronic. Sodium improved. Volume status acceptable. Additional NaCl will be held. Maintain 1.2 L daily fluid restriction. Repeat labs tomorrow AM. Continue furosemide to encourage slightly negative fluid balance. (2) Acute heart failure with mildly reduced ejection fraction (HFmrEF, 41-49%): Plan: Diuretics per hospitalist and cardiology. (3) Hypothyroidism: Plan: Levothyroxine dose has been adjusted. Admission and Anticipated Discharge Date Admission Date: September 10, 2024 Subjective No acute events overnight. Zuly well well this AM. She denies fluid retention. She is breathing comfortably. Appetite fair. Diarrhea persists. Review of Systems Review of Systems: All systems reviewed & are unremarkable except as noted in HPI & below Physical Exam Constitutional: + thin and + frail appearing Eyes: + anicteric sclerae ENMT: Mouth: oral mucous membranes not dry Neck: normal visual inspection Respiratory: normal respiratory effort; no respiratory distress Cardiovascular: Rate/Rhythm: + irregularly irregular Heart Sounds: normal S1, normal S2 and + murmur Extremities: + edema (improved) Musculoskeletal: Extremities: no cyanosis and no clubbing Skin: + turgor decreased; no jaundice Neurologic: Motor/Sensory: no tremor and no asterixis Psychiatric: Orientation: alert and oriented to person Results & Data Vital Signs (Past 12 Hours) Vital Signs Temp Pulse Pulse Resp BP BP Pulse Ox 09/21/24 08:25 36.6 C 87 16 106/67 95 09/21/24 08:08 92 H 102/68 09/21/24 05:31 84 09/21/24 03:34 36.6 C 95 H 20 117/70 94 09/21/24 00:12 36.6 C 79 20 97/60 L 94 O2 Del Method 09/21/24 08:25 Room Air 09/21/24 08:08 09/21/24 05:31 09/21/24 03:34 Room Air 09/21/24 00:12 Room Air Laboratory Results Laboratory Results - last 24 hr 09/20/24 09/21/24 16:59 06:24 Sodium 129 L 131 L Potassium 4.0 Chloride 97 L Carbon Dioxide 27 Anion Gap 7 BUN 40 H Creatinine 1.29 H Est Cr Clr Drug Dosing 24.1 eGFR 40.67 BUN/Creatinine Ratio 31.0 H Glucose 80 Calcium 9.0 Phosphorus 4.4 B-Natriuretic Peptide 372 H Albumin 3.2 L PG Care Time/CCT Total # of Minutes Spent Total Time Spent with Patient: Total time spent is greater than 50% in coordination of care (as documented) at patient's floor/unit and/or counseling patient: Coding Level of Care Code 60010 SUB INP/OBS CARE 3/50MIN Diagnoses Chronic hyponatremia E87.1 Acute heart failure with mildly reduced ejection fraction (HFmrEF, 41-49%) I50.21 Hypothyroidism E03.9
--- NOTE | 2024-09-21 19:37 | Hospitalist Progress Note ---
Date of Service September 21, 2024 Assessment & Plan (1) Hypotension: (2) Acute heart failure with mildly reduced ejection fraction (HFmrEF, 41-49%): (3) Right heart failure with reduced right ventricular function: (4) Tricuspid regurgitation: (5) Pulmonary hypertension: (6) Crohns disease: (7) Dementia: (8) Atrial fibrillation: (9) S/P partial colectomy: (10) History of mitral valve repair: (11) Thoracic kyphosis: (12) Chronic hyponatremia: Plan 83yo female who presented with intermittent SOB and increased bilateral leg swelling x 2 weeks prior to admission. #Acute HFmrEF with right ventricular systolic dysfunction - -Echo 09/11/2024 -- mildly reduced EF at 45 to 50% with mild global hypokinesis; severe biatrial dilation -EF now mildly reduced when compared to echo from 2021 when EF was 55-60% -not on diuretics at home -received IV diuresis since admission until 09/13 when her hypotension started; diuretics stopped, started again 09/17 as needing to stop SGLT-2 due to UTI, resumption has led to increasing Cr and although mixed picture with CXR and BNP increasing her POCUS US was mostly clear yesterday with only B lines in lower posterior axillary line therefore suspect we are just drying her out too much and 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 rather than HF -attempts to start GDMT - Entresto and metoprolol failed due to hypotension -will hold Jardiance 10mg qd while treating UTI, will restart on discharge because I think this was keeping her euvolemic -daily standing weight - down to 54.7kg #Acute on chronic hyponatremia - - Chronic hyponatremia with baseline Na ~131, ?SIADH as not improving with diuresis ?due to not enough diuresis, improving with hypertonic saline, hopefully will continue to stay up with fluid restriction, appreciate nephrology management - also added NaCl tablets but not clear she requires this on discharge as may make HF worse #Diarrhea watery - rested for c. diff negative ?antibiotic associated diarrhea - start lactobacillus Stop docusate and magnesium supplementation Appreciate GI consult - no definitive history of Crohn's continue colestipol LIZANDRO and Imodium PRN #Hypotension / UTI - resolved -started 09/13 -likely 2nd to intravascular volume depletion from diuresis as well as recently GDMT with Entresto/metoprolol ?secondary to UTI although no specific symptoms of this - successful weaned of midodrine #Atrial fibrillation - -Dr Gomes recommended amiodarone load -- 400mg BID -cont Eliquis 2.5mg BID #Hypothyroidism - -TSH elevated at 16.140 (however this could be elevated in the setting of acute illness), -normal free T4 -increase to 100 mcg PO daily per nephrology recommendations however the role of hypothyroidism causing hyponatremia is controversial #Anemia of chronic disease - -H/H stable at this time -Hb - #Dementia - -Continue donepezil #Hyperlipidemia - -Continue rosuvastatin #Hypomagnesemia - -replace/resolved #hernia vs splenomegaly vs other on exam - -in light of colon cancer history consider CT a/p as outpatient VTE Prophylaxis - apixaban Disposition - continue on med/tele, improving low Na now stable, Cr increase with diuresis - as long as stable, decreasing tomorrow I will be more confident on her stable outpatient regimen Admission and Anticipated Discharge Date Admission Date: September 10, 2024 Subjective Eating better. Feels much the same, no worsening shortness of breath or leg swelling. On discussion with her daughter over the phone reportedly feels she has improved. Physical Exam Constitutional: WD/WN, vitals as above ENMT: Mouth: oral mucous membranes not dry Respiratory: normal respiratory effort; no respiratory distress Auscultation: no crackles and no wheezes Cardiovascular: Rate/Rhythm: regular rate, regular rhythm and + irregularly irregular Heart Sounds: no murmur Extremities: normal capillary refill and + pedal edema (1+ b/l equal); no calf tenderness Gastrointestinal (Abdomen): normal bowel sounds, soft, nontender, no hepatosplenomegaly Psychiatric: A+Ox3, euthymic affect Results & Data Results & Data Vital Signs (Past 12 Hours) Vital Signs Temp Pulse Pulse Resp BP Pulse Ox O2 Del Method 09/21/24 12:58 82 09/21/24 12:19 36.5 C 98 H 20 111/70 93 Room Air 09/21/24 08:25 36.6 C 87 16 106/67 95 Room Air 09/21/24 08:08 92 H 102/68 PG Care Time/CCT Total # of Minutes Spent Total Time Spent with Patient: Total time spent is greater than 50% in coordination of care (as documented) at patient's floor/unit and/or counseling patient: Coding Level of Care Code 24352 SUB INP/OBS CARE 235MIN Diagnoses Hypotension I95.9 Acute heart failure with mildly reduced ejection fraction (HFmrEF, 41-49%) I50.21 Right heart failure with reduced right ventricular function I50.810 Tricuspid regurgitation I07.1 Pulmonary hypertension I27.20 Crohns disease K50.90 Dementia F03.90 Paroxysmal atrial fibrillation I48.0 Atrial fibrillation type: paroxysmal S/P partial colectomy Z90.49 History of mitral valve repair Z98.890 Thoracic kyphosis M40.204 Chronic hyponatremia E87.1 (8) Atrial fibrillation Atrial fibrillation type: paroxysmal Qualified Code(s): I48.0 - Paroxysmal atrial fibrillation
[2024-09-22 08:14] LABS: Anion Gap 4.0 (3-11); Blood Urea Nitrogen 49.0 mg/dl (6-23); Calcium 8.9 mg/dl (8.6-10.3); Carbon Dioxide 29.0 mmol/L (21-32); Chloride 99.0 mmol/L (98-107); Creatinine Clr Calc Pharmacy 25.0 ml/min; Glucose 82.0 mg/dl (70-99(Fasting)); Potassium 4.6 mmol/L (3.5-5.1); Sodium 132.0 mmol/L (136-145)
[2024-09-22 08:18] VITALS: PULSE 74; RESP 16; TEMP 97.7; O2SAT 94
--- NOTE | 2024-09-22 09:20 | Nephrology Progress Note ---
Date of Service September 22, 2024 Assessment & Plan (1) Chronic hyponatremia: Plan: Sodium improved. Volume status acceptable. Maintain 1.2 L daily fluid restriction. Continue furosemide to encourage slightly negative fluid balance. No additional nephrology recommendations at this time, I will sign-off. Please call with questions or concerns. (2) Acute heart failure with mildly reduced ejection fraction (HFmrEF, 41-49%): Plan: Diuretics per hospitalist and cardiology. (3) Hypothyroidism: Plan: Levothyroxine dose has been adjusted. Admission and Anticipated Discharge Date Admission Date: September 10, 2024 Subjective No acute events overnight. Zuly's appetite remains poor. She was only able to eat a small portion of her breakfast. She continues to endorse liquid/watery stool. No abdominal pain. Review of Systems Review of Systems: All systems reviewed & are unremarkable except as noted in HPI & below Physical Exam Constitutional: + thin and + frail appearing Eyes: + anicteric sclerae ENMT: Mouth: oral mucous membranes not dry Neck: normal visual inspection Respiratory: normal respiratory effort; no respiratory distress Cardiovascular: Rate/Rhythm: + irregularly irregular Heart Sounds: normal S1, normal S2 and + murmur Extremities: + edema (improved) Musculoskeletal: Extremities: no cyanosis and no clubbing Skin: + turgor decreased; no jaundice Neurologic: Motor/Sensory: no tremor and no asterixis Psychiatric: Orientation: alert and oriented to person Results & Data Vital Signs (Past 12 Hours) Vital Signs Temp Pulse Pulse Resp BP BP Pulse Ox 09/22/24 08:17 36.5 C 74 16 110/66 94 09/22/24 05:36 84 09/22/24 04:16 37.0 C 82 20 104/68 93 09/22/24 00:19 37.1 C 81 20 96/62 L 94 09/21/24 21:33 84 O2 Del Method 09/22/24 08:17 Room Air 09/22/24 05:36 09/22/24 04:16 Room Air 09/22/24 00:19 Room Air 09/21/24 21:33 Laboratory Results Laboratory Results - last 24 hr 09/22/24 07:13 Sodium 132 L Potassium 4.6 Chloride 99 Carbon Dioxide 29 Anion Gap 4 BUN 49 H Creatinine 1.24 H Est Cr Clr Drug Dosing 25.0 eGFR 42.65 BUN/Creatinine Ratio 39.5 H Glucose 82 Calcium 8.9 B-Natriuretic Peptide 425 H PG Care Time/CCT Total # of Minutes Spent Total Time Spent with Patient: Total time spent is greater than 50% in coordination of care (as documented) at patient's floor/unit and/or counseling patient: Coding Level of Care Code 87340 SUB INP/OBS CARE 3/50MIN Diagnoses Chronic hyponatremia E87.1 Acute heart failure with mildly reduced ejection fraction (HFmrEF, 41-49%) I50.21 Hypothyroidism E03.9
--- NOTE | 2024-09-22 10:23 | Gastroenterology Progress Note ---
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 (1) Diarrhea DDX - Most likely bile acid. Presentation atypical for Crohns flair. Patient reports that stools are improved in form and less frequent since starting Colestipol. Continue with treatment with Colestipol. Further recommendations to come with Supervising GI provider on medical rounds. Please see co-signature comments. 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 During admission she was noted to have frequent stooling. She was seen on floor with reports of ongoing diarrhea that is chronic 3-5x/day. She notes upon hospitalization it had become more watery with less formed stool. Her C.diff was negative. She was started on Lactobacillus and colestipol with reports that she's having more chunks and formed stool today but it's still watery. She was seen initially on GI service 09/22/24 where it was felt this was most likely bile acid diarrhea given history of CCY and right sided resection. Today she reports that she had one stools that was loose but less urgent and more formed then previous days. She continues to report a generalized weakness and poor appetite. She denies any fevers, chills, abdominal pain, N/V/D, melena or hematochezia. We reviewed her past history of Crohn's. She reports that she was initially diagnosed at [place] 20-30 years ago. She's never been on treatment. Records reviewed. CBC at baseline 09/17/24 - Hgb 10.9g/dl, Hct 32.8%, Plt 218, WBC 3.52 MCV 87 BMP 09/22/24 - Glucose 82, BUN 49, Cr 1.24, CO2 29, Cl 99, Na 132, K 4.6, LFTs WNL 09/10/24 Operative report 06/2008 Dr. Otis Rodgers Subtotal Colectomy with ileocolic anastamosis. Path - Moderate to poorly differentiated adenocarcinoma. Multifocal ulceration and inflammation consistent with Crohns. [address] LN negative. [id number]. Colonoscopy 11/2009 - Colonoscoyp 02/2012 - no tumor seen. Ulcer with Fibinopurulent exudate seen. Non ulcerated focal hyperplastic changes of mucosal surface. Colonoscopy 12/2014 - Benign inflammatory polyp Colonoscopy 2019 DrCammy Case Findings: The perianal and digital rectal examinations were normal. There was evidence of a prior end-to-side ileo-colonic anastomosis in the sigmoid colon. This was patent and was characterized by ulceration. The anastomosis was traversed. Non-bleeding internal hemorrhoids were found during retroflexion. The hemorrhoids were small. Impression: - Patent end-to-side ileo-colonic anastomosis, characterized by ulceration. - Non-bleeding internal hemorrhoids. - No specimens collected. Recommendation: - Resume previous diet. - Continue present medications. - No repeat colonoscopy due to age and the absence of advanced adenomas. - Return to primary care physician as previously scheduled. Review of Systems Review of Systems: See HPI Physical Exam Physical Exam: Constitutional: NAD. Alert. Answering questions appropriately. Respiratory: Breathing is even, non-labored. Lungs fabian are clear to auscultation anteriorly. Cardiovascular: Regular Rate and Rhythm, no murmurs, rubs or gallops appreciated. Gastrointestinal (Abdomen): Normoactive bowel sounds x4, soft, non-distended, non-tender. Musculoskeletal: Lying in bed comfortably. No peripheral edema. Results & Data Results & Data Vital Signs (Past 12 Hours) Vital Signs Temp Pulse Pulse Resp BP BP Pulse Ox 09/22/24 08:17 97.7 F 74 16 110/66 94 09/22/24 05:36 84 09/22/24 04:16 98.6 F 82 20 104/68 93 09/22/24 00:19 98.8 F 81 20 96/62 L 94 O2 Del Method 09/22/24 08:17 Room Air 09/22/24 05:36 09/22/24 04:16 Room Air 09/22/24 00:19 Room Air PG Care Time/CCT Total # of Minutes Spent Total Time Spent with Patient: Total time spent is greater than 50% in coordination of care (as documented) at patient's floor/unit and/or counseling patient: Coding Level of Care Code 55513 SUB INP/OBS CARE 2/35MIN Diagnoses Chronic diarrhea K52.9
[2024-09-22 11:31] LABS: Hematocrit (blood only) 30.0 % (37.0-47.0); Hemoglobin 10.1 g/dl (12.0-16.0); Mean Corpuscular Hemoglobin 29.9 pg (25.0-34.0); Mean Corpuscular Volume 88.8 fL (80.0-100.0); Platelet Count 201 K/uL (130-400); RDW Standard Deviation 47.6 fL (36.4-46.3); Red Blood Count 3.38 M/uL (4.20-5.40); White Blood Count 3.82 K/ul (4.8-10.8)
[2024-09-22 11:38] LABS: Magnesium 1.6 mg/dl (1.7-2.4)
--- NOTE | 2024-09-22 11:46 | Discharge Summary ---
Discharge Summary Date of Service September 22, 2024 Principal Dx & Hospital Course #1 = Principal Diagnosis (1) Acute heart failure with mildly reduced ejection fraction (HFmrEF, 41-49%): (2) SIADH (syndrome of inappropriate ADH production): (3) Right heart failure with reduced right ventricular function: (4) Hypotension: (5) Atrial fibrillation: Bhavin Farrar is an 83 year old female admitted to [facility] from September 10 to September 22, 2024 due to acute on chronic heart failure with reduced ejection fraction. Attempts at diuresis with goal-directed medical therapy (metoprolol + Entresto) caused hypotension. Further attempts at diuresis with Lasix without hypotension eventually caused increasing Cr therefore suspect we have reached her dry weight. She now appears to be stable on Jardiance alone without further Lasix for diuresis (Cr improving on discharge). She should follow-up with the heart failure clinic and cardiology regarding this. She was also diagnosed with atrial fibrillation with rapid ventricular rates (atrial fibrillation not a new diagnosis but previously paroxysmal). She was seen by cardiology and recommended starting on amiodarone which will be continued on discharge. Her TSH was elevated (16.140) in setting of hyponatremia therefore levothyroxine has been increased. She was also having ongoing diarrhea. She was seen by gastroenterology and did not suspect this is Crohn's disease. She was started on colestipol which can be increased as an outpatient. She can additionally use Imodium as needed for diarrhea. Docusate was discontinued. Recommend she follows up with gas troenterology regarding this. She also developed worsening hyponatremia (124) unrelated to her fluid status therefore suspect she has underlying SIADH which improved with hypertonic saline, fluid restriction and NaCl tabs (having 1g BID during inpatient admission but suspect she'll only need 1g daily on discharge). Please closely follow her sodium concentration on discharge and consider stopping sodium tabs as possibly acute deterioration during admission due to antibiotics/UTI now resolved. She should continue on a fluid restricted diet of 1.2 L/day until follow up. Notes For Next Care Provider TSH 4-6 weeks - levothyroxine increased during admission BMP in 1-2 weeks to check sodium levels Consider CT A/P - LUQ hernia vs splenomegaly felt by provider during admission Follow up nephrology for hyponatremia Follow up gastroenterology for diarrhea Follow up cardiology and heart failure clinic for her atrial fibrillation and heart failure Medication Changes From Visit Amiodarone started for a. fib per cardiology recommendations Colestipol LIZANDRO and Imodium PRN added for diarrhea, docusate discontinued Levothyroxine increased to 100mcg PO daily due to hyponatremia with elevated TSH NaCl 1g PO daily for hyponatremia (suspected SIADH) Jardiance started for heart failure Admission HPI Per Admitting Provider Mrs. Farrar is an 83-year-old female with PMH of dementia, stroke, atrial fibrillation (on apixaban), mitral valve replacement, HLD, osteoporosis, depression, migraine with aura, and chronic hyponatremia. 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 Staff at also reported that she was disoriented the morning of admission; however, EMS reported she was A&O x 4 upon arrival. Patient is able to provide history upon arrival. She denies any redness or pain in her lower extremities, but does report that the swelling has worsened so much that her legs began to "ache" at night. No prior history of leg swelling like this. She denies prior history of CHF to her knowledge. Patient took her regular morning medicine today. She reports that she takes Fosamax on Saturday mornings. She is not currently on any diuretics. She does not believe there have been any recent changes in her medications, although manages her medicine at home. She is unsure if there have been any recent changes in weight. Patient does watch what she eats due to her history of Crohn's disease, but does not watch salt intake. For instance, this morning she had 2 pieces of rosenthal and toast with butter/cinnamon; she had a lunch meat sandwich for dinner last night. Patient does not use supplemental oxygen at baseline. No CPAP at night. While she does not feel sick, she does report that something is been going around at [facility], and she may have been around sick contacts. Patient ambulates with her wheelchair at baseline (uses her wheelchair as a walker to get to the bathroom at night). She denies smoking, tobacco use, recent alcohol use. Patient is mildly hypertensive at 147/108 at time of admission; vitals otherwise stable. 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 Patient denies fever, chills, night-sweats, chest pain, SOB at rest, pleuritic CP, abdominal pain, N/V, bright red blood in the urine/stool, or redness/pain in the legs. Discharge Exam Constitutional WD/WN, vitals as above ENMT Mouth: oral mucous membranes not dry Respiratory normal respiratory effort; no respiratory distress Auscultation: no crackles and no wheezes Cardiovascular Rate/Rhythm: regular rate and + irregularly irregular Heart Sounds: no murmur Extremities: normal capillary refill and + pedal edema (1+ b/l equal); no calf tenderness Gastrointestinal (Abdomen) normal bowel sounds, soft, nontender, no hepatosplenomegaly Psychiatric A+Ox3, euthymic affect Discharge Plan Discharge Items Patient Disposition: Personal Longterm Reason For Visit: ACUTE CHF Discharge Diagnosis: Acute heart failure with reduced ejection fraction SIADH (syndrome of inappropriate antidiuretic hormone) causing hyponatremia (low sodium) Diarrhea Condition on Discharge: Fair Activity: Resume your previous activity Non-emergency contact: Primary Care Provider Call non-emergency contact if: you have any medication questions and your symptoms worsen Follow-up/Referrals: Rodriguez Chandler DO [Physician] - (Diarrhea) David Horton DO [Physician] - (Hyponatremia) Gemma Kaufman PA-C [Physician Human Resource Statistician] - (Follow up CHF) Magali Javier MD [Primary Care Provider] - Diet: Regular Fluids: 1200ml (5 cups) Addtl Attending Provider Instructions: You were admitted to [facility] from September 10 to September 22, 2024 due to acute on chronic heart failure with reduced ejection fraction. Attempts at diuresis with goal-directed medical therapy caused hypotension. He now appears to be stable on Jardiance alone without further Lasix for diuresis. Please follow-up with the heart failure clinic and cardiology regarding this. You are also diagnosed with atrial fibrillation with rapid ventricular rates (atrial fibrillation not a new diagnosis but previously paroxysmal). You were seen by cardiology and recommended starting on amiodarone which will be continued on discharge. Recommend you weigh yourself daily and if you gain more than 3 pounds to called at heart failure clinic. Your TSH was elevated therefore levothyroxine has been increased. Please follow- up with your primary care provider regarding this. You are also having ongoing diarrhea. You are seen by gastroenterology and did not suspect this is Crohn's disease. Recommend starting colestipol which can be increased as an outpatient. Please continue to follow-up with gastroenterology regarding this. You can additionally use Imodium as needed for diarrhea. Please stop docusate. You were diagnosed with hyponatremia. Suspect this was due to a syndrome of inappropriate antidiuretic hormone rather than heart failure. You were seen by nephrology and treated with hypertonic saline during your admission and started on salt tablets which you will continue on discharge. Please follow-up with your primary care physician for ongoing management of this. Please continue on a fluid restricted diet of 1.2 L/day. Please follow up with nephrology on discharge. Pending Studies at Discharge: No Stand-Alone Forms: My [employer], Smoking Cessation Skilled Items Patient informed of condition?: Yes DNR: Yes Discharge Level of Care: Other Communicable Disease: No Discharge Prognosis: Stable Lines: None Urinary Catheter: No Medications and DC Order Prescriptions: New Jardiance 10 mg tablet 10 mg PO QAM Qty: 30 0RF loperamide 2 mg Capsule 2 mg PO Q4H PRN (Reason: loose stool) Qty: 30 0RF amiodarone 200 mg tablet 200 mg PO DAILY Qty: 30 0RF sodium chloride 1,000 mg tablet,soluble 1,000 mg PO DAILY Qty: 30 0RF colestipol 1 gram tablet 1 g PO TID Qty: 90 0RF levothyroxine [Synthroid] 100 mcg Tablet 100 mcg PO DAILYBB Qty: 30 0RF Continued rosuvastatin [Crestor] 20 mg tablet 20 mg PO DAILY 90 Days Qty: 90 3RF alendronate 70 mg tablet 70 mg PO WK Qty: 12 3RF Rx Instructions: Saturday cholecalciferol (vitamin D3) 50 mcg (2,000 unit) capsule 2,000 unit PO DAILY Rx Instructions: OTC unable to verify ferrous sulfate [FeroSul] 325 mg (65 mg iron) tablet 325 mg PO .SAT,,,SAT Rx Instructions: 325 mg orally four times a week; ondansetron HCl 4 mg tablet 4 mg PO Q8H PRN (Reason: nausea and vomiting) donepezil 5 mg tablet 5 mg PO DAILY Qty: 30 2RF (DME) eric.stocking,thigh,reg,med Misc See Rx Instructions .Route Qty: 2 0RF Rx Instructions: As directed (DME) Prevail Brief Medium Misc See Rx Instructions .Route Qty: 80 2RF Rx Instructions: As directed multivitamin Tablet 1 tab PO DAILY Rx Instructions: OTC unable to verify magnesium oxide 400 mg magnesium capsule 400 mg PO BID Qty: 60 0RF Eliquis 2.5 mg Tablet 2.5 mg PO BID Qty: 60 0RF Anti Acid Chew 1,000 mg PO DAILY acetaminophen [Tylenol Extra Strength] 500 mg tablet 1,000 mg PO BID amoxicillin 500 mg tablet 2,000 mg PO ONCE PRN (Reason: dental appointments) Rx Instructions: 4 tabs 1 hour prior to procedure. Dental appointments. Discontinued levothyroxine 75 mcg tablet 88 mcg PO DAILY docusate sodium 100 mg Capsule 100 mg PO BID Qty: 14 0RF Discharge Orders: Discharge Order- CHF (Routine); Ordered 09/22/24 Ordered By: Camacho Lara Admission Data Admit Date/Time: 09/10/24 14:47 Attending Provider: Camacho Lara Admit Provider: Vazquez Celis Primary Care Provider: Magali Javier Other Providers: Vazquez Celis; Anatoly Gomes; Linh Banerjee; Adore Rubio Jr Other Interventions: Discharge Summary Assessment (RN) Last Done: 09/22/24 12:47 Hospital Stay Data Consultations 09/10/24 13:36 ED Decision to Admit Stat 09/14/24 14:28 Consult Cardiology Routine 09/18/24 06:50 Consult Nephrology Routine 09/20/24 16:33 Consult Gastroenterology Routine Diagnostic Imagining Performed 09/10/24 12:43 CT head/brain wo con Stat Pending Results Patient Have Any Pending Studies at Discharge: No Discharge Instructions Given to Patient (Per Discharging Provider) You were admitted to [facility] from September 10 to September 22, 2024 due to acute on chronic heart failure with reduced ejection fraction. Attempts at diuresis with goal-directed medical therapy caused hypotension. He now appears to be stable on Jardiance alone without further Lasix for diuresis. Please follow-up with the heart failure clinic and cardiology regarding this. You are also diagnosed with atrial fibrillation with rapid ventricular rates (atrial fibrillation not a new diagnosis but previously paroxysmal). You were seen by cardiology and recommended starting on amiodarone which will be continued on discharge. Recommend you weigh yourself daily and if you gain more than 3 pounds to called at heart failure clinic. Your TSH was elevated therefore levothyroxine has been increased. Please follow- up with your primary care provider regarding this. You are also having ongoing diarrhea. You are seen by gastroenterology and did not suspect this is Crohn's disease. Recommend starting colestipol which can be increased as an outpatient. Please continue to follow-up with gastroenterology regarding this. You can additionally use Imodium as needed for diarrhea. Please stop docusate. You were diagnosed with hyponatremia. Suspect this was due to a syndrome of inappropriate antidiuretic hormone rather than heart failure. You were seen by nephrology and treated with hypertonic saline during your admission and started on salt tablets which you will continue on discharge. Please follow-up with your primary care physician for ongoing management of this. Please continue on a flu id restricted diet of 1.2 L/day. Please follow up with nephrology on discharge. Total Time Total Time Spent Total Time Spent (In Minutes): 50 Coding Level of Care Code 40358 INP/OBS DISCH >30 MIN Diagnoses Acute heart failure with mildly reduced ejection fraction (HFmrEF, 41-49%) I50.21 SIADH (syndrome of inappropriate ADH production) E22.2 Right heart failure with reduced right ventricular function I50.810 Hypotension I95.9 Paroxysmal atrial fibrillation I48.0 Atrial fibrillation type: paroxysmal
[2024-09-22] MEDS: MAGNESIUM SULFATE / D5W 1 GM/100 ML BAG IV ONE (11:56)
[2024-09-22 12:49] VITALS: BP 104/68
== END 2024-09-22 01:15 | disposition home or self-care (01) | DRG 291 ==
LOC: ED 11:41 → EDINP 14:47 → SUATTDRO 14:47 → 2N 19:55

== ENCOUNTER 2024-10-12 05:47 | Inpatient (IN) ==
[2024-10-12 06:18] LABS: Hematocrit (blood only) 28.9 % (37.0-47.0); Hemoglobin 9.9 g/dl (12.0-16.0); Immature Granulocytes # (auto) 0.01 K/uL (0.01-0.20); Immature Granulocytes % (auto) 0.3 %; Mean Corpuscular Hemoglobin 29.6 pg (25.0-34.0); Mean Corpuscular Volume 86.3 fL (80.0-100.0); Platelet Count 202 K/uL (130-400); RDW Standard Deviation 50.0 fL (36.4-46.3); Red Blood Count 3.35 M/uL (4.20-5.40); White Blood Count 3.84 K/ul (4.8-10.8)
--- NOTE | 2024-10-12 06:20 | Emergency Department Note ---
Impression & Plan Chest pain, CHF (congestive heart failure) ED Provider Note Provider: Delvin Waters MD CHIEF COMPLAINT: Chest pain, difficulty breathing HISTORY OF PRESENT ILLNESS: Patient is a 83-year-old female past medical history significant for atrial fibrillation on Eliquis, right-sided heart failure, SIADH, hypothyroidism, Crohn's disease presenting here via ambulance from [facility] where she resides with a complaint of central chest discomfort as well as shortness of breath. States chest pain started around 5 AM this morning is keeping her up and fairly severe. No other radiation of pain. No history of similar by her report. Reports for several days has been short of breath but now breathing hard due to the pain. Reports she has had continued increased swelling of her lower legs. Was recently started on 40 mg of Lasix daily without improvement. Patient received 324 mg of aspirin for EMS as well as 2 sprays of nitro without improvement of symptoms. No falls. PAST MEDICAL HISTORY: As noted above MEDICATIONS: Reviewed medication list from the facility (40 mg of Lasix started on the ) SOCIAL HISTORY: Resides at [facility] PHYSICAL EXAM: GENERAL: alert and oriented in no acute distress on stretcher Head: normocephalic and atraumatic EYES: No injection, discharge or icterus. NECK: Trachea midline. Findings of JVD ENT: Mucous membranes pink and moist. LUNGS: Airway patent. No retractions. Breath sounds with crackles in the bilateral bases HEART: Regular rate and rhythm. No chest wall tenderness ABDOMEN: Soft and non-tender, without guarding or rebound. SKIN: Acyanotic, warm, dry, without rashes EXTREMITIES: 2+ lower extremity edema without significant weeping noted. Some mild stasis changes. NEUROLOGICAL: No focal deficits. No aphasia. No facial droop or slurred speech. Ambulatory. EK bpm atrial fibrillation. No acute ST segment elevation noted with a QTc of 483. CONTINUOUS CARDIAC MONITORING: was ordered and showed a heart rate of 70s to 80s bpm in atrial fibrillation Patient's laboratory studies and imaging reviewed. Differential includes Cardiac ischemia, aortic dissection, pulmonary embolism, pneumothorax, pneumonia, pericarditis, myocarditis, esophageal rupture, GERD, cholecystitis, pancreatitis, musculoskeletal, as well as other pathologies. IMPRESSION/MEDICAL DECISION MAKING: Patient with extensive cardiac history and hospitalization here August through September 12 here for fluid overload and reviewed discharge summary. EKG upon arrival without evidence of STEMI. Patient is anticoagulated lower suspicions for VTE. His breathing is somewhat harder and question for the fluid overload component. Not in RVR in relation to her A-fib. Blood work here stable mild anemia of 9.9. Stable leukopenia 3.8 today with normal platelet count. No significant electrolyte abnormality or signs of new renal dysfunction today. Troponin normal 11.3 similar to previous. BNP 307 similar to previous. No evidence of acute hepatitis or pancreatitis. 1 view chest x-ray obtained here per my interpretation without evidence of pneumothorax or pneumonia. Some bibasilar effusions noted. Will diurese with some additional Lasix here today. On reassessment the patient's pain after some IV fentanyl has only minimally improved things. Given some additional fentanyl and CT scan of the chest was obtained to further evaluate the amount of fluid and exclude occult PE or other pulmonary pathology. Question of a could be an occult sternal or rib fracture although no trauma and CT should help differentiate this as well. CT of the chest without obvious evidence of pneumonia or PE but significant bilateral pleural effusions are noted. Again received 40 mg of IV Lasix here for diuresis. Pain is improved although not totally resolved with deep breathing here on reassessment. Second troponin is ordered but lower suspicion this is acute ACS at this time. 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 Updated patient and daughter and hospitalist was consulted for admission. At this time patient not hypoxic but failing initial outpatient trial of diuresis at facility. DIAGNOSIS: Chest pain, acute CHF DISPOSITION: Hospitalist will evaluate Patient was agreeable with this plan. Past Med/Surg History Problem List (Updated 10/12/24 @ 07:03 by Delvin Waters M.D.) Chest pain (Acute) SIADH (syndrome of inappropriate ADH production) Hypothyroidism Pulmonary hypertension Tricuspid regurgitation Right heart failure with reduced right ventricular function Valvular heart disease Hypotension Acute heart failure with mildly reduced ejection fraction (HFmrEF, 41-49%) CHF (congestive heart failure) (Acute) Crohns disease Acute heart failure with preserved ejection fraction (HFpEF) Closed fracture of right hip (Acute 01/15/24) Acute comminuted, angulated and displaced intertrochanteric right femoral fracture from a fall Dementia Fall from standing Intertrochanteric fracture of right femur (01/15/24) Acute comminuted, angulated and displaced intertrochanteric right femoral fracture from a fall Compression fracture of T7 vertebra (Acute ~12/18/23) compression fracture of T7 Ptosis of eyelid, bilateral Atrial fibrillation follows with Dr. Edgar, reason for eliquis daily Prepatellar bursitis History of total left knee replacement Angelique-prosthetic fracture of proximal tibia History of compression fracture of vertebral column (~11/07/18) Thoracic H/O mitral valve replacement VBI (vertebrobasilar insufficiency) (Acute) Osteoporosis (Acute) on Fosamax since 05/2020 Hyperlipidemia (Acute) Hypertension (Acute 11/04/12) Dry eye syndrome (Acute) Depression (Acute) Chronic cerebral ischemia (Acute) Arthritis (Acute) Anemia (Acute 08/19/12) Abnormal mammogram (Acute) Thoracic back pain Thoracic kyphosis Age-related physical debility History of stroke 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 Chronic hyponatremia Ambulatory dysfunction (Acute) Closed rib fracture (Acute 09/17/22) from a fall Medical History (Updated 10/12/24 @ 07:03 by Delvin Waters M.D.) Chronic diarrhea ROSALIND (acute kidney injury) Malignant neoplasm of colon, unspecified Encounter for pre-operative examination Osteoarthritis Osteoporosis History of kidney stones On anticoagulant therapy eliquis daily Ocular migraine Hypertension Hyperlipidemia Palpitations Surgical History History of colon surgery 06/2008 Previous back surgery 11/07/2012 History of incision and drainage right arm--infected after fx History of total left knee replacement (TKR) History of total right knee replacement (TKR) History of esophagogastroduodenoscopy (EGD) History of colonoscopy with polypectomy History of colectomy subtotal with ileocolic anastomosis History of cardiac cath 04/2010 Dr. Linn @ [facility], no stents History of tooth extraction all teeth History of tonsillectomy History of bilateral cataract extraction History of mitral valve repair [place] [facility] [place] of appendectomy History of kyphoplasty History of Percutaneous Vertebral Augmentation Kyphoplasty History of umbilical hernia repair History of cholecystectomy Family History Sister Hearing loss Breast cancer Cancer Grandmother (Paternal) No problems noted. Father No problems noted. 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: No Beliefs That Will Affect Care: None marital status: / Current Living Situation: Alone Current Living Situation Comment: daughter current occupational status: retired How many Children do You have: 1 Feels Safe at Home: Yes Childhood Exposure to Second-Hand Smoke: No Diet: regular caffeine: No Dental Care, Regularly: Yes Physical Activity Frequency: Does not Exercise Seatbelt Use: always Sunscreen Use: No Assistive Devices: Walker and Wheelchair Allergies Allergies Allergy/AdvReac Type Severity Reaction Status Date / Time codeine Allergy Mild LIGHTHEADED Verified 07/02/24 09:40 NESS verapamil Allergy Mild PALPITATION Verified 07/02/24 09:40 S Home Meds Home Medications Medication Instructions Recorded Confirmed multivitamin 1 tab PO DAILY 10/25/21 10/12/24 amoxicillin 500 mg tablet 2,000 mg PO ONCE PRN dental 12/18/23 10/12/24 appointments ferrous sulfate 325 mg (65 mg 325 mg PO .MON,TUES,TH,SAT 07/02/24 10/12/24 iron) tablet (FeroSul) ondansetron HCl 4 mg tablet 4 mg PO Q8H PRN nausea and vomiting 07/02/24 10/12/24 acetaminophen 500 mg tablet 1,000 mg PO BID 09/10/24 10/12/24 (Tylenol Extra Strength) calcium carbonate 1,000 mg PO BID 10/12/24 10/12/24 cholecalciferol (vitamin D3) 50 50 mcg PO DAILY 10/12/24 10/12/24 mcg (2,000 unit) tablet (Vitamin D3) food supplemt, lactose-reduced 1 ea PO TIDWMEAL 10/12/24 10/12/24 (Ensure oral liquid) furosemide 20 mg tablet 10 mg PO DAILY 10/12/24 10/12/24 furosemide 40 mg tablet 40 mg PO DAILY 10/12/24 10/12/24 ivermectin 3 mg tablet See Rx Instructions .Route .COMPLEX 10/12/24 10/12/24 triamcinolone acetonide 0.1 % 1 applic topical BID 10/12/24 10/12/24 topical cream Previous Rx's Medication Instructions Recorded rosuvastatin 20 mg tablet (Crestor) 20 mg PO DAILY 90 days #90 tabs 03/14/23 alendronate 70 mg tablet 70 mg PO WK #12 tabs 04/26/23 donepezil 5 mg tablet 5 mg PO DAILY #30 tabs 12/02/23 apixaban 2.5 mg tablet (Eliquis) 2.5 mg PO BID #60 tabs 01/24/24 magnesium oxide 400 mg PO BID #60 caps 01/24/24 eric.stocking,thigh,reg,med #2 ea 02/13/24 diaper,brief,adult,disposable #80 ea 02/13/24 (Prevail Brief Medium) empagliflozin 10 mg tablet 10 mg PO QAM #30 tabs 09/17/24 (Jardiance) amiodarone 200 mg tablet 200 mg PO DAILY #30 tabs 09/22/24 colestipol 1 gram tablet 1 g PO TID #90 tabs 09/22/24 levothyroxine 100 mcg tablet 100 mcg PO DAILYBB #30 tabs 09/22/24 (Synthroid) loperamide 2 mg capsule 2 mg PO Q4H PRN loose stool #30 09/22/24 caps sodium chloride 1,000 mg soluble 1,000 mg PO DAILY #30 tabs 09/22/24 tablet Results & Data (ED) Vital Signs Vital Signs - 24 hr 10/12/24 05:47 10/12/24 05:47 10/12/24 06:02 Temperature 36.4 C L Temperature Source Oral Pulse Rate 89 80 Pulse Rate from SpO2 Sensor Pulse Rhythm Irregular Pulse Strength Normal Respiratory Rate 20 Respiratory Effort / Characteristics Non-Labored Spontaneous Non-Labored Spontaneous Respiratory Depth Normal Normal Respiratory Pattern Regular Blood Pressure 107/63 Blood Pressure Mean 77 Blood Pressure Position Lying Pulse Oximetry 96 Oxygen Delivery Method Room Air Sepsis Recent Fever Within 48 Hours No Sepsis New/Unexplained Change in Mental Status No Sepsis Action Taken by Nursing No Action Required 10/12/24 06:08 10/12/24 07:00 10/12/24 07:11 Temperature Temperature Source Pulse Rate 82 77 73 Pulse Rate from SpO2 Sensor 77 Pulse Rhythm Irregular Pulse Strength Respiratory Rate 20 24 16 Respiratory Effort / Characteristics Respiratory Depth Respiratory Pattern Blood Pressure 108/68 Blood Pressure Mean 84 Blood Pressure Position Pulse Oximetry 96 96 93 Oxygen Delivery Method Room Air Room Air Sepsis Recent Fever Within 48 Hours Sepsis New/Unexplained Change in Mental Status Sepsis Action Taken by Nursing 10/12/24 07:35 10/12/24 07:41 10/12/24 08:03 Temperature Temperature Source Pulse Rate 74 79 Pulse Rate from SpO2 Sensor 73 79 Pulse Rhythm Pulse Strength Respiratory Rate 20 20 Respiratory Effort / Characteristics Respiratory Depth Respiratory Pattern Blood Pressure 122/81 Blood Pressure Mean 91 Blood Pressure Position Pulse Oximetry 94 94 Oxygen Delivery Method Sepsis Recent Fever Within 48 Hours Sepsis New/Unexplained Change in Mental Status Sepsis Action Taken by Nursing 10/12/24 08:03 10/12/24 08:03 10/12/24 08:03 Temperature Temperature Source Pulse Rate Pulse Rate from SpO2 Sensor Pulse Rhythm Pulse Strength Respiratory Rate Respiratory Effort / Characteristics Respiratory Depth Respiratory Pattern Blood Pressure 122/81 122/81 122/81 Blood Pressure Mean 91 91 91 Blood Pressure Position Pulse Oximetry Oxygen Delivery Method Sepsis Recent Fever Within 48 Hours Sepsis New/Unexplained Change in Mental Status Sepsis Action Taken by Nursing 10/12/24 08:06 10/12/24 08:12 10/12/24 08:42 Temperature Temperature Source Pulse Rate 74 78 77 Pulse Rate from SpO2 Sensor 77 79 79 Pulse Rhythm Pulse Strength Respiratory Rate 20 23 Respiratory Effort / Characteristics Respiratory Depth Respiratory Pattern Blood Pressure Blood Pressure Mean Blood Pressure Position Pulse Oximetry 97 97 97 Oxygen Delivery Method Sepsis Recent Fever Within 48 Hours Sepsis New/Unexplained Change in Mental Status Sepsis Action Taken by Nursing 10/12/24 08:51 10/12/24 09:00 10/12/24 09:00 Temperature Temperature Source Pulse Rate 75 Pulse Rate from SpO2 Sensor 76 Pulse Rhythm Pulse Strength Respiratory Rate 19 Respiratory Effort / Characteristics Respiratory Depth Respiratory Pattern Blood Pressure 140/91 140/91 Blood Pressure Mean 102 102 Blood Pressure Position Pulse Oximetry 97 Oxygen Delivery Method Sepsis Recent Fever Within 48 Hours Sepsis New/Unexplained Change in Mental Status Sepsis Action Taken by Nursing 10/12/24 09:00 10/12/24 09:12 10/12/24 09:27 Temperature Temperature Source Pulse Rate 83 85 Pulse Rate from SpO2 Sensor 85 79 Pulse Rhythm Pulse Strength Respiratory Rate 18 16 Respiratory Effort / Characteristics Respiratory Depth Respiratory Pattern Blood Pressure 140/91 Blood Pressure Mean 102 Blood Pressure Position Pulse Oximetry 96 97 Oxygen Delivery Method Sepsis Recent Fever Within 48 Hours Sepsis New/Unexplained Change in Mental Status Sepsis Action Taken by Nursing Laboratory Data 10/12/24 06:08 10/12/24 06:08 Lab Results 10/12/24 10/12/24 10/12/24 Range/Units 05:50 06:08 08:02 WBC 3.84 L (4.8-10.8) K/ul RBC 3.35 L (4.20-5.40) M/uL Hgb 9.9 L (12.0-16.0) g/dl Hct 28.9 L (37.0-47.0) % MCV 86.3 (80.0-100.0) fL MCH 29.6 (25.0-34.0) pg MCHC 34.3 (32.0-36.0) g/dL RDW Std Deviation 50.0 H (36.4-46.3) fL RDW Coeff of Fiona 16.3 H (11.5-14.5) % Plt Count 202 (130-400) K/uL MPV 9.8 (9.4-12.4) fL Immature Gran % (Auto) 0.3 % Neut % (Auto) 68.7 % Lymph % (Auto) 15.4 % [place] % (Auto) 12.5 % Eos % (Auto) 2.3 % Baso % (Auto) 0.8 % Neut # (Auto) 2.64 (1.40-6.50) K/uL Lymph # (Auto) 0.59 L (1.20-3.40) K/uL [place] # (Auto) 0.48 (0.11-0.59) K/uL Eos # (Auto) 0.09 (0.00-0.50) K/uL Baso # (Auto) 0.03 (0.00-0.20) K/uL Immature Gran # (Auto) 0.01 (0.01-0.20) K/uL PT 15.1 H (9.0-12.0) Seconds INR 1.4 H (0.9-1.1) Sodium 134 L (136-145) mmol/L Potassium 4.8 (3.5-5.1) mmol/L Chloride 99 (98-107) mmol/L Carbon Dioxide 29 (21-32) mmol/L Anion Gap 6 (3-11) BUN 33 H (6-23) mg/dl Creatinine 1.09 (0.6-1.2) mg/dl Est Cr Clr Drug Dosing 35.3 ml/min eGFR 49.78 BUN/Creatinine Ratio 30.3 H (10-20) Glucose 78 (70-99(Fasting)) mg/dl Calcium 9.1 (8.6-10.3) mg/dl Total Bilirubin 0.8 (0.2-1.0) mg/dl AST 24 (13-39) U/L ALT 14 (7-52) U/L Alkaline Phosphatase 73 (34-104) U/L Troponin I High Sens 11.3 11.5 (0-14) pg/ml B-Natriuretic Peptide 307 H (0-100) pg/ml Total Protein 5.9 L (6.0-8.3) gm/dl Albumin 2.9 L (3.4-5.0) gm/dl Globulin 3.0 (2.5-4.0) gm/dl Albumin/Globulin Ratio 1.0 (0.9-2) Lipase 18 (11-82) U/L SARS-CoV-2, RNA, NAAT NEGATIVE (NEGATIVE) Administered Medications Discontinued Medications Fentanyl Citrate (Fentanyl Citrate Pf 100 Mcg/2 Ml Vial) 25 mcg IV NOW STA Stop: 10/12/24 06:14 Last Admin: 10/12/24 06:24 Dose: 25 mcg Documented By: EDDIE Fentanyl Citrate (Fentanyl Citrate Pf 100 Mcg/2 Ml Vial) 25 mcg IV NOW STA Stop: 10/12/24 07:03 Last Admin: 10/12/24 07:08 Dose: 25 mcg Documented By: OSIEL Furosemide (Furosemide 40 Mg/4 Ml Vial) 40 mg IV ONE ONE Stop: 10/12/24 07:27 Last Admin: 10/12/24 07:45 Dose: 40 mg Documented By: OSIEL Ioversol (Optiray 320 125ml) 119 ml IV ONCE ONE Stop: 10/12/24 07:22 Last Admin: 10/12/24 07:21 Dose: 119 ml Documented By: EDK Imaging Data Radiologist's Impression: Chest X-Ray 10/12/24 06:08 EXAM: XR chest 1V portable CLINICAL HISTORY: Chest pain, nonspecific TECHNIQUE: An X-ray image of the chest is obtained in AP projection. COMPARISON: Compared to prior X-ray study dated 09/20/2024. FINDINGS: Pulmonary Parenchyma: Again noted noderate bilateral pleural effusion with underlying basal collapse. The remaining aerated lung zones are clear. Heart and Mediastinum: Heart size and shape are normal. No mediastinal widening or masses. No hilar or mediastinal lymphadenopathy. Bony Thorax: Thoracic spondylodegenerative changes. Soft Tissues: Soft tissues overlying the chest wall are unremarkable. IMPRESSION: 1. Again noted noderate bilateral pleural effusion with underlying basal collapse. Electronically signed by Jose Chirinos 10-12-2024 08:37 AM Chest CTA 10/12/24 07:01 EXAM: CT angio chest PE protocol CLINICAL HISTORY: PE, sob, anterior chest pain/sternal TECHNIQUE: Contiguous axial images were obtained from the neck base through the upper abdomen following intravenous administration of iodinated contrast material. Angiographic images were processed, 3D MIP images were acquired for interpretation. If IV contrast material had not been administered, the likelihood of detecting abnormalities relevant to the patient's condition would have been substantially decreased. Coronal and sagittal 3-D MIPs were likewise performed and indicated to increase the sensitivity of detectin diffuse clinically relevant pathology. CT scan was performed according to ALARA (as low as reasonable achievable). COMPARISON: Sep 15:19:08 ELECTRONIC TECHNICIAN FINDINGS: Cardiomegaly with dilated IVC and hepatic veins.- possibility of valvular heart disease likely - echocardiography correlation suggested. Moderate to gross bilateral pleural effusion with basal subsegmental collapse of both lower lobes are seen. Multiple atelectatic bands are noted involving bilateral lungs. Adequate contrast bolus without evidence of pulmonary embolism. The central airways are patent. The heart, aorta, and pulmonary arteries are of normal size and configuration. There are coronary artery and aortic atherosclerotic calcifications. No pericardial effusion is identified. The thyroid is unremarkable. No mediastinal, hilar, or axillary lymphadenopathy is noted. No suspicious lytic or sclerotic osseous lesions are identified. IMPRESSION: 1. No evidence of pulmonary embolism. 2. Cardiomegaly with dilated IVC and hepatic veins.- possibility of valvular heart disease likely - echocardiography correlation suggested. -increased size 3. Moderate to gross bilateral pleural effusion with basal subsegmental collapse of both lower lobes are seen.-new finding. 4. Multiple atelectatic bands are noted involving bilateral lungs.-stable. Electronically signed by Mg Kennedy 10-12-2024 08:10 AM Discharge Plan Visit Data Chief Complaint: Chest Pain Stated Complaint: CHEST PAIN, PAIN WHEN BREATHING ED Provider: Delvin Waters Discharge Problem: Chest pain, CHF (congestive heart failure) Patient Disposition: Being Evaluated by Hospitalist Condition: Fair Forms Stand Alone Forms: My [facility] Prescriptions Prescriptions: No Action rosuvastatin [Crestor] 20 mg tablet 20 mg PO DAILY 90 Days Qty: 90 3RF alendronate 70 mg tablet 70 mg PO WK Qty: 12 3RF Rx Instructions: Saturday ferrous sulfate [FeroSul] 325 mg (65 mg iron) tablet 325 mg PO .SAT,,,SAT Rx Instructions: 325 mg orally four times a week; ondansetron HCl 4 mg tablet 4 mg PO Q8H PRN (Reason: nausea and vomiting) donepezil 5 mg tablet 5 mg PO DAILY Qty: 30 2RF (DME) eric.stocking,thigh,reg,med Misc See Rx Instructions .Route Qty: 2 0RF Rx Instructions: As directed (DME) Prevail Brief Medium Misc See Rx Instructions .Route Qty: 80 2RF Rx Instructions: As directed multivitamin Tablet 1 tab PO DAILY Rx Instructions: OTC unable to verify magnesium oxide 400 mg magnesium capsule 400 mg PO BID Qty: 60 0RF Eliquis 2.5 mg Tablet 2.5 mg PO BID Qty: 60 0RF acetaminophen [Tylenol Extra Strength] 500 mg tablet 1,000 mg PO BID Jardiance 10 mg tablet 10 mg PO QAM Qty: 30 0RF loperamide 2 mg Capsule 2 mg PO Q4H PRN (Reason: loose stool) Qty: 30 0RF amiodarone 200 mg tablet 200 mg PO DAILY Qty: 30 0RF sodium chloride 1,000 mg tablet,soluble 1,000 mg PO DAILY Qty: 30 0RF colestipol 1 gram tablet 1 g PO TID Qty: 90 0RF levothyroxine [Synthroid] 100 mcg Tablet 100 mcg PO DAILYBB Qty: 30 0RF amoxicillin 500 mg tablet 2,000 mg PO ONCE PRN (Reason: dental appointments) Rx Instructions: 4 tabs 1 hour prior to procedure. Dental appointments. furosemide 40 mg Tablet 40 mg PO DAILY ivermectin 3 mg Tablet See Rx Instructions .ROUTE .COMPLEX Rx Instructions: 12 mg orally every 10 days triamcinolone acetonide 0.1 % Cream 1 applic TOPICAL BID calcium carbonate [Tums 500] 500 mg calcium (1,250 mg) Tablet,Chewable 1,000 mg PO BID furosemide 20 mg tablet 10 mg PO DAILY Ensure Liquid 1 ea PO TIDWMEAL cholecalciferol (vitamin D3) [Vitamin D3] 50 mcg (2,000 unit) Tablet 50 mcg PO DAILY Referrals Referrals: Magali Javier MD [Physician] -
[2024-10-12 06:37] LABS: Alanine Aminotransferase 14.0 U/L (7-52); Albumin Globulin Ratio 1.0 (0.9-2); Alkaline Phosphatase 73.0 U/L (34-104); Anion Gap 6.0 (3-11); Bilirubin,Total 0.8 mg/dl (0.2-1.0); Blood Urea Nitrogen 33.0 mg/dl (6-23); Calcium 9.1 mg/dl (8.6-10.3); Carbon Dioxide 29.0 mmol/L (21-32); Chloride 99.0 mmol/L (98-107); Creatinine Clr Calc Pharmacy 35.3 ml/min; Globulin 3.0 gm/dl (2.5-4.0); Glucose 78.0 mg/dl (70-99(Fasting)); Lipase 18.0 U/L (11-82); Potassium 4.8 mmol/L (3.5-5.1); Sodium 134.0 mmol/L (136-145); Total Protein 5.9 gm/dl (6.0-8.3)
[2024-10-12 07:00] LABS: INR 1.4 (0.9-1.1); Prothrombin Time 15.1 Seconds (9.0-12.0)
[2024-10-12] MEDS: OPTIRAY 320 125ml IV ONE (07:21)
[2024-10-12] MEDS: FUROSEMIDE 40 MG/4 ML VIAL IV ONE (07:45)
--- NOTE | 2024-10-12 08:11 | CT Scan Report ---
EXAM: CT angio chest PE protocol CLINICAL HISTORY: PE, sob, anterior chest pain/sternal TECHNIQUE: Contiguous axial images were obtained from the neck base through the upper abdomen following intravenous administration of iodinated contrast material. Angiographic images were processed, 3D MIP images were acquired for interpretation. If IV contrast material had not been administered, the likelihood of detecting abnormalities relevant to the patient's condition would have been substantially decreased. Coronal and sagittal 3-D MIPs were likewise performed and indicated to increase the sensitivity of detectin diffuse clinically relevant pathology. CT scan was performed according to ALARA (as low as reasonable achievable). COMPARISON: Sep 15:19:08 SUPERVISOR ABATTOIR FINDINGS: Cardiomegaly with dilated IVC and hepatic veins.- possibility of valvular heart disease likely - echocardiography correlation suggested. Moderate to gross bilateral pleural effusion with basal subsegmental collapse of both lower lobes are seen. Multiple atelectatic bands are noted involving bilateral lungs. Adequate contrast bolus without evidence of pulmonary embolism. The central airways are patent. The heart, aorta, and pulmonary arteries are of normal size and configuration. There are coronary artery and aortic atherosclerotic calcifications. No pericardial effusion is identified. The thyroid is unremarkable. No mediastinal, hilar, or axillary lymphadenopathy is noted. No suspicious lytic or sclerotic osseous lesions are identified. IMPRESSION: 1. No evidence of pulmonary embolism. 2. Cardiomegaly with dilated IVC and hepatic veins.- possibility of valvular heart disease likely - echocardiography correlation suggested. -increased size 3. Moderate to gross bilateral pleural effusion with basal subsegmental collapse of both lower lobes are seen.-new finding. 4. Multiple atelectatic bands are noted involving bilateral lungs.-stable. Electronically signed by Mg Kennedy 10-12-2024 08:10 AM
--- NOTE | 2024-10-12 08:39 | XRay Report ---
EXAM: XR chest 1V portable CLINICAL HISTORY: Chest pain, nonspecific TECHNIQUE: An X-ray image of the chest is obtained in AP projection. COMPARISON: Compared to prior X-ray study dated 09/20/2024. FINDINGS: Pulmonary Parenchyma: Again noted noderate bilateral pleural effusion with underlying basal collapse. The remaining aerated lung zones are clear. Heart and Mediastinum: Heart size and shape are normal. No mediastinal widening or masses. No hilar or mediastinal lymphadenopathy. Bony Thorax: Thoracic spondylodegenerative changes. Soft Tissues: Soft tissues overlying the chest wall are unremarkable. IMPRESSION: 1. Again noted noderate bilateral pleural effusion with underlying basal collapse. Electronically signed by Jose Chirinos 10-12-2024 08:37 AM
[2024-10-12] MEDS ORDERED: NON-FORMULARY MEDICATION (Food Supplemt, Lactose-Reduced [Ensure] Liquid) PO SCH (11:29)
[2024-10-12] MEDS: BUMETANIDE 4 MG in SYRINGE 0 ML IV ONE (11:52)
[2024-10-12] MEDS: KETOROLAC TROMETHAMINE 15 MG/ML VIAL IV SCH (11:52)
[2024-10-12] MEDS: ACETAMINOPHEN 1,000 MG/100 ML VIAL IV SCH (11:54)
[2024-10-12] MEDS: CALCIUM CARBONATE 1250MG TAB PO SCH (13:00)
[2024-10-12] MEDS: FERROUS SULFATE 325 MG TAB PO SCH (13:00)
[2024-10-12] MEDS: ROSUVASTATIN CALCIUM 20 MG TAB PO SCH (13:00)
[2024-10-12] MEDS: MAGNESIUM OXIDE 400 MG TAB PO SCH (13:00)
[2024-10-12] MEDS: AMIODARONE 200 MG TAB PO SCH (13:00)
[2024-10-12] MEDS: APIXABAN 2.5 MG TAB PO SCH (13:00)
[2024-10-12] MEDS: SODIUM CHLORIDE 1 GM TABLET PO SCH (13:00)
[2024-10-12] MEDS: ACETAMINOPHEN 500 MG TAB PO SCH (13:01)
[2024-10-12] MEDS: POLYETHYLENE (MIRALAX) 17 GM PACK PO SCH (15:05)
[2024-10-12] MEDS: BUMETANIDE 2 MG in SYRINGE 0 ML IV ONE (15:06)
[2024-10-12] MEDS: COLESTIPOL HCL 1 GM TAB PO SCH (15:06)
[2024-10-12] MEDS: DIAPER BRIEF ADULT DISPOSABLE SCH (15:22)
[2024-10-12] MEDS: [UNRECOGNIZED DRUG - OTHER] SCH (15:22)
[2024-10-12] MEDS: DONEPEZIL HCL 5 MG TAB PO SCH (16:54)
--- NOTE | 2024-10-12 17:55 | History & Physical Report ---
Date of Service October 12, 2024 Assessment & Plan (1) Acute exacerbation of chronic heart failure: Plan In summary this is an 83-year-old female presenting with heart failure exacerbation, likely consequential of inadequate diuresis. The patient was recently hospitalized for heart failure exacerbation; at that time she was started on a an escalated dose of furosemide however I suspect that she has a significant amount of gut edema which is resulting in inadequate medication absorption, leading to a recurrent exacerbation. Should be maintained on bumetanide, IV for aggressive diuresis, and reassess her symptomatology after Administer additional bumetanide 2 mg IV one-time in the afternoon on 10/12; additional dosing to be determined on 10/13 after review of intake and output Follow daily renal function panel, magnesium Continue patient's home medication regimen as previously prescribed Admission and Anticipated Discharge Date Admission Date: October 12, 2024 History of Present Illness Chief Complaint: Chest pain, shortness of breath Primary Care Provider: Mike Webster MD Ms. Farrar is an 83-year-old female whose active medical conditions include heart failure with moderately reduced ejection fraction, paroxysmal atrial fibrillation, hyperlipidemia, hypertension, SIADH among other chronic medical conditions who presented to [facility] on 10/12 due to persistent episodes of left-sided chest pain and progressively increased shortness of breath with lower extremity swelling. The patient was recently hospitalized approximately 2 weeks prior to her current presentation at the same medical facility for an acute on chronic heart failure exacerbation at which time her medications were adjusted and she was discharged in a stable condition. The patient does note persistent coughing episodes usually associated with eating though she has not had any proper aspiration episodes. She describes her chest wall pain as sharp stabbing and very localized along the left costochondral border along the 6th and 7th intercostal space. It is reproducible with palpation, very sharp, and worsened with deep breathing. The patient also notes increasing lower extremity edema over the past week to 10 days, this has been associated with a loss of appetite that has been a chronic process but has acutely worsened. Allergies Allergy/AdvReac Type Severity Reaction Status Date / Time codeine Allergy Mild LIGHTHEADED Verified 07/02/24 09:40 NESS verapamil Allergy Mild PALPITATION Verified 07/02/24 09:40 S Home Medications Medication Instructions Recorded Confirmed Type multivitamin 1 tab PO DAILY 10/25/21 10/12/24 History rosuvastatin 20 mg tablet (Crestor) 20 mg PO DAILY 90 days #90 tabs 03/14/23 10/12/24 Rx alendronate 70 mg tablet 70 mg PO WK #12 tabs 04/26/23 10/12/24 Rx donepezil 5 mg tablet 5 mg PO DAILY #30 tabs 12/02/23 10/12/24 Rx amoxicillin 500 mg tablet 2,000 mg PO ONCE PRN dental 12/18/23 10/12/24 History appointments apixaban 2.5 mg tablet (Eliquis) 2.5 mg PO BID #60 tabs 01/24/24 10/12/24 Rx magnesium oxide 400 mg PO BID #60 caps 01/24/24 10/12/24 Rx eric.stocking,thigh,reg,med #2 ea 02/13/24 02/13/24 Rx diaper,brief,adult,disposable #80 ea 02/13/24 02/13/24 Rx (Prevail Brief Medium) ferrous sulfate 325 mg (65 mg 325 mg PO .MON,TUES,TH,SAT 07/02/24 10/12/24 History iron) tablet (FeroSul) ondansetron HCl 4 mg tablet 4 mg PO Q8H PRN nausea and vomiting 07/02/24 10/12/24 History acetaminophen 500 mg tablet 1,000 mg PO BID 09/10/24 10/12/24 History (Tylenol Extra Strength) empagliflozin 10 mg tablet 10 mg PO QAM #30 tabs 09/17/24 10/12/24 Rx (Jardiance) amiodarone 200 mg tablet 200 mg PO DAILY #30 tabs 09/22/24 10/12/24 Rx colestipol 1 gram tablet 1 g PO TID #90 tabs 09/22/24 10/12/24 Rx levothyroxine 100 mcg tablet 100 mcg PO DAILYBB #30 tabs 09/22/24 10/12/24 Rx (Synthroid) loperamide 2 mg capsule 2 mg PO Q4H PRN loose stool #30 09/22/24 10/12/24 Rx caps sodium chloride 1,000 mg soluble 1,000 mg PO DAILY #30 tabs 09/22/24 10/12/24 Rx tablet calcium carbonate 1,000 mg PO BID 10/12/24 10/12/24 History cholecalciferol (vitamin D3) 50 50 mcg PO DAILY 10/12/24 10/12/24 History mcg (2,000 unit) tablet (Vitamin D3) food supplemt, lactose-reduced 1 ea PO TIDWMEAL 10/12/24 10/12/24 History (Ensure oral liquid) furosemide 20 mg tablet 10 mg PO DAILY 10/12/24 10/12/24 History furosemide 40 mg tablet 40 mg PO DAILY 10/12/24 10/12/24 History ivermectin 3 mg tablet See Rx Instructions .Route .COMPLEX 10/12/24 10/12/24 History triamcinolone acetonide 0.1 % 1 applic topical BID 10/12/24 10/12/24 History topical cream Past Med/Surg History Problem List (Updated 10/12/24 @ 17:54 by Guillermo Regalado DO) Acute exacerbation of chronic heart failure Chest pain (Acute) SIADH (syndrome of inappropriate ADH production) Hypothyroidism Pulmonary hypertension Tricuspid regurgitation Right heart failure with reduced right ventricular function Valvular heart disease Hypotension Acute heart failure with mildly reduced ejection fraction (HFmrEF, 41-49%) CHF (congestive heart failure) (Acute) Crohns disease Acute heart failure with preserved ejection fraction (HFpEF) Closed fracture of right hip (Acute 01/15/24) Acute comminuted, angulated and displaced intertrochanteric right femoral fracture from a fall Dementia Fall from standing Intertrochanteric fracture of right femur (01/15/24) Acute comminuted, angulated and displaced intertrochanteric right femoral fracture from a fall Compression fracture of T7 vertebra (Acute ~12/18/23) compression fracture of T7 Ptosis of eyelid, bilateral Atrial fibrillation follows with Dr. Edgar, reason for eliquis daily Prepatellar bursitis History of total left knee replacement Angelique-prosthetic fracture of proximal tibia History of compression fracture of vertebral column (~11/07/18) Thoracic H/O mitral valve replacement VBI (vertebrobasilar insufficiency) (Acute) Osteoporosis (Acute) on Fosamax since 05/2020 Hyperlipidemia (Acute) Hypertension (Acute 11/04/12) Dry eye syndrome (Acute) Depression (Acute) Chronic cerebral ischemia (Acute) Arthritis (Acute) Anemia (Acute 08/19/12) Abnormal mammogram (Acute) Thoracic back pain Thoracic kyphosis Age-related physical debility History of stroke 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 Chronic hyponatremia Ambulatory dysfunction (Acute) Closed rib fracture (Acute 09/17/22) from a fall Medical History (Updated 10/12/24 @ 17:54 by Guillermo Regalado DO) Chronic diarrhea ROSALIND (acute kidney injury) Malignant neoplasm of colon, unspecified Encounter for pre-operative examination Osteoarthritis Osteoporosis History of kidney stones On anticoagulant therapy eliquis daily Ocular migraine Hypertension Hyperlipidemia Palpitations Surgical History History of colon surgery 06/2008 Previous back surgery 11/07/2012 History of incision and drainage right arm--infected after fx History of total left knee replacement (TKR) History of total right knee replacement (TKR) History of esophagogastroduodenoscopy (EGD) History of colonoscopy with polypectomy History of colectomy subtotal with ileocolic anastomosis History of cardiac cath 04/2010 Dr. Linn @ [facility], no stents History of tooth extraction all teeth History of tonsillectomy History of bilateral cataract extraction History of mitral valve repair 04/2012 @ [facility] [place] History of appendectomy History of kyphoplasty History of Percutaneous Vertebral Augmentation Kyphoplasty History of umbilical hernia repair History of cholecystectomy Family History Sister Hearing loss Breast cancer Cancer Grandmother (Paternal) No problems noted. Father No problems noted. Sister Osteoporosis Brother Osteoporosis Mother Osteoporosis Other No family history of adverse response to anesthesia Denies family history of Ovarian cancer Prostate cancer Myocardial infarction Colorectal cancer Social History Smoking Status: Never smoker Second Hand Exposure: No; Do You Dip or Chew Tobacco: No; Hx Alcohol Use: No Hx Substance Use: No Preferred Language: Bots[place] Communication Ability: Effective Hearing Ability: Normal Shredding Specialist Required: No Beliefs That Will Affect Care: None marital status: / Current Living Situation: Alone Current Living Situation Comment: daughter current occupational status: retired How many Children do You have: 1 Feels Safe at Home: Yes Childhood Exposure to Second-Hand Smoke: No Diet: regular caffeine: No Dental Care, Regularly: Yes Physical Activity Frequency: Does not Exercise Seatbelt Use: always Sunscreen Use: No Assistive Devices: Walker and Wheelchair Review of Systems Review of Systems: Review of constitutional, cardiovascular, pulmonary, gastrointestinal, genitourinary systems was otherwise unremarkable than those comments made in the HPI above Physical Exam Physical Exam: General: Elderly female in no acute distress Vital Signs: Reviewed Neck: Jugular venous distention at rest Pulmonary: Symmetrically restricted chest wall rise secondary to pleuritic chest pain with midface excursion Cardiovascular: regular rate and rhythm without murmurs, rubs, or gallops; bilateral radial and posterior tibial pulses 2+; 2+ pitting edema distal to the knees bilaterally without associating weeping lesions Gastrointestinal: Soft, nondistended Results & Data Results & Data Vital Signs (Past 12 Hours) Vital Signs Temp Pulse Pulse Resp BP BP Pulse Ox 10/12/24 15:32 36.4 C L 84 20 113/80 96 10/12/24 11:50 36.3 C L 82 18 113/75 97 10/12/24 10:12 73 17 96 10/12/24 10:03 71 15 96 10/12/24 10:00 116/82 10/12/24 09:42 81 13 96 10/12/24 09:27 85 16 97 10/12/24 09:12 83 18 96 10/12/24 09:00 140/91 10/12/24 09:00 140/91 10/12/24 09:00 140/91 10/12/24 08:51 75 19 97 10/12/24 08:42 77 23 97 10/12/24 08:12 78 97 10/12/24 08:06 74 20 97 10/12/24 08:03 122/81 10/12/24 08:03 122/81 10/12/24 08:03 122/81 10/12/24 08:03 122/81 10/12/24 07:41 79 20 94 10/12/24 07:35 74 20 94 10/12/24 07:11 73 16 93 10/12/24 07:00 77 24 108/68 96 10/12/24 06:08 82 20 96 10/12/24 06:02 80 O2 Del Method 10/12/24 15:32 Room Air 10/12/24 11:50 Room Air 10/12/24 10:12 10/12/24 10:03 10/12/24 10:00 10/12/24 09:42 10/12/24 09:27 10/12/24 09:12 10/12/24 09:00 09/01/25 09:00 10/12/24 09:00 10/12/24 08:51 10/12/24 08:42 10/12/24 08:12 10/12/24 08:06 10/12/24 08:03 10/12/24 08:03 10/12/24 08:03 10/12/24 08:03 10/12/24 07:41 10/12/24 07:35 10/12/24 07:11 10/12/24 07:00 Room Air 10/12/24 06:08 Room Air 10/12/24 06:02 Code Status & VTE Plan VTE Prophylaxis Plan VTE Prophylaxis will be ordered: No Reason for no VTE drug order: Contraindicated PG Care Time/CCT Total # of Minutes Spent Total Time Spent with Patient: Total time spent is greater than 50% in coordination of care (as documented) at patient's floor/unit and/or counseling patient: Coding Level of Care Code 73889 INT INP/OBS CARE 2/55MIN Diagnoses Acute exacerbation of chronic heart failure I50.9
[2024-10-12] MEDS: BUMETANIDE 2 MG in SYRINGE 0 ML IV STA (18:42)
[2024-10-13 05:21] LABS: Anion Gap 6.0 (3-11); Blood Urea Nitrogen 38.0 mg/dl (6-23); Calcium 8.9 mg/dl (8.6-10.3); Carbon Dioxide 30.0 mmol/L (21-32); Chloride 97.0 mmol/L (98-107); Creatinine Clr Calc Pharmacy 29.4 ml/min; Glucose 70.0 mg/dl (70-99(Fasting)); Magnesium 2.0 mg/dl (1.7-2.4); Potassium 4.4 mmol/L (3.5-5.1); Sodium 133.0 mmol/L (136-145)
[2024-10-13] MEDS: LEVOTHYROXINE SODIUM 100 MCG TABLET PO SCH (06:24)
--- NOTE | 2024-10-13 07:01 | Hospitalist Progress Note ---
Date of Service October 13, 2024 Assessment & Plan (1) Acute exacerbation of chronic heart failure: (2) WHO group 2 pulmonary arterial hypertension: (3) Kyphosis (acquired) (postural): (4) Restrictive lung disease due to kyphoscoliosis: (5) Frailty syndrome in geriatric patient: (6) Chronic heart failure with mildly reduced ejection fraction (HFmrEF): (7) Major depressive disorder in remission: Plan In summary this is an 83-year-old female presenting with heart failure exac erbation, likely consequential of inadequate diuresis. Acute on chronic heart failure with moderately reduced ejection fraction Previously diagnosed; most recent ejection fraction from 08/2024 was 45 to 50% consistent with heart failure with moderate reduced ejection fraction; patient presented with progressive lower extremity edema, shortness of breath, abdominal distention, nausea, loss of appetite; overnight the patient's urine output was 1.31 mL/kg/h -Nursing to notify of new or increased oxygen requirement, sustained heart rate of greater than 120 or less than 50 bpm Continue bumetanide 2 mg IV; anticipate continuation of bumetanide at discharge rather than furosemide given its superior gastrointestinal absorption, as the patient likely has a degree of gastrointestinal wall edema in the setting of their heart failure, which is typically associated with nausea, loss of appetite; also supported by the fact that the patient was adherent with their diuretic regimen from the previous discharge and they inevitably was readmitted due to inadequate diuresis -Diet low sodium and low fat if not otherwise indicated -Measure intake and output every shift -Follow daily RFP and Magnesium WHO group 2 pulmonary arterial hypertension//restrictive lung disease secondary to Scoliosis Chronic; complicates the patient's heart failure; not in any acute distress or exacerbation related to this condition DVT: continue home apixaban 2.5 mg p.o. twice daily Admission and Anticipated Discharge Date Admission Date: October 12, 2024 Anticipated date of discharge: 10/14/24 Subjective Ms. Farrar is an 83-year-old female whose active medical conditions include heart failure with moderately reduced ejection fraction, paroxysmal atrial fibrillation, hyperlipidemia, hypertension, SIADH among other chronic medical conditions who presented to [facility] on 10/12 due to persistent episodes of left-sided chest pain and progressively increased shortness of breath with lower extremity swelling. The patient was recently hospitalized approximately 2 weeks prior to her current presentation at the same medical facility for an acute on chronic heart failure exacerbation at which time her medications were adjusted and she was discharged in a stable condition. No acute overnight events; patient feels improved this morning in all aspects of her initial presenting complaints. Review of Systems Review of Systems: Review of constitutional, cardiovascular, pulmonary, gastrointestinal, genitourinary systems was otherwise unremarkable than those comments made in the HPI above Physical Exam Physical Exam: General: Elderly female in no acute distress Vital Signs: Reviewed Neck: Jugular venous distention at rest, lying supine Pulmonary: Symmetrically restricted though improved chest wall excursion; diminished posterior basilar segment air movement with crackles, improved from 10/12 exam; remaining pulmonary exam is unremarkable Cardiovascular: regular rate and rhythm without murmurs, rubs, or gallops; bilateral radial and posterior tibial pulses 2+; trace pitting edema distal to the knees bilaterally without associating weeping lesions Gastrointestinal: Soft, nondistended Results & Data Results & Data Vital Signs (Past 12 Hours) Vital Signs Temp Pulse Resp BP Pulse Ox O2 Del Method 10/13/24 02:40 36.7 C 86 16 116/73 93 Room Air 10/12/24 22:46 36.4 C L 85 16 130/89 96 Room Air 10/12/24 19:41 Room Air Laboratory Results Creatinine trend 1.31 (1.09); phosphorus 5.8 PG Care Time/CCT Total # of Minutes Spent Total Time Spent with Patient: Total time spent is greater than 50% in coordination of care (as documented) at patient's floor/unit and/or counseling patient: Coding Level of Care Code 21290 SUB INP/OBS CARE 2/35MIN Diagnoses Acute exacerbation of chronic heart failure I50.9 WHO group 2 pulmonary arterial hypertension I27.22 Kyphosis (acquired) (postural) M40.00 Restrictive lung disease due to kyphoscoliosis J98.4; M41.9 Frailty syndrome in geriatric patient R54 Chronic heart failure with mildly reduced ejection fraction (HFmrEF) I50.22 Recurrent major depressive disorder, in remission F33.40 Major depression recurrence: recurrent (7) Major depressive disorder in remission Major depression recurrence: recurrent Qualified Code(s): F33.40 - Major depressive disorder, recurrent, in remission, unspecified
[2024-10-13] MEDS: CHOLECALCIFEROL 25 MCG (1000 UNITS) TAB PO SCH (09:11)
[2024-10-13] MEDS: BUMETANIDE 2 MG in SYRINGE 0 ML IV SCH (09:16)
--- NOTE | 2024-10-13 10:41 | Electrocardiogram Report ---
Test Reason : Blood Pressure : */* mmHG Vent. Rate : 85 BPM Atrial Rate : * BPM P-R Int : * ms QRS Dur : 96 ms QT Int : 406 ms P-R-T Axes : * -8 128 degrees QTcB Int : 483 ms Atrial fibrillation Minimal voltage criteria for LVH, may be normal variant Nonspecific T wave abnormality Abnormal ECG When compared with ECG of 10-Sep-2024 13:13, QRS axis Shifted right Nonspecific T wave abnormality, worse in Inferior leads Confirmed by Anatoly Gomes ([id number]) on 10/13/2024 10:40:40 AM Referred By: REFERRED SELF Confirmed By: Anatoly Gomes
--- NOTE | 2024-10-13 14:32 | Communication Note ---
Date of Service: October 13, 2024 Contacted by nursing staff due to continued loose stools which has been a chronic issue for the patient but now with some bright red blood mixed; the pa bro's abdomen is nonacute, they are not complaining of any abdominal pain; their abdominal exam is unchanged from earlier on 10/13. Suspect this may be internal hemorrhoids exacerbated by encopresis; KUB is pending at this time, continued bowel regimen is dependent on this result
--- NOTE | 2024-10-13 17:04 | XRay Report ---
Abdominal radiograph, one view History: Stool burden Comparison: None Findings: Single AP view of the abdomen performed. The bowel gas pattern appears nonobstructive. Mild to moderate gaseous distention of the distal large bowel. No significant stool is seen radiographically. No pneumatosis or portal venous gas. No abnormal calcifications project over the abdomen. No acute abnormality of the bony structures. Impression: No significant stool identified Electronically signed by Anatoly Weeks 10-13-2024 5:03 PM
[2024-10-14 07:47] LABS: Anion Gap 6.0 (3-11); Blood Urea Nitrogen 48.0 mg/dl (6-23); Calcium 9.0 mg/dl (8.6-10.3); Carbon Dioxide 30.0 mmol/L (21-32); Chloride 97.0 mmol/L (98-107); Creatinine Clr Calc Pharmacy 20.6 ml/min; Glucose 73.0 mg/dl (70-99(Fasting)); Magnesium 2.0 mg/dl (1.7-2.4); Potassium 4.4 mmol/L (3.5-5.1); Sodium 133.0 mmol/L (136-145)
[2024-10-14] MEDS: EMPAGLIFLOZIN 10 MG TAB PO SCH (09:50)
--- NOTE | 2024-10-14 10:13 | Cardiology Consultation ---
Date of Consultation October 14, 2024 Assessment & Plan (1) Acute on chronic systolic CHF (congestive heart failure): - both right and left sided in nature. - Her Entresto was stopped during her last hospitalization due to hypotension; okay to resume now given she has been normotensive - Diuretic therapy changed from Lasix to Bumex 2mg IV BID; continue - continue Jardiance - 1500ml Fluid restriction, cardiac/low Na diet - accurately record intake/output (2) Atrial fibrillation: - persistent in nature at this point - rate is well controlled - continue Eliquis 2.5mg BID and Amiodarone 200mg daily (3) Valvular heart disease: - mitral valve disfunction noted - not severe - tricuspid valve disfunction is severe. Given her age, there aren't any true options available to help this History of Present Illness Reason for Consultation: Lower extremity edema, congestive heart failure, atrial fibrillation Requesting Physician: Brielle Attending Physician: Camacho Lara MD History of Present Illness Zuly is an 83-year-old woman with a history of mitral valve disease status post mitral valve repair in 2010, severe tricuspid regurg, diastolic heart failure with atrial fibrillation on Eliquis who currently resides at an assisted living facility. She was brought to our ER via EMS due to SOB and chest discomfort. Unfortunately, the patient is a poor historian and some of her information has been obtained from other records provided. She awoke at 0500 the day of admission with left sided chest discomfort accompanied by SOB. She denied any radiation of said pain. Zuly states that she has felt short of breath for several days, more so with exertions. Since admission, she is no longer experiencing chest pain or SOB at rest. She notes that her legs are more swollen than usual. Zuly states she never lies flat and sleeps with the head of her bed elevated all the time. Patient states she does not eat much nor does she know what her diet really consists of. EKG in ER revealed a fib with a rate of 85bpm and nonspecific t wave abnormalities affecting the inferior leads. CTA chest showing moderate to large bilateral pleural effusions. HS trop negative x2, BNP of 307. Her most recent TTE was on 09/10/24 revealing an EF of 45-50%, mild global hypokinesis, severe biatrial dilation, sclerotic aortic valve with trace regurg, MV annuloplasty ring noted, severe tricuspid regurg and mild pulm htn. She has received two doses of 2mg IV Bumex since her admission. Unsure if I/O are accurate at this time. Patient is unsure how often she is going to the bathroom. There is a purewick tubing, but it is not hooked up. She had recently been hospitalization from end of August to Sep 22 for similar issues with fluid overload. She was prescribed 40mg of Lasix daily at time of discharge. Her entresto and beta elissa had to be discontinued at that time due to hypotension. Her heart rate has been well controlled in the 70s-80s since admission. She remains in afib. Blood pressures have been appropriate. It is r easonable to restart her Entresto. Bumex course is appropriate at this time with a 1500ml fluid restriction. Recommend recording accurate I/O and continuing to monitor her renal function and electrolytes. Allergies Allergy/AdvReac Type Severity Reaction Status Date / Time codeine Allergy Mild LIGHTHEADED Verified 07/02/24 09:40 NESS verapamil Allergy Mild PALPITATION Verified 07/02/24 09:40 S Home Medications Medication Instructions Recorded Confirmed Type multivitamin 1 tab PO DAILY 10/25/21 10/12/24 History rosuvastatin 20 mg tablet (Crestor) 20 mg PO DAILY 90 days #90 tabs 03/14/23 10/12/24 Rx alendronate 70 mg tablet 70 mg PO WK #12 tabs 04/26/23 10/12/24 Rx donepezil 5 mg tablet 5 mg PO DAILY #30 tabs 12/02/23 10/12/24 Rx amoxicillin 500 mg tablet 2,000 mg PO ONCE PRN dental 12/18/23 10/12/24 History appointments apixaban 2.5 mg tablet (Eliquis) 2.5 mg PO BID #60 tabs 01/24/24 10/12/24 Rx magnesium oxide 400 mg PO BID #60 caps 01/24/24 10/12/24 Rx eric.stocking,thigh,reg,med #2 ea 02/13/24 02/13/24 Rx diaper,brief,adult,disposable #80 ea 02/13/24 02/13/24 Rx (Prevail Brief Medium) ferrous sulfate 325 mg (65 mg 325 mg PO .MON,TUES,TH,SAT 07/02/24 10/12/24 History iron) tablet (FeroSul) ondansetron HCl 4 mg tablet 4 mg PO Q8H PRN nausea and vomiting 07/02/24 10/12/24 History acetaminophen 500 mg tablet 1,000 mg PO BID 09/10/24 10/12/24 History (Tylenol Extra Strength) empagliflozin 10 mg tablet 10 mg PO QAM #30 tabs 09/17/24 10/12/24 Rx (Jardiance) amiodarone 200 mg tablet 200 mg PO DAILY #30 tabs 09/22/24 10/12/24 Rx colestipol 1 gram tablet 1 g PO TID #90 tabs 09/22/24 10/12/24 Rx levothyroxine 100 mcg tablet 100 mcg PO DAILYBB #30 tabs 09/22/24 10/12/24 Rx (Synthroid) loperamide 2 mg capsule 2 mg PO Q4H PRN loose stool #30 09/22/24 10/12/24 Rx caps sodium chloride 1,000 mg soluble 1,000 mg PO DAILY #30 tabs 09/22/24 10/12/24 Rx tablet calcium carbonate 1,000 mg PO BID 10/12/24 10/12/24 History cholecalciferol (vitamin D3) 50 50 mcg PO DAILY 10/12/24 10/12/24 History mcg (2,000 unit) tablet (Vitamin D3) food supplemt, lactose-reduced 1 ea PO TIDWMEAL 10/12/24 10/12/24 History (Ensure oral liquid) furosemide 20 mg tablet 10 mg PO DAILY 10/12/24 10/12/24 History furosemide 40 mg tablet 40 mg PO DAILY 10/12/24 10/12/24 History ivermectin 3 mg tablet See Rx Instructions .Route .COMPLEX 10/12/24 10/12/24 History triamcinolone acetonide 0.1 % 1 applic topical BID 10/12/24 10/12/24 History topical cream sacubitril 24 mg-valsartan 26 mg 1 tab PO BID #60 tabs 10/14/24 Rx tablet (Entresto) Patient History Medical History (Updated 10/14/24 @ 10:50 by CARYN Hawkins) History of compression fracture of vertebral column (~11/07/18) Thoracic Intertrochanteric fracture of right femur (01/15/24) Acute comminuted, angulated and displaced intertrochanteric right femoral fracture from a fall Closed fracture of right hip (01/15/24) Acute comminuted, angulated and displaced intertrochanteric right femoral fracture from a fall Abnormal mammogram Closed rib fracture (09/17/22) Chronic diarrhea ROSALIND (acute kidney injury) Malignant neoplasm of colon, unspecified Encounter for pre-operative examination Osteoarthritis Osteoporosis History of kidney stones On anticoagulant therapy eliquis daily Ocular migraine Hypertension Hyperlipidemia Palpitations Surgical History (Updated 10/13/24 @ 09:59 by Guillermo Regalado DO) H/O mitral valve replacement S/P partial colectomy History of total left knee replacement History of colon surgery 06/2008 Previous back surgery 11/07/2012 History of incision and drainage right arm--infected after fx History of total left knee replacement (TKR) History of total right knee replacement (TKR) History of esophagogastroduodenoscopy (EGD) History of colonoscopy with polypectomy History of colectomy subtotal with ileocolic anastomosis History of cardiac cath 04/2010 Dr. Linn @ [facility], no stents History of tooth extraction all teeth History of tonsillectomy History of bilateral cataract extraction History of mitral valve repair [place] [facility] [place] of appendectomy History of kyphoplasty History of Percutaneous Vertebral Augmentation Kyphoplasty History of umbilical hernia repair History of cholecystectomy Family History Sister Hearing loss Breast cancer Cancer Grandmother (Paternal) No problems noted. Father No problems noted. Sister Osteoporosis Brother Osteoporosis Mother Osteoporosis Other No family history of adverse response to anesthesia Denies family history of Ovarian cancer Prostate cancer Myocardial infarction Colorectal cancer Social History Smoking Status: Never smoker Second Hand Exposure: No; Do You Dip or Chew Tobacco: No; Hx Alcohol Use: No Hx Substance Use: No Preferred Language: Japanese Communication Ability: Effective Hearing Ability: Normal Hair Spring Cutter Required: No Beliefs That Will Affect Care: None marital status: / Current Living Situation: Family Current Living Situation Comment: daughter current occupational status: retired How many Children do You have: 1 Other Information That Helps Us Care for You: No Feels Safe at Home: Yes Safety Concerns: Feels Safe At This Time Childhood Exposure to Second-Hand Smoke: No Diet: regular caffeine: No Dental Care, Regularly: Yes Physical Activity Frequency: Does not Exercise Seatbelt Use: always Sunscreen Use: No Assistive Devices: Cane, Walker and Wheelchair Review of Systems Review of Systems: per HPI Physical Exam Eyes: PERRL ENMT: external ear and nose normal, oropharynx normal Neck: Moderate JVD noted Respiratory: Diminished bilateral lower lobes. Normal resp effort. Cardiovascular: IRIR. 4/6 holosytolic murmur at the left lower sternal border. +3 Edema beginning at bilateral ankles up to both hips Skin: no rashes noted Neurologic: Alert, Ox2. She needed redirection regarding place Results & Data Vital Signs (Past 12 Hours) Vital Signs Temp Pulse Pulse Resp BP Pulse Ox O2 Del Method 10/14/24 07:50 Room Air 10/14/24 07:36 36.5 C 90 20 121/79 94 Room Air 10/14/24 06:55 78 10/14/24 02:42 36.4 C L 90 16 113/78 93 Room Air 10/14/24 00:47 Room Air 10/14/24 00:47 83 10/13/24 22:32 36.4 C L 82 16 125/72 94 Room Air PG Care Time/CCT Total # of Minutes Spent Total Time Spent with Patient: Total time spent is greater than 50% in coordination of care (as documented) at patient's floor/unit and/or counseling patient: Coding [place] [address] IN/OBS CONSULT LVL 3,45M Patient Type Established History Problem Focused Exam Problem Focused Diagnoses Acute on chronic systolic CHF (congestive heart failure) I50.23 Persistent atrial fibrillation I48.19 Atrial fibrillation type: persistent (not longstanding) Valvular heart disease I38 (2) Atrial fibrillation Atrial fibrillation type: persistent (not longstanding) Qualified Code(s): I48.19 - Other persistent atrial fibrillation
[2024-10-14] MEDS: VALSARTAN/SACUBITRIL 26/24MG TAB PO SCH (12:10)
[2024-10-14] MEDS: BUMETANIDE 2 MG in SYRINGE 0 ML IV ONE (12:11)
[2024-10-14] MEDS: LOPERAMIDE HCL 2 MG CAP PO PRN (12:29)
--- NOTE | 2024-10-14 17:17 | Hospitalist Progress Note ---
Date of Service October 14, 2024 Assessment & Plan (1) Acute exacerbation of chronic heart failure: (2) WHO group 2 pulmonary arterial hypertension: (3) Kyphosis (acquired) (postural): (4) Restrictive lung disease due to kyphoscoliosis: (5) Frailty syndrome in geriatric patient: (6) Chronic heart failure with mildly reduced ejection fraction (HFmrEF): (7) Major depressive disorder in remission: Plan In summary this is an 83-year-old female presenting with heart failure exac erbation, likely consequential of inadequate diuresis. Acute on chronic heart failure with moderately reduced ejection fraction Previously diagnosed; most recent ejection fraction from 08/2024 was 45 to 50% consistent with heart failure with moderate reduced ejection fraction; patient presented with progressive lower extremity edema, shortness of breath, abdominal distention, nausea, loss of appetite; overnight the patient's urine output was 1.31 mL/kg/h -Nursing to notify of new or increased oxygen requirement, sustained heart rate of greater than 120 or less than 50 bpm - I think we under did the diuretics on discharge last admission, I discharged her on Jardiance alone, I suspect with the salt tabs she does need ongoing diuretics - fortunately her BP has improved therefore perhaps it was low last admission due to a true UTI (although I was doubtful about this at the time) - her rise in Cr suggests she is intravascularly low but I think we need to keep her here due to her poor nutritional status and clear need for diuretics - I'm not clear on why a low fat diet was ordered, I think this is too restrictive for a patient with poor appetite, she also doesn't need salt restriction (we are giving her salt for her suspected SIADH causing hyponatremia from last admission). She should be on a fluid restriction though for SIADH, this may eventually help to get her off the NaCl although I am doubtful as her sodium is still 133-134. -Strict I&Os, daily weights - Consult cardiology for this complex case, discussed with Dr Gomes and planning on starting Entresto, of note this (along with metoprolol) caused hypotension last admission however she possibly had a UTI at that time so hopeful she may be able to take more GDMT but certainly would go slow and steady on this. I'd favor adding MRA next rather than BB given her prior issues of hypotension. - if having hypotension overnight advise giving 25% albumin and holding Entresto, her problem is less her total ECFV and more the percentage of volume in her interstitial space compared to her plasma WHO group 2 pulmonary arterial hypertension//restrictive lung disease secondary to Scoliosis Chronic; complicates the patient's heart failure; not in any acute distress or exacerbation related to this condition DVT: continue home apixaban 2.5 mg p.o. twice daily Disposition - continued stay to optimize HF medications and monitor renal function closely Admission and Anticipated Discharge Date Admission Date: October 13, 2024 Subjective Patient dose not feels much improved (this is how she responded all last admission when I asked her). Ongoing chronic problems of fatigue and poor appetite. Daughter and patient interested in palliative care as outpatient. Physical Exam Respiratory: normal respiratory effort; no respiratory distress Auscultation: + diminished lung sounds (bibasal); no crackles Cardiovascular: Rate/Rhythm: regular rate and + irregularly irregular Extremities: + pedal edema (2+ b/l equal) Gastrointestinal (Abdomen): normal bowel sounds, soft, nontender, no hepatosplenomegaly Results & Data Results & Data Vital Signs (Past 12 Hours) Vital Signs Temp Pulse Pulse Resp BP Pulse Ox O2 Del Method 10/14/24 15:19 36.5 C 85 20 111/71 93 Room Air 10/14/24 14:00 84 10/14/24 11:26 36.3 C L 74 20 124/80 94 Room Air 10/14/24 07:50 Room Air 10/14/24 07:36 36.5 C 90 20 121/79 94 Room Air 10/14/24 06:55 78 PG Care Time/CCT Total # of Minutes Spent Total Time Spent with Patient: Total time spent is greater than 50% in coordination of care (as documented) at patient's floor/unit and/or counseling patient: Coding Level of Care Code 52186 SUB INP/OBS CARE 3/50MIN Diagnoses Acute exacerbation of chronic heart failure I50.9 WHO group 2 pulmonary arterial hypertension I27.22 Kyphosis (acquired) (postural) M40.00 Restrictive lung disease due to kyphoscoliosis J98.4; M41.9 Frailty syndrome in geriatric patient R54 Chronic heart failure with mildly reduced ejection fraction (HFmrEF) I50.22 Recurrent major depressive disorder, in remission F33.40 Major depression recurrence: recurrent (7) Major depressive disorder in remission Major depression recurrence: recurrent Qualified Code(s): F33.40 - Major depressive disorder, recurrent, in remission, unspecified
[2024-10-14] MEDS: PHYTONADIONE 5 MG in DEXTROSE 5% 50 ML IV ONE (17:37)
[2024-10-15 06:40] LABS: Anion Gap 7.0 (3-11); Blood Urea Nitrogen 58.0 mg/dl (6-23); Calcium 8.8 mg/dl (8.6-10.3); Carbon Dioxide 30.0 mmol/L (21-32); Chloride 96.0 mmol/L (98-107); Creatinine Clr Calc Pharmacy 15.3 ml/min; Glucose 72.0 mg/dl (70-99(Fasting)); Magnesium 2.2 mg/dl (1.7-2.4); Potassium 4.3 mmol/L (3.5-5.1); Sodium 133.0 mmol/L (136-145)
[2024-10-15 06:53] LABS: INR 1.5 (0.9-1.1); Prothrombin Time 16.1 Seconds (9.0-12.0)
[2024-10-15] MEDS ORDERED: BUMETANIDE 2 MG in SYRINGE 0 ML IV SCH (09:00)
--- NOTE | 2024-10-15 10:37 | Hospitalist Progress Note ---
Date of Service October 15, 2024 Assessment & Plan (1) Acute exacerbation of chronic heart failure: (2) WHO group 2 pulmonary arterial hypertension: (3) Kyphosis (acquired) (postural): (4) Restrictive lung disease due to kyphoscoliosis: (5) Frailty syndrome in geriatric patient: (6) Chronic heart failure with mildly reduced ejection fraction (HFmrEF): (7) Major depressive disorder in remission: (8) ROSALIND (acute kidney injury): Plan In summary this is an 83-year-old female presenting with heart failure exacerbation, likely consequential of inadequate diuresis. Acute on chronic heart failure with moderately reduced ejection fraction Unfortunately Cr has significantly is significantly worse this morning, although I am willing to entertain a slightly bumped Cr which reflects her inability to hold fluid in her plasma rather than interstitial space this bump may have been caused by Toradol (15mg given 10/12 and total 30mg given 10/13) vs Entresto (2 doses started yesterday) vs. intravascular depletion. Toradol was discontinued yesterday, will discontinue Entresto today (although this should not be seen as complete failure of Entresto as her BP has remained stable) and will hold off further diuresis today and evaluate Cr tomorrow. -Nursing to notify of new or increased oxygen requirement, sustained heart rate of greater than 120 or less than 50 bpm -Strict I&Os, daily weights - Appreciate cardiology input but I plan on holding off further Entresto until her fluid status and Cr are stable at this time. Possibly this can be introduced as an outpatient once more stable. - Also discussed palliative care with her daughter yesterday and recommend following up with an outpatient with regards to this ROSALIND Differential as above Toradol vs. Entresto vs. intravascular depletion (likely combination of all three) US renal and UA + Pr/Cr ratio to assess for alternative cause WHO group 2 pulmonary arterial hypertension//restrictive lung disease secondary to Scoliosis Chronic; complicates the patient's heart failure; not in any acute distress or exacerbation related to this condition Chronic SIADH Fluid restrict 1L, continue NaCl 1g PO daily Chronic diarrhea Multiple tests negative for infectious etiology Given her sustained normal magnesium I will try to switch her to Mg chloride to see if this helps Continue colestipol Atrial fibrillation Remains on amiodarone but in atrial fibrillation. Once her renal function is more stable I wonder whether digoxin is a better choice for her given her concurrent HF and really we are looking for rate rather than rhythm control Continue Eliquis for anticoagulation Elevated INR Did not reverse with vitamin K therefore not vitamin deficiency, Suspect related to her Eliquis use DVT: continue home apixaban 2.5 mg p.o. twice daily Disposition - continued stay to optimize HF medications with ROSALIND Admission and Anticipated Discharge Date Admission Date: October 13, 2024 Subjective Patient reports not change in her shortness of breath. Continues with poor appetite. Physical Exam Constitutional: well developed; + not well nourished and no acute distress Respiratory: normal respiratory effort; no respiratory distress Auscultation: + diminished lung sounds (bibasal); no crackles Cardiovascular: Rate/Rhythm: regular rate and + irregularly irregular Extremities: + pedal edema (2+ b/l equal) Gastrointestinal (Abdomen): normal bowel sounds, soft, nontender, no hepatosplenomegaly Results & Data Results & Data Vital Signs (Past 12 Hours) Vital Signs Temp Pulse Pulse Resp BP BP Pulse Ox 10/15/24 07:52 36.3 C L 70 17 121/91 92 10/15/24 07:18 78 10/15/24 03:06 36.4 C L 85 16 116/75 91 10/14/24 23:19 10/14/24 23:18 78 O2 Del Method 10/15/24 07:52 Room Air 10/15/24 07:18 10/15/24 03:06 Room Air 10/14/24 23:19 Room Air 10/14/24 23:18 Laboratory Results Abnormal lab results 10/15/24 10/15/24 Range/Units 05:47 06:05 PT 16.1 H (9.0-12.0) Seconds INR 1.5 H (0.9-1.1) Sodium 133 L (136-145) mmol/L Chloride 96 L (98-107) mmol/L BUN 58 H (6-23) mg/dl Creatinine 2.13 H D (0.6-1.2) mg/dl BUN/Creatinine Ratio 27.2 H (10-20) Phosphorus 6.4 H (2.5-4.9) mg/dl Albumin 2.7 L (3.4-5.0) gm/dl PG Care Time/CCT Total # of Minutes Spent Total Time Spent with Patient: Total time spent is greater than 50% in coordination of care (as documented) at patient's floor/unit and/or counseling patient: Coding Level of Care Code 62790 SUB INP/OBS CARE 2/35MIN Diagnoses Acute exacerbation of chronic heart failure I50.9 WHO group 2 pulmonary arterial hypertension I27.22 Kyphosis (acquired) (postural) M40.00 Restrictive lung disease due to kyphoscoliosis J98.4; M41.9 Frailty syndrome in geriatric patient R54 Chronic heart failure with mildly reduced ejection fraction (HFmrEF) I50.22 Recurrent major depressive disorder, in remission F33.40 Major depression recurrence: recurrent ROSALIND (acute kidney injury) N17.9 (7) Major depressive disorder in remission Major depression recurrence: recurrent Qualified Code(s): F33.40 - Major depressive disorder, recurrent, in remission, unspecified
--- NOTE | 2024-10-15 14:34 | Ultrasound Report ---
RENAL ULTRASOUND HISTORY: Acute kidney injury jenny COMPARISON: CT chest 10/12/2024. FINDINGS: Right kidney: 9.1 cm. No hydronephrosis. 5 mm calculus of the superior pole right kidney is better se en on prior CT exam. 10 mm hypodense focus suggestive of a cyst. Normal corticomedullary differentiat ion and cortical thickness. Left kidney: 8.6 cm. No hydronephrosis. Normal corticomedullary differentiation and cortical thicknes s. Bladder: Partial distension with wall thickening. The bilateral ureteral jets were identified. Ascites with layering pleural effusions. Limited exam secondary to patient body habitus. IMPRESSION: 1. 5 mm right renal calculus is better visualized on the prior CT study. No hydronephrosis. 2. Ascites with pleural effusions redemonstrated. ACT 112: Negative or not required by law. Electronically signed by: David Chandra M.D. 10/15/2024 2:32 PM
--- NOTE | 2024-10-15 15:12 | Cardiology Progress Note ---
Date of Service October 15, 2024 Assessment & Plan (1) Acute on chronic systolic CHF (congestive heart failure): Plan: Biventricular failure. With aggressive diuresis and institution of Entresto she had a reduction in overall renal function. Diuretics currently being held. Entresto currently being held. It is a difficult situation. Will need to find a happy medium with some degree of daily diuretic. However, she is very sedentary and overall seems happy with her clinical condition when in bed. 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 Certainly contributing to right-sided failure. Plan I would agree with stopping Entresto currently. Difficult to stock lifter her degree of diuresis as her recorded output is clearly inaccurate Will need to be slightly less aggressive with her diuresis. Will also look for another opportunity to intensify her heart failure regimen. Continue Jardiance. If renal function improves we may have an opportunity to reinstitute diuretic therapy. Admission and Anticipated Discharge Date Admission Date: October 13, 2024 Subjective This afternoon the patient reported feeling tired when sitting up for an extended period. She also reported some breathing difficulty when sitting up. She feels more comfortable lying in bed. With exertion to the bathroom she had some mild dyspnea. No dizziness or lightheadedness. No chest pain. Review of Systems Review of Systems: Per HPI Physical Exam Physical Exam: She is alert and oriented x3. Mood affect appear normal. She answered all ques tions appropriately. HEENT: Sclerae are anicteric. Pupils are equal and reactive to light and accommodation. Extraocular movements were intact. Neuro: Cranial nerves intact Lungs: Reduced breath sounds in the left midlung field. No expiratory wheezing. Normal respiratory effort. Cardiac: The rhythm was irregular. S1 and S2 were normal. There are no murmurs on examination. The PMI was not markedly displaced on palpation. Extremities: Patient has bilateral radial pulses that are equal in intensity. There is no evidence cyanosis or clubbing. Moderate lower extremity edema bilaterally. Skin: There are no rashes noted on examination today. Results & Data Vital Signs (Past 12 Hours) Vital Signs Temp Pulse Pulse Resp BP Pulse Ox O2 Del Method 10/15/24 12:29 36.4 C L 78 17 105/68 93 Room Air 10/15/24 07:52 36.3 C L 70 17 121/91 92 Room Air 10/15/24 07:18 78 Laboratory Results Abnormal Lab Results 10/15/24 10/15/24 10/15/24 05:47 06:05 14:47 PT 16.1 H INR 1.5 H Sodium 133 L Potassium 4.3 Chloride 96 L Carbon Dioxide 30 Anion Gap 7 BUN 58 H Creatinine 2.13 H D Est Cr Clr Drug Dosing 15.3 eGFR 22.28 BUN/Creatinine Ratio 27.2 H Glucose 72 Calcium 8.8 Phosphorus 6.4 H Magnesium 2.2 Albumin 2.7 L Urine Comment PG Care Time/CCT Total # of Minutes Spent Total Time Spent with Patient: Total time spent is greater than 50% in coordination of care (as documented) at patient's floor/unit and/or counseling patient: Coding Level of Care Code 75183 SUB INP/OBS CARE 2/35MIN Diagnoses Acute on chronic systolic CHF (congestive heart failure) I50.23 Persistent atrial fibrillation I48.19 Atrial fibrillation type: persistent (not longstanding) Valvular heart disease I38 (2) Atrial fibrillation Atrial fibrillation type: persistent (not longstanding) Qualified Code(s): I48.19 - Other persistent atrial fibrillation
[2024-10-15 15:32] LABS: Appearance Urine Cloudy (Clear); Bacteria Urine Automated None Seen (None Seen); Cast Urine Automated >20 /lpf (0-2); Epithelial Cell Urine Auto 0-2 /hpf (0-2); Glucose Urine UA Negative (Negative)
[2024-10-15 15:39] LABS: Protein Creatinine Ratio Urine 1.7 (0-0.2); Total Protein Urine Random 125.6 mg/dl (0-11.9)
[2024-10-15] MEDS: MAGNESIUM CHLORIDE W/CALCIUM 64MG DELAYED REL TAB PO SCH (21:42)
[2024-10-16 05:08] LABS: Anion Gap 6.0 (3-11); Blood Urea Nitrogen 62.0 mg/dl (6-23); Calcium 9.1 mg/dl (8.6-10.3); Carbon Dioxide 30.0 mmol/L (21-32); Chloride 95.0 mmol/L (98-107); Creatinine Clr Calc Pharmacy 12.7 ml/min; Glucose 73.0 mg/dl (70-99(Fasting)); Magnesium 2.4 mg/dl (1.7-2.4); Potassium 4.8 mmol/L (3.5-5.1); Sodium 131.0 mmol/L (136-145)
[2024-10-16] MEDS: ALENDRONATE SODIUM 70 MG TAB PO SCH (06:11)
--- NOTE | 2024-10-16 12:43 | Hospitalist Progress Note ---
Date of Service October 16, 2024 Assessment & Plan (1) Acute exacerbation of chronic heart failure: (2) WHO group 2 pulmonary arterial hypertension: (3) Kyphosis (acquired) (postural): (4) Restrictive lung disease due to kyphoscoliosis: (5) Frailty syndrome in geriatric patient: (6) Chronic heart failure with mildly reduced ejection fraction (HFmrEF): (7) Major depressive disorder in remission: (8) ROSALIND (acute kidney injury): Plan In summary this is an 83-year-old female presenting with heart failure exacerbation, likely consequential of inadequate diuresis. Acute on chronic heart failure with moderately reduced ejection fraction Cr continues to rise but I suspect this is from insult from Toradol and Entresto previously as with her muscle mass I would expect her Cr to only maximally rise 0.5 a day POCUS yesterday showed B lines throughout and moderate-large pleural effusions so I suspect she needs further diuresis but need Cr to be trending down first so we know what is diuretic induced and what was the Entresto/Toradol, there is no urgent need for diuresis currently as she is subjectively not rapidly getting worse and does not have an oxygen requirement. When we resume diuresis will use with albumin to help with increased plasma volume to interstitial space ratio of ECFV. -Nursing to notify of new or increased oxygen requirement, sustained heart rate of greater than 120 or less than 50 bpm -Strict I&Os, daily weights - Appreciate cardiology input - Entresto discontinued, will continue off this for now ROSALIND Differential as above Toradol vs. Entresto vs. intravascular depletion (likely combination of all three) US renal and UA + Pr/Cr ratio - no post obstructive cause and Pr/Cr ratio < 3 therefore will defer nephrology workup currently WHO group 2 pulmonary arterial hypertension//restrictive lung disease secondary to Scoliosis Chronic; complicates the patient's heart failure; not in any acute distress or exacerbation related to this condition Chronic SIADH Fluid restrict 1L, continue NaCl 1g PO daily Chronic diarrhea Multiple tests negative for infectious etiology Given her sustained normal magnesium I will try to switch her to Mg chloride to see if this helps Continue colestipol Atrial fibrillation Will discuss with cardiology switching to digoxin once renal function is improved Continue Eliquis for anticoagulation Elevated INR Did not reverse with vitamin K therefore not vitamin deficiency, Suspect related to her Eliquis use DVT: continue home apixaban 2.5 mg p.o. twice daily Disposition - continued stay to optimize HF medications with ROSALIND Admission and Anticipated Discharge Date Admission Date: October 13, 2024 Subjective No acute change in her shortness of breath. No orthopnea or cough. No chest pain. No change in leg swelling. Generally feels weak and fatigued but this is not unusual for her. RN reports difficulty with swallowing pills which is not new for her Physical Exam Constitutional: well developed; + not well nourished and no acute distress Respiratory: normal respiratory effort; no respiratory distress Auscultation: + diminished lung sounds (bibasal); no crackles Cardiovascular: Rate/Rhythm: regular rate and + irregularly irregular Extremities: + pedal edema (2+ b/l equal) Gastrointestinal (Abdomen): normal bowel sounds, soft, nontender, no hepatos plenomegaly Results & Data Results & Data Vital Signs (Past 12 Hours) Vital Signs Temp Pulse Pulse Resp BP BP Pulse Ox 10/16/24 10:54 36.4 C L 94 H 16 116/76 92 10/16/24 07:45 36.6 C 91 H 18 122/73 92 10/16/24 07:29 83 10/16/24 02:45 37.5 C 82 18 100/62 93 O2 Del Method 10/16/24 10:54 Room Air 10/16/24 07:45 Room Air 10/16/24 07:29 10/16/24 02:45 Room Air PG Care Time/CCT Total # of Minutes Spent Total Time Spent with Patient: Total time spent is greater than 50% in coordination of care (as documented) at patient's floor/unit and/or counseling patient: Coding Level of Care Code 08693 SUB INP/OBS CARE 2/35MIN Diagnoses Acute exacerbation of chronic heart failure I50.9 WHO group 2 pulmonary arterial hypertension I27.22 Kyphosis (acquired) (postural) M40.00 Restrictive lung disease due to kyphoscoliosis J98.4; M41.9 Frailty syndrome in geriatric patient R54 Chronic heart failure with mildly reduced ejection fraction (HFmrEF) I50.22 Recurrent major depressive disorder, in remission F33.40 Major depression recurrence: recurrent ROSALIND (acute kidney injury) N17.9 (7) Major depressive disorder in remission Major depression recurrence: recurrent Qualified Code(s): F33.40 - Major depressive disorder, recurrent, in remission, unspecified
--- NOTE | 2024-10-16 13:44 | Cardiology Progress Note ---
Date of Service October 16, 2024 Assessment & Plan (1) Acute on chronic systolic CHF (congestive heart failure): Plan: Biventricular failure. With aggressive diuresis and institution of Entresto she had a reduction in overall renal function. Renal function still compromised. This does not appear to be an opportune time to rechallenge with medications. 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 Certainly contributing to right-sided failure. Plan She does not appear to be a good candidate for more aggressive medical therapy due to history of hypotension and now renal dysfunction on carvedilol and Entresto respectively. I think the goal of care should center on volume management. Hopefully as her renal function improves we can reinitiate some mild daily diuresis. It has been difficult to gauge effect of diuresis as her recorded outputs are clearly not accurate. I think we are going to need to settle for an element of lower extremity edema. I think if she is comfortable and satisfied with her level of functioning then there is no need to be more aggressive with respect to diuresis. Admission and Anticipated Discharge Date Admission Date: October 13, 2024 Subjective This morning the patient claimed to be feeling well. She was most interested in just lying and sleeping. She did not report her breathing difficulty laying in bed. No pain at any site. She reports being up in chair briefly but prefers to be in bed. Review of Systems Review of Systems: Per HPI Physical Exam Physical Exam: She is alert and oriented x3. Mood affect appear normal. She answered all questions appropriately. Lying flat in bed. HEENT: Sclerae are anicteric. Pupils are equal and reactive to light and accommodation. Extraocular movements were intact. Neuro: Cranial nerves intact Lungs: Reduced breath sounds in the left midlung field. No expiratory wheezing. Normal respiratory effort. Cardiac: The rhythm was irregular. S1 and S2 were normal. There are no murmurs on examination. The PMI was not markedly displaced on palpation. Extremities: Patient has bilateral radial pulses that are equal in intensity. There is no evidence cyanosis or clubbing. Moderate lower extremity edema bilaterally. Skin: There are no rashes noted on examination today. Results & Data Vital Signs (Past 12 Hours) Vital Signs Temp Pulse Pulse Resp BP BP Pulse Ox 10/16/24 10:54 36.4 C L 94 H 16 116/76 92 10/16/24 07:45 36.6 C 91 H 18 122/73 92 10/16/24 07:29 83 10/16/24 02:45 37.5 C 82 18 100/62 93 O2 Del Method 10/16/24 10:54 Room Air 10/16/24 07:45 Room Air 10/16/24 07:29 10/16/24 02:45 Room Air Laboratory Results Abnormal Lab Results 10/15/24 10/16/24 14:47 04:12 Sodium 131 L Potassium 4.8 Chloride 95 L Carbon Dioxide 30 Anion Gap 6 BUN 62 H Creatinine 2.57 H D Est Cr Clr Drug Dosing 12.7 eGFR 17.79 BUN/Creatinine Ratio 24.1 H Glucose 73 Calcium 9.1 Phosphorus 6.9 H Magnesium 2.4 Albumin 2.7 L Urine Color Yellow Urine Appearance Cloudy A Urine pH 5.0 Ur Specific Arnett 1.029 Urine Protein 2+ H Urine Glucose (UA) Negative Urine Ketones Negative Urine Blood Trace H Urine Nitrite Negative Urine Bilirubin Negative Urine Urobilinogen Negative Ur Leukocyte Esterase 1+ H Urine WBC (Auto) 11-20 H Urine RBC (Auto) 3-5 H U Hyaline Cast (Auto) >20 H U Epithel Cells (Auto) 0-2 Urine Bacteria (Auto) None Seen Hyaline Casts Present A Ur Random Creatinine 72.3 U Random Total Protein 125.6 H Protein/Creatinin Ratio 1.7 H Urine Comment PG Care Time/CCT Total # of Minutes Spent Total Time Spent with Patient: Total time spent is greater than 50% in coordination of care (as documented) at patient's floor/unit and/or counseling patient: Coding Level of Care Code 64306 SUB INP/OBS CARE 2/35MIN Diagnoses Acute on chronic systolic CHF (congestive heart failure) I50.23 Persistent atrial fibrillation I48.19 Atrial fibrillation type: persistent (not longstanding) Valvular heart disease I38 (2) Atrial fibrillation Atrial fibrillation type: persistent (not longstanding) Qualified Code(s): I48.19 - Other persistent atrial fibrillation
[2024-10-16 16:26] LABS: Anion Gap 8.0 (3-11); Blood Urea Nitrogen 66.0 mg/dl (6-23); Calcium 8.9 mg/dl (8.6-10.3); Carbon Dioxide 28.0 mmol/L (21-32); Chloride 97.0 mmol/L (98-107); Creatinine Clr Calc Pharmacy 12.0 ml/min; Glucose 87.0 mg/dl (70-99(Fasting)); Potassium 4.9 mmol/L (3.5-5.1); Sodium 133.0 mmol/L (136-145)
[2024-10-17 07:48] LABS: Anion Gap 7.0 (3-11); Blood Urea Nitrogen 68.0 mg/dl (6-23); Calcium 9.0 mg/dl (8.6-10.3); Carbon Dioxide 29.0 mmol/L (21-32); Chloride 99.0 mmol/L (98-107); Creatinine Clr Calc Pharmacy 12.0 ml/min; Glucose 78.0 mg/dl (70-99(Fasting)); Magnesium 2.4 mg/dl (1.7-2.4); Potassium 4.8 mmol/L (3.5-5.1); Sodium 135.0 mmol/L (136-145)
[2024-10-17] MEDS ORDERED: ONDANSETRON INJ 2 MG/ML 2 ML VIAL IV PRN (12:22)
--- NOTE | 2024-10-17 13:34 | Hospitalist Progress Note ---
Date of Service October 17, 2024 Assessment & Plan (1) Acute exacerbation of chronic heart failure: (2) WHO group 2 pulmonary arterial hypertension: (3) Kyphosis (acquired) (postural): (4) Restrictive lung disease due to kyphoscoliosis: (5) Frailty syndrome in geriatric patient: (6) Chronic heart failure with mildly reduced ejection fraction (HFmrEF): (7) Major depressive disorder in remission: (8) ROSALIND (acute kidney injury): Plan In summary this is an 83-year-old female presenting with heart failure exacerbation, likely consequential of inadequate diuresis. Acute on chronic heart failure with moderately reduced ejection fraction Cr peaked - expect this to go down tomorrow and can restart diuretics at that time with albumin Will hold Eliquis as she may benefit from thoracentesis next week -Nursing to notify of new or increased oxygen requirement, sustained heart rate of greater than 120 or less than 50 bpm -Strict I&Os, daily standing weights - Appreciate cardiology input - Entresto discontinued, will continue off this for now ROSALIND Cr peaked. Differential as above Toradol vs. Entresto vs. intravascular depletion (likely combination of all three) US renal and UA + Pr/Cr ratio - no post obstructive cause and Pr/Cr ratio < 3 therefore will defer nephrology workup currently WHO group 2 pulmonary arterial hypertension//restrictive lung disease secondary to Scoliosis Chronic; complicates the patient's heart failure; not in any acute distress or exacerbation related to this condition Chronic SIADH Fluid restrict 1L, continue NaCl 1g PO daily Chronic diarrhea Multiple tests negative for infectious etiology Continue on Mg chloride Continue colestipol Atrial fibrillation Will discuss with cardiology switching to digoxin once renal function is improved Continue Eliquis for anticoagulation Elevated INR Did not reverse with vitamin K therefore not vitamin deficiency, Suspect related to her Eliquis use DVT: continue home apixaban 2.5 mg p.o. twice daily (will place this on hold as anticipate she may benefits from thoracentesis next week) Disposition - continued stay to optimize HF medications with ROSALIND Admission and Anticipated Discharge Date Admission Date: October 13, 2024 Subjective No change in shortness of breath or leg swelling per patient. Having some coughing/nausea episode today but she reports this is not new. Physical Exam Constitutional: well developed; + not well nourished and no acute distress Respiratory: normal respiratory effort; no respiratory distress Auscultation: + diminished lung sounds (bibasal); no crackles Cardiovascular: Rate/Rhythm: regular rate and + irregularly irregular Extremities: + pedal edema (2+ b/l equal) Gastrointestinal (Abdomen): normal bowel sounds, soft, nontender, no hepatosplenomegaly Results & Data Results & Data Vital Signs (Past 12 Hours) Vital Signs Temp Pulse Resp BP BP Pulse Ox O2 Del Method 10/17/24 11:13 36.4 C L 69 20 119/80 93 Room Air 10/17/24 08:13 36.4 C L 85 20 113/73 93 Room Air 10/17/24 03:05 36.5 C 83 18 109/68 91 Room Air PG Care Time/CCT Total # of Minutes Spent Total Time Spent with Patient: Total time spent is greater than 50% in coordination of care (as documented) at patient's floor/unit and/or counseling patient: Coding Level of Care Code 59153 SUB INP/OBS CARE 2/35MIN Diagnoses Acute exacerbation of chronic heart failure I50.9 WHO group 2 pulmonary arterial hypertension I27.22 Kyphosis (acquired) (postural) M40.00 Restrictive lung disease due to kyphoscoliosis J98.4; M41.9 Frailty syndrome in geriatric patient R54 Chronic heart failure with mildly reduced ejection fraction (HFmrEF) I50.22 Recurrent major depressive disorder, in remission F33.40 Major depression recurrence: recurrent ROSALIND (acute kidney injury) N17.9 (7) Major depressive disorder in remission Major depression recurrence: recurrent Qualified Code(s): F33.40 - Major depressive disorder, recurrent, in remission, unspecified
[2024-10-18 07:11] LABS: Anion Gap 7.0 (3-11); Blood Urea Nitrogen 71.0 mg/dl (6-23); Calcium 8.9 mg/dl (8.6-10.3); Carbon Dioxide 29.0 mmol/L (21-32); Chloride 101.0 mmol/L (98-107); Creatinine Clr Calc Pharmacy 13.7 ml/min; Glucose 80.0 mg/dl (70-99(Fasting)); Magnesium 2.5 mg/dl (1.7-2.4); Potassium 4.8 mmol/L (3.5-5.1); Sodium 137.0 mmol/L (136-145)
[2024-10-18 08:02] LABS: Hematocrit (blood only) 34.1 % (37.0-47.0); Hemoglobin 11.3 g/dl (12.0-16.0); Mean Corpuscular Hemoglobin 30.8 pg (25.0-34.0); Mean Corpuscular Volume 92.9 fL (80.0-100.0); Platelet Count 225 K/uL (130-400); RDW Standard Deviation 54.6 fL (36.4-46.3); Red Blood Count 3.67 M/uL (4.20-5.40); White Blood Count 3.86 K/ul (4.8-10.8)
[2024-10-18] MEDS: ALBUMIN 25% 25 GM/100 ML VIAL IV SCH (09:55)
[2024-10-18] MEDS: BUMETANIDE 1 MG in SYRINGE 0 ML IV SCH (09:56)
[2024-10-18] MEDS: MAGNESIUM CHLORIDE W/CALCIUM 64MG DELAYED REL TAB PO SCH (10:09)
--- NOTE | 2024-10-18 10:43 | Hospitalist Progress Note ---
Date of Service October 18, 2024 Assessment & Plan (1) Acute exacerbation of chronic heart failure: (2) WHO group 2 pulmonary arterial hypertension: (3) Kyphosis (acquired) (postural): (4) Restrictive lung disease due to kyphoscoliosis: (5) Frailty syndrome in geriatric patient: (6) Chronic heart failure with mildly reduced ejection fraction (HFmrEF): (7) Major depressive disorder in remission: (8) ROSALIND (acute kidney injury): Plan In summary this is an 83-year-old female presenting with heart failure exacerbation, likely consequential of inadequate diuresis. Acute on chronic heart failure with moderately reduced ejection fraction Cr now coming back down, urea increasing but Hgb stable, will start back on diuresis today with albumin 25% 25g with Bumex 1mg and plan to up titrate renal function and BP allows Continue to hold Eliquis as she may benefit from thoracentesis next week -Nursing to notify of new or increased oxygen requirement, sustained heart rate of greater than 120 or less than 50 bpm - Strict I&Os, daily standing weights - Appreciate cardiology input - Entresto discontinued, will continue off this for now but could consider starting as outpatient ROSALIND Cr now downtrending. Differential as above Toradol vs. Entresto vs. intravascular depletion (likely combination of all three) US renal and UA + Pr/Cr ratio - no post obstructive cause and Pr/Cr ratio < 3 therefore will defer nephrology workup currently WHO group 2 pulmonary arterial hypertension//restrictive lung disease secondary to Scoliosis Chronic; complicates the patient's heart failure; not in any acute distress or exacerbation related to this condition Chronic SIADH Fluid restrict 1L, continue NaCl 1g PO daily Chronic diarrhea Multiple tests negative for infectious etiology Continue on Mg chloride once daily Continue colestipol Atrial fibrillation Will discuss with cardiology switching to digoxin once renal function is improved Eliquis currently on hold Elevated INR Did not reverse with vitamin K therefore not vitamin deficiency, Suspect related to her Eliquis use DVT: home apixaban 2.5 mg p.o. twice daily (will place this on hold as anticipate she may benefits from thoracentesis next week) Disposition - continued stay to optimize HF medications with ROSALIND Admission and Anticipated Discharge Date Admission Date: October 13, 2024 Subjective No significant change in shortness of breath at rest or leg swelling. No chest pain. Physical Exam Constitutional: well developed; + not well nourished and no acute distress Respiratory: normal respiratory effort; no respiratory distress Auscultation: + diminished lung sounds (bibasal); no crackles Cardiovascular: Rate/Rhythm: regular rate and + irregularly irregular Extremities: + pedal edema (2+ b/l equal) Gastrointestinal (Abdomen): normal bowel sounds, soft, nontender, no hepatosplenomegaly Results & Data Results & Data Vital Signs (Past 12 Hours) Vital Signs Temp Pulse Resp BP Pulse Ox O2 Del Method 10/18/24 09:59 132/77 10/18/24 08:02 36.4 C L 80 16 125/75 93 Room Air 10/18/24 03:06 36.5 C 76 18 116/75 92 Room Air 10/17/24 22:43 36.4 C L 79 18 111/68 94 Room Air PG Care Time/CCT Total # of Minutes Spent Total Time Spent with Patient: Total time spent is greater than 50% in coordination of care (as documented) at patient's floor/unit and/or counseling patient: Coding Level of Care Code 37583 SUB INP/OBS CARE 2/35MIN Diagnoses Acute exacerbation of chronic heart failure I50.9 WHO group 2 pulmonary arterial hypertension I27.22 Kyphosis (acquired) (postural) M40.00 Restrictive lung disease due to kyphoscoliosis J98.4; M41.9 Frailty syndrome in geriatric patient R54 Chronic heart failure with mildly reduced ejection fraction (HFmrEF) I50.22 Recurrent major depressive disorder, in remission F33.40 Major depression recurrence: recurrent ROSALIND (acute kidney injury) N17.9 (7) Major depressive disorder in remission Major depression recurrence: recurrent Qualified Code(s): F33.40 - Major depressive disorder, recurrent, in remission, unspecified
[2024-10-19 06:32] LABS: Anion Gap 4.0 (3-11); Blood Urea Nitrogen 65.0 mg/dl (6-23); Calcium 8.8 mg/dl (8.6-10.3); Carbon Dioxide 33.0 mmol/L (21-32); Chloride 101.0 mmol/L (98-107); Creatinine Clr Calc Pharmacy 15.8 ml/min; Glucose 84.0 mg/dl (70-99(Fasting)); Magnesium 2.2 mg/dl (1.7-2.4); Potassium 4.6 mmol/L (3.5-5.1); Sodium 138.0 mmol/L (136-145)
--- NOTE | 2024-10-19 10:35 | Hospitalist Progress Note ---
Date of Service October 19, 2024 Assessment & Plan (1) Acute exacerbation of chronic heart failure: (2) WHO group 2 pulmonary arterial hypertension: (3) Kyphosis (acquired) (postural): (4) Restrictive lung disease due to kyphoscoliosis: (5) Frailty syndrome in geriatric patient: (6) Chronic heart failure with mildly reduced ejection fraction (HFmrEF): (7) Major depressive disorder in remission: (8) ROSALIND (acute kidney injury): Plan In summary this is an 83-year-old female presenting with heart failure exacerbation, likely consequential of inadequate diuresis. Acute on chronic heart failure with moderately reduced ejection fraction / increased respiratory effort Cr and BUN now coming back down, Bumex/albumin restarted 10/18, will defer increasing this for now given difficulty with her fluid balance in the past (ECFV generally elevated but also has a hard time keeping her plasma volume reasonable on diuretics hence using albumin) Continue to hold Eliquis as she will likely benefit with thoracentesis once pulmonary edema better controlled -Nursing to notify of new or increased oxygen requirement, sustained heart rate of greater than 120 or less than 50 bpm - Strict I&Os, daily standing weights - Appreciate cardiology input - Entresto discontinued, will continue off this for now but could consider starting as outpatient ROSALIND Improving Cr now downtrending. Secondary to Toradol + Entresto less likely intravascular depletion but diuretics at the same time probably didn't help US renal and UA + Pr/Cr ratio - no post obstructive cause and Pr/Cr ratio < 3 WHO group 2 pulmonary arterial hypertension//restrictive lung disease secondary to Scoliosis Chronic; complicates the patient's heart failure; not in any acute distress or exacerbation related to this condition SIADH Sodium normal for the last couple of days and patient with dry mouth therefore will loosen fluid restriction to 1.5L and hold NaCl as perhaps this isn't such as chronic condition Chronic diarrhea Multiple tests negative for infectious etiology Continue on Mg chloride once daily - Mg level will trend down as her renal function improves Continue colestipol Atrial fibrillation Will discuss with cardiology switching to digoxin once renal function is improved Eliquis currently on hold Elevated INR Did not reverse with vitamin K therefore not vitamin deficiency, Suspect related to her Eliquis use DVT: home apixaban 2.5 mg p.o. twice daily (held 10/17 for possible thoracentesis) Disposition - continued stay to optimize HF medications with ROSALIND Admission and Anticipated Discharge Date Admission Date: October 13, 2024 Subjective Subjectively similar. She reports having shortness of breath episodes intermittently throughout the day when ever she is moving but this can be something as simple as just sitting up. Leg swelling similar. Review of Systems Review of Systems: All systems reviewed & are unremarkable except as noted in HPI & below Physical Exam Constitutional: well developed; + not well nourished and no acute distress Respiratory: + labored breathing and + uses accessory muscles Auscultation: + diminished lung sounds (bibasal); no crackles Cardiovascular: Rate/Rhythm: regular rate and + irregularly irregular Extremities: + pedal edema (2+ b/l equal) Gastrointestinal (Abdomen): normal bowel sounds, soft, nontender, no hepatosplenomegaly Results & Data Results & Data Vital Signs (Past 12 Hours) Vital Signs Temp Pulse Resp BP Pulse Ox O2 Del Method 10/19/24 08:20 36.3 C L 69 20 127/74 98 Room Air 10/19/24 03:27 36.3 C L 78 14 140/94 94 Room Air 10/18/24 23:14 36.3 C L 70 14 121/74 96 Room Air PG Care Time/CCT Total # of Minutes Spent Total Time Spent with Patient: Total time spent is greater than 50% in coordination of care (as documented) at patient's floor/unit and/or counseling patient: Coding Level of Care Code 03619 SUB INP/OBS CARE 2/35MIN Diagnoses Acute exacerbation of chronic heart failure I50.9 WHO group 2 pulmonary arterial hypertension I27.22 Kyphosis (acquired) (postural) M40.00 Restrictive lung disease due to kyphoscoliosis J98.4; M41.9 Frailty syndrome in geriatric patient R54 Chronic heart failure with mildly reduced ejection fraction (HFmrEF) I50.22 Recurrent major depressive disorder, in remission F33.40 Major depression recurrence: recurrent ROSALIND (acute kidney injury) N17.9 (7) Major depressive disorder in remission Major depression recurrence: recurrent Qualified Code(s): F33.40 - Major depressive disorder, recurrent, in remission, unspecified
[2024-10-20 07:31] LABS: Anion Gap 6.0 (3-11); Blood Urea Nitrogen 55.0 mg/dl (6-23); Calcium 8.7 mg/dl (8.6-10.3); Carbon Dioxide 32.0 mmol/L (21-32); Chloride 101.0 mmol/L (98-107); Creatinine Clr Calc Pharmacy 18.1 ml/min; Glucose 75.0 mg/dl (70-99(Fasting)); Magnesium 2.0 mg/dl (1.7-2.4); Potassium 4.3 mmol/L (3.5-5.1); Sodium 139.0 mmol/L (136-145)
[2024-10-20] MEDS ORDERED: ARTIFICIAL TEARS OPB PRN (08:50)
--- NOTE | 2024-10-20 10:52 | XRay Report ---
XR chest 1V portable CLINICAL HISTORY: pulmonary edema, pleural effusions COMPARISON STUDY: 10/12/2024 FINDINGS: Stable mitral valve repair. Stable prominent cardiomegaly with mild pulmonary vascular nori estion. Stable small to moderate bilateral pleural effusions and associated lung base consolidation. IMPRESSION: Stable exam. ACT 112: Negative or not required by law. Electronically signed by: Yuriy Strickland M.D. 10/20/2024 10:50 AM
--- NOTE | 2024-10-20 12:55 | Hospitalist Progress Note ---
Date of Service October 20, 2024 Assessment & Plan (1) Acute exacerbation of chronic heart failure: (2) WHO group 2 pulmonary arterial hypertension: (3) Kyphosis (acquired) (postural): (4) Restrictive lung disease due to kyphoscoliosis: (5) Frailty syndrome in geriatric patient: (6) Chronic heart failure with mildly reduced ejection fraction (HFmrEF): (7) Major depressive disorder in remission: (8) ROSALIND (acute kidney injury): Plan In summary this is an 83-year-old female presenting with heart failure exacerbation, likely consequential of inadequate diuresis. Acute on chronic heart failure with moderately reduced ejection fraction / increased respiratory effort Cr and BUN now coming back down, Bumex/albumin restarted 10/18, will defer increasing this for now given difficulty with her fluid balance in the past (ECFV generally elevated but also has a hard time keeping her plasma volume reasonable on diuretics hence using albumin), likely can be uptitrated in coming days as Cr improves -Nursing to notify of new or increased oxygen requirement, sustained heart rate of greater than 120 or less than 50 bpm - Strict I&Os, daily standing weights - Appreciate cardiology input - Entresto discontinued, will continue off this for now but could consider starting as outpatient Repeat CXR today POCUS 10/20 - pulmonary edema (B lines) significantly improved and resolved anteriorly. Moderate pleural effusions still present b/l - suggests likely only so much improvement to go with diuretics and need to consider thoracentesis once Cr bumps ROSALIND Improving Cr now downtrending. Secondary to Toradol + Entresto less likely intravascular depletion but diuretics at the same time probably didn't help (really caused by a combination of all three) US renal and UA + Pr/Cr ratio - no post obstructive cause and Pr/Cr ratio < 3 WHO group 2 pulmonary arterial hypertension//restrictive lung disease secondary to Scoliosis Chronic; complicates the patient's heart failure; not in any acute distress or exacerbation related to this condition SIADH Sodium normal since 10/18 - NaCl stopped. Fluid restriction lossened to 1.5L. Perhaps SIADH not as chronic as first thought Chronic diarrhea Multiple tests negative for infectious etiology Continue on Mg chloride once daily - monitor Mg level Continue colestipol Atrial fibrillation Recommend switching to digoxin once renal function improves - will need to discuss with cardiology Eliquis currently on hold Elevated INR Did not reverse with vitamin K therefore not vitamin deficiency, Suspect related to her Eliquis use DVT: home apixaban 2.5 mg p.o. twice daily (held 10/17 for possible thoracentesis) Disposition - continued stay to optimize HF medications with ROSALIND Admission and Anticipated Discharge Date Admission Date: October 13, 2024 Subjective Actually feels improved shortness of breath today. Leg swelling similar. Generally feels worn out and fatigued which is not unusual for her. No change in poor appetite. Physical Exam Constitutional: well developed; + not well nourished and no acute distress Respiratory: normal respiratory effort, + labored breathing and + uses accessory muscles; no respiratory distress Auscultation: + diminished lung sounds (bibasal); no crackles Cardiovascular: Rate/Rhythm: regular rate and + irregularly irregular Extremities: + pedal edema (2+ b/l equal) Gastrointestinal (Abdomen): normal bowel sounds, soft, nontender, no hepatosplenomegaly Results & Data Results & Data Vital Signs (Past 12 Hours) Vital Signs Temp Pulse Resp BP Pulse Ox O2 Del Method 10/20/24 10:58 Room Air 10/20/24 08:09 36.3 C L 70 20 125/78 96 Room Air 10/20/24 03:38 36.3 C L 80 20 110/68 92 Room Air PG Care Time/CCT Total # of Minutes Spent Total Time Spent: 60 Total Time Spent with Patient: Total time spent is greater than 50% in coordination of care (as documented) at patient's floor/unit and/or counseling patient: Coding Level of Care Code 11359 SUB INP/OBS CARE 3/50MIN Diagnoses Acute exacerbation of chronic heart failure I50.9 WHO group 2 pulmonary arterial hypertension I27.22 Kyphosis (acquired) (postural) M40.00 Restrictive lung disease due to kyphoscoliosis J98.4; M41.9 Frailty syndrome in geriatric patient R54 Chronic heart failure with mildly reduced ejection fraction (HFmrEF) I50.22 Recurrent major depressive disorder, in remission F33.40 Major depression recurrence: recurrent ROSALIND (acute kidney injury) N17.9 (7) Major depressive disorder in remission Major depression recurrence: recurrent Qualified Code(s): F33.40 - Major depressive disorder, recurrent, in remission, unspecified
[2024-10-21 08:37] LABS: Anion Gap 7.0 (3-11); Blood Urea Nitrogen 52.0 mg/dl (6-23); Calcium 8.9 mg/dl (8.6-10.3); Carbon Dioxide 32.0 mmol/L (21-32); Chloride 100.0 mmol/L (98-107); Creatinine Clr Calc Pharmacy 20.7 ml/min; Glucose 66.0 mg/dl (70-99(Fasting)); Magnesium 1.9 mg/dl (1.7-2.4); Potassium 4.3 mmol/L (3.5-5.1); Sodium 139.0 mmol/L (136-145)
[2024-10-21 09:14] LABS: Thyroid Stimulating Hormone 4.866 uIu/ml (0.300-4.500)
--- NOTE | 2024-10-21 12:01 | Hospitalist Progress Note ---
Date of Service October 21, 2024 Assessment & Plan (1) Acute exacerbation of chronic heart failure: (2) WHO group 2 pulmonary arterial hypertension: (3) Kyphosis (acquired) (postural): (4) Restrictive lung disease due to kyphoscoliosis: (5) Frailty syndrome in geriatric patient: (6) Chronic heart failure with mildly reduced ejection fraction (HFmrEF): Plan: EF 45-50% (7) Major depressive disorder in remission: (8) ROSALIND (acute kidney injury): Plan: peak Cr 2.7 (9) Chronic diarrhea: Plan 83yo female with acute/chronic systolic CHF. #Acute on chronic systolic heart failure - EF 45-50% - -volume status much improved -had suffered acute kidney injury in the midst of diuresis -Entresto stopped due to ROSALIND -cont IV bumex 1mg daily -defer on thoracentesis -cont Jardiance #ROSALIND - -Improving; peak Cr 2.7, now 1.5 today -no obstruction on recent renal u/s -BMP am -cont to hold Entresto #WHO group 2 pulmonary arterial hypertension//restrictive lung disease secondary to Scoliosis - -would perform 2-step before d/c back to [facility] #h/o SIADH - -Na levels wnl #Chronic diarrhea - -thought 2nd to subtotal colectomy and removal of ileocecal valve along with cholecystectomy leading to bile acid diarrhea -continue colestipol #Atrial fibrillation - -Eliquis currently on hold in the event she needed thoracentesis but doubt she needs such -can likely resume Eliquis tomorrow -cont amiodarone #right eye conjunctivitis - -start cipro eye drops 1 drop QID to R eye #hypothyroidism - -last 9 TSH levels all high -has been on escalating doses of synthroid over the last few months -last dose change was from 88 to 100mcg in mid-September -reasonable to increase to 112mcg with recheck of TSH in 4-6 weeks cleared to return to [facility] at d/c d/c next 1-2 days? again would perform 2-step Admission and Anticipated Discharge Date Admission Date: October 13, 2024 Subjective no events overnight denies dyspnea at rest just has dyspnea with getting up and walking eating ok right eye is irritated and has mild drainage tele - a.fib, rates <100 Review of Systems Review of Systems: cv - no chest pain, no orthopnea pulm - no wheezing GI - no N/V Physical Exam Physical Exam: gen - thin, NAD neck - JVD present eyes - right eye bletharitis vs conjunctivitis - latter suspected mouth - MMM heart - irregularly irregular, s1 s2, 2-3/6 holosystolic murmur LSB lungs - minimally decreased BS both bases, CTA apices b/l back - severe kyphosis abd - soft NT ND BS+ ext - <1+ edema b/l legs, pulses b/l feet 2+ Results & Data Results & Data Vital Signs (Past 12 Hours) Vital Signs Temp Pulse Pulse Resp BP Pulse Ox O2 Del Method 10/21/24 10:52 36.3 C L 76 16 111/70 94 Room Air 10/21/24 10:46 Room Air 10/21/24 07:25 77 10/21/24 07:18 36.4 C L 83 16 111/69 94 Room Air 10/21/24 03:30 36.5 C 76 16 137/80 92 Room Air Laboratory Results Laboratory Results - last 48 hr 10/21/24 10/21/24 07:05 10:28 Sodium 139 Potassium 4.3 Chloride 100 Carbon Dioxide 32 Anion Gap 7 BUN 52 H Creatinine 1.57 H Est Cr Clr Drug Dosing 20.7 eGFR 32.13 BUN/Creatinine Ratio 33.1 H Glucose 66 L POC Glucose 97 Calcium 8.9 Phosphorus 4.6 Magnesium 1.9 Albumin 3.5 TSH 4.866 H PG Care Time/CCT Total # of Minutes Spent Total Time Spent with Patient: Total time spent is greater than 50% in coordination of care (as documented) at patient's floor/unit and/or counseling patient: Coding Level of Care Code 14270 SUB INP/OBS CARE 3/50MIN Diagnoses Acute exacerbation of chronic heart failure I50.9 WHO group 2 pulmonary arterial hypertension I27.22 Kyphosis (acquired) (postural) M40.00 Restrictive lung disease due to kyphoscoliosis J98.4; M41.9 Frailty syndrome in geriatric patient R54 Chronic heart failure with mildly reduced ejection fraction (HFmrEF) I50.22 Recurrent major depressive disorder, in remission F33.40 Major depression recurrence: recurrent ROSALIND (acute kidney injury) N17.9 Chronic diarrhea K52.9 (7) Major depressive disorder in remission Major depression recurrence: recurrent Qualified Code(s): F33.40 - Major depressive disorder, recurrent, in remission, unspecified
[2024-10-21] MEDS: CIPROFLOXACIN HCL 0.3% OP SOLN 2.5 ML BTL OPR SCH (16:33)
[2024-10-22] MEDS: LEVOTHYROXINE SODIUM 112 MCG TABLET PO SCH (06:11)
[2024-10-22 07:02] LABS: Anion Gap 7.0 (3-11); Blood Urea Nitrogen 50.0 mg/dl (6-23); Calcium 8.7 mg/dl (8.6-10.3); Carbon Dioxide 32.0 mmol/L (21-32); Chloride 100.0 mmol/L (98-107); Creatinine Clr Calc Pharmacy 23.4 ml/min; Glucose 70.0 mg/dl (70-99(Fasting)); Potassium 4.5 mmol/L (3.5-5.1); Sodium 139.0 mmol/L (136-145)
--- NOTE | 2024-10-22 13:42 | XRay Report ---
XR chest 2V PA/lateral CLINICAL HISTORY: b/l effusions, reassess size COMPARISON STUDY: 10/20/2024 FINDINGS: Stable mitral valve repair. Stable cardiomegaly with mild pulmonary vascular congestion. St able hyperexpanded lungs. Stable small bilateral pleural effusions and associated lung base consolida tion. No pneumothorax seen. Stable height loss at multiple mid thoracic vertebral bodies. IMPRESSION: Stable exam. ACT 112: Negative or not required by law. Electronically signed by: Yuriy Strickland M.D. 10/22/2024 1:41 PM
--- NOTE | 2024-10-22 20:52 | Hospitalist Progress Note ---
Date of Service October 22, 2024 Assessment & Plan (1) Acute exacerbation of chronic heart failure: (2) WHO group 2 pulmonary arterial hypertension: (3) Kyphosis (acquired) (postural): (4) Restrictive lung disease due to kyphoscoliosis: (5) Frailty syndrome in geriatric patient: (6) Chronic heart failure with mildly reduced ejection fraction (HFmrEF): Plan: EF 45-50% (7) Major depressive disorder in remission: (8) ROSALIND (acute kidney injury): Plan: peak Cr 2.7 (9) Chronic diarrhea: Plan 83yo female with acute/chronic systolic CHF. #Acute on chronic systolic heart failure - EF 45-50% - -volume status compensated today -had suffered acute kidney injury in the midst of diuresis -Entresto stopped due to ROSALIND -cont IV bumex 1mg daily today, then change to PO bumex tomorrow am -defer on thoracentesis - cxr today shows the effusions are too small; risks outweighed by any benefits -cont Jardiance at d/c #ROSALIND - -Improving nicely; peak Cr 2.7, now 1.3 today -no obstruction on recent renal u/s -BMP am -cont to hold Entresto including at d/c #WHO group 2 pulmonary arterial hypertension//restrictive lung disease secondary to Scoliosis - -would perform 2-step before d/c back to [facility] #h/o SIADH - -Na levels wnl #Chronic diarrhea - -thought 2nd to subtotal colectomy and removal of ileocecal valve along with cholecystectomy leading to bile acid diarrhea -continue colestipol but would lower to BID dosing to prevent issues with absorption of other medicine #Atrial fibrillation - -Eliquis can be resumed tonight; thoracentesis not needed -cont amiodarone #right eye conjunctivitis - -cipro eye drops 1 drop QID to R eye x 7 days #hypothyroidism - -last 9 TSH levels all high -has been on escalating doses of synthroid over the last few months -last dose change was from 88 to 100mcg in mid-September -reasonable to increase to 112mcg with recheck of TSH in 4-6 weeks can d/c to [facility] tomorrow obtain 2-step before d/c updated pt's daughter by phone explained we will get her mother established with CHF clinic, [facility], and that I would reach out to Denice CACERES personally for this referral Admission and Anticipated Discharge Date Admission Date: October 13, 2024 Subjective patient resting in bed denies any new complaints eating fair-good tele overnight with rate-controlled a.fib Review of Systems Review of Systems: CV - no chest pain pulm - no dyspnea at rest GI - no n/v Physical Exam Physical Exam: gen - thin, NAD, looks similar to yesterday neck - JVD present eyes - right eye bletharitis vs conjunctivitis - improved today, less erythema mouth - MMM heart - irregularly irregular, s1 s2, 2-3/6 holosystolic murmur LSB, rate <100 lungs - minimally decreased BS both bases, CTA apices b/l, no wheeze, no increased work of breathing back - severe kyphosis abd - soft NT ND BS+ ext - trace edema b/l legs, pulses b/l feet 2+ Results & Data Results & Data Vital Signs (Past 12 Hours) Vital Signs Temp Pulse Pulse Resp BP Pulse Ox O2 Del Method 10/22/24 19:44 36.4 C L 76 18 116/66 97 Room Air 10/22/24 15:32 36.2 C L 74 20 117/79 96 Room Air 10/22/24 14:24 87 10/22/24 11:15 Room Air 10/22/24 11:04 35.7 C L 76 20 100/64 93 Room Air Laboratory Results Laboratory Results 10/22/24 05:31 Sodium 139 Potassium 4.5 Chloride 100 Carbon Dioxide 32 Anion Gap 7 BUN 50 H Creatinine 1.39 H Est Cr Clr Drug Dosing 23.4 eGFR 37.19 BUN/Creatinine Ratio 36.0 H Glucose 70 Calcium 8.7 PG Care Time/CCT Total # of Minutes Spent Total Time Spent with Patient: Total time spent is greater than 50% in coordination of care (as documented) at patient's floor/unit and/or counseling patient: Coding Level of Care Code 48956 SUB INP/OBS CARE 2/35MIN Diagnoses Acute exacerbation of chronic heart failure I50.9 WHO group 2 pulmonary arterial hypertension I27.22 Kyphosis (acquired) (postural) M40.00 Restrictive lung disease due to kyphoscoliosis J98.4; M41.9 Frailty syndrome in geriatric patient R54 Chronic heart failure with mildly reduced ejection fraction (HFmrEF) I50.22 Recurrent major depressive disorder, in remission F33.40 Major depression recurrence: recurrent ROSALIND (acute kidney injury) N17.9 Chronic diarrhea K52.9 (7) Major depressive disorder in remission Major depression recurrence: recurrent Qualified Code(s): F33.40 - Major depressive disorder, recurrent, in remission, unspecified
[2024-10-23 07:40] VITALS: RESP 18
[2024-10-23 07:44] LABS: Anion Gap 5.0 (3-11); Blood Urea Nitrogen 43.0 mg/dl (6-23); Calcium 8.9 mg/dl (8.6-10.3); Carbon Dioxide 35.0 mmol/L (21-32); Chloride 99.0 mmol/L (98-107); Creatinine Clr Calc Pharmacy 24.1 ml/min; Glucose 80.0 mg/dl (70-99(Fasting)); Potassium 3.8 mmol/L (3.5-5.1); Sodium 139.0 mmol/L (136-145)
[2024-10-23] MEDS: BUMETANIDE 1 MG TAB PO SCH (08:17)
--- NOTE | 2024-10-23 11:19 | Discharge Summary ---
Discharge Summary Date of Service date of admission - October 12, 2024 date of discharge - [id number] Principal Dx & Hospital Course #1 = Principal Diagnosis (1) Acute exacerbation of chronic heart failure: (2) WHO group 2 pulmonary arterial hypertension: (3) Kyphosis (acquired) (postural): (4) Restrictive lung disease due to kyphoscoliosis: (5) Frailty syndrome in geriatric patient: (6) Chronic heart failure with mildly reduced ejection fraction (HFmrEF): EF 45-50% (7) Major depressive disorder in remission: (8) ROSALIND (acute kidney injury): peak Cr 2.7 (9) Chronic diarrhea: Plan 83yo female presented with left-sided chest pain, progressive shortness of breath, and lower extremity swelling. At time of presentation had evidence of acute/chronic systolic CHF. Of note - she was hospitalized at [facility] from 09/10 to 09/22 for volume overload from her CHF. #Acute on chronic systolic heart failure - EF 45-50% - -was diuresed for much of the stay with IV Bumex -diuresis was stopped, however, when she developed ROSALIND -Entresto was stopped due to the ROSALIND as well as blood pressures that were low- normal -Amiodarone was continued -Jardiance was continued -she is not on beta elissa -thoracentesis was considered for her pleural effusions but this was deferred as the effusions were ultimately too small -she was seen by Dr Max Gomes, [facility] Cardiology, who provided lantigua recommendations for her cardiac care -at discharge she will take bumex 1mg daily -she will follow-up with NICKI Galdamez - [facility] CHF clinic - within 1 week of discharge #ROSALIND - -2nd to diuresis, Entresto, etc. -peak Cr 2.7, now 1.3 at discharge -no obstruction on renal u/s -cont to hold Entresto at d/c #WHO group 2 pulmonary arterial hypertension//restrictive lung disease secondary to Scoliosis - -2-step was performed prior to discharge back to [facility] -she passed the 2-step --> no need for ambulatory O2 #h/o SIADH - -Na levels wnl while here -Na level was 139 at time of discharge #Chronic diarrhea - -thought 2nd to subtotal colectomy and removal of ileocecal valve along with cholecystectomy leading to bile acid diarrhea -continue colestipol TID #Atrial fibrillation - -cont Eliquis 2.5mg BID -cont amiodarone 200mg daily #right eye conjunctivitis - -cipro eye drops 1 drop QID to R eye x 7 days -improved before discharge #hypothyroidism - -last 9 TSH levels all high in [facility] -her synthroid dose has been increased several times over the last few months -last dose change was from 88 to 100mcg in mid-September 2024 -reasonable to increase to 112mcg daily and recheck TSH in 4-6 weeks #h/o mitral valve repair - -2010 -on recent echo her valve function was acceptable Echo was completed in August 2024 -- seen by PT/OT - cleared to return to [facility] Notes For Next Care Provider 1. patient will be given appointment with NICKI Galdamez - [facility] CHF clinic - within 1 week of discharge 2. recheck TSH in 4-6 weeks due to dose increase in levothyroxine 3. advise repeat BMP in about a week post-discharge to ensure stability of creatinine & electrolytes Medication Changes From Visit 1. stop lasix 2. start bumex 1mg daily 3. levothyroxine 112mcg daily - dose has been increased 4. mag chloride 64mg qam 5. cipro eye drops - 1 drop QID to right eye x 7 days Admission HPI Per Admitting Provider Ms. Farrar is an 83-year-old female whose active medical conditions include heart failure with moderately reduced ejection fraction, paroxysmal atrial fibrillation, hyperlipidemia, hypertension, SIADH among other chronic medical conditions who presented to [facility] on 10/12 due to persistent episodes of left-sided chest pain and progressively increased shortness of breath with lower extremity swelling. The patient was recently hospitalized approximately 2 weeks prior to her current presentation at the same medical facility for an acute on chronic heart failure exacerbation at which time her medications were adjusted and she was discharged in a stable condition. The patient does note persistent coughing episodes usually associated with eating though she has not had any proper aspiration episodes. She describes her chest wall pain as sharp stabbing and very localized along the left costochondral border along the 6th and 7th intercostal space. It is reproducible with palpation, very sharp, and worsened with deep breathing. The patient also notes increasing lower extremity edema over the past week to 10 days, this has been associated with a loss of appetite that has been a chronic process but has acutely worsened. Discharge Exam gen - thin, NAD, resting comfortably in bed neck - JVD improved eyes - right eye bletharitis vs conjunctivitis - improved; minimal erythema, minimal drainage mouth - MMM heart - irregularly irregular, s1 s2, 2-3/6 holosystolic murmur LSB, rate <100 lungs - minimally decreased BS both bases, CTA apices b/l, no wheeze, no increased work of breathing back - severe kyphosis abd - soft NT ND BS+ ext - no edema b/l legs, pulses b/l feet 2+ Discharge Plan Discharge Items Patient Disposition: [facility] Reason For Visit: ACUTE ON CHRONIC HEART FAILURE EXACERBATION Discharge Diagnosis: 1. acute on chronic congestive heart failure 2. acute kidney injury - resolved; discharge creatinine 1.3 3. atrial fibrillation 4. severe kyphosis 5. hypothyroidism 6. chronic diarrhea - significantly improved 7. right eye conjunctivitis - improved Activity: Resume your previous activity Non-emergency contact: Primary Care Provider and Manager General Call non-emergency contact if: you have any medication questions, your symptoms worsen and you have a fever Follow-up/Referrals: Gemma Kaufman PA-C [Physician Sample Case Porter] - 10/29/24 2:00 pm (within 5-7 days - [facility] CHF clinic ) Mike Webster MD [Primary Care Provider] - (OFFICE-MIN WILL CALL THE PATIENT WITH A HOSPITAL FOLLOW UP VISIT.) Diet: Heart Healthy Fluids: 1800ml (7 cups) Addtl Attending Provider Instructions: Ms Farrar was hospitalized due to acute on chronic congestive heart failure. Unfortunately in the midst of the diuresis process (removing fluid out of the lungs/legs) she had an acute kidney injury (rise in kidney number). With time the heart failure improved nicely and the creatinine returned to near- normal at 1.3. Chest x-ray on 10/22 showed that the majority of the fluid in the lungs was gone. On 10/23 a formal oxygen walking test was performed and Ms Farrar does NOT need oxygen for home. Recommendations - 1. DAILY morning standing scale weights; keep a log of those weights 2. If any weight gain of more than 3 pounds over 1-2 days please call [facility] Cardiology for recommendations/advice 3. STOP furosemide 4. START bumetanide 1mg each morning, first dose 10/24 5. cipro eye drops - 1 drop to the right eye 4 times/day x 5 days 6. limit total fluid consumption per 24-hour period to 1800ml or less 7. magnesium supplement has changed 8. thyroid replacement medicine dose has changed 9. repeat TSH level in 4-6 weeks 10. repeat BMP within 5-7 days of discharge to ensure stable creatinine Follow-up - see separate section Return to [facility] if - -fever over 100 degrees occurs -there is worsening shortness of breath -there are chest pains -any other concerns It was our pleasure to care for Mrs Farrar! -Camacho Hannah Pending Studies at Discharge: No Stand-Alone Forms: My [facility], Smoking Cessation Skilled Items Patient informed of condition?: Yes DNR: Yes Discharge Level of Care: Other Communicable Disease: No Discharge Prognosis: Stable Lines: None Urinary Catheter: No Medications and DC Order Prescriptions: New magnesium chloride [Mag 64] 64 mg Tablet,Delayed Release (Dr/Ec) 64 mg PO QAM Qty: 30 1RF bumetanide 1 mg Tablet 1 mg PO QAM Qty: 30 2RF Continued rosuvastatin [Crestor] 20 mg tablet 20 mg PO DAILY 90 Days Qty: 90 3RF alendronate 70 mg tablet 70 mg PO WK Qty: 12 3RF Rx Instructions: Saturday ondansetron HCl 4 mg tablet 4 mg PO Q8H PRN (Reason: nausea and vomiting) donepezil 5 mg tablet 5 mg PO DAILY Qty: 30 2RF (DME) eric.stocking,thigh,reg,med Misc See Rx Instructions .Route Qty: 2 0RF Rx Instructions: As directed (DME) Prevail Brief Medium Misc See Rx Instructions .Route Qty: 80 2RF Rx Instructions: As directed multivitamin Tablet 1 tab PO DAILY Rx Instructions: OTC unable to verify Eliquis 2.5 mg Tablet 2.5 mg PO BID Qty: 60 0RF acetaminophen [Tylenol Extra Strength] 500 mg tablet 1,000 mg PO BID Jardiance 10 mg tablet 10 mg PO QAM Qty: 30 0RF loperamide 2 mg Capsule 2 mg PO Q4H PRN (Reason: loose stool) Qty: 30 0RF amiodarone 200 mg tablet 200 mg PO DAILY Qty: 30 0RF amoxicillin 500 mg tablet 2,000 mg PO ONCE PRN (Reason: dental appointments) Rx Instructions: 4 tabs 1 hour prior to procedure. Dental appointments. ivermectin 3 mg Tablet See Rx Instructions .ROUTE .COMPLEX Rx Instructions: 12 mg orally every 10 days calcium carbonate 500 mg calcium (1,250 mg) Tablet,Chewable 1,000 mg PO BID Ensure Liquid 1 ea PO TIDWMEAL cholecalciferol (vitamin D3) [Vitamin D3] 50 mcg (2,000 unit) Tablet 50 mcg PO DAILY colestipol 1 gram tablet 1 g PO TID Qty: 90 0RF Rx Instructions: 10am, 2pm, and 10pm. Changed levothyroxine 112 mcg capsule 112 mcg PO DAILY Qty: 30 2RF Discontinued sacubitril-valsartan [Entresto] 24-26 mg tablet 1 tab PO BID Qty: 60 2RF ferrous sulfate [FeroSul] 325 mg (65 mg iron) tablet 325 mg PO .SAT,,,SAT Rx Instructions: 325 mg orally four times a week; magnesium oxide 400 mg magnesium capsule 400 mg PO BID Qty: 60 0RF sodium chloride 1,000 mg tablet,soluble 1,000 mg PO DAILY Qty: 30 0RF furosemide 40 mg Tablet 40 mg PO DAILY triamcinolone acetonide 0.1 % Cream 1 applic TOPICAL BID furosemide 20 mg tablet 10 mg PO DAILY Discharge Orders: Discharge Order (Routine); Ordered 10/23/24 Ordered By: Camacho Hannah Admission Data Admit Date/Time: 10/13/24 14:30 Attending Provider: Camacho Hannah Admit Provider: Guillermo Regalado Primary Care Provider: Mike Webster Other Providers: Anatoly Gomes; Gemma Kaufman Other Interventions: Discharge Summary Assessment (RN) Last Done: 10/23/24 11:41 Hospital Stay Data Consultations [facility] Cardiology [facility] CHF Program Referral PT, OT Diagnostic Imagining Performed Chest X-Ray 10/12/24 06:08 EXAM: XR chest 1V portable CLINICAL HISTORY: Chest pain, nonspecific TECHNIQUE: An X-ray image of the chest is obtained in AP projection. COMPARISON: Compared to prior X-ray study dated 09/20/2024. FINDINGS: Pulmonary Parenchyma: Again noted noderate bilateral pleural effusion with underlying basal collapse. The remaining aerated lung zones are clear. Heart and Mediastinum: Heart size and shape are normal. No mediastinal widening or masses. No hilar or mediastinal lymphadenopathy. Bony Thorax: Thoracic spondylodegenerative changes. Soft Tissues: Soft tissues overlying the chest wall are unremarkable. IMPRESSION: 1. Again noted noderate bilateral pleural effusion with underlying basal collapse. Electronically signed by Jose Chirinos 10-12-2024 08:37 AM Chest CTA 10/12/24 07:01 EXAM: CT angio chest PE protocol CLINICAL HISTORY: PE, sob, anterior chest pain/sternal TECHNIQUE: Contiguous axial images were obtained from the neck base through the upper abdomen following intravenous administration of iodinated contrast material. Angiographic images were processed, 3D MIP images were acquired for interpretation. If IV contrast material had not been administered, the likelihood of detecting abnormalities relevant to the patient's condition would have been substantially decreased. Coronal and sagittal 3-D MIPs were likewise performed and indicated to increase the sensitivity of detectin diffuse clinically relevant pathology. CT scan was performed according to ALARA (as low as reasonable achievable). COMPARISON: Sep 15:19:08 DEALER DEVELOPMENT MANAGER FINDINGS: Cardiomegaly with dilated IVC and hepatic veins.- possibility of valvular heart disease likely - echocardiography correlation suggested. Moderate to gross bilateral pleural effusion with basal subsegmental collapse of both lower lobes are seen. Multiple atelectatic bands are noted involving bilateral lungs. Adequate contrast bolus without evidence of pulmonary embolism. The central airways are patent. The heart, aorta, and pulmonary arteries are of normal size and configuration. There are coronary artery and aortic atherosclerotic calcifications. No pericardial effusion is identified. The thyroid is unremarkable. No mediastinal, hilar, or axillary lymphadenopathy is noted. No suspicious lytic or sclerotic osseous lesions are identified. IMPRESSION: 1. No evidence of pulmonary embolism. 2. Cardiomegaly with dilated IVC and hepatic veins.- possibility of valvular heart disease likely - echocardiography correlation suggested. -increased size 3. Moderate to gross bilateral pleural effusion with basal subsegmental collapse of both lower lobes are seen.-new finding. 4. Multiple atelectatic bands are noted involving bilateral lungs.-stable. Electronically signed by Mg Kennedy 10-12-2024 08:10 AM KUB X-Ray 10/13/24 14:31 Abdominal radiograph, one view History: Stool burden Comparison: None Findings: Single AP view of the abdomen performed. The bowel gas pattern appears nonobstructive. Mild to moderate gaseous distention of the distal large bowel. No significant stool is seen radiographically. No pneumatosis or portal venous gas. No abnormal calcifications project over the abdomen. No acute abnormality of the bony structures. Impression: No significant stool identified Electronically signed by Anatoly Weeks 10-13-2024 5:03 PM Renal Ultrasound 10/15/24 09:08 RENAL ULTRASOUND HISTORY: Acute kidney injury jenny COMPARISON: CT chest 10/12/2024. FINDINGS: Right kidney: 9.1 cm. No hydronephrosis. 5 mm calculus of the superior pole right kidney is better seen on prior CT exam. 10 mm hypodense focus suggestive of a cyst. Normal corticomedullary differentiation and cortical thickness. Left kidney: 8.6 cm. No hydronephrosis. Normal corticomedullary differentiation and cortical thickness. Bladder: Partial distension with wall thickening. The bilateral ureteral jets were identified. Ascites with layering pleural effusions. Limited exam secondary to patient body habitus. IMPRESSION: 1. 5 mm right renal calculus is better visualized on the prior CT study. No hydronephrosis. 2. Ascites with pleural effusions redemonstrated. ACT 112: Negative or not required by law. Electronically signed by: David Chandra M.D. 10/15/2024 2:32 PM Chest X-Ray 10/20/24 09:05 XR chest 1V portable CLINICAL HISTORY: pulmonary edema, pleural effusions COMPARISON STUDY: 10/12/2024 FINDINGS: Stable mitral valve repair. Stable prominent cardiomegaly with mild pulmonary vascular congestion. Stable small to moderate bilateral pleural effusions and associated lung base consolidation. IMPRESSION: Stable exam. ACT 112: Negative or not required by law. Electronically signed by: Yuriy Strickland M.D. 10/20/2024 10:50 AM Chest X-Ray 10/22/24 12:14 XR chest 2V PA/lateral CLINICAL HISTORY: b/l effusions, reassess size COMPARISON STUDY: 10/20/2024 FINDINGS: Stable mitral valve repair. Stable cardiomegaly with mild pulmonary vascular congestion. Stable hyperexpanded lungs. Stable small bilateral pleural effusions and associated lung base consolidation. No pneumothorax seen. Stable height loss at multiple mid thoracic vertebral bodies. IMPRESSION: Stable exam. ACT 112: Negative or not required by law. Electronically signed by: Yuriy Strickland M.D. 10/22/2024 1:41 PM Discharge Instructions Given to Patient (Per Discharging Provider) Ms Farrar was hospitalized due to acute on chronic congestive heart failure. Unfortunately in the midst of the diuresis process (removing fluid out of the lungs/legs) she had an acute kidney injury (rise in kidney number). With time the heart failure improved nicely and the creatinine returned to near- normal at 1.3. Chest x-ray on 10/22 showed that the majority of the fluid in the lungs was gone. On 10/23 a formal oxygen walking test was performed and Ms Farrar does NOT need oxygen for home. Recommendations - 1. DAILY morning standing scale weights; keep a log of those weights 2. If any weight gain of more than 3 pounds over 1-2 days please call [facility] Cardiology for recommendations/advice 3. STOP furosemide 4. START bumetanide 1mg each morning, first dose 10/24 5. cipro eye drops - 1 drop to the right eye 4 times/day x 5 days 6. limit total fluid consumption per 24-hour period to 1800ml or less 7. magnesium supplement has changed 8. thyroid replacement medicine dose has changed 9. repeat TSH level in 4-6 weeks 10. repeat BMP within 5-7 days of discharge to ensure stable creatinine Follow-up - see separate section Return to [facility] if - -fever over 100 degrees occurs -there is worsening shortness of breath -there are chest pains -any other concerns It was our pleasure to care for Mrs Farrar! -Camacho Hannah Total Time Total Time Spent Total Time Spent (In Minutes): 45 Total Time Includes: Examination of the Patient, Discharge Planning, Medication Reconciliation and Communication With Other Providers Coding Level of Care Code 13845 INP/OBS DISCH >30 MIN Diagnoses Acute exacerbation of chronic heart failure I50.9 WHO group 2 pulmonary arterial hypertension I27.22 Kyphosis (acquired) (postural) M40.00 Restrictive lung disease due to kyphoscoliosis J98.4; M41.9 Frailty syndrome in geriatric patient R54 Chronic heart failure with mildly reduced ejection fraction (HFmrEF) I50.22 Recurrent major depressive disorder, in remission F33.40 Major depression recurrence: recurrent ROSALIND (acute kidney injury) N17.9 Chronic diarrhea K52.9
[2024-10-23 11:22] VITALS: PULSE 79; TEMP 97.7; O2SAT 98
[2024-10-23 11:43] VITALS: BP 110/75
== END 2024-10-23 14:28 | disposition home or self-care (01) | DRG 291 ==
LOC: ED 05:47 → 2N 05:47 → SUATTDRO 10-13 14:30 → 2N 10-22 20:14